=== PATIENT | female | born 1960 | race Caucasian/White ===

== ENCOUNTER 2017-09-10 14:45 | Emergency (ER) | payer MEDICAID, SELFPAY ==
[2017-09-10 14:47] VITALS: BP 139/67; PULSE 77; RESP 20; TEMP 36.5; O2SAT 97; BMI 47.7
--- NOTE | 2017-09-10 15:13 | EKG12_ITS ---
Test Reason : CHEST PAIN Blood Pressure : / mmHG Vent. Rate : 076 BPM Atrial Rate : 076 BPM P-R Int : 200 ms QRS Dur : 080 ms QT Int : 412 ms P-R-T Axes : 055 -72 036 degrees QTc Int : 463 ms Normal sinus rhythm Left axis deviation Low voltage QRS Abnormal ECG Confirmed by CONCEPCIÓN ODELL, FAYE ([id number]), assistant editor PEGGY CARABALLO ([id number]) on 09/15/2017 2:10:56 PM Referred By: Confirmed By:FAYE BEEBE MD
--- NOTE | 2017-09-10 15:13 | RAD_ITS ---
STUDY: X-RAY CHEST REASON FOR EXAM: Female, 56 years old. Chest pain. TECHNIQUE: Single AP portable view of the chest. COMPARISON: Comparison is made with prior study dated February 26, 2017. FINDINGS: EKG electrodes are seen. There is evidence of vascular congestion and mild degree of CHF. Blunting of the right costophrenic angle. There is moderate cardiac enlargement. Normal mediastinum and kimberley. Normal visualized pulmonary arteries. There is atherosclerotic calcification of the aortic arch with tortuosity. There are diffuse degenerative changes of the visualized thoracic spine. Normal visualized ribs, clavicles, and shoulders. There is no demonstrated abnormality of the visualized soft tissue structures of the upper abdomen. RAD/Chest 1 View (Portable) IMPRESSION: Cardiomegaly. Mild degree of CHF. Electronically Signed: Sergo Mata MD at 15:39 EST Tel [phone], Service support ,
[2017-09-10 15:26] LABS: Absolute Lymphocyte Count 2.22 X10^3/ul (0.83-4.51); Absolute Neutrophil Count 6.9 X10^3/uL (2.0-7.7); Basophil# 0.04 X10^3/uL; Basophil% 0.4 % (0-1); Eosinophil# 0.31 X10^3/uL; Eosinophils% 3.1 % (0-5); Hematocrit 42.6 % (37-47); Hemoglobin 13.8 g/dl (12.0-15.0); Lymphocyte # 2.22 X10^3/ul (4.0); Lymphocyte % 21.9 % (19-41); Mean Corp Hgb Conc 32.4 g/gl (32-36); Mean Corpuscular Hgb 28.4 pg (27.0-32.0); Mean Corpuscular Volume 87.7 fL (81-99); Mean Platelet Vol. 9.4 fl (6.2-12.0); Monocyte# 0.59 X10^3/uL; Monocyte% 5.8 % (0-10); Neutrophil # 6.93 X10^3/uL (2.7-7.7); Neutrophil % 68.5 % (47-70); Platelet Count 365 K/mm3 (150-450); RBC Distribution Width CV 14.7 % (11.6-14.6); RBC Distribution Width SD 47.2 fl (35.1-43.9); Red Blood Count 4.86 M/mm3 (4.2-5.4); White Blood Count 10.1 K/mm3 (4.4-11.0)
[2017-09-10] MEDS: Aspirin 81 MG TAB.CHEW 324 MG PO (15:30)
[2017-09-10 15:34] LABS: Anion Gap 3 (5-15); BUN 13 mg/dL (7-18); BUN/Creat Ratio 13.6 RATIO (10-20); Calcium,Total 8.5 mg/dL (8.5-10.1); Chloride 102 mmol/L (98-107); Creatinine, Serum 0.96 mg/dL (0.55-1.02); EST Glomerular Filtration Rate 64 mL/min (>60); Est Glom Filt Rate - Afr Amer 77 mL/min (>60); Estimated Creatinine Clearance 45.88 ml/min; Glucose 90 mg/dL (74-106); Potassium 3.6 mmol/L (3.5-5.1); Sodium Level 138 mmol/L (136-145)
[2017-09-10 15:36] LABS: POSITIVE COUNT NO; POSITIVE DIFFERENTIAL NO; POSITIVE MORPHOLOGY NO
[2017-09-10 15:56] VITALS: BP 153/57; PULSE 74; RESP 20; O2SAT 98
[2017-09-10 15:57] LABS: BNP,B-Type NATRIURETIC PEPTIDE 46.8 pg/mL (0-100)
[2017-09-10 16:44] VITALS: BP 148/81; PULSE 75; RESP 16; O2SAT 97
[2017-09-10] MEDS: Furosemide 40 MG/4 ML Vial IV (16:49)
--- NOTE | 2017-09-10 17:06 | ED.DCSUM_ITS ---
- ER Visit Summary Date of Service: 09/10/17 Chief Complaint: Chest pain and swelling History of Present Illness: The patient is a 56 F with a history of CHF, COPD, diabetes, hypertension, and depression. She is on home oxygen. She reports a 4 day history of left-sided chest pain. It is constant and unchanged with exertion. She denies significant shortness of breath. She is also complaining of increased swelling over the past 2 weeks. She was seen by her PCP last week and her Bumex was increased for 3 days. She reports no significant improvement in her swelling. Physical Examination: Vital signs are unremarkable. She is on 4 L nasal cannula at baseline. Head neck examination is unremarkable. Heart is regular rate and rhythm. No lung sounds with mild end expiratory wheezes. I do not appreciate any crackles. Abdomen is soft nontender. Lower external examination reveals 3-4+ edema, left leg slightly worse than right. She states this is a chronic condition with one leg being worse than the other. Patient has chronic skin changes of the shins with no sign of acute cellulitis. Test Results: Chest x-ray shows cardiomegaly and mild CHF. EKG is sinus at 76 with no sign of acute ischemia. CBC and chemistry studies are significant only for bicarb of 33. Troponin is less than 0.02. BNP is 46. Emergency Department Course and Treatment: On review of records patient had a nuclear stress test in May 2016 that was normal. At this time she is given 40 mg of IV Lasix. I spoke with the patient's primary care physician, Dr. Burnett. Her Bumex will be increased to 2 tabs twice daily and she is to call Friday with an update. Treatment Plan: [] Disposition: Discharge Impression: CHF with peripheral edema This note was generated with [employer] dictation software. It may contain incorrect words, spelling, and punctuation that were not noted in review of the chart prior to signing ED Disposition - Plan for ED Patient: Disposition: Home or Assisted Living Chief Complaint: Chest Pain Instructions: ED CHF General Referrals: John Burnett DO [Primary Care Provider] - 2 Days Additional Instructions: Per Dr Burnett, increase your Bumex to 2 tabs twice a day. Call him on Friday with an update.
[2017-09-10 17:21] VITALS: BP 120/85; PULSE 74; RESP 13; O2SAT 98
--- NOTE | 2017-09-10 17:22 | ED.RN ---
REVIEWED D/C INSTRUCTIONS, FOLLOW UP CARE, AND S/S THAT WOULD WARRANT A RETURN TO THE ED WITH PT. PT VERBALIZED AN UNDERSTANDING AND DENIES FURTHER QUESTIONS FOR THIS RN. PT SKIN P/W/D, RESP EVEN AND UNLABORED, PT A&O X 3, NO DISTRESS NOTED. PT ASSISTED OUT OF ED IN WHEELCHAIR.
== END 2017-09-10 17:24 | disposition home or self-care (01) ==
PROVIDERS: Emergency Provider Emergency Medicine; Family Provider Family Medicine; PCP Family Medicine
DX: I11.0 Hypertensive heart disease with heart failure (principal); I50.9 Heart failure, unspecified; R60.0 Localized edema; J44.9 Chronic obstructive pulmonary disease, unspecified; E11.9 Type 2 diabetes mellitus without complications; Z79.4 Long term (current) use of insulin; F32.9 Major depressive disorder, single episode, unspecified; Z99.81 Dependence on supplemental oxygen; E66.9 Obesity, unspecified; Z72.0 Tobacco use; Z79.82 Long term (current) use of aspirin; Z79.899 Other long term (current) drug therapy
CPT/HCPCS: 36415; 71045; 80048; 83880; 84484; 85025; 93005; 96374; 99285; A4216; J1940

== ENCOUNTER → 2017-10-02 16:02 | Outpatient (CLI) | payer MEDICAID, SELFPAY ==
--- NOTE | 2017-10-02 15:00 | LES_PTH ---
PATIENT: NASRIN ENGLAND LOC: [facility] U#:[id number] AGE/SX: 64/F ROOM: RE10/02/[address]: Dr. Julieth Brown DO : 1960 BED: DIS: SPEC #: [id number] RECD: 10/02/17 17:28 STATUS: ALAN ALEXANDRO #: [id number] JASPAL: 10/02/17 15:[address]: Julieth Brown DEPT: SURGICAL PATHOLOGY RECD BY: Adis Rubio ENTERED: 10/03/17 08:56 SP TYPE: Lesion OTHR DR: Dr. John Burnett DO Tissues: Skin of breast, NOS Procedures: Special Stain Group I Surgery Specimen Level IV AFB Stain (control) GMS Stain (control) HEADER OPERATION: Punch biopsy, left medial breast PRE-OP DIAGNOSIS: Nonhealing wound, rule out malignancy TISSUE SUBMITTED: Left medial breast FIXATION TIME: 100 hours MICROSCOPIC DIAGNOSIS Left medial breast skin, shave biopsy: Focal ulceration and acute and chronic inflammation. Negative for malignancy. Special stains for acid fast bacilli and fungi are negative for organisms; matched controls are appropriate. JACKIE:vianey 10/06/17 MICROSCOPIC DESCRIPTION Slides are reviewed. GROSS DESCRIPTION Received in fixative is one container labeled with the patient's name and designated left medial breast. The specimen consists of a piece of goodwin-white skin measuring 1 x 0.4 x 0.1 cm. The specimen is inked and submitted entirely in one cassette. It will be serially sectioned at the time of embedding. / JACKIE:vianey 10/03/17 TC:2 CPT: 92711, 66434 x2
== END ==
PROVIDERS: Family Provider Family Medicine; PCP Family Medicine; Visit Provider Family Medicine
DX: S21.002A Unspecified open wound of left breast, initial encounter (principal); X58.XXXA Exposure to other specified factors, initial encounter
CPT/HCPCS: 87070; 87075; 87077; 87205; 88305; 88312

== ENCOUNTER 2017-11-03 12:59 | Inpatient (IN) | payer MEDICAID, SELFPAY ==
[2017-11-03] VITALS (21 sets, daily range): BP systolic 121–143; BP diastolic 59–101; PULSE 65–95; RESP 10–20; TEMP 36.5–36.9; O2SAT 88–94; BMI 45.3; BMI 44.5; BMI 44.6
--- NOTE | 2017-11-03 13:23 | EKG12_ITS ---
Test Reason : SOB Blood Pressure : / mmHG Vent. Rate : 091 BPM Atrial Rate : 091 BPM P-R Int : 202 ms QRS Dur : 082 ms QT Int : 404 ms P-R-T Axes : 049 233 050 degrees QTc Int : 496 ms Normal sinus rhythm Low voltage QRS Borderline ECG Confirmed by CONCEPCIÓN ODELL, FAYE ([id number]), magazine editor PEGGY CARABALLO ([id number]) on 11/07/2017 3:00:37 PM Referred By: DIEGO/DARYN Confirmed By:FAYE BEEBE MD
--- NOTE | 2017-11-03 13:30 | RAD_ITS ---
STUDY: X-RAY CHEST REASON FOR EXAM: Female, 57 years old. Shortness of breath and cough TECHNIQUE: Single AP portable view of the chest. COMPARISON: 09/10/2017 FINDINGS: EKG leads overlie the chest Lungs are expanded, there is chronic interstitial changes with increased opacification in the right costophrenic angle suggesting atelectasis or infiltrate. Follow-up recommended to assure resolution. Stable nonspecific pleural thickening. Stable cardiomegaly. Normal mediastinum and kimberley. Normal visualized pulmonary arteries. Normal visualized aortic arch and descending thoracic aorta. There are diffuse degenerative changes of the visualized thoracic spine. Normal visualized ribs, clavicles, and shoulders. There is no demonstrated abnormality of the visualized soft tissue structures of the upper abdomen. RAD/Chest 1 View (Portable) IMPRESSION: Chronic interstitial changes with superimposed opacification in the right costophrenic angle suggesting infiltrate or atelectasis. Follow-up recommended to assure resolution Electronically Signed: Alphonso Farooq MD at 13:50 EDT , Service support ,
[2017-11-03] MEDS: 0.9% Normal Saline 1,000 ML 150 ML IV (13:44)
[2017-11-03] MEDS: Ipratropium/Albuterol Sulfate 3 ML AMPUL.NEB INHALATION ×3 (13:45→23:38)
[2017-11-03 13:47] LABS: Absolute Lymphocyte Count 1.02 X10^3/ul (0.83-4.51); Absolute Neutrophil Count 15.7 X10^3/uL (2.0-7.7); Basophil# 0.04 X10^3/uL; Basophil% 0.2 % (0-1); Eosinophil# 0.07 X10^3/uL; Eosinophils% 0.4 % (0-5); Hematocrit 48.3 % (37-47); Hemoglobin 15.9 g/dl (12.0-15.0); Lymphocyte # 1.02 X10^3/ul (4.0); Lymphocyte % 5.9 % (19-41); Mean Corp Hgb Conc 32.9 g/gl (32-36); Mean Corpuscular Hgb 27.6 pg (27.0-32.0); Mean Corpuscular Volume 83.7 fL (81-99); Mean Platelet Vol. 9.8 fl (6.2-12.0); Monocyte# 0.41 X10^3/uL; Monocyte% 2.4 % (0-10); Neutrophil # 15.73 X10^3/uL (2.7-7.7); Neutrophil % 90.9 % (47-70); Platelet Count 315 K/mm3 (150-450); RBC Distribution Width CV 13.5 % (11.6-14.6); RBC Distribution Width SD 41.1 fl (35.1-43.9); Red Blood Count 5.77 M/mm3 (4.2-5.4); White Blood Count 17.3 K/mm3 (4.4-11.0)
[2017-11-03 13:57] LABS: POSITIVE COUNT NO; POSITIVE DIFFERENTIAL NO; POSITIVE MORPHOLOGY NO
[2017-11-03 14:05] LABS: Anion Gap 7 (5-15); BUN 55 mg/dL (7-18); Calcium,Total 9.3 mg/dL (8.5-10.1); Chloride 75 mmol/L (98-107); Creatinine, Serum 1.72 mg/dL (0.55-1.02); EST Glomerular Filtration Rate 32 mL/min (>60); Est Glom Filt Rate - Afr Amer 39 mL/min (>60); Glucose 370 mg/dL (74-106); Potassium 3.3 mmol/L (3.5-5.1); Sodium Level 123 mmol/L (136-145)
[2017-11-03 14:15] LABS: Allen Test POS; Base Excess 20 mmol/L (-2 to +2); Bicarbonate 43.7 mmol/L (22-26); Blood Gas Specimen Type ART; EPAP 6; FI02 45; IPAP 14; PO2 55 mmHG (75-100); RR 12; SITE R Radial; SO2 88 % (95-99); Time Given 1403; Total Carbon Dioxide 45 mmol/L; pCO2 60.8 mmHg (35-45); pH 7.46 (7.35-7.45)
[2017-11-03] MEDS: Ceftriaxone 1 GM/50 ML BAG IV (14:21)
[2017-11-03 14:22] LABS: BNP,B-Type NATRIURETIC PEPTIDE 40.6 pg/mL (0-100)
--- NOTE | 2017-11-03 14:26 | ED.VISSUMM ---
- ER Visit Summary Date of Service: 11/03/17 Chief Complaint: [Shortness of breath] History of Present Illness: The patient is a 57 F [presents to the emergency department via EMS from home with 3 day history of increasing shortness of breath. Patient has had thick green phlegm production and cough. Patient denies any fever. She denies any chest pain. She describes diffuse fatigue. Patient normally on 4 L of home O2. On EMS arrival patient's O2 sat was in the 70s. Patient received Solu-Medrol and DuoNeb aerosol per EMS.] Physical Examination: [HEENT-PERRLA, EOMI. Cranial nerves II through XII grossly intact. TMs clear. Mucous membranes moist. No adenopathy. Cardiovascular-regular rate and rhythm without murmur or ectopy Lungs-decreased breath sounds bilaterally with rhonchi and expiratory wheezes throughout. Patient is tachypneic. No accessory muscle use or retractions. Abdomen-normoactive bowel sounds, soft, nontender, no rebound or rigidity, no peritoneal signs. Extremities-intact ?4, normal range of motion, normal pulses, atraumatic] Test Results: [EKG obtained on arrival shows sinus rhythm with a ventricular rate of 91 bpm with low voltage QRSs. CBC with differential obtained showed a white count of 17.3, hemoglobin 15.9, hematocrit 48, platelets 315. Chemistry showed a sodium 123 potassium 3.3, chloride 75, CO2 41, BUN 55, creatinine 1.72, glucose 370. Troponin was less than 0.02. Chest x-ray obtained showed chronic changes and a questionable right lower lobe infiltrate. Blood gas showed a pH of 7.46 CO2 of 60 PaO2 of 55 bicarb 43.7 O2 sat 88% on an FiO2 of 45%.] Emergency Department Course and Treatment: [Patient was started on BiPAP and given a DuoNeb aerosol. Patient was started on Rocephin and Zithromax. Blood cultures were ordered.] Treatment Plan: [Admit for antibiotics and further treatment of hypoxemia Disposition: [Admit] Impression: [Pneumonia Hypoxemia Hyponatremia COPD exacerbation] This note was generated with [employer] software. It may contain incorrect words, spelling, and punctuation that were not noted in review of the chart prior to signing ED Disposition - Plan for ED Patient: Chief Complaint: Shortness of Breath Referrals: John Burnett DO [Primary Care Provider] -
--- NOTE | 2017-11-03 14:29 | ED.DCSUM_ITS ---
- ER Visit Summary Date of Service: 11/03/17 Chief Complaint: [Shortness of breath] History of Present Illness: The patient is a 57 F [presents to the emergency department via EMS from home with 3 day history of increasing shortness of breath. Patient has had thick green phlegm production and cough. Patient denies any fever. She denies any chest pain. She describes diffuse fatigue. Patient normally on 4 L of home O2. On EMS arrival patient's O2 sat was in the 70s. Patient received Solu-Medrol and DuoNeb aerosol per EMS.] Physical Examination: [HEENT-PERRLA, EOMI. Cranial nerves II through XII grossly intact. TMs clear. Mucous membranes moist. No adenopathy. Cardiovascular-regular rate and rhythm without murmur or ectopy Lungs-decreased breath sounds bilaterally with rhonchi and expiratory wheezes throughout. Patient is tachypneic. No accessory muscle use or retractions. Abdomen-normoactive bowel sounds, soft, nontender, no rebound or rigidity, no peritoneal signs. Extremities-intact ?4, normal range of motion, normal pulses, atraumatic] Test Results: [EKG obtained on arrival shows sinus rhythm with a ventricular rate of 91 bpm with low voltage QRSs. CBC with differential obtained showed a white count of 17.3, hemoglobin 15.9, hematocrit 48, platelets 315. Chemistry showed a sodium 123 potassium 3.3, chloride 75, CO2 41, BUN 55, creatinine 1.72 , glucose 370. Troponin was less than 0.02. Chest x-ray obtained showed chronic changes and a questionable right lower lobe infiltrate. Blood gas showed a pH of 7.46 CO2 of 60 PaO2 of 55 bicarb 43.7 O2 sat 88% on an FiO2 of 45 %.] Emergency Department Course and Treatment: [Patient was started on BiPAP and given a DuoNeb aerosol. Patient was started on Rocephin and Zithromax. Blood cultures were ordered.] Treatment Plan: [Admit for antibiotics and further treatment of hypoxemia Disposition: [Admit] Impression: [Pneumonia Hypoxemia Hyponatremia COPD exacerbation] This note was generated with [employer]ation software. It may contain incorrect words, spelling, and punctuation that were not noted in review of the chart prior to signing ED Disposition - Plan for ED Patient: Chief Complaint: Shortness of Breath Referrals: John Burnett DO [Primary Care Provider] -
--- NOTE | 2017-11-03 15:10 | CASEMGMT ---
Addendum entered by Pati Blair 11/03/17 15:22: Social Work Note Call from Umm Art confirming pt was being admitted. States that pt has independent aide services and her [id number] provides some of her care. Ezwydeqf-zg-siq is Maricruz Rodriguez and phone number is [phone]. Umm requests to be notified of discharge plan and date once known. AKOSUA Prieto, SENIOR COMMERCIAL LOAN OFFICER Original Note: Social Work Note In to complete initial assessment. Introduced self and role at [facility]. Pt reports to live alone in a one level trailer with 4 steps for entry. Pt denies use of DME. Pt reports to be independent with ADLs, but does not drive. Confirms that her PCP is Dr. Burnett, and her preferred pharmacy is [facility] in [place]. Pt denies having advanced directives. Offer to assist the pt with completion and she requests that this be done tomorrow. Pt claims she has a case finisher through [facility] and her name is Umm Art. Placed call to [facility] and notified that pt was being admitted. According to the pt she has aide services 53 hrs/week and they come out daily. Does not anticipate additional needs at discharge, but is aware that SW on assigned unit will follow if d/c needs arise. AKOSUA Prieto, SENIOR COMMERCIAL LOAN OFFICER
--- NOTE | 2017-11-03 15:13 | PCM.HP.STD ---
Problem List (1) Essential (primary) hypertension Status: Chronic (2) DM2 (diabetes mellitus, type 2) Status: Chronic (3) Morbid obesity Status: Chronic (4) Heart failure with preserved ejection fraction Status: Chronic (5) Depression Status: Chronic (6) Severe chronic obstructive pulmonary disease Status: Chronic History of Present Illness Date of Admission: 11/03/17 Chief Complaint: Shortness of breath, lethargy. The patient is a 57 year old F with past medical history as mentioned above presented to the emergency room because of worsening shortness of breath. Her illness started around 3 days ago with increasing shortness of breath, at rest, aggravated by minimal activity and she could not even walk for a few steps, not relieved by rest, associated with productive cough with green sputum as well as wheezing. She has been using oxygen chronically at 4 L but without improvement. She denies fever or chills. No chest pain, palpitation, dizziness or lightheadedness. 4 days ago, she went to see her PCP who prescribed prednisone for COPD exacerbation. She mentioned that her breathing is not getting any better and just getting worse. Upon arrival of the squad to arouse, patient pulse ox was in the 70s on 4 L of oxygen. In the emergency room, she was afebrile, blood pressure and heart rate were stable and her pulse oximeter was 88% on 4 L. Her routine blood work was remarkable for leukocytosis, sodium of 123, potassium of 3.3 and creatinine of 1.72. Her blood glucose was 370. Troponin was negative. BNP was 40. Chest x-ray showed blunting of both costophrenic angles, questionable infiltrate versus atelectasis on the right base, no significant difference from the previous chest x-ray but underlying infiltrate cannot be ruled out. EKG revealed normal sinus rhythm with prolonged QTC, no acute ischemic changes. Her ABG revealed pH of 7.46, PCO2 of 60 and PO2 of 55. She is being admitted for acute COPD exacerbation, acute on chronic hypoxic and hypercapnic respiratory failure, hyponatremia, hypokalemia, acute kidney injury and probable healthcare associated pneumonia. Past Medical History Past Medical History (Chronic Problems): Chronic Problems (Last Updated 11/03/17 @ 14:57 by Cherelle Mercedes MD) Essential (primary) hypertension (Chronic) DM2 (diabetes mellitus, type 2) (Chronic) Morbid obesity (Chronic) Heart failure with preserved ejection fraction (Chronic) Uncontrolled type II diabetes mellitus (Chronic) Nicotine addiction (Chronic) Depression (Chronic) Severe chronic obstructive pulmonary disease (Chronic) Allergies amitriptyline Allergy (Verified 06/07/17 17:49) Unknown lisinopril Allergy (Verified 02/26/17 11:15) Angioedema duloxetine [From Cymbalta] Adverse Reaction (Verified 06/07/17 17:49) Upset Stomach pregabalin [From Lyrica] Adverse Reaction (Verified 06/07/17 17:49) bad dreams varenicline [From Chantix] Adverse Reaction (Verified 02/26/17 11:15) Unknown ZYBETA Allergy (Uncoded 02/26/17 11:15) Other Home Medications: Ambulatory Orders Medication Instructions Recorded Topiramate [Topamax] 200 mg PO BID #60 04/12/16 Fenofibrate [Tricor] 145 mg PO DAILY 05/20/16 Senna [Senokot] 2 tablet PO DAILY 05/20/16 Tiotropium [place] [Spiriva 2 puff IH DAILY 05/20/16 Respimat] Albuterol Aerosols [Ventolin 2.5 mg INHALATION Q6H PRN PRN 02/26/17 Aerosols] Albuterol Inhaler [Ventolin Hfa] 1 - 2 puff INHALATION Q6H PRN PRN 02/26/17 Betamethasone Valerate [Valisone 1 applic TOPICAL BID 02/26/17 0.1% Cream] Bumetanide [Bumex] 2 mg PO BID 02/26/17 Fluticasone/Vilanterol [Breo 1 puff INHALATION DAILY 02/26/17 Ellipta 200-25 Mcg INH] Loratadine [Claritin] 10 mg PO DAILY 02/26/17 Lorazepam [Ativan] 0.5 - 1 mg PO TID PRN 02/26/17 Omeprazole [Prilosec] 40 mg PO DAILY 02/26/17 Oxygen, Home [Home Oxygen] 4 lpm NASAL DAILY 02/26/17 Simvastatin [Zocor] 40 mg PO QHS 02/26/17 Vit C/E/Zn/Coppr/Lutein/Zeaxan 1 each PO BID 02/26/17 [Preservision Areds 2 Softgel] Aspirin [Aspir-Low] 81 mg PO BID 09/10/17 Cyclobenzaprine [Flexeril] 10 mg PO TID PRN PRN 09/10/17 Escitalopram Oxalate [Lexapro] 10 mg PO DAILY 09/10/17 Gabapentin [Neurontin] 400 mg PO TID 09/10/17 Insulin Human 70/30 [Novolog Mix 60 units SC BID 09/10/17 70-30 Flexpen Syrn] Chlorthalidone 50 mg PO DAILY 11/03/17 Dexamethasone [Decadron] 1 mg PO DAILY 11/03/17 Oxycodone [Oxyir] 10 mg PO Q6H PRN PRN 11/03/17 Prednisone 20 mg PO DAILY 11/03/17 Surgical History: hysterectomy, tonsillectomy, of section, of tubal ligation Psychiatric History: No pertinent psych hx [employer] SERV[employer]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 Denies: Anorexia, Chills, Fever Eyes: Denies: Blurred vision, Double vision, Drainage, Redness HEENT: Denies: Difficulty Hearing, Ear Pain, Eye Pain, Nasal Congestion, Sore Throat Cardiovascular: Denies: Chest Pain, Claudication, Chest Pressure, Edema, Heaviness, Palpitations, Paroxysmal Noc. Dyspnea, Syncope Respiratory: Reports: Cough, Shortness of Breath, Shortness of breath at rest, Shortness of breath upon exertion, Sputum production, Wheezing. Denies: Hemoptysis, Pleuritic Pain Gastrointestinal: Denies: Abdominal Pain, Constipation, Diarrhea, Nausea, Vomiting Genitourinary: Denies: Dysuria, Frequency, Hematuria Musculoskeletal: Denies: Arm Pain, Back Pain, Foot Pain Skin: Denies: Dryness, Rash Neurological: Denies: Balance problems, Double vision, Change in Speech, Slurred speech, Confusion, Focal weakness, Headaches, Incoordination, Numbness Psychiatric: Denies: Anxiety, Depression Endocrine: Denies: Change in Body Habitus, Polydipsia VTE Information - Inpt Only VTE Present on Admission: No VTE Mechan Device Prophylaxis: None VTE Pharm Prophylaxis ordered?: Yes - Physical Exam General: Alert, Oriented x3, Cooperative, - - Moderately short of breath, on BiPAP. HEENT: Atraumatic, PERRLA, EOMI Oral: Moist Mucosa, No Gingival or Mucosal Lesions/ Ulcerations Neck: Supple, No JVD, Trachea Midline, Thyroid Normal Size and Texture Lungs: No rales, Diminished, Rhonchi, Short of Breath, Tachypneic, Wheezes, - - Decreased breath sounds bilateral, bilateral expiratory wheezes, rhonchi. Cardiovascular: Regular rate, Regular Rhythm, Normal S1, Normal S2, PMI Normal Abdomen: Bowel Sounds Present, Soft, Non Tender, Non-Distended, No Hepato-splenomegaly, Obese Extremities: No clubbing, No cyanosis, Edema - Trace edema. Skin: No rashes, No breakdown Lymphatic: No Cervical, Supraclavicular, or Inguinal Adenopathy Neurological: Cranial nerves II-XII grossly intact, Motor Exam 5/5 strength throughout Psych/Mental Status: Normal Affect, Appropriate, Alert and oriented to time, place, person, mood and affect Vital Signs Temp Pulse Resp BP Pulse Ox 98.4 F 93 14 143/70 H 93 11/03/17 13:19 11/03/17 15:09 11/03/17 15:09 11/03/17 15:09 11/03/17 15:09 Oxygen Flow Rate (L/min) 15 Oxygen Delivery Method Bi-pap Weight: 231 lb 14.821 oz Body Mass Index (BMI) 45.3 Finger Stick Blood Glucose 107 Laboratory Tests Past 24 Hrs 11/03/17 11/03/17 11/03/17 13:30 13:30 13:30 WBC 17.3 H RBC 5.77 H Hgb 15.9 H Hct 48.3 H MCV 83.7 MCH 27.6 MCHC 32.9 RDW 13.5 RDW Differential 41.1 Plt Count 315 MPV 9.8 Immature Gran % (Auto) 0.200 Neut % (Auto) 90.9 H Lymph % (Auto) 5.9 L [place] % (Auto) 2.4 Eos % (Auto) 0.4 Baso % (Auto) 0.2 Absolute Neuts (auto) 15.7 H Absolute Lymphs (auto) 1.02 Total Counted Not Reportable Specimen Type Sample Site pH Bicarbonate Actual POC Total CO2 Base Excess O2 Saturation O2 % ABG pCO2 ABG pO2 Bob Test Respiration Rate O2 Delivery Device EPAP IPAP Blood Gas Notified Whom Blood Gas Notified Time Sodium 123 L Potassium 3.3 L Chloride 75 L Carbon Dioxide 41.0 H Anion Gap 7 BUN 55 H Creatinine 1.72 H Estim Creat Clear Calc 25.30 Est GFR (MDRD) Af Amer 39 L Est GFR (MDRD) Non-Af 32 L BUN/Creatinine Ratio 32.0 H Glucose 370 H Calcium 9.3 Troponin I < 0.02 B-Natriuretic Peptide 40.6 11/03/17 14:10 WBC RBC Hgb Hct MCV MCH MCHC RDW RDW Differential Plt Count MPV Immature Gran % (Auto) Neut % (Auto) Lymph % (Auto) [place] % (Auto) Eos % (Auto) Baso % (Auto) Absolute Neuts (auto) Absolute Lymphs (auto) Total Counted Specimen Type ART Sample Site R Radial pH 7.46 H Bicarbonate Actual 43.7 H POC Total CO2 45 Base Excess 20 H O2 Saturation 88 L O2 % 45 ABG pCO2 60.8 H ABG pO2 55 L Bob Test POS Respiration Rate 12 O2 Delivery Device Bi / C PAP EPAP 6 IPAP 14 Blood Gas Notified Whom ED Blood Gas Notified Time 1403 Sodium Potassium Chloride Carbon Dioxide Anion Gap BUN Creatinine Estim Creat Clear Calc Est GFR (MDRD) Af Amer Est GFR (MDRD) Non-Af BUN/Creatinine Ratio Glucose Calcium Troponin I B-Natriuretic Peptide Clinical Impression(s) from Imaging Studies Chest X-Ray 11/03/17 13:30 IMPRESSION: Chronic interstitial changes with superimposed opacification in the right costophrenic angle suggesting infiltrate or atelectasis. Follow-up recommended to assure resolution Electronically Signed: Alphonso Farooq MD at 13:50 EDT , Service support , Assessment/Plan This is a 57 years old female patient presented to the emergency room because of worsening shortness of breath, wheezing and productive cough and she was found to have acute COPD exacerbation complicated by acute on chronic hypoxic and hypercapnic respiratory failure, questionable pneumonia, electrolyte abnormalities and acute kidney injury. #1 acute COPD exacerbation: Chest x-ray reviewed, probable right lower lobe infiltrate although it looks chronic. Plan: Admit to PCU, cardiac monitoring, DuoNeb every 4 hours, albuterol as needed, IV Solu-Medrol, sputum culture, incentive spirometer, chest physical therapy, empiric IV antibiotics as below, continue BiPAP for now, oxygen by nasal cannula to keep O2 saturation more than 92%, PT OT evaluation and treatment. #2 acute on chronic hypoxic and hypercapnic respiratory failure: Patient is on home oxygen at 4 L. In the ER, her pulse ox was 88% on 4 L. This is secondary to above in addition to questionable pneumonia. Plan to treat underlying COPD exacerbation and questionable pneumonia as above and below. #3 questionable healthcare associated pneumonia: Chest x-ray reviewed. She does have a leukocytosis but she has been on prednisone for the last 4 days. She is afebrile. Plan: Blood culture, sputum culture, urinalysis, urine culture, start IV Zosyn and Levaquin for probable healthcare associated pneumonia because patient was admitted back in September. #4 acute kidney injury: Probably due to dehydration because patient has been on Bumex and chlorthalidone as well as poor oral intake. Her baseline kidney function has been normal. Admission creatinine is 1.72. Plan: Gentle IV fluids for hydration with potassium replacement, avoid volume overload, hold Bumex, continue chlorthalidone, repeat BMP tomorrow morning. #5 hyponatremia/hypokalemia: Again, this is likely due to Bumex and chlorthalidone. Her sodium is 123. Plan: Urine osmolality, plasma osmolality, urine sodium and chloride, hold Bumex, IV fluids with potassium replacement for gentle hydration, avoid volume overload, repeat BMP tomorrow morning, check serum magnesium. #6 COPD/chronic respiratory failure: Secondary to COPD and morbid obesity as well as history of diastolic CHF. At home, she has been on 4 L. Plan as above. #7 type 2 diabetes mellitus: ADA diet, Accu-Cheks, insulin sliding scale, continue home doses of insulin. #8 hypertension: Blood pressure stable, continue chlorthalidone. #9 chronic diastolic CHF: Clinically stable, BNP is normal. Plan to hold Bumex, continue chlorthalidone, gentle IV fluids for hydration, close monitoring of volume status to avoid volume overload. #10 DVT prophylaxis: Subcu heparin. This note was generated with [employer] dictation software. It may contain incorrect words, spelling, and punctuation that were not noted in checking the note before signing. Code Visit Inpatient E&M: 72897 Init Hosp L3
--- NOTE | 2017-11-03 15:20 | HP.PCM_ITS ---
Problem List (1) Essential (primary) hypertension Status: Chronic (2) DM2 (diabetes mellitus, type 2) Status: Chronic (3) Morbid obesity Status: Chronic (4) Heart failure with preserved ejection fraction Status: Chronic (5) Depression Status: Chronic (6) Severe chronic obstructive pulmonary disease Status: Chronic History of Present Illness Date of Admission: 11/03/17 Chief Complaint: Shortness of breath, lethargy. The patient is a 57 year old F with past medical history as mentioned above presented to the emergency room because of worsening shortness of breath. Her illness started around 3 days ago with increasing shortness of breath, at rest, aggravated by minimal activity and she could not even walk for a few steps, not relieved by rest, associated with productive cough with green sputum as well as wheezing. She has been using oxygen chronically at 4 L but without improvement. She denies fever or chills. No chest pain, palpitation, dizziness or lightheadedness. 4 days ago, she went to see her PCP who prescribed prednisone for COPD exacerbation. She mentioned that her breathing is not getting any better and just getting worse. Upon arrival of the squad to arouse, patient pulse ox was in the 70s on 4 L of oxygen. In the emergency room , she was afebrile, blood pressure and heart rate were stable and her pulse oximeter was 88% on 4 L. Her routine blood work was remarkable for leukocytosis , sodium of 123, potassium of 3.3 and creatinine of 1.72. Her blood glucose was 370. Troponin was negative. BNP was 40. Chest x-ray showed blunting of both costophrenic angles, questionable infiltrate versus atelectasis on the right base, no significant difference from the previous chest x-ray but underlying infiltrate cannot be ruled out. EKG revealed normal sinus rhythm with prolonged QTC, no acute ischemic changes. Her ABG revealed pH of 7.46, PCO2 of 60 and PO2 of 55. She is being admitted for acute COPD exacerbation, acute on chronic hypoxic and hypercapnic respiratory failure, hyponatremia, hypokalemia, acute kidney injury and probable healthcare associated pneumonia. Past Medical History Past Medical History (Chronic Problems): Chronic Problems (Last Updated 11/03/17 @ 14:57 by Cherelle Mercedes MD) Essential (primary) hypertension (Chronic) DM2 (diabetes mellitus, type 2) (Chronic) Morbid obesity (Chronic) Heart failure with preserved ejection fraction (Chronic) Uncontrolled type II diabetes mellitus (Chronic) Nicotine addiction (Chronic) Depression (Chronic) Severe chronic obstructive pulmonary disease (Chronic) Allergies amitriptyline Allergy (Verified 06/07/17 17:49) Unknown lisinopril Allergy (Verified 02/26/17 11:15) Angioedema duloxetine [From Cymbalta] Adverse Reaction (Verified 06/07/17 17:49) Upset Stomach pregabalin [From Lyrica] Adverse Reaction (Verified 06/07/17 17:49) bad dreams varenicline [From Chantix] Adverse Reaction (Verified 02/26/17 11:15) Unknown ZYBETA Allergy (Uncoded 02/26/17 11:15) Other Home Medications: Ambulatory Orders Medication Instructions Recorded Topiramate [Topamax] 200 mg PO BID #60 04/12/16 Fenofibrate [Tricor] 145 mg PO DAILY 05/20/16 Senna [Senokot] 2 tablet PO DAILY 05/20/16 Tiotropium [place] [Spiriva 2 puff IH DAILY 05/20/16 Respimat] Albuterol Aerosols [Ventolin 2.5 mg INHALATION Q6H PRN PRN 02/26/17 Aerosols] Albuterol Inhaler [Ventolin Hfa] 1 - 2 puff INHALATION Q6H PRN PRN 02/26/17 Betamethasone Valerate [Valisone 1 applic TOPICAL BID 02/26/17 0.1% Cream] Bumetanide [Bumex] 2 mg PO BID 02/26/17 Fluticasone/Vilanterol [Breo 1 puff INHALATION DAILY 02/26/17 Ellipta 200-25 Mcg INH] Loratadine [Claritin] 10 mg PO DAILY 02/26/17 Lorazepam [Ativan] 0.5 - 1 mg PO TID PRN 02/26/17 Omeprazole [Prilosec] 40 mg PO DAILY 02/26/17 Oxygen, Home [Home Oxygen] 4 lpm NASAL DAILY 02/26/17 Simvastatin [Zocor] 40 mg PO QHS 02/26/17 Vit C/E/Zn/Coppr/Lutein/Zeaxan 1 each PO BID 02/26/17 [Preservision Areds 2 Softgel] Aspirin [Aspir-Low] 81 mg PO BID 09/10/17 Cyclobenzaprine [Flexeril] 10 mg PO TID PRN PRN 09/10/17 Escitalopram Oxalate [Lexapro] 10 mg PO DAILY 09/10/17 Gabapentin [Neurontin] 400 mg PO TID 09/10/17 Insulin Human 70/30 [Novolog Mix 60 units SC BID 09/10/17 70-30 Flexpen Syrn] Chlorthalidone 50 mg PO DAILY 11/03/17 Dexamethasone [Decadron] 1 mg PO DAILY 11/03/17 Oxycodone [Oxyir] 10 mg PO Q6H PRN PRN 11/03/17 Prednisone 20 mg PO DAILY 11/03/17 Surgical History: hysterectomy, tonsillectomy, of section, of tubal ligation Psychiatric History: No pertinent psych hx 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 Denies: Anorexia, Chills, Fever Eyes: Denies: Blurred vision, Double vision, Drainage, Redness HEENT: Denies: Difficulty Hearing, Ear Pain, Eye Pain, Nasal Congestion, Sore Throat Cardiovascular: Denies: Chest Pain, Claudication, Chest Pressure, Edema, Heaviness, Palpitations, Paroxysmal Noc. Dyspnea, Syncope Respiratory: Reports: Cough, Shortness of Breath, Shortness of breath at rest, Shortness of breath upon exertion, Sputum production, Wheezing. Denies: Hemoptysis, Pleuritic Pain Gastrointestinal: Denies: Abdominal Pain, Constipation, Diarrhea, Nausea, Vomiting Genitourinary: Denies: Dysuria, Frequency, Hematuria Musculoskeletal: Denies: Arm Pain, Back Pain, Foot Pain Skin: Denies: Dryness, Rash Neurological: Denies: Balance problems, Double vision, Change in Speech, Slurred speech, Confusion, Focal weakness, Headaches, Incoordination, Numbness Psychiatric: Denies: Anxiety, Depression Endocrine: Denies: Change in Body Habitus, Polydipsia VTE Information - Inpt Only VTE Present on Admission: No VTE Mechan Device Prophylaxis: None VTE Pharm Prophylaxis ordered?: Yes - Physical Exam General: Alert, Oriented x3, Cooperative, - - Moderately short of breath, on BiPAP. HEENT: Atraumatic, PERRLA, EOMI Oral: Moist Mucosa, No Gingival or Mucosal Lesions/ Ulcerations Neck: Supple, No JVD, Trachea Midline, Thyroid Normal Size and Texture Lungs: No rales, Diminished, Rhonchi, Short of Breath, Tachypneic, Wheezes, - - Decreased breath sounds bilateral, bilateral expiratory wheezes, rhonchi. Cardiovascular: Regular rate, Regular Rhythm, Normal S1, Normal S2, PMI Normal Abdomen: Bowel Sounds Present, Soft, Non Tender, Non-Distended, No Hepato- splenomegaly, Obese Extremities: No clubbing, No cyanosis, Edema - Trace edema. Skin: No rashes, No breakdown Lymphatic: No Cervical, Supraclavicular, or Inguinal Adenopathy Neurological: Cranial nerves II-XII grossly intact, Motor Exam 5/5 strength throughout Psych/Mental Status: Normal Affect, Appropriate, Alert and oriented to time, place, person, mood and affect Vital Signs Temp Pulse Resp BP Pulse Ox 98.4 F 93 14 143/70 H 93 11/03/17 13:19 11/03/17 15:09 11/03/17 15:09 11/03/17 15:09 11/03/17 15:09 Oxygen Flow Rate (L/min) 15 Oxygen Delivery Method Bi-pap Weight: 231 lb 14.821 oz Body Mass Index (BMI) 45.3 Finger Stick Blood Glucose 107 Laboratory Tests Past 24 Hrs 11/03/17 11/03/17 11/03/17 13:30 13:30 13:30 WBC 17.3 H RBC 5.77 H Hgb 15.9 H Hct 48.3 H MCV 83.7 MCH 27.6 MCHC 32.9 RDW 13.5 RDW Differential 41.1 Plt Count 315 MPV 9.8 Immature Gran % (Auto) 0.200 Neut % (Auto) 90.9 H Lymph % (Auto) 5.9 L Barber % (Auto) 2.4 Eos % (Auto) 0.4 Baso % (Auto) 0.2 Absolute Neuts (auto) 15.7 H Absolute Lymphs (auto) 1.02 Total Counted Not Reportable Specimen Type Sample Site pH Bicarbonate Actual POC Total CO2 Base Excess O2 Saturation O2 % ABG pCO2 ABG pO2 Bob Test Respiration Rate O2 Delivery Device EPAP IPAP Blood Gas Notified Whom Blood Gas Notified Time Sodium 123 L Potassium 3.3 L Chloride 75 L Carbon Dioxide 41.0 H Anion Gap 7 BUN 55 H Creatinine 1.72 H Estim Creat Clear Calc 25.30 Est GFR (MDRD) Af Amer 39 L Est GFR (MDRD) Non-Af 32 L BUN/Creatinine Ratio 32.0 H Glucose 370 H Calcium 9.3 Troponin I < 0.02 B-Natriuretic Peptide 40.6 11/03/17 14:10 WBC RBC Hgb Hct MCV MCH MCHC RDW RDW Differential Plt Count MPV Immature Gran % (Auto) Neut % (Auto) Lymph % (Auto) Barber % (Auto) Eos % (Auto) Baso % (Auto) Absolute Neuts (auto) Absolute Lymphs (auto) Total Counted Specimen Type ART Sample Site R Radial pH 7.46 H Bicarbonate Actual 43.7 H POC Total CO2 45 Base Excess 20 H O2 Saturation 88 L O2 % 45 ABG pCO2 60.8 H ABG pO2 55 L Bob Test POS Respiration Rate 12 O2 Delivery Device Bi / C PAP EPAP 6 IPAP 14 Blood Gas Notified Whom ED Blood Gas Notified Time 1403 Sodium Potassium Chloride Carbon Dioxide Anion Gap BUN Creatinine Estim Creat Clear Calc Est GFR (MDRD) Af Amer Est GFR (MDRD) Non-Af BUN/Creatinine Ratio Glucose Calcium Troponin I B-Natriuretic Peptide Clinical Impression(s) from Imaging Studies Chest X-Ray 11/03/17 13:30 IMPRESSION: Chronic interstitial changes with superimposed opacification in the right costophrenic angle suggesting infiltrate or atelectasis. Follow-up recommended to assure resolution Electronically Signed: Alphonso Farooq MD at 13:50 EDT , Service support , Assessment/Plan This is a 57 years old female patient presented to the emergency room because of worsening shortness of breath, wheezing and productive cough and she was found to have acute COPD exacerbation complicated by acute on chronic hypoxic and hypercapnic respiratory failure, questionable pneumonia, electrolyte abnormalities and acute kidney injury. #1 acute COPD exacerbation: Chest x-ray reviewed, probable right lower lobe infiltrate although it looks chronic. Plan: Admit to PCU, cardiac monitoring, DuoNeb every 4 hours, albuterol as needed, IV Solu-Medrol, sputum culture, incentive spirometer, chest physical therapy, empiric IV antibiotics as below, continue BiPAP for now, oxygen by nasal cannula to keep O2 saturation more than 92%, PT OT evaluation and treatment. #2 acute on chronic hypoxic and hypercapnic respiratory failure: Patient is on home oxygen at 4 L. In the ER, her pulse ox was 88% on 4 L. This is secondary to above in addition to questionable pneumonia. Plan to treat underlying COPD exacerbation and questionable pneumonia as above and below. #3 questionable healthcare associated pneumonia: Chest x-ray reviewed. She does have a leukocytosis but she has been on prednisone for the last 4 days. She is afebrile. Plan: Blood culture, sputum culture, urinalysis, urine culture , start IV Zosyn and Levaquin for probable healthcare associated pneumonia because patient was admitted back in September. #4 acute kidney injury: Probably due to dehydration because patient has been on Bumex and chlorthalidone as well as poor oral intake. Her baseline kidney function has been normal. Admission creatinine is 1.72. Plan: Gentle IV fluids for hydration with potassium replacement, avoid volume overload, hold Bumex, continue chlorthalidone, repeat BMP tomorrow morning. #5 hyponatremia/hypokalemia: Again, this is likely due to Bumex and chlorthalidone. Her sodium is 123. Plan: Urine osmolality, plasma osmolality, urine sodium and chloride, hold Bumex, IV fluids with potassium replacement for gentle hydration, avoid volume overload, repeat BMP tomorrow morning, check serum magnesium. #6 COPD/chronic respiratory failure: Secondary to COPD and morbid obesity as well as history of diastolic CHF. At home, she has been on 4 L. Plan as above. #7 type 2 diabetes mellitus: ADA diet, Accu-Cheks, insulin sliding scale, continue home doses of insulin. #8 hypertension: Blood pressure stable, continue chlorthalidone. #9 chronic diastolic CHF: Clinically stable, BNP is normal. Plan to hold Bumex , continue chlorthalidone, gentle IV fluids for hydration, close monitoring of volume status to avoid volume overload. #10 DVT prophylaxis: Subcu heparin. This note was generated with [employer] dictation software. It may contain incorrect words, spelling, and punctuation that were not noted in checking the note before signing. Code Visit Inpatient E&M: 64097 Init Hosp L3
--- NOTE | 2017-11-03 15:40 | ED.RN ---
PCU will call when bed ready
--- NOTE | 2017-11-03 17:12 | NURSING ---
Home Med list obtained for [facility]. This list entered and confirmed. Unconfirmed meds and doses remain with ? until pt can confirm. Questionable comprehension at this time... pt is drowsy.
[2017-11-03] MEDS: Gabapentin 400 MG Capsule PO (17:53)
[2017-11-03 18:11] LABS: Bedside Glucose 417 mg/dL (70-110)
[2017-11-03] MEDS: levoFLOXacin IV 500 MG/100 ML BAG 100 MG IV (18:37)
[2017-11-03 19:30] LABS: Magnesium 2.6 mg/dL (1.6-2.6)
[2017-11-03] MEDS: Piperacil/Tazobactam 3.375 GM/50 ML ML IV (21:34)
[2017-11-03] MEDS: Atorvastatin Calcium 20 MG Tablet PO (21:34)
[2017-11-03] MEDS: Topiramate 200 MG Tablet PO (21:34)
[2017-11-03] MEDS: Aspirin E.C. 81 MG Tablet PO (21:34)
[2017-11-03] MEDS: Heparin Injection (Vial) 5,000 UNIT/ML VIAL 5000 UNIT SC (21:36)
[2017-11-03 22:11] LABS: Bedside Glucose 383 mg/dL (70-110)
[2017-11-03 22:17] LABS: Osmolality, Serum 304 mOsm/KG (275-295)
[2017-11-04] VITALS (20 sets, daily range): BP systolic 113–149; BP diastolic 59–64; PULSE 68–86; RESP 12–22; TEMP 36.4–36.7; O2SAT 90–99
[2017-11-04 00:01] LABS: Bedside Glucose 296 mg/dL (70-110)
[2017-11-04] MEDS: Ipratropium/Albuterol Sulfate 3 ML AMPUL.NEB INHALATION ×6 (03:52→23:20)
[2017-11-04] MEDS: Piperacil/Tazobactam 3.375 GM/50 ML ML IV ×3 (05:57→21:18)
[2017-11-04] MEDS: Heparin Injection (Vial) 5,000 UNIT/ML VIAL 5000 UNIT SC ×3 (05:57→21:18)
[2017-11-04 06:27] LABS: Absolute Lymphocyte Count 0.65 X10^3/ul (0.83-4.51); Absolute Neutrophil Count 14.4 X10^3/uL (2.0-7.7); Basophil# 0.02 X10^3/uL; Basophil% 0.1 % (0-1); Eosinophil# 0.02 X10^3/uL; Eosinophils% 0.1 % (0-5); Hematocrit 43.6 % (37-47); Hemoglobin 14.2 g/dl (12.0-15.0); Lymphocyte # 0.65 X10^3/ul (4.0); Lymphocyte % 4.2 % (19-41); Mean Corp Hgb Conc 32.6 g/gl (32-36); Mean Corpuscular Hgb 26.9 pg (27.0-32.0); Mean Corpuscular Volume 82.7 fL (81-99); Mean Platelet Vol. 10.1 fl (6.2-12.0); Monocyte% 1.9 % (0-10); Neutrophil # 14.39 X10^3/uL (2.7-7.7); Neutrophil % 93.5 % (47-70); Platelet Count 318 K/mm3 (150-450); RBC Distribution Width CV 13.6 % (11.6-14.6); Red Blood Count 5.27 M/mm3 (4.2-5.4); White Blood Count 15.4 K/mm3 (4.4-11.0)
[2017-11-04 06:28] LABS: POSITIVE COUNT NO; POSITIVE DIFFERENTIAL NO; POSITIVE MORPHOLOGY NO
[2017-11-04 06:45] LABS: Bedside Glucose 187 mg/dL (70-110)
[2017-11-04 06:58] LABS: Anion Gap 8 (5-15); BUN 59 mg/dL (7-18); BUN/Creat Ratio 34.9 RATIO (10-20); Calcium,Total 8.7 mg/dL (8.5-10.1); Chloride 81 mmol/L (98-107); Creatinine, Serum 1.69 mg/dL (0.55-1.02); EST Glomerular Filtration Rate 33 mL/min (>60); Est Glom Filt Rate - Afr Amer 40 mL/min (>60); Estimated Creatinine Clearance 25.75 ml/min; Glucose 154 mg/dL (74-106); Potassium 3.2 mmol/L (3.5-5.1); Sodium Level 130 mmol/L (136-145)
[2017-11-04 07:55] LABS: Mucous, Urine 0 SEEN /hpf (<or=2+)
[2017-11-04 08:01] LABS: Color, Urine Yellow (Yellow); Glucose, Dipstick Normal (Normal); Ketone-Dipstick Negative (Negative); Leukocyte Esterase-Dipstick 100 /ul (Negative); Nitrite-Dipstick Negative (Negative); Occult Blood-Urine 250 /ul (Negative); Protein-Dipstick 100 mg/dl (Negative); Specific Gravity, Urine 1.015 (1.002-1.030); Urine Bilirubin Dipstick Negative (Negative); Urine Clarity Sl. Cloudy (Clear); Urine Urobilinogen Normal (Normal)
[2017-11-04] MEDS: oxyCODONE 5 MG Tablet 10 MG PO (08:02)
[2017-11-04] MEDS: Gabapentin 400 MG Capsule PO ×3 (08:02→16:03)
[2017-11-04] MEDS: LORazepam 1 MG Tablet PO (08:02)
[2017-11-04 08:08] LABS: Urine Chloride 10 mmol/L (Not Establ.)
[2017-11-04 08:10] LABS: Urine Sodium 16 mmol/L (Not Establ.)
[2017-11-04 08:13] LABS: Bacteria 1+ /hpf (None Seen); Red Blood Cells-Urine 25-50 SEEN /hpf (0-5); Squamous Epithelial Cells - UA 0-5 SEEN /hpf (5-10); White Blood Cells 10-25 SEEN /hpf (0-5)
[2017-11-04 08:25] LABS: Osmolality, Urine 402 mOsm/KG
[2017-11-04] MEDS: Senna Tablet 2 TABLET PO (09:22)
[2017-11-04] MEDS: Loratadine 10 MG Tablet PO (09:22)
[2017-11-04] MEDS: Escitalopram Oxalate 10 MG Tablet PO (09:22)
[2017-11-04] MEDS: Chlorthalidone 50 MG Tablet PO (09:22)
[2017-11-04] MEDS: Topiramate 200 MG Tablet PO ×2 (09:22→21:18)
[2017-11-04] MEDS: Fenofibrate 145 MG Tablet PO (09:22)
[2017-11-04] MEDS: Pantoprazole Sodium 40 MG Tablet PO (09:22)
[2017-11-04] MEDS: Aspirin E.C. 81 MG Tablet PO ×2 (09:22→21:18)
[2017-11-04] MEDS: levoFLOXacin IV 250 MG/50 ML BAG 50 MG IV (11:00)
[2017-11-04] MEDS: 0.9% Normal Saline 1,000 ML 125 ML IV ×2 (11:04→20:48)
[2017-11-04 11:21] LABS: Bedside Glucose 302 mg/dL (70-110)
--- NOTE | 2017-11-04 14:29 | PCM.CONS.GEN ---
Problem List (1) Essential (primary) hypertension Status: Chronic (2) DM2 (diabetes mellitus, type 2) Status: Chronic (3) Morbid obesity Status: Chronic (4) Heart failure with preserved ejection fraction Status: Chronic (5) Nicotine addiction Status: Chronic (6) Depression Status: Chronic (7) Severe chronic obstructive pulmonary disease Status: Chronic Reason for Consult Date of Consultation: 11/04/17 Reason for Consultation: resp failure, COPD History of Present Illness: The patient is a 57 year old F past medical history as below, presented to the ED on 11/03/17 with complaints of increased shortness of breath at rest and with exertion, productive cough of green sputum, and anxiety. Patient reports her breathing worsened 6 days ago, presented to her PCP office on Friday and was placed on prednisone taper and Levaquin no subjective improvement. Her breathing worsened, so she presented to the ED. Does have 4 L oxygen requirement at baseline. It is unclear if her PCP put her back on oxygen. The patient previously followed with Dr. Benitez was last seen in December 2016, but states she was unable to make it to any of her follow-up appointments secondary to the fact that she does not drive and her family is unreliable. The patient continues to smoke 2 packs a day and has done so for the past 47 years. She does admit to taking her oxygen off to smoke. Initial lab work showed leukocytosis 17,300, hemoglobin 15.9 hematocrit 48.3. Chemistry remarkable for sodium of 123, potassium 3.3, chloride at 75 and serum bicarb of 41. BUN was elevated at 55 and creatinine 1.72, which is higher than patient normal. Glucose was 370 and serum osmolality 304. Troponin is negative, as well as BNP. ABG was drawn on BiPAP, showed a pH of 7.46, PCO2 60.8, and PO2 of 55. Oxygen saturation was 88%. Blood and urine cultures were obtained and are pending. Plain film chest x-ray showing chronic interstitial changes, superimposed opacification in the right costophrenic angle suggesting infiltrate and/or atelectasis. Patient was given IV azithromycin and Levaquin in the ER, as well as oral potassium and IV fluids. Minute to the progressive care unit for further management. Pulmonary team is consulted for COPD and respiratory failure. Echocardiogram in January 2017 showed normal LV size, wall motion, and hyperdynamic systolic function with an estimated EF of 75%. There was a trivial pericardial effusion. Pulmonary function testing in November 2016 showed an irreversible severe large airway obstructive ventilatory defect with symmetric reduction in diffusing capacity resulting in air trapping, consistent with diagnosis of severe COPD. FEV1 50. Her last pulmonary exercise test was in July 2016 did not indicate a need for supplemental oxygen. She was only able to ambulate 348 feet over the course of 6 minutes which indicates exercise intolerance. Patient also had a polysomnogram in July 2016 which showed no evidence of significant sleep disordered breathing. Past Medical History Past Medical History (Chronic Problems): Chronic Problems (Last Updated 11/03/17 @ 14:57 by Cherelle Mercedes MD) Essential (primary) hypertension (Chronic) DM2 (diabetes mellitus, type 2) (Chronic) Morbid obesity (Chronic) Heart failure with preserved ejection fraction (Chronic) Uncontrolled type II diabetes mellitus (Chronic) Nicotine addiction (Chronic) Depression (Chronic) Severe chronic obstructive pulmonary disease (Chronic) Allergies amitriptyline Allergy (Verified 06/07/17 17:49) Unknown lisinopril Allergy (Verified 02/26/17 11:15) Angioedema duloxetine [From Cymbalta] Adverse Reaction (Verified 06/07/17 17:49) Upset Stomach pregabalin [From Lyrica] Adverse Reaction (Verified 06/07/17 17:49) bad dreams varenicline [From Chantix] Adverse Reaction (Verified 02/26/17 11:15) Unknown ZYBETA Allergy (Uncoded 02/26/17 11:15) Other Home Medications: Ambulatory Orders Medication Instructions Recorded Fenofibrate [Tricor] 145 mg PO DAILY 05/20/16 Senna [Senokot] 2 tablet PO DAILY 05/20/16 Tiotropium [place] [Spiriva 2 puff IH DAILY 05/20/16 Respimat] Albuterol Aerosols [Ventolin 2.5 mg INHALATION Q6H PRN PRN 02/26/17 Aerosols] Albuterol Inhaler [Ventolin Hfa] 1 - 2 puff INHALATION Q6H PRN PRN 02/26/17 Betamethasone Valerate [Valisone 1 applic TOPICAL BID PRN PRN 02/26/17 0.1% Cream] Bumetanide [Bumex] 2 mg PO BID 02/26/17 Fluticasone/Vilanterol [Breo 1 puff INHALATION DAILY 02/26/17 Ellipta 200-25 Mcg INH] Loratadine [Claritin] 10 mg PO DAILY 02/26/17 Lorazepam [Ativan] 1 mg PO TID PRN 02/26/17 Omeprazole [Prilosec] 40 mg PO DAILY 02/26/17 Simvastatin [Zocor] 40 mg PO QHS 02/26/17 Vit C/E/Zn/Coppr/Lutein/Zeaxan 1 each PO BID 02/26/17 [Preservision Areds 2 Softgel] Aspirin [Aspir-Low] 162 mg PO DAILY 09/10/17 Cyclobenzaprine [Flexeril] 10 mg PO TID PRN PRN 09/10/17 Escitalopram Oxalate [Lexapro] 10 mg PO DAILY 09/10/17 Gabapentin [Neurontin] 400 mg PO TID 09/10/17 Insulin Human 70/30 [Novolog Mix 60 units SC BID 09/10/17 70-30 Flexpen Syrn] Chlorthalidone 50 mg PO DAILY 11/03/17 Dexamethasone [Decadron] 1 mg PO DAILY 11/03/17 Fluticasone 110 Mcg [Flovent (SP)] 1 puff INHALATION BID 11/03/17 Oxycodone HCl/Acetaminophen 1 each PO Q4H PRN PRN 11/03/17 [Oxycodone-Acetaminophen 10-325] Prednisone See Taper PO DAILY 11/03/17 Topiramate [Topamax] 200 mg PO BID 11/03/17 Surgical History: hysterectomy, tonsillectomy, of section, of tubal ligation Psychiatric History: No pertinent psych hx [employer] History: No pertinent [employer] history Lives: Alone Smoking Status: Current every day smoker Tobacco Use: Cigarettes Alcohol: None Drugs: None - *Family History Maternal History Items: COPD, No pertinent history Sibling History Items: - - Psoriasis Review of Systems Constitutional: Reports: Fatigue. Denies: Anorexia, Chills, Fever, Night Sweats, Malaise Eyes: Denies: Vision Change HEENT: Denies: Difficulty Swallowing, Dysphasia, Nasal Congestion, Post Nasal Drip, Sinus Congestion, Sinus Drainage, Sore Throat Cardiovascular: Reports: Orthopnea. Denies: Chest Pain, Chest Pressure, Chest Tightness, Edema, Light Headedness, Palpitations, Paroxysmal Noc. Dyspnea, Syncope Respiratory: Reports: Cough, Shortness of breath at rest, Shortness of breath upon exertion, Sputum production, Wheezing. Denies: Hemoptysis Gastrointestinal: Denies: Abdominal Pain, Constipation, Diarrhea, Dyspepsia, Hematemesis, Hematochezia, Nausea, Melena, Vomiting Genitourinary: Reports: Nocturia. Denies: Dysuria, Frequency, Hematuria, Retention Gynecological: Reports: Breast symptoms - nonhealing wound, improved Musculoskeletal: Reports: Back Pain, Joint Pain - chronic, Leg Pain - chronic Skin: Reports: Wounds - h/o breast wound. Denies: Rash Neurological: Reports: Numbness - bilat LEs, neuropathy, Tingling. Denies: Balance problems, Change in Speech, Confusion, Difficulty swallowing, Focal weakness, Tremor, Seizures Psychiatric: Reports: Anxiety, Depression. Denies: Suicidal Ideations Endocrine: Denies: Change in Body Habitus, Polydipsia, Polyuria Hematologic/ Lymphatic: Reports: Easy Bruising, Easy Bleeding. Denies: Adenopathy, Anemia, Hx of blood clot Subjective: Patient was seen and examined. She is falling asleep throughout her entire interview but able to answer questions appropriately. She is oriented ?3. Denies any current shortness of breath, saturations are 93% on a 50% Venturi mask. No sputum production currently. Objective: Clinical Impression(s) from Imaging Studies Chest X-Ray 11/03/17 13:30 IMPRESSION: Chronic interstitial changes with superimposed opacification in the right costophrenic angle suggesting infiltrate or atelectasis. Follow-up recommended to assure resolution Electronically Signed: Alphonso Farooq MD at 13:50 EDT , Service support , - Physical Exam General: Oriented x3, Cooperative, No apparent distress, Lethargic HEENT: Atraumatic, Normocephalic Oral: Moist Mucosa, No Gingival or Mucosal Lesions/ Ulcerations Neck: Supple, No Nodes, Trachea Midline, - - Large neck circumference Lungs: No rhonchi, Diminished, Rales - Faint, right basilar, Wheezes Cardiovascular: Regular rate, Regular Rhythm, Normal S1, Normal S2, No murmurs, No rub noted, No Gallop Abdomen: Bowel Sounds Present, Soft, Non Tender, Obese Extremities: No clubbing, No cyanosis, Edema - Trace lower extremity Skin: - - Venous stasis changes to bilateral lower extremities Musculoskeletal: No Tenderness to Palpation of Joints or Extremities Lymphatic: - - No adenopathy Neurological: Cranial nerves II-XII grossly intact, Neuro grossly intact, Motor Exam 5/5 strength throughout, - - No speech abnormalities Psych/Mental Status: - - Oriented, however lethargic Vital Signs Temp Pulse Resp BP Pulse Ox 98.1 F 84 16 149/62 H 92 11/04/17 09:25 11/04/17 11:20 11/04/17 10:51 11/04/17 09:25 11/04/17 09:25 Oxygen Flow Rate (L/min) 4 Oxygen Delivery Method Non-Rebreather Weight: 228 lb 2.855 oz Body Mass Index (BMI) 44.5 Intake and Output for Last 24 Hours 11/02/17 11/03/17 11/04/17 23:59 23:59 23:59 Intake Total 1157.6 / 1157.6 1044 / 1044 Output Total 1100 / 1100 0 / 0 Balance 57.6 / 57.6 1044 / 1044 Laboratory Tests Past 24 Hrs 11/03/17 11/03/17 11/04/17 18:49 18:49 05:53 WBC 15.4 H RBC 5.27 Hgb 14.2 Hct 43.6 MCV 82.7 MCH 26.9 L MCHC 32.6 RDW 13.6 RDW Differential 41.0 Plt Count 318 MPV 10.1 Immature Gran % (Auto) 0.200 Neut % (Auto) 93.5 H Lymph % (Auto) 4.2 L [place] % (Auto) 1.9 Eos % (Auto) 0.1 Baso % (Auto) 0.1 Absolute Neuts (auto) 14.4 H Absolute Lymphs (auto) 0.65 L Total Counted Not Reportable Sodium Potassium Chloride Carbon Dioxide Anion Gap BUN Creatinine Estim Creat Clear Calc Est GFR (MDRD) Af Amer Est GFR (MDRD) Non-Af BUN/Creatinine Ratio Glucose Serum Osmolality 304 H Calcium Magnesium 2.6 Urine Color Urine Clarity Urine pH Ur Specific [place] Urine Protein Urine Glucose (UA) Urine Ketones Urine Occult Blood Urine Nitrite Urine Bilirubin Urine Urobilinogen Ur Leukocyte Esterase Urine RBC Urine WBC Ur Squamous Epith Cells Urine Bacteria Urine Mucus Urine Osmolality Ur Random Sodium Urine Chloride 11/04/17 11/04/17 11/04/17 05:53 07:13 07:13 WBC RBC Hgb Hct MCV MCH MCHC RDW RDW Differential Plt Count MPV Immature Gran % (Auto) Neut % (Auto) Lymph % (Auto) [place] % (Auto) Eos % (Auto) Baso % (Auto) Absolute Neuts (auto) Absolute Lymphs (auto) Total Counted Sodium 130 L Potassium 3.2 L Chloride 81 L Carbon Dioxide 41.0 H Anion Gap 8 BUN 59 H Creatinine 1.69 H Estim Creat Clear Calc 25.75 Est GFR (MDRD) Af Amer 40 L Est GFR (MDRD) Non-Af 33 L BUN/Creatinine Ratio 34.9 H Glucose 154 H Serum Osmolality Calcium 8.7 Magnesium Urine Color Yellow Urine Clarity Sl. Cloudy Urine pH 6.0 Ur Specific [place] 1.015 Urine Protein 100 H Urine Glucose (UA) Normal Urine Ketones Negative Urine Occult Blood 250 H Urine Nitrite Negative Urine Bilirubin Negative Urine Urobilinogen Normal Ur Leukocyte Esterase 100 H Urine RBC 25-50 SEEN Urine WBC 10-25 SEEN Ur Squamous Epith Cells 0-5 SEEN Urine Bacteria 1+ Urine Mucus 0 SEEN Urine Osmolality 402 Ur Random Sodium Urine Chloride 11/04/17 11/04/17 07:13 07:13 WBC RBC Hgb Hct MCV MCH MCHC RDW RDW Differential Plt Count MPV Immature Gran % (Auto) Neut % (Auto) Lymph % (Auto) [place] % (Auto) Eos % (Auto) Baso % (Auto) Absolute Neuts (auto) Absolute Lymphs (auto) Total Counted Sodium Potassium Chloride Carbon Dioxide Anion Gap BUN Creatinine Estim Creat Clear Calc Est GFR (MDRD) Af Amer Est GFR (MDRD) Non-Af BUN/Creatinine Ratio Glucose Serum Osmolality Calcium Magnesium Urine Color Urine Clarity Urine pH Ur Specific [place] Urine Protein Urine Glucose (UA) Urine Ketones Urine Occult Blood Urine Nitrite Urine Bilirubin Urine Urobilinogen Ur Leukocyte Esterase Urine RBC Urine WBC Ur Squamous Epith Cells Urine Bacteria Urine Mucus Urine Osmolality Ur Random Sodium 16 Urine Chloride 10 POC Glucose 11/04/17 11/04/17 11/03/17 11:10 05:56 23:57 POC Glucose 302 H 187 H 296 H 11/03/17 11/03/17 21:33 17:57 POC Glucose 383 H 417 H Assessment/Plan RECOMMENDATIONS 1. Wean oxygen supplementation to keep saturations 88-92% to prevent paradoxical CO2 retention 2. Encourage incentive spirometer 3. Increase activity as tolerated, PT/OT consult 4. Continue bronchodilators, IV steroids 5. Continue antibiotics pending infectious workup 6. Obtain sputum culture 7. Continue IV fluid resuscitation 8. Utilize BiPAP with all sleep and periodically throughout the day 9. Ambulatory pulse ox prior to discharge 10. Follow-up in pulmonary clinic 2 weeks after discharge with [employer], at which time low-dose CT can be arranged IMPRESSIONS 1. Acute on chronic hypoxic and hypercarbic respiratory failure Chest x-ray with possible right lower lobe infiltrate versus atelectasis. BNP normal. Patient presents with no fever or chills, leukocytosis of 17,300. However, patient has been on prednisone taper since Friday so unclear if elevated white count is secondary to steroid use. Patient is a CO2 retainer as evidenced on her blood gas. Patient is somewhat lethargic but answering questions appropriately when awakened. She is on multiple sedating medications. Utilize BiPAP for now, breaks as tolerated. Wean oxygen as tolerated to keep saturations 88-92%, to prevent paradoxical CO2 retention. Encourage incentive spirometer and Acapella. Mobilize patient as tolerated. Maintain on IV steroids and bronchodilators. Continue antibiotics pending infectious workup. 2. Electrolyte imbalances Significant hyponatremia, sodium is 123. Potassium low at 3.3. Patient is receiving IV fluid resuscitation of normal saline at 1 25 mL/h. Continue. Recheck labs in a.m. 3. Severe COPD, ongoing tobacco abuse Patient has been lost to follow-up in pulmonary clinic. Her last pulmonary function tests were in November 2016 that showed severe COPD with evidence of air trapping. He continues to smoke at least 2 packs a day, despite utilizing 4 L of oxygen continuously. She does take the oxygen off to smoke. She cites family stresses as a cause of her ongoing smoking. She was encouraged to quit smoking, nicotine patch offered. Given her significant smoking history, patient would be candidate for low-dose CT. This can be completed as an outpatient. She can follow-up in the pulmonary clinic in 2 weeks with [employer], at which time this can be arranged. 4. Hypertension/type 2 diabetes/morbid obesity/congestive heart failure/treated depression & anxiety Complicates care, management, recovery, and prognosis. Just insulin as indicated. Would check a hemoglobin A1c. Patient has been referred to behavioral health in the past, however was unable to make her appointment secondary to no transportation. She reports she checked her hospital van service and they do not transport patients from [place]. Would recommend close follow-up. Thank you for the opportunity to participate in this patient's care, please do not hesitate contact us with any further questions or concerns. This note was generated with [employer] dictation software. It may contain incorrect words, spelling, and punctuation that were not noted in checking the note before signing.
[2017-11-04 16:11] LABS: Bedside Glucose 374 mg/dL (70-110)
--- NOTE | 2017-11-04 16:41 | PCM.PN.HOSP ---
Subjective: CC: Shortness of breath or cough. Objective: This is a 57-year-old female who presented with progressive shortness of breath and cough she is found to have pneumonia and COPD exacerbation her respiratory status is worsening. Vitals/I&O's: Vital Signs Temp Pulse Resp BP Pulse Ox 97.7 F L 80 18 127/64 H 92 11/04/17 15:25 11/04/17 15:25 11/04/17 15:25 11/04/17 15:25 11/04/17 15:25 Oxygen Flow Rate (L/min) 4 Oxygen Delivery Method Non-Rebreather Weight: 103.5 kg Body Mass Index (BMI) 44.5 Intake and Output for Last 24 Hours 11/02/17 11/03/17 11/04/17 23:59 23:59 23:59 Intake Total 1157.6 / 1157.6 1044 / 1044 Output Total 1100 / 1100 0 / 0 Balance 57.6 / 57.6 1044 / 1044 Laboratory Results 11/03/17 17:57: POC Glucose 417 H 11/03/17 18:49: Magnesium 2.6 11/03/17 18:49: Serum Osmolality 304 H 11/03/17 21:33: POC Glucose 383 H 11/03/17 23:57: POC Glucose 296 H 11/04/17 05:53: WBC 15.4 H, RBC 5.27, Hgb 14.2, Hct 43.6, MCV 82.7, MCH 26.9 L, MCHC 32.6, RDW 13.6, RDW Differential 41.0, Plt Count 318, MPV 10.1, Immature Gran % (Auto) 0.200, Neut % (Auto) 93.5 H, Lymph % (Auto) 4.2 L, Bartholomew % (Auto) 1.9, Eos % (Auto) 0.1, Baso % (Auto) 0.1, Absolute Neuts (auto) 14.4 H, Absolute Lymphs (auto) 0.65 L, Total Counted Not Reportable 11/04/17 05:53: Sodium 130 L, Potassium 3.2 L, Chloride 81 L, Carbon Dioxide 41.0 H, Anion Gap 8, BUN 59 H, Creatinine 1.69 H, Estim Creat Clear Calc 25.75, Est GFR (MDRD) Af Amer 40 L, Est GFR (MDRD) Non-Af 33 L, BUN/Creatinine Ratio 34.9 H, Glucose 154 H, Calcium 8.7 11/04/17 05:56: POC Glucose 187 H 11/04/17 07:13: Urine Color Yellow, Urine Clarity Sl. Cloudy, Urine pH 6.0, Ur Specific [place] 1.015, Urine Protein 100 H, Urine Glucose (UA) Normal, Urine Ketones Negative, Urine Occult Blood 250 H, Urine Nitrite Negative, Urine Bilirubin Negative, Urine Urobilinogen Normal, Ur Leukocyte Esterase 100 H, Urine RBC 25-50 SEEN, Urine WBC 10-25 SEEN, Ur Squamous Epith Cells 0-5 SEEN, Urine Bacteria 1+, Urine Mucus 0 SEEN 11/04/17 07:13: Urine Osmolality 402 11/04/17 07:13: Urine Chloride 10 11/04/17 07:13: Ur Random Sodium 16 11/04/17 11:10: POC Glucose 302 H 11/04/17 16:02: POC Glucose 374 H Current Medications Acetaminophen (Tylenol) 650 mg PO Q6H PRN PRN PRN Reason: Mild Pain (scale 0-3)/T>100.7 Albuterol Sulfate (Ventolin Aerosols) 2.5 mg INHALATION Q2H PRN PRN PRN Reason: SHORTNESS OF BREATH Albuterol/Ipratropium (Duoneb) 3 ml INHALATION Q4H.RT [facility] Last Admin: 11/04/17 15:19 Dose: 3 ml Aspirin (Ecotrin) 81 mg PO BID [facility] Last Admin: 11/04/17 09:22 Dose: 81 mg Atorvastatin Calcium (Lipitor) 20 mg PO QHS [facility] Last Admin: 11/03/17 21:34 Dose: 20 mg Dextrose (D50w Syringe) 0 gm IV X1 PRN; Protocol PRN Reason: Hypoglycemia Escitalopram Oxalate (Lexapro) 10 mg PO DAILY [facility] Last Admin: 11/04/17 09:22 Dose: 10 mg Fenofibrate (Tricor) 145 mg PO DAILY [facility] Last Admin: 11/04/17 09:22 Dose: 145 mg Gabapentin (Neurontin) 400 mg PO TIDCM [facility] Last Admin: 11/04/17 16:03 Dose: 400 mg Glucagon () 1 mg IM .X1 PRN PRN Reason: Hypoglycemia Heparin Sodium (Porcine) (Heparin Na) 5,000 unit SC Q8 [facility] Last Admin: 11/04/17 13:30 Dose: 5,000 u Piperacillin Sod/Tazobactam Sod (Zosyn) 3.375 gm in 50 mls @ 12.5 mls/hr IV Q8 [facility] Last Admin: 11/04/17 13:30 Dose: 12.5 mls/hr Levofloxacin (Levaquin Iv) 250 mg in 50 mls @ 50 mls/hr IV Q24 [facility] Last Admin: 11/04/17 11:00 Dose: 50 mls/hr Sodium Chloride () 1,000 mls @ 125 mls/hr IV .Q8H [facility] Last Admin: 11/04/17 11:04 Dose: 125 mls/hr Insulin Aspart (Novolog Flexpen (Bkc)) 0 units SC 0800,1200,1700,2200 [facility] PRN Reason: Protocol Last Admin: 11/04/17 16:03 Dose: 6 u Insulin Aspart (Novolog Mix 70-30 Flexpen Syrn) 60 units SC BID [facility] Last Admin: 11/04/17 09:21 Dose: 60 u Loratadine (Claritin) 10 mg PO DAILY [facility] Last Admin: 11/04/17 09:22 Dose: 10 mg Lorazepam (Ativan) 1 mg PO TID PRN PRN Reason: ANXIETY Last Admin: 11/04/17 08:02 Dose: 1 mg Magnesium Hydroxide (Milk Of Magnesia) 30 ml PO DAILY PRN PRN Reason: Constipation Methylprednisolone (Solu-Medrol) 40 mg IV Q8 [facility] Last Admin: 11/04/17 13:30 Dose: 40 mg Ondansetron HCl (Zofran) 4 mg IV Q8H PRN PRN PRN Reason: Nausea Oxycodone HCl (Oxyir) 10 mg PO Q6H PRN PRN PRN Reason: PAIN Last Admin: 11/04/17 08:02 Dose: 10 mg Pantoprazole Sodium (Protonix) 40 mg PO DAILY [facility] Last Admin: 11/04/17 09:22 Dose: 40 mg Senna (Senokot) 2 tablet PO DAILY [facility] Last Admin: 11/04/17 09:22 Dose: 2 tablet Topiramate (Topamax) 200 mg PO BID [facility] Last Admin: 11/04/17 09:22 Dose: 200 mg Medical Necessity - Tobacco Use Smoking Status: Current every day smoker Tobacco Use: Cigarettes Assessment/Plan 1 acute on chronic hypoxic and hypercapnic respiratory failure from COPD and pneumonia; will continue supplemental oxygen ,will enlist pulmonary input. 2. Presumptive healthcare associated pneumonia; will continue on current antibiotics. 3. Acute exacerbation of COPD; continue on bronchodilators and IV steroids. 4 acute kidney injury, prerenal and will continue on IV hydration. Would avoid potential nephrotoxic agents and dose medications based on GFR.. 5. Hyponatremia; will discontinue thiazide diuretic and continuing IV fluids as above. 6. Hypokalemia this will be replaced with oral potassium chloride. 7. type 2 diabetes mellitus; will increase NovoLog 70-30 to70 units twice daily and continue on regular insulin sliding scale. 8 hypertension; in light of her hyponatremia chlorthalidone has been discontinued and Norvasc started. 9. DVT prophylaxis with subcutaneous heparin. Code Visit Inpatient E&M: [id number] [facility] L3
--- NOTE | 2017-11-04 16:44 | PN_ITS ---
Subjective: CC: Shortness of breath or cough. Objective: This is a 57-year-old female who presented with progressive shortness of breath and cough she is found to have pneumonia and COPD exacerbation her respiratory status is worsening. Vitals/I&O's: Vital Signs Temp Pulse Resp BP Pulse Ox 97.7 F L 80 18 127/64 H 92 11/04/17 15:25 11/04/17 15:25 11/04/17 15:25 11/04/17 15:25 11/04/17 15:25 Oxygen Flow Rate (L/min) 4 Oxygen Delivery Method Non-Rebreather Weight: 103.5 kg Body Mass Index (BMI) 44.5 Intake and Output for Last 24 Hours 11/02/17 11/03/17 11/04/17 23:59 23:59 23:59 Intake Total 1157.6 / 1157.6 1044 / 1044 Output Total 1100 / 1100 0 / 0 Balance 57.6 / 57.6 1044 / 1044 Laboratory Results 11/03/17 17:57: POC Glucose 417 H 11/03/17 18:49: Magnesium 2.6 11/03/17 18:49: Serum Osmolality 304 H 11/03/17 21:33: POC Glucose 383 H 11/03/17 23:57: POC Glucose 296 H 11/04/17 05:53: WBC 15.4 H, RBC 5.27, Hgb 14.2, Hct 43.6, MCV 82.7, MCH 26.9 L, MCHC 32.6, RDW 13.6, RDW Differential 41.0, Plt Count 318, MPV 10.1, Immature Gran % (Auto) 0.200, Neut % (Auto) 93.5 H, Lymph % (Auto) 4.2 L, [place] % (Auto) 1.9, Eos % (Auto) 0.1, Baso % (Auto) 0.1, Absolute Neuts (auto) 14.4 H, Absolute Lymphs (auto) 0.65 L, Total Counted Not Reportable 11/04/17 05:53: Sodium 130 L, Potassium 3.2 L, Chloride 81 L, Carbon Dioxide 41.0 H, Anion Gap 8, BUN 59 H, Creatinine 1.69 H, Estim Creat Clear Calc 25.75, Est GFR (MDRD) Af Amer 40 L, Est GFR (MDRD) Non-Af 33 L, BUN/Creatinine Ratio 34.9 H, Glucose 154 H, Calcium 8.7 11/04/17 05:56: POC Glucose 187 H 11/04/17 07:13: Urine Color Yellow, Urine Clarity Sl. Cloudy, Urine pH 6.0, Ur Specific Wilson 1.015, Urine Protein 100 H, Urine Glucose (UA) Normal, Urine Ketones Negative, Urine Occult Blood 250 H, Urine Nitrite Negative, Urine Bilirubin Negative, Urine Urobilinogen Normal, Ur Leukocyte Esterase 100 H, Urine RBC 25-50 SEEN, Urine WBC 10-25 SEEN, Ur Squamous Epith Cells 0-5 SEEN, Urine Bacteria 1+, Urine Mucus 0 SEEN 11/04/17 07:13: Urine Osmolality 402 11/04/17 07:13: Urine Chloride 10 11/04/17 07:13: Ur Random Sodium 16 11/04/17 11:10: POC Glucose 302 H 11/04/17 16:02: POC Glucose 374 H Current Medications Acetaminophen (Tylenol) 650 mg PO Q6H PRN PRN PRN Reason: Mild Pain (scale 0-3)/T>100.7 Albuterol Sulfate (Ventolin Aerosols) 2.5 mg INHALATION Q2H PRN PRN PRN Reason: SHORTNESS OF BREATH Albuterol/Ipratropium (Duoneb) 3 ml INHALATION Q4H.RT [facility] Last Admin: 11/04/17 15:19 Dose: 3 ml Aspirin (Ecotrin) 81 mg PO BID [facility] Last Admin: 11/04/17 09:22 Dose: 81 mg Atorvastatin Calcium (Lipitor) 20 mg PO QHS [facility] Last Admin: 11/03/17 21:34 Dose: 20 mg Dextrose (D50w Syringe) 0 gm IV X1 PRN; Protocol PRN Reason: Hypoglycemia Escitalopram Oxalate (Lexapro) 10 mg PO DAILY [facility] Last Admin: 11/04/17 09:22 Dose: 10 mg Fenofibrate (Tricor) 145 mg PO DAILY [facility] Last Admin: 11/04/17 09:22 Dose: 145 mg Gabapentin (Neurontin) 400 mg PO TIDCM [facility] Last Admin: 11/04/17 16:03 Dose: 400 mg Glucagon () 1 mg IM .X1 PRN PRN Reason: Hypoglycemia Heparin Sodium (Porcine) (Heparin Na) 5,000 unit SC Q8 [facility] Last Admin: 11/04/17 13:30 Dose: 5,000 u Piperacillin Sod/Tazobactam Sod (Zosyn) 3.375 gm in 50 mls @ 12.5 mls/hr IV Q8 [facility] Last Admin: 11/04/17 13:30 Dose: 12.5 mls/hr Levofloxacin (Levaquin Iv) 250 mg in 50 mls @ 50 mls/hr IV Q24 [facility] Last Admin: 11/04/17 11:00 Dose: 50 mls/hr Sodium Chloride () 1,000 mls @ 125 mls/hr IV .Q8H [facility] Last Admin: 11/04/17 11:04 Dose: 125 mls/hr Insulin Aspart (Novolog Flexpen (Bkc)) 0 units SC 0800,1200,1700,2200 [facility] PRN Reason: Protocol Last Admin: 11/04/17 16:03 Dose: 6 u Insulin Aspart (Novolog Mix 70-30 Flexpen Syrn) 60 units SC BID [facility] Last Admin: 11/04/17 09:21 Dose: 60 u Loratadine (Claritin) 10 mg PO DAILY [facility] Last Admin: 11/04/17 09:22 Dose: 10 mg Lorazepam (Ativan) 1 mg PO TID PRN PRN Reason: ANXIETY Last Admin: 11/04/17 08:02 Dose: 1 mg Magnesium Hydroxide (Milk Of Magnesia) 30 ml PO DAILY PRN PRN Reason: Constipation Methylprednisolone (Solu-Medrol) 40 mg IV Q8 [facility] Last Admin: 11/04/17 13:30 Dose: 40 mg Ondansetron HCl (Zofran) 4 mg IV Q8H PRN PRN PRN Reason: Nausea Oxycodone HCl (Oxyir) 10 mg PO Q6H PRN PRN PRN Reason: PAIN Last Admin: 11/04/17 08:02 Dose: 10 mg Pantoprazole Sodium (Protonix) 40 mg PO DAILY [facility] Last Admin: 11/04/17 09:22 Dose: 40 mg Senna (Senokot) 2 tablet PO DAILY [facility] Last Admin: 11/04/17 09:22 Dose: 2 tablet Topiramate (Topamax) 200 mg PO BID [facility] Last Admin: 11/04/17 09:22 Dose: 200 mg Medical Necessity - Tobacco Use Smoking Status: Current every day smoker Tobacco Use: Cigarettes Assessment/Plan 1 acute on chronic hypoxic and hypercapnic respiratory failure from COPD and pneumonia; will continue supplemental oxygen ,will enlist pulmonary input. 2. Presumptive healthcare associated pneumonia; will continue on current antibiotics. 3. Acute exacerbation of COPD; continue on bronchodilators and IV steroids. 4 acute kidney injury, prerenal and will continue on IV hydration. Would avoid potential nephrotoxic agents and dose medications based on GFR.. 5. Hyponatremia; will discontinue thiazide diuretic and continuing IV fluids as above. 6. Hypokalemia this will be replaced with oral potassium chloride. 7. type 2 diabetes mellitus; will increase NovoLog 70-30 to70 units twice daily and continue on regular insulin sliding scale. 8 hypertension; in light of her hyponatremia chlorthalidone has been discontinued and Norvasc started. 9. DVT prophylaxis with subcutaneous heparin. Code Visit Inpatient E&M: 81729 [facility] L3
[2017-11-04] MEDS: Atorvastatin Calcium 20 MG Tablet PO (21:18)
[2017-11-04 21:45] LABS: Bedside Glucose 342 mg/dL (70-110)
[2017-11-05] VITALS (18 sets, daily range): BP systolic 113–148; BP diastolic 51–70; PULSE 67–87; RESP 12–18; TEMP 36.4–36.7; O2SAT 93–98
[2017-11-05] MEDS: Ipratropium/Albuterol Sulfate 3 ML AMPUL.NEB INHALATION ×6 (02:50→22:47)
--- NOTE | 2017-11-05 03:59 | CPS ---
decreased FIO2 to 35%
[2017-11-05] MEDS: Heparin Injection (Vial) 5,000 UNIT/ML VIAL 5000 UNIT SC ×3 (05:15→22:04)
[2017-11-05] MEDS: 0.9% Normal Saline 1,000 ML 125 ML IV (05:17)
[2017-11-05] MEDS: Piperacil/Tazobactam 3.375 GM/50 ML ML IV (05:18)
[2017-11-05 07:05] LABS: Bedside Glucose 233 mg/dL (70-110)
[2017-11-05 07:24] LABS: Anion Gap 5 (5-15); BUN 47 mg/dL (7-18); BUN/Creat Ratio 33.3 RATIO (10-20); Calcium,Total 9.1 mg/dL (8.5-10.1); Chloride 92 mmol/L (98-107); Creatinine, Serum 1.41 mg/dL (0.55-1.02); EST Glomerular Filtration Rate 41 mL/min (>60); Est Glom Filt Rate - Afr Amer 49 mL/min (>60); Estimated Creatinine Clearance 30.86 ml/min; Glucose 213 mg/dL (74-106); Magnesium 2.8 mg/dL (1.6-2.6); Phosphorus 3.7 mg/dL (2.5-4.9); Potassium 3.8 mmol/L (3.5-5.1); Sodium Level 134 mmol/L (136-145)
[2017-11-05 07:43] LABS: Absolute Neutrophil Count 7.4 X10^3/uL (2.0-7.7); Basophil# 0.01 X10^3/uL; Basophil% 0.1 % (0-1); Eosinophil# 0.11 X10^3/uL; Eosinophils% 1.3 % (0-5); Hematocrit 43.7 % (37-47); Hemoglobin 13.7 g/dl (12.0-15.0); Mean Corp Hgb Conc 31.4 g/gl (32-36); Mean Corpuscular Hgb 26.7 pg (27.0-32.0); Mean Corpuscular Volume 85.2 fL (81-99); Mean Platelet Vol. 9.9 fl (6.2-12.0); Monocyte% 3.6 % (0-10); Neutrophil % 88.9 % (47-70); Platelet Count 221 K/mm3 (150-450); RBC Distribution Width CV 13.5 % (11.6-14.6); RBC Distribution Width SD 42.1 fl (35.1-43.9); Red Blood Count 5.13 M/mm3 (4.2-5.4); White Blood Count 8.3 K/mm3 (4.4-11.0)
[2017-11-05 07:47] LABS: Differential Indicated SCAN CRITERIA MET; POSITIVE COUNT NO; POSITIVE DIFFERENTIAL YES; POSITIVE MORPHOLOGY NO
--- NOTE | 2017-11-05 08:21 | PCM.PROGNOTE ---
Patient Problems: Active and Suspected Problems (Last Updated 11/03/17 @ 14:57 by Cherelle Mercedes MD) Acute on chronic respiratory failure with hypoxia and hypercapnia (Acute) COPD exacerbation (Acute) Subjective: Patient was seen and examined. She is sitting up at the bedside but is sitting with family. Asking if she can go home today. Patient states her breathing is almost back to baseline. She is maintaining appropriate saturations on her home requirement of 4 L. Patient more alert this morning, does complain of upper extremity jerks. Still seems somewhat sedated, however. She still has a cough, which is chronic. Sputum production has improved. Objective: Recent lab and culture data reviewed. Blood and urine cultures are pending. Sputum has not been obtained. Remains afebrile and hemodynamically stable. - Physical Exam General: Alert, Oriented x3, Cooperative, No apparent distress, - - no conversational dypsnea HEENT: Atraumatic, Normocephalic Oral: No Gingival or Mucosal Lesions/ Ulcerations, - - edentulous Neck: Supple, No Nodes, Trachea Midline Lungs: No rhonchi, No rales, Diminished, Wheezes - improved Cardiovascular: Regular rate, Regular Rhythm, Normal S1, Normal S2, No murmurs, No rub noted, No Gallop Abdomen: Bowel Sounds Present, Soft, Non Tender, Non-Distended, Obese Extremities: No cyanosis, No edema Skin: - - no changes Musculoskeletal: No Tenderness to Palpation of Joints or Extremities, No Muscle Wasting Lymphatic: - - no adenopathy Neurological: Neuro grossly intact Psych/Mental Status: Alert and oriented to time, place, person, mood and affect Vital Signs Temp Pulse Resp BP Pulse Ox 97.6 F L 75 18 148/70 H 95 11/05/17 03:15 11/05/17 07:40 11/05/17 07:40 11/05/17 03:15 11/05/17 07:40 Oxygen Flow Rate (L/min) 4 Oxygen Delivery Method Nasal Cannula Weight: 228 lb 2.855 oz Body Mass Index (BMI) 44.5 Intake and Output for Last 24 Hours 11/03/17 11/04/17 11/05/17 23:59 23:59 23:59 Intake Total 1157.6 / 1157.6 2126.9 / 2126.9 1729 / 1729 Output Total 1100 / 1100 0 / 0 Balance 57.6 / 57.6 2126.9 / 2126.9 1729 / 1729 Laboratory Tests Past 24 Hrs 11/04/17 11/05/17 11/05/17 07:13 06:55 06:55 WBC 8.3 RBC 5.13 Hgb 13.7 Hct 43.7 MCV 85.2 MCH 26.7 L MCHC 31.4 L RDW 13.5 RDW Differential 42.1 Plt Count 221 MPV 9.9 Immature Gran % (Auto) 0.100 Neut % (Auto) 88.9 H Lymph % (Auto) 6.0 L [place] % (Auto) 3.6 Eos % (Auto) 1.3 Baso % (Auto) 0.1 Absolute Neuts (auto) 7.4 Absolute Lymphs (auto) 0.50 L Total Counted Pending Sodium 134 L Potassium 3.8 Chloride 92 L Carbon Dioxide 37.0 H Anion Gap 5 BUN 47 H Creatinine 1.41 H Estim Creat Clear Calc 30.86 Est GFR (MDRD) Af Amer 49 L Est GFR (MDRD) Non-Af 41 L BUN/Creatinine Ratio 33.3 H Glucose 213 H Calcium 9.1 Phosphorus 3.7 Magnesium 2.8 H Urine Osmolality 402 POC Glucose 11/05/17 11/04/17 11/04/17 06:59 21:17 16:02 POC Glucose 233 H 342 H 374 H 11/04/17 11:10 POC Glucose 302 H Medical Necessity - Tobacco Use Smoking Status: Current every day smoker Tobacco Use: Cigarettes Assessment/Plan Active and Suspected Problems (Last Updated 11/03/17 @ 14:57 by Cherelle Mercedes MD) Acute on chronic respiratory failure with hypoxia and hypercapnia (Acute) COPD exacerbation (Acute) RECOMMENDATIONS 1. Wean oxygen supplementation to keep saturations 88-92% to prevent paradoxical CO2 retention 2. Encourage incentive spirometer and Acapella 3. Increase activity as tolerated, continue PT/OT 4. Continue bronchodilators, okay to transition to oral steroids today with 12 day taper at discharge 5. Continue antibiotics pending infectious workup, narrow accordingly 6. Obtain sputum culture 7. Utilize BiPAP with all sleep and periodically throughout the day PRN 9. Ambulatory pulse ox prior to discharge 10. Follow-up in pulmonary clinic 2 weeks after discharge with DIRECTOR OF PRIMARY CARE, at which time low-dose CT can be arranged IMPRESSIONS 1. Acute on chronic hypoxic and hypercarbic respiratory failure secondary to COPD exacerbation Chest x-ray with possible right lower lobe infiltrate versus atelectasis. BNP normal. Patient presents with no fever or chills, leukocytosis of 17,300. However, patient has been on prednisone taper since Friday so unclear if elevated white count is secondary to steroid use. Patient is a CO2 retainer as evidenced on her blood gas. Lethargy improved, but still falling asleep during conversation. She is on multiple sedating medications. 5/2 Improved. Leukocytosis resolved. No fevers. Wean oxygen as tolerated to keep saturations 88-92%. Encourage incentive spirometer and Acapella. Mobilize patient as tolerated, continue PT/OT. Continue bronchodilators. Continue antibiotics pending infectious workup. Likely okay to transition to oral steroids today. Obtain walking oximetry prior to discharge. Patient cites her ongoing smoking as reason she has not followed up with pulmonary. Patient was again counseled on importance of follow-up and on smoking cessation. Please schedule appt with DIRECTOR OF PRIMARY CARE in 2 weeks. 2. Electrolyte imbalances Hyponatremia significantly improved with IV fluid resuscitation. Potassium replaced and now normal. IVF discontinued. Continue to monitor. 3. Severe COPD, ongoing tobacco abuse Patient has been lost to follow-up in pulmonary clinic. Her last pulmonary function tests were in November 2016 that showed severe COPD with evidence of air trapping. He continues to smoke at least 2 PPD, despite utilizing 4 L of oxygen continuously. She does take the oxygen off to smoke. She cites family stresses as a cause of her ongoing smoking. She was encouraged to quit smoking, nicotine patch offered. Given her significant smoking history and age, patient would be candidate for low-dose CT. This can be completed as an outpatient. 4. Hypertension/type 2 diabetes/morbid obesity/congestive heart failure/treated depression & anxiety Complicates care, management, recovery, and prognosis. Adjust insulin as indicated. Would check a hemoglobin A1c. Patient has been referred to behavioral health in the past, however was unable to make her appointment secondary to no transportation. She reports she checked her hospital van service and they do not transport patients from [place]. Would recommend close follow-up. Thank you for the opportunity to participate in this patient's care, please do not hesitate contact us with any further questions or concerns. This note was generated with Dragon dictation software. It may contain incorrect words, spelling, and punctuation that were not noted in checking the note before signing.
--- NOTE | 2017-11-05 08:25 | PN_ITS ---
Patient Problems: Active and Suspected Problems (Last Updated 11/03/17 @ 14:57 by Cherelle Mercedes MD) Acute on chronic respiratory failure with hypoxia and hypercapnia (Acute) COPD exacerbation (Acute) Subjective: Patient was seen and examined. She is sitting up at the bedside but is sitting with family. Asking if she can go home today. Patient states her breathing is almost back to baseline. She is maintaining appropriate saturations on her home requirement of 4 L. Patient more alert this morning, does complain of upper extremity jerks. Still seems somewhat sedated, however. She still has a cough, which is chronic. Sputum production has improved. Objective: Recent lab and culture data reviewed. Blood and urine cultures are pending. Sputum has not been obtained. Remains afebrile and hemodynamically stable. - Physical Exam General: Alert, Oriented x3, Cooperative, No apparent distress, - - no conversational dypsnea HEENT: Atraumatic, Normocephalic Oral: No Gingival or Mucosal Lesions/ Ulcerations, - - edentulous Neck: Supple, No Nodes, Trachea Midline Lungs: No rhonchi, No rales, Diminished, Wheezes - improved Cardiovascular: Regular rate, Regular Rhythm, Normal S1, Normal S2, No murmurs, No rub noted, No Gallop Abdomen: Bowel Sounds Present, Soft, Non Tender, Non-Distended, Obese Extremities: No cyanosis, No edema Skin: - - no changes Musculoskeletal: No Tenderness to Palpation of Joints or Extremities, No Muscle Wasting Lymphatic: - - no adenopathy Neurological: Neuro grossly intact Psych/Mental Status: Alert and oriented to time, place, person, mood and affect Vital Signs Temp Pulse Resp BP Pulse Ox 97.6 F L 75 18 148/70 H 95 11/05/17 03:15 11/05/17 07:40 11/05/17 07:40 11/05/17 03:15 11/05/17 07:40 Oxygen Flow Rate (L/min) 4 Oxygen Delivery Method Nasal Cannula Weight: 228 lb 2.855 oz Body Mass Index (BMI) 44.5 Intake and Output for Last 24 Hours 11/03/17 11/04/17 11/05/17 23:59 23:59 23:59 Intake Total 1157.6 / 1157.6 2126.9 / 2126.9 1729 / 1729 Output Total 1100 / 1100 0 / 0 Balance 57.6 / 57.6 2126.9 / 2126.9 1729 / 1729 Laboratory Tests Past 24 Hrs 11/04/17 11/05/17 11/05/17 07:13 06:55 06:55 WBC 8.3 RBC 5.13 Hgb 13.7 Hct 43.7 MCV 85.2 MCH 26.7 L MCHC 31.4 L RDW 13.5 RDW Differential 42.1 Plt Count 221 MPV 9.9 Immature Gran % (Auto) 0.100 Neut % (Auto) 88.9 H Lymph % (Auto) 6.0 L [place] % (Auto) 3.6 Eos % (Auto) 1.3 Baso % (Auto) 0.1 Absolute Neuts (auto) 7.4 Absolute Lymphs (auto) 0.50 L Total Counted Pending Sodium 134 L Potassium 3.8 Chloride 92 L Carbon Dioxide 37.0 H Anion Gap 5 BUN 47 H Creatinine 1.41 H Estim Creat Clear Calc 30.86 Est GFR (MDRD) Af Amer 49 L Est GFR (MDRD) Non-Af 41 L BUN/Creatinine Ratio 33.3 H Glucose 213 H Calcium 9.1 Phosphorus 3.7 Magnesium 2.8 H Urine Osmolality 402 POC Glucose 11/05/17 11/04/17 11/04/17 06:59 21:17 16:02 POC Glucose 233 H 342 H 374 H 11/04/17 11:10 POC Glucose 302 H Medical Necessity - Tobacco Use Smoking Status: Current every day smoker Tobacco Use: Cigarettes Assessment/Plan Active and Suspected Problems (Last Updated 11/03/17 @ 14:57 by Cherelle Mercedes MD) Acute on chronic respiratory failure with hypoxia and hypercapnia (Acute) COPD exacerbation (Acute) RECOMMENDATIONS 1. Wean oxygen supplementation to keep saturations 88-92% to prevent paradoxical CO2 retention 2. Encourage incentive spirometer and Acapella 3. Increase activity as tolerated, continue PT/OT 4. Continue bronchodilators, okay to transition to oral steroids today with 12 day taper at discharge 5. Continue antibiotics pending infectious workup, narrow accordingly 6. Obtain sputum culture 7. Utilize BiPAP with all sleep and periodically throughout the day PRN 9. Ambulatory pulse ox prior to discharge 10. Follow-up in pulmonary clinic 2 weeks after discharge with STAPLING MACHINE OPERATOR, at which time low-dose CT can be arranged IMPRESSIONS 1. Acute on chronic hypoxic and hypercarbic respiratory failure secondary to COPD exacerbation Chest x-ray with possible right lower lobe infiltrate versus atelectasis. BNP normal. Patient presents with no fever or chills, leukocytosis of 17,300. However, patient has been on prednisone taper since Friday so unclear if elevated white count is secondary to steroid use. Patient is a CO2 retainer as evidenced on her blood gas. Lethargy improved, but still falling asleep during conversation. She is on multiple sedating medications. 5/2 Improved. Leukocytosis resolved. No fevers. Wean oxygen as tolerated to keep saturations 88-92%. Encourage incentive spirometer and Acapella. Mobilize patient as tolerated, continue PT/OT. Continue bronchodilators. Continue antibiotics pending infectious workup. Likely okay to transition to oral steroids today. Obtain walking oximetry prior to discharge. Patient cites her ongoing smoking as reason she has not followed up with pulmonary. Patient was again counseled on importance of follow-up and on smoking cessation. Please schedule appt with STAPLING MACHINE OPERATOR in 2 weeks. 2. Electrolyte imbalances Hyponatremia significantly improved with IV fluid resuscitation. Potassium replaced and now normal. IVF discontinued. Continue to monitor. 3. Severe COPD, ongoing tobacco abuse Patient has been lost to follow-up in pulmonary clinic. Her last pulmonary function tests were in November 2016 that showed severe COPD with evidence of air trapping. He continues to smoke at least 2 PPD, despite utilizing 4 L of oxygen continuously. She does take the oxygen off to smoke. She cites family stresses as a cause of her ongoing smoking. She was encouraged to quit smoking , nicotine patch offered. Given her significant smoking history and age, patient would be candidate for low-dose CT. This can be completed as an outpatient. 4. Hypertension/type 2 diabetes/morbid obesity/congestive heart failure/ treated depression & anxiety Complicates care, management, recovery, and prognosis. Adjust insulin as indicated. Would check a hemoglobin A1c. Patient has been referred to behavioral health in the past, however was unable to make her appointment secondary to no transportation. She reports she checked her hospital van service and they do not transport patients from [place]. Would recommend close follow-up. Thank you for the opportunity to participate in this patient's care, please do not hesitate contact us with any further questions or concerns. This note was generated with Dragon dictation software. It may contain incorrect words, spelling, and punctuation that were not noted in checking the note before signing.
--- NOTE | 2017-11-05 09:00 | CASEMGMT ---
SW spoke with patient, introduced self and role at [facility]. SW asked patient if she would be interested in having therapy come and see her at home. She said that would be fine. MATY told her SW will work on setting this up. Plan: Home with resumption of waiver aide services and additionally home PT/OT [facility]
[2017-11-05] MEDS: Aspirin E.C. 81 MG Tablet PO ×2 (09:22→22:02)
[2017-11-05] MEDS: Topiramate 200 MG Tablet PO ×2 (09:22→22:02)
[2017-11-05] MEDS: Senna Tablet 2 TABLET PO (09:22)
[2017-11-05] MEDS: Escitalopram Oxalate 10 MG Tablet PO (09:22)
[2017-11-05] MEDS: Gabapentin 400 MG Capsule PO ×3 (09:23→16:45)
[2017-11-05] MEDS: amLODIPine 5 MG Tablet PO (09:23)
[2017-11-05] MEDS: Fenofibrate 145 MG Tablet PO (09:23)
[2017-11-05] MEDS: Pantoprazole Sodium 40 MG Tablet PO (09:23)
[2017-11-05] MEDS: Loratadine 10 MG Tablet PO (09:24)
[2017-11-05] MEDS: levoFLOXacin IV 250 MG/50 ML BAG 50 MG IV (09:29)
--- NOTE | 2017-11-05 10:23 | CASEMGMT ---
Addendum entered by Rosalind Nam 11/06/17 13:44: MATY called [facility] to let the covering senior case manager Leyla know that pt is going home today, as pt's senior case manager, Umm Art is out until the end of next week. MARY Orta, SALVAGER Original Note: Addendum entered by Rosalind Nam 11/05/17 12:20: SW spoke w/Miriam from [facility], they can take pt, SW let her know pt will likely discharge tomorrow. SW faxed face to face. SW will follow up w/discharge instructions to [facility] tomorrow. MARY Orta, SALVAGER Original Note: MATY called [facility], they cannot take pt. SW called [facility], they will review referral and anticipate being able to take pt. SW faxed referral, will await call back. MARY Orta, SALVAGER
[2017-11-05] MEDS: Cefepime HCl 2 GM in 0.9% NS 100 ML Minibag Q12 IV ×2 (11:29→22:02)
[2017-11-05] MEDS: LORazepam 1 MG Tablet PO ×2 (11:43→22:04)
[2017-11-05] MEDS: oxyCODONE 5 MG Tablet 10 MG PO ×2 (11:43→22:04)
[2017-11-05 11:45] LABS: Bedside Glucose 317 mg/dL (70-110)
[2017-11-05] MEDS: 0.9% Normal Saline 1,000 ML 100 ML IV (14:46)
--- NOTE | 2017-11-05 15:51 | PCM.PN.HOSP ---
Patient Problems: Active and Suspected Problems (Last Updated 11/05/17 @ 10:03 by Sandra Alfaro, [employer] SALESPERSON-C) COPD exacerbation (Acute) Acute on chronic respiratory failure with hypoxia and hypercapnia (Acute) Subjective: CC: Shortness of breath and cough Objective: The patient is much improved. Denies any fever, chills , chest pain or hemoptysis she Now on 4 L of oxygen per nasal cannula. Vitals/I&O's: Vital Signs Temp Pulse Resp BP Pulse Ox 98.1 F 75 16 134/51 H 94 11/05/17 15:05 11/05/17 15:05 11/05/17 15:05 11/05/17 15:05 11/05/17 15:05 Oxygen Flow Rate (L/min) 4 Oxygen Delivery Method Nasal Cannula Weight: 103.5 kg Body Mass Index (BMI) 44.5 Intake and Output for Last 24 Hours 11/03/17 11/04/17 11/05/17 23:59 23:59 23:59 Intake Total 1157.6 / 1157.6 2126.9 / 2126.9 3084 / 3084 Output Total 1100 / 1100 0 / 0 300 / 300 Balance 57.6 / 57.6 2126.9 / 2126.9 2784 / 2784 General: Alert, Oriented x3 HEENT: Atraumatic Neck: Supple Lungs: Wheezes Cardiovascular: Regular rate, Normal S1, Normal S2 Abdomen: Bowel Sounds Present, Soft, Non Tender Extremities: No edema Neurological: Cranial nerves II-XII grossly intact, Motor Exam 5/5 strength throughout Microbiology Past 72 Hours 11/05/17 09:43 Sputum, Expectorated/Coughed Gram Stain - Final 11/04/17 07:13 Urine, Clean Catch Urine Culture - Preliminary Culture exhibits no growth. Laboratory Results 11/04/17 16:02: POC Glucose 374 H 11/04/17 21:17: POC Glucose 342 H 11/05/17 06:55: WBC 8.3, RBC 5.13, Hgb 13.7, Hct 43.7, MCV 85.2, MCH 26.7 L, MCHC 31.4 L, RDW 13.5, RDW Differential 42.1, Plt Count 221, MPV 9.9, Immature Gran % (Auto) 0.100, Neut % (Auto) 88.9 H, Lymph % (Auto) 6.0 L, [place] % (Auto) 3.6, Eos % (Auto) 1.3, Baso % (Auto) 0.1, Absolute Neuts (auto) 7.4, Absolute Lymphs (auto) 0.50 L, Total Counted Not Reportable, Differential Comment COMMENT 11/05/17 06:55: Sodium 134 L, Potassium 3.8, Chloride 92 L, Carbon Dioxide 37.0 H, Anion Gap 5, BUN 47 H, Creatinine 1.41 H, Estim Creat Clear Calc 30.86, Est GFR (MDRD) Af Amer 49 L, Est GFR (MDRD) Non-Af 41 L, BUN/Creatinine Ratio 33.3 H, Glucose 213 H, Calcium 9.1, Phosphorus 3.7, Magnesium 2.8 H 11/05/17 06:59: POC Glucose 233 H 11/05/17 11:37: POC Glucose 317 H Current Medications Acetaminophen (Tylenol) 650 mg PO Q6H PRN PRN PRN Reason: Mild Pain (scale 0-3)/T>100.7 Albuterol Sulfate (Ventolin Aerosols) 2.5 mg INHALATION Q2H PRN PRN PRN Reason: SHORTNESS OF BREATH Albuterol/Ipratropium (Duoneb) 3 ml INHALATION Q4H.RT [facility] Last Admin: 11/05/17 15:17 Dose: 3 ml Amlodipine Besylate (Norvasc) 5 mg PO DAILY [facility] Last Admin: 11/05/17 09:23 Dose: 5 mg Aspirin (Ecotrin) 81 mg PO BID [facility] Last Admin: 11/05/17 09:22 Dose: 81 mg Atorvastatin Calcium (Lipitor) 20 mg PO QHS [facility] Last Admin: 11/04/17 21:18 Dose: 20 mg Dextrose (D50w Syringe) 0 gm IV X1 PRN; Protocol PRN Reason: Hypoglycemia Escitalopram Oxalate (Lexapro) 10 mg PO DAILY [facility] Last Admin: 11/05/17 09:22 Dose: 10 mg Fenofibrate (Tricor) 145 mg PO DAILY [facility] Last Admin: 11/05/17 09:23 Dose: 145 mg Gabapentin (Neurontin) 400 mg PO TIDCM [facility] Last Admin: 11/05/17 11:33 Dose: 400 mg Glucagon () 1 mg IM .X1 PRN PRN Reason: Hypoglycemia Heparin Sodium (Porcine) (Heparin Na) 5,000 unit SC Q8 [facility] Last Admin: 11/05/17 14:47 Dose: 5,000 u Cefepime HCl 2 gm/ Sodium (Chloride) 100 mls @ 200 mls/hr IV Q12 [facility] Last Admin: 11/05/17 11:29 Dose: 200 mls/hr Sodium Chloride () 1,000 mls @ 100 mls/hr IV .Q10H [facility] Last Admin: 11/05/17 14:46 Dose: 100 mls/hr Insulin Aspart (Novolog Flexpen (Bkc)) 0 units SC 0800,1200,1700,2200 [facility] PRN Reason: Protocol Last Admin: 11/05/17 11:38 Dose: 5 u Insulin Aspart (Novolog Mix 70-30 Flexpen Syrn) 70 units SC BID [facility] Last Admin: 11/05/17 09:23 Dose: 70 u Loratadine (Claritin) 10 mg PO DAILY [facility] Last Admin: 11/05/17 09:24 Dose: 10 mg Lorazepam (Ativan) 1 mg PO TID PRN PRN Reason: ANXIETY Last Admin: 11/05/17 11:43 Dose: 1 mg Magnesium Hydroxide (Milk Of Magnesia) 30 ml PO DAILY PRN PRN Reason: Constipation Ondansetron HCl (Zofran) 4 mg IV Q8H PRN PRN PRN Reason: Nausea Oxycodone HCl (Oxyir) 10 mg PO Q6H PRN PRN PRN Reason: PAIN Last Admin: 11/05/17 11:43 Dose: 10 mg Pantoprazole Sodium (Protonix) 40 mg PO DAILY [facility] Last Admin: 11/05/17 09:23 Dose: 40 mg Prednisone () 40 mg PO DAILY@0800 [facility] Senna (Senokot) 2 tablet PO DAILY [facility] Last Admin: 11/05/17 09:22 Dose: 2 tablet Topiramate (Topamax) 200 mg PO BID [facility] Last Admin: 11/05/17 09:22 Dose: 200 mg Medical Necessity - Tobacco Use Smoking Status: Current every day smoker Tobacco Use: Cigarettes Assessment/Plan Active and Suspected Problems (Last Updated 11/05/17 @ 10:03 by Sandra Alfaro NP-C) COPD exacerbation (Acute) Acute on chronic respiratory failure with hypoxia and hypercapnia (Acute) 1 acute on chronic hypoxic and hypercapnic respiratory failure from COPD and pneumonia; will continue supplemental oxygen . 2. Presumptive healthcare associated pneumonia; antibiotics changed to cefepime, will follow on sputum cultures. 3. Acute exacerbation of COPD; continue on bronchodilators , will change to prednisone 4 acute kidney injury, prerenal , improved with decreased IV hydration. 5. Hyponatremia; improved, thiazide diuretic discontinued. 6. Hypokalemia this will be replaced with oral potassium chloride as needed 7. type 2 diabetes mellitus; will increase NovoLog 70-30 to70 units twice daily and continue on regular insulin sliding scale. 8 hypertension; we will continue on Norvasc 9. DVT prophylaxis with subcutaneous heparin. Code Visit Inpatient E&M: 42408 Subs Hosp L2
--- NOTE | 2017-11-05 15:58 | PN_ITS ---
Patient Problems: Active and Suspected Problems (Last Updated 11/05/17 @ 10:03 by Sandra Alfaro , BACK STAYER-C) COPD exacerbation (Acute) Acute on chronic respiratory failure with hypoxia and hypercapnia (Acute) Subjective: CC: Shortness of breath and cough Objective: The patient is much improved. Denies any fever, chills , chest pain or hemoptysis she Now on 4 L of oxygen per nasal cannula. Vitals/I&O's: Vital Signs Temp Pulse Resp BP Pulse Ox 98.1 F 75 16 134/51 H 94 11/05/17 15:05 11/05/17 15:05 11/05/17 15:05 11/05/17 15:05 11/05/17 15:05 Oxygen Flow Rate (L/min) 4 Oxygen Delivery Method Nasal Cannula Weight: 103.5 kg Body Mass Index (BMI) 44.5 Intake and Output for Last 24 Hours 11/03/17 11/04/17 11/05/17 23:59 23:59 23:59 Intake Total 1157.6 / 1157.6 2126.9 / 2126.9 3084 / 3084 Output Total 1100 / 1100 0 / 0 300 / 300 Balance 57.6 / 57.6 2126.9 / 2126.9 2784 / 2784 General: Alert, Oriented x3 HEENT: Atraumatic Neck: Supple Lungs: Wheezes Cardiovascular: Regular rate, Normal S1, Normal S2 Abdomen: Bowel Sounds Present, Soft, Non Tender Extremities: No edema Neurological: Cranial nerves II-XII grossly intact, Motor Exam 5/5 strength throughout Microbiology Past 72 Hours 11/05/17 09:43 Sputum, Expectorated/Coughed Gram Stain - Final 11/04/17 07:13 Urine, Clean Catch Urine Culture - Preliminary Culture exhibits no growth. Laboratory Results 11/04/17 16:02: POC Glucose 374 H 11/04/17 21:17: POC Glucose 342 H 11/05/17 06:55: WBC 8.3, RBC 5.13, Hgb 13.7, Hct 43.7, MCV 85.2, MCH 26.7 L, MCHC 31.4 L, RDW 13.5, RDW Differential 42.1, Plt Count 221, MPV 9.9, Immature Gran % (Auto) 0.100, Neut % (Auto) 88.9 H, Lymph % (Auto) 6.0 L, [place] % (Auto) 3.6, Eos % (Auto) 1.3, Baso % (Auto) 0.1, Absolute Neuts (auto) 7.4, Absolute Lymphs (auto) 0.50 L, Total Counted Not Reportable, Differential Comment COMMENT 11/05/17 06:55: Sodium 134 L, Potassium 3.8, Chloride 92 L, Carbon Dioxide 37.0 H, Anion Gap 5, BUN 47 H, Creatinine 1.41 H, Estim Creat Clear Calc 30.86, Est GFR (MDRD) Af Amer 49 L, Est GFR (MDRD) Non-Af 41 L, BUN/Creatinine Ratio 33.3 H , Glucose 213 H, Calcium 9.1, Phosphorus 3.7, Magnesium 2.8 H 11/05/17 06:59: POC Glucose 233 H 11/05/17 11:37: POC Glucose 317 H Current Medications Acetaminophen (Tylenol) 650 mg PO Q6H PRN PRN PRN Reason: Mild Pain (scale 0-3)/T>100.7 Albuterol Sulfate (Ventolin Aerosols) 2.5 mg INHALATION Q2H PRN PRN PRN Reason: SHORTNESS OF BREATH Albuterol/Ipratropium (Duoneb) 3 ml INHALATION Q4H.RT [facility] Last Admin: 11/05/17 15:17 Dose: 3 ml Amlodipine Besylate (Norvasc) 5 mg PO DAILY [facility] Last Admin: 11/05/17 09:23 Dose: 5 mg Aspirin (Ecotrin) 81 mg PO BID [facility] Last Admin: 11/05/17 09:22 Dose: 81 mg Atorvastatin Calcium (Lipitor) 20 mg PO QHS [facility] Last Admin: 11/04/17 21:18 Dose: 20 mg Dextrose (D50w Syringe) 0 gm IV X1 PRN; Protocol PRN Reason: Hypoglycemia Escitalopram Oxalate (Lexapro) 10 mg PO DAILY [facility] Last Admin: 11/05/17 09:22 Dose: 10 mg Fenofibrate (Tricor) 145 mg PO DAILY [facility] Last Admin: 11/05/17 09:23 Dose: 145 mg Gabapentin (Neurontin) 400 mg PO TIDCM [facility] Last Admin: 11/05/17 11:33 Dose: 400 mg Glucagon () 1 mg IM .X1 PRN PRN Reason: Hypoglycemia Heparin Sodium (Porcine) (Heparin Na) 5,000 unit SC Q8 [facility] Last Admin: 11/05/17 14:47 Dose: 5,000 u Cefepime HCl 2 gm/ Sodium (Chloride) 100 mls @ 200 mls/hr IV Q12 [facility] Last Admin: 11/05/17 11:29 Dose: 200 mls/hr Sodium Chloride () 1,000 mls @ 100 mls/hr IV .Q10H [facility] Last Admin: 11/05/17 14:46 Dose: 100 mls/hr Insulin Aspart (Novolog Flexpen (Bkc)) 0 units SC 0800,1200,1700,2200 [facility] PRN Reason: Protocol Last Admin: 11/05/17 11:38 Dose: 5 u Insulin Aspart (Novolog Mix 70-30 Flexpen Syrn) 70 units SC BID [facility] Last Admin: 11/05/17 09:23 Dose: 70 u Loratadine (Claritin) 10 mg PO DAILY [facility] Last Admin: 11/05/17 09:24 Dose: 10 mg Lorazepam (Ativan) 1 mg PO TID PRN PRN Reason: ANXIETY Last Admin: 11/05/17 11:43 Dose: 1 mg Magnesium Hydroxide (Milk Of Magnesia) 30 ml PO DAILY PRN PRN Reason: Constipation Ondansetron HCl (Zofran) 4 mg IV Q8H PRN PRN PRN Reason: Nausea Oxycodone HCl (Oxyir) 10 mg PO Q6H PRN PRN PRN Reason: PAIN Last Admin: 11/05/17 11:43 Dose: 10 mg Pantoprazole Sodium (Protonix) 40 mg PO DAILY [facility] Last Admin: 11/05/17 09:23 Dose: 40 mg Prednisone () 40 mg PO DAILY@0800 [facility] Senna (Senokot) 2 tablet PO DAILY [facility] Last Admin: 11/05/17 09:22 Dose: 2 tablet Topiramate (Topamax) 200 mg PO BID [facility] Last Admin: 11/05/17 09:22 Dose: 200 mg Medical Necessity - Tobacco Use Smoking Status: Current every day smoker Tobacco Use: Cigarettes Assessment/Plan Active and Suspected Problems (Last Updated 11/05/17 @ 10:03 by Sandra Alfaro NP-C) COPD exacerbation (Acute) Acute on chronic respiratory failure with hypoxia and hypercapnia (Acute) 1 acute on chronic hypoxic and hypercapnic respiratory failure from COPD and pneumonia; will continue supplemental oxygen . 2. Presumptive healthcare associated pneumonia; antibiotics changed to cefepime , will follow on sputum cultures. 3. Acute exacerbation of COPD; continue on bronchodilators , will change to prednisone 4 acute kidney injury, prerenal , improved with decreased IV hydration. 5. Hyponatremia; improved, thiazide diuretic discontinued. 6. Hypokalemia this will be replaced with oral potassium chloride as needed 7. type 2 diabetes mellitus; will increase NovoLog 70-30 to70 units twice daily and continue on regular insulin sliding scale. 8 hypertension; we will continue on Norvasc 9. DVT prophylaxis with subcutaneous heparin. Code Visit Inpatient E&M: 69675 Subs Hosp L2
[2017-11-05 16:51] LABS: Bedside Glucose 299 mg/dL (70-110)
[2017-11-05] MEDS: Atorvastatin Calcium 20 MG Tablet PO (22:02)
[2017-11-06] VITALS (9 sets, daily range): BP systolic 125–134; BP diastolic 70; PULSE 77–89; RESP 18–20; TEMP 36.6–36.7; O2SAT 89–97
[2017-11-06 00:15] LABS: Bedside Glucose 219 mg/dL (70-110)
[2017-11-06] MEDS: 0.9% Normal Saline 1,000 ML 100 ML IV ×2 (00:52→10:35)
[2017-11-06] MEDS: Ipratropium/Albuterol Sulfate 3 ML AMPUL.NEB INHALATION ×3 (03:16→11:04)
--- NOTE | 2017-11-06 04:53 | CPS ---
pt declined use of bipap tonight
[2017-11-06] MEDS: Heparin Injection (Vial) 5,000 UNIT/ML VIAL 5000 UNIT SC (05:56)
[2017-11-06] MEDS: Dextrose 50%-Water 25 GM/50 ML DISP.SYRIN IV (06:57)
[2017-11-06 07:05] LABS: Bedside Glucose 35 mg/dL (70-110)
[2017-11-06 07:16] LABS: Bedside Glucose 139 mg/dL (70-110)
[2017-11-06] MEDS: predniSONE 20 MG Tablet 40 MG PO (08:25)
[2017-11-06] MEDS: Gabapentin 400 MG Capsule PO ×2 (08:26→12:39)
[2017-11-06 09:29] LABS: Anion Gap 6 (5-15); BUN 31 mg/dL (7-18); BUN/Creat Ratio 30.7 RATIO (10-20); Calcium,Total 8.5 mg/dL (8.5-10.1); Chloride 97 mmol/L (98-107); Creatinine, Serum 1.01 mg/dL (0.55-1.02); EST Glomerular Filtration Rate 60 mL/min (>60); Est Glom Filt Rate - Afr Amer 72 mL/min (>60); Estimated Creatinine Clearance 43.08 ml/min; Glucose 89 mg/dL (74-106); Potassium 3.6 mmol/L (3.5-5.1); Sodium Level 137 mmol/L (136-145)
[2017-11-06] MEDS: Aspirin E.C. 81 MG Tablet PO (10:25)
[2017-11-06] MEDS: Pantoprazole Sodium 40 MG Tablet PO (10:25)
[2017-11-06] MEDS: Loratadine 10 MG Tablet PO (10:25)
[2017-11-06] MEDS: Topiramate 200 MG Tablet PO (10:25)
[2017-11-06] MEDS: amLODIPine 5 MG Tablet PO (10:25)
[2017-11-06] MEDS: Escitalopram Oxalate 10 MG Tablet PO (10:25)
[2017-11-06] MEDS: Senna Tablet 2 TABLET PO (10:26)
[2017-11-06] MEDS: Fenofibrate 145 MG Tablet PO (10:26)
[2017-11-06] MEDS: Cefepime HCl 2 GM in 0.9% NS 100 ML Minibag Q12 IV (10:35)
[2017-11-06 10:46] LABS: Bedside Glucose 99 mg/dL (70-110)
--- NOTE | 2017-11-06 11:37 | PCM.PROGNOTE ---
Patient Problems: Active and Suspected Problems (Last Updated 11/05/17 @ 10:03 by Sandra Alfaro, [employer]IST-C) COPD exacerbation (Acute) Acute on chronic respiratory failure with hypoxia and hypercapnia (Acute) Subjective: The patient was seen and examined. She is sitting up in the recliner eating breakfast. Reports overall subjective improvement in her breathing, feel she is at her baseline. Cough or sputum production improved. Has been weaned to 3 L of oxygen supplementation, which is less than her home requirement of 4 L. - Physical Exam General: Oriented x3, Cooperative, - - Alert and conversive, however still falling asleep periodically HEENT: Atraumatic, Normocephalic Oral: Moist Mucosa Neck: Supple, No Nodes, Trachea Midline Lungs: No rales, Diminished, Rhonchi - coarse, partially clears with cough, Wheezes Cardiovascular: Regular rate, Regular Rhythm, Normal S1, Normal S2 Abdomen: Bowel Sounds Present, Soft, Non Tender, Obese Extremities: No cyanosis, No edema Skin: - - no changes Musculoskeletal: No Tenderness to Palpation of Joints or Extremities Neurological: Neuro grossly intact Psych/Mental Status: Normal Affect, Appropriate Vital Signs Temp Pulse Resp BP Pulse Ox 97.8 F 86 18 134/70 H 95 11/06/17 10:16 11/06/17 11:04 11/06/17 11:04 11/06/17 10:16 11/06/17 11:20 Oxygen Flow Rate (L/min) 2 Oxygen Delivery Method Nasal Cannula Weight: 228 lb 2.855 oz Body Mass Index (BMI) 44.5 Intake and Output for Last 24 Hours 11/04/17 11/05/17 11/06/17 23:59 23:59 23:59 Intake Total 2126.9 / 2126.9 4317 / 4317 1765 / 1765 Output Total 0 / 0 300 / 300 Balance 2126.9 / 2126.9 4017 / 4017 1765 / 1765 Microbiology Past 72 Hours 11/05/17 09:43 Gram Stain - Final Sputum, Expectorated/Coughed Respiratory Culture - Preliminary Appears to be normal respiratory jose. Further studies to follow. 11/04/17 07:13 Urine Culture - Final Urine, Clean Catch Culture exhibits no growth. Laboratory Tests Past 24 Hrs 11/06/17 09:10 Sodium 137 Potassium 3.6 Chloride 97 L Carbon Dioxide 34.0 H Anion Gap 6 BUN 31 H Creatinine 1.01 Estim Creat Clear Calc 43.08 Est GFR (MDRD) Af Amer 72 Est GFR (MDRD) Non-Af 60 BUN/Creatinine Ratio 30.7 H Glucose 89 Calcium 8.5 POC Glucose 11/06/17 11/06/17 11/06/17 10:42 07:11 06:51 POC Glucose 99 139 H 35 L* 11/05/17 11/05/17 11/05/17 22:01 16:44 11:37 POC Glucose 219 H 299 H 317 H Medical Necessity - Tobacco Use Smoking Status: Current every day smoker Tobacco Use: Cigarettes Assessment/Plan Active and Suspected Problems (Last Updated 11/05/17 @ 10:03 by Sandra Alfaro, [employer]IST-C) COPD exacerbation (Acute) Acute on chronic respiratory failure with hypoxia and hypercapnia (Acute) RECOMMENDATIONS 1. Wean oxygen supplementation to keep saturations 88-92% to prevent paradoxical CO2 retention 2. Encourage incentive spirometer and Acapella 3. Increase activity as tolerated, continue PT/OT 4. Continue bronchodilators, oral steroids with 12 day taper at discharge 5. Continue antibiotics pending infectious workup, narrow accordingly 6. Utilize BiPAP with all sleep 7. Ambulatory pulse ox prior to discharge 8. Follow-up in pulmonary clinic 2 weeks after discharge with [employer], at which time low-dose CT can be arranged, as well as repeat PFTs, 6 minute walk, and possible PSG. 9. Okay to discharge today from pulmonary perspective IMPRESSIONS 1. Acute on chronic hypoxic and hypercarbic respiratory failure secondary to COPD exacerbation Chest x-ray with possible right lower lobe infiltrate versus atelectasis. BNP normal. Patient presents with no fever or chills, leukocytosis of 17,300. However, patient has been on prednisone taper since Friday so unclear if elevated white count is secondary to steroid use. Patient is a CO2 retainer as evidenced on her blood gas. Lethargy improved, but still falling asleep during conversation. She is on multiple sedating medications. 5/2 Improved. Leukocytosis resolved. No fevers. Wean oxygen as tolerated to keep saturations 88-92%. Encourage incentive spirometer and Acapella. Mobilize patient as tolerated, continue PT/OT. Continue bronchodilators. Continue antibiotics pending infectious workup. Patient cites her ongoing smoking as reason she has not followed up with pulmonary. Patient was again counseled on importance of follow-up and on smoking cessation. Please schedule appt with [employer]IST in 2 weeks. 5/3 Okay to discharge from pulmonary perspective, patient close to baseline. Stressed importance of followup. Obtain ambulatory pulse oximetry today. Steroid taper at discharge. 2. Electrolyte imbalances Hyponatremia significantly improved with IV fluid resuscitation. Potassium replaced and now normal. IVF discontinued. Continue to monitor. 3. Severe COPD, ongoing tobacco abuse Patient has been lost to follow-up in pulmonary clinic. Her last pulmonary function tests were in November 2016 that showed severe COPD with evidence of air trapping. He continues to smoke at least 2 PPD, despite utilizing 4 L of oxygen continuously. She does take the oxygen off to smoke. She cites family stresses as a cause of her ongoing smoking. She was encouraged to quit smoking, nicotine patch offered. Given her significant smoking history and age, patient would be candidate for low-dose CT. This can be completed as an outpatient. 4. Hypertension/type 2 diabetes/morbid obesity/congestive heart failure/treated depression & anxiety Complicates care, management, recovery, and prognosis. Adjust insulin as indicated. Patient has been referred to behavioral health in the past, however was unable to make her appointment secondary to no transportation. She reports she checked her hospital van service and they do not transport patients from [place]. Would recommend close follow-up. Thank you for the opportunity to participate in this patient's care, please do not hesitate contact us with any further questions or concerns. This note was generated with [employer] dictation software. It may contain incorrect words, spelling, and punctuation that were not noted in checking the note before signing.
--- NOTE | 2017-11-06 11:49 | PN_ITS ---
Patient Problems: Active and Suspected Problems (Last Updated 11/05/17 @ 10:03 by Sandra Alfaro , POLL[employer] SURVEYS INTERVIEWER-C) COPD exacerbation (Acute) Acute on chronic respiratory failure with hypoxia and hypercapnia (Acute) Subjective: The patient was seen and examined. She is sitting up in the recliner eating breakfast. Reports overall subjective improvement in her breathing, feel she is at her baseline. Cough or sputum production improved. Has been weaned to 3 L of oxygen supplementation, which is less than her home requirement of 4 L. - Physical Exam General: Oriented x3, Cooperative, - - Alert and conversive, however still falling asleep periodically HEENT: Atraumatic, Normocephalic Oral: Moist Mucosa Neck: Supple, No Nodes, Trachea Midline Lungs: No rales, Diminished, Rhonchi - coarse, partially clears with cough, Wheezes Cardiovascular: Regular rate, Regular Rhythm, Normal S1, Normal S2 Abdomen: Bowel Sounds Present, Soft, Non Tender, Obese Extremities: No cyanosis, No edema Skin: - - no changes Musculoskeletal: No Tenderness to Palpation of Joints or Extremities Neurological: Neuro grossly intact Psych/Mental Status: Normal Affect, Appropriate Vital Signs Temp Pulse Resp BP Pulse Ox 97.8 F 86 18 134/70 H 95 11/06/17 10:16 11/06/17 11:04 11/06/17 11:04 11/06/17 10:16 11/06/17 11:20 Oxygen Flow Rate (L/min) 2 Oxygen Delivery Method Nasal Cannula Weight: 228 lb 2.855 oz Body Mass Index (BMI) 44.5 Intake and Output for Last 24 Hours 11/04/17 11/05/17 11/06/17 23:59 23:59 23:59 Intake Total 2126.9 / 2126.9 4317 / 4317 1765 / 1765 Output Total 0 / 0 300 / 300 Balance 2126.9 / 2126.9 4017 / 4017 1765 / 1765 Microbiology Past 72 Hours 11/05/17 09:43 Gram Stain - Final Sputum, Expectorated/Coughed Respiratory Culture - Preliminary Appears to be normal respiratory jose. Further studies to follow. 11/04/17 07:13 Urine Culture - Final Urine, Clean Catch Culture exhibits no growth. Laboratory Tests Past 24 Hrs 11/06/17 09:10 Sodium 137 Potassium 3.6 Chloride 97 L Carbon Dioxide 34.0 H Anion Gap 6 BUN 31 H Creatinine 1.01 Estim Creat Clear Calc 43.08 Est GFR (MDRD) Af Amer 72 Est GFR (MDRD) Non-Af 60 BUN/Creatinine Ratio 30.7 H Glucose 89 Calcium 8.5 POC Glucose 11/06/17 11/06/17 11/06/17 10:42 07:11 06:51 POC Glucose 99 139 H 35 L* 11/05/17 11/05/17 11/05/17 22:01 16:44 11:37 POC Glucose 219 H 299 H 317 H Medical Necessity - Tobacco Use Smoking Status: Current every day smoker Tobacco Use: Cigarettes Assessment/Plan Active and Suspected Problems (Last Updated 11/05/17 @ 10:03 by Sandra Alfaro , POLLS [employer] SURVEYS INTERVIEWER-C) COPD exacerbation (Acute) Acute on chronic respiratory failure with hypoxia and hypercapnia (Acute) RECOMMENDATIONS 1. Wean oxygen supplementation to keep saturations 88-92% to prevent paradoxical CO2 retention 2. Encourage incentive spirometer and Acapella 3. Increase activity as tolerated, continue PT/OT 4. Continue bronchodilators, oral steroids with 12 day taper at discharge 5. Continue antibiotics pending infectious workup, narrow accordingly 6. Utilize BiPAP with all sleep 7. Ambulatory pulse ox prior to discharge 8. Follow-up in pulmonary clinic 2 weeks after discharge with POLLS [employer] SURVEYS INTERVIEWER, at which time low-dose CT can be arranged, as well as repeat PFTs, 6 minute walk, and possible PSG. 9. Okay to discharge today from pulmonary perspective IMPRESSIONS 1. Acute on chronic hypoxic and hypercarbic respiratory failure secondary to COPD exacerbation Chest x-ray with possible right lower lobe infiltrate versus atelectasis. BNP normal. Patient presents with no fever or chills, leukocytosis of 17,300. However, patient has been on prednisone taper since Friday so unclear if elevated white count is secondary to steroid use. Patient is a CO2 retainer as evidenced on her blood gas. Lethargy improved, but still falling asleep during conversation. She is on multiple sedating medications. 5/2 Improved. Leukocytosis resolved. No fevers. Wean oxygen as tolerated to keep saturations 88-92%. Encourage incentive spirometer and Acapella. Mobilize patient as tolerated, continue PT/OT. Continue bronchodilators. Continue antibiotics pending infectious workup. Patient cites her ongoing smoking as reason she has not followed up with pulmonary. Patient was again counseled on importance of follow-up and on smoking cessation. Please schedule appt with POLLS [employer] SURVEYS INTERVIEWER in 2 weeks. 5/3 Okay to discharge from pulmonary perspective, patient close to baseline. Stressed importance of followup. Obtain ambulatory pulse oximetry today. Steroid taper at discharge. 2. Electrolyte imbalances Hyponatremia significantly improved with IV fluid resuscitation. Potassium replaced and now normal. IVF discontinued. Continue to monitor. 3. Severe COPD, ongoing tobacco abuse Patient has been lost to follow-up in pulmonary clinic. Her last pulmonary function tests were in November 2016 that showed severe COPD with evidence of air trapping. He continues to smoke at least 2 PPD, despite utilizing 4 L of oxygen continuously. She does take the oxygen off to smoke. She cites family stresses as a cause of her ongoing smoking. She was encouraged to quit smoking , nicotine patch offered. Given her significant smoking history and age, patient would be candidate for low-dose CT. This can be completed as an outpatient. 4. Hypertension/type 2 diabetes/morbid obesity/congestive heart failure/ treated depression & anxiety Complicates care, management, recovery, and prognosis. Adjust insulin as indicated. Patient has been referred to behavioral health in the past, however was unable to make her appointment secondary to no transportation. She reports she checked her hospital van service and they do not transport patients from [place]. Would recommend close follow-up. Thank you for the opportunity to participate in this patient's care, please do not hesitate contact us with any further questions or concerns. This note was generated with iCreate dictation software. It may contain incorrect words, spelling, and punctuation that were not noted in checking the note before signing.
--- NOTE | 2017-11-06 12:19 | PCM.DC ---
- Discharge Diagnoses Current Active Problems: Current Active and Chronic Problems (Last Updated 11/05/17 @ 10:03 by LUCIANO LazoC) COPD exacerbation (Acute) Acute on chronic respiratory failure with hypoxia and hypercapnia (Acute) Essential (primary) hypertension (Chronic) DM2 (diabetes mellitus, type 2) (Chronic) Morbid obesity (Chronic) Heart failure with preserved ejection fraction (Chronic) Nicotine addiction (Chronic) Depression (Chronic) Severe chronic obstructive pulmonary disease (Chronic) You will use the following diet at home:: Regular Discharge Activity: Return to Normal Activity Allergies/Adverse Reactions: Allergies amitriptyline Allergy (Verified 06/07/17 17:49) Unknown lisinopril Allergy (Verified 02/26/17 11:15) Angioedema duloxetine [From Cymbalta] Adverse Reaction (Verified 06/07/17 17:49) Upset Stomach pregabalin [From Lyrica] Adverse Reaction (Verified 06/07/17 17:49) bad dreams varenicline [From Chantix] Adverse Reaction (Verified 02/26/17 11:15) Unknown ZYBETA Allergy (Uncoded 02/26/17 11:15) Other Medications to take at Discharge Fenofibrate [Tricor] 145 mg PO DAILY 05/20/16 Senna [Senokot] 2 tablet PO DAILY 05/20/16 Tiotropium [place] [Spiriva Respimat] 2 puff IH DAILY 05/20/16 Albuterol Aerosols [Ventolin Aerosols] 2.5 mg INHALATION Q6H PRN PRN 02/26/17 Albuterol Inhaler [Ventolin Hfa] 1 - 2 puff INHALATION Q6H PRN PRN 02/26/17 Betamethasone Valerate [Valisone 0.1% Cream] 1 applic TOPICAL BID PRN PRN 02/26/17 Bumetanide [Bumex] 2 mg PO BID 02/26/17 Fluticasone/Vilanterol [Breo Ellipta 200-25 Mcg INH] 1 puff INHALATION DAILY 02/26/17 Loratadine [Claritin] 10 mg PO DAILY 02/26/17 Lorazepam [Ativan] 1 mg PO TID PRN 02/26/17 Omeprazole [Prilosec] 40 mg PO DAILY 02/26/17 Simvastatin [Zocor] 40 mg PO QHS 02/26/17 Vit C/E/Zn/Coppr/Lutein/Zeaxan [Preservision Areds 2 Softgel] 1 each PO BID 02/26/17 Aspirin [Aspir-Low] 162 mg PO DAILY 09/10/17 Escitalopram Oxalate [Lexapro] 10 mg PO DAILY 09/10/17 Gabapentin [Neurontin] 400 mg PO TID 09/10/17 Insulin Human 70/30 [Novolog Mix 70-30 Flexpen Syrn] 60 units SC BID 09/10/17 Fluticasone 110 Mcg [Flovent 110 Mcg] 1 puff INHALATION BID 11/03/17 Oxycodone HCl/Acetaminophen [Oxycodone-Acetaminophen 10-325] 1 each PO Q4H PRN PRN 11/03/17 Topiramate [Topamax] 200 mg PO BID 11/03/17 Amlodipine [Norvasc] 5 mg PO DAILY 30 Days #30 tab 11/06/17 Cefdinir [Omnicef [equiv]] 300 mg PO Q12H #10 cap 11/06/17 Prednisone 10 mg PO UD #30 tablet 11/06/17 Topiramate [Topamax] 200 mg PO BID tablet 11/06/17 The following prescriptions were given: Amlodipine [Norvasc] 5 mg PO DAILY 30 Days #30 tab Cefdinir [Omnicef [equiv]] 300 mg PO Q12H #10 cap Prednisone 10 mg PO UD #30 tablet Primary Care Physician: John Burnett DO [Primary Care Provider] - In 1 Week Proposed Discharge Date: 11/06/17
--- NOTE | 2017-11-06 12:22 | PCM.DC.SUM ---
Discharge Date and Diagnosis Date of Admission: 11/03/17 - Primary Discharge Diagnosis Active and Suspected Problems (Last Updated 11/05/17 @ 10:03 by MITCHEL Lazo) COPD exacerbation (Acute) Acute on chronic respiratory failure with hypoxia and hypercapnia (Acute) - Secondary Discharge Diagnosis Chronic Problems (Last Updated 11/05/17 @ 10:03 by MITCHEL Lazo) Essential (primary) hypertension (Chronic) DM2 (diabetes mellitus, type 2) (Chronic) Morbid obesity (Chronic) Heart failure with preserved ejection fraction (Chronic) Uncontrolled type II diabetes mellitus (Chronic) Nicotine addiction (Chronic) Depression (Chronic) Severe chronic obstructive pulmonary disease (Chronic) Hospital Course and Treatment Operations: None Summary of Care Provided: This is a 57 F who presented to the emergency department via EMS from home with 3 day history of increasing shortness of breath. The patient has had thick green phlegm production and cough. She was diagnosed with acute respiratory failure from pneumonia and COPD exacerbation. She was placed on broad-spectrum antibiotics, IV steroids and bronchodilators and then admitted to PCU. She continued to improve ,pulmonary medicine saw her on consultation and made recommendations. She did improve and was discharged home on prednisone taper, oral antibiotics to complete 8 days of total antibiotic therapy as well as her bronchodilator therapy. 1 acute on chronic hypoxic and hypercapnic respiratory failure from COPD and pneumonia; he is not on supplemental oxygen at 4 L/min which is her home baseline. 2. Presumptive healthcare associated pneumonia; discharged on p.o. Omnicef to complete a days of total antibiotic therapy.. 3. Acute exacerbation of COPD; continue on bronchodilators and prednisone taper. 4 acute kidney injury, prerenal , improved with IV hydration. 5. Hyponatremia; improved, thiazide diuretic discontinued. 6. Hypokalemia this was replaced with oral potassium chloride . 7. type 2 diabetes mellitus; resumed on 70-30 to70 units twice daily. 8 hypertension; we will continue on Norvasc, chlorthalidone was discontinued due to hyponatremia. Physical exam; vital signs were stable. He was alert and oriented to time place and person. He did not appear to be any form of distress. S1 and S2 heard no murmur or gallop Lung exam was clear to auscultation with no adventitious sounds. Abdomen was soft nontender with normal bowel sounds. extremity exam did not reveal any edema, palpable pulses bilaterally. Neurologic exam was grossly intact. Discharge Diet: No Restrictions Discharge Activity: Return to Normal Activity Home Medications: Medications to take at Discharge Fenofibrate [Tricor] 145 mg PO DAILY 05/20/16 Senna [Senokot] 2 tablet PO DAILY 05/20/16 Tiotropium [place] [Spiriva Respimat] 2 puff IH DAILY 05/20/16 Albuterol Aerosols [Ventolin Aerosols] 2.5 mg INHALATION Q6H PRN PRN 02/26/17 Albuterol Inhaler [Ventolin Hfa] 1 - 2 puff INHALATION Q6H PRN PRN 02/26/17 Betamethasone Valerate [Valisone 0.1% Cream] 1 applic TOPICAL BID PRN PRN 02/26/17 Bumetanide [Bumex] 2 mg PO BID 02/26/17 Fluticasone/Vilanterol [Breo Ellipta 200-25 Mcg INH] 1 puff INHALATION DAILY 02/26/17 Loratadine [Claritin] 10 mg PO DAILY 02/26/17 Lorazepam [Ativan] 1 mg PO TID PRN 02/26/17 Omeprazole [Prilosec] 40 mg PO DAILY 02/26/17 Simvastatin [Zocor] 40 mg PO QHS 02/26/17 Vit C/E/Zn/Coppr/Lutein/Zeaxan [Preservision Areds 2 Softgel] 1 each PO BID 02/26/17 Aspirin [Aspir-Low] 162 mg PO DAILY 09/10/17 Escitalopram Oxalate [Lexapro] 10 mg PO DAILY 09/10/17 Gabapentin [Neurontin] 400 mg PO TID 09/10/17 Insulin Human 70/30 [Novolog Mix 70-30 Flexpen Syrn] 60 units SC BID 09/10/17 Fluticasone 110 Mcg [Flovent 110 Mcg] 1 puff INHALATION BID 11/03/17 Oxycodone HCl/Acetaminophen [Oxycodone-Acetaminophen 10-325] 1 each PO Q4H PRN PRN 11/03/17 Topiramate [Topamax] 200 mg PO BID 11/03/17 Amlodipine [Norvasc] 5 mg PO DAILY 30 Days #30 tab 11/06/17 Cefdinir [Omnicef [equiv]] 300 mg PO Q12H #10 cap 11/06/17 Prednisone 10 mg PO UD #30 tab 11/06/17 Topiramate [Topamax] 200 mg PO BID tablet 11/06/17 Following Prescrptions Were Given to Patient: Amlodipine [Norvasc] 5 mg PO DAILY 30 Days #30 tab Cefdinir [Omnicef [equiv]] 300 mg PO Q12H #10 cap Prednisone 10 mg PO UD #30 tab Primary Care Physician: John Burnett DO [Primary Care Provider] - In 1 Week Medical Necessity - Tobacco Use Smoking Status: Current every day smoker Tobacco Use: Cigarettes Meaningful Use Info Meaningful Use Diagnoses (Choose all that apply): None applicable Code Visit Inpatient E&M: 77664 Disch Hosp
[2017-11-06] MEDS: LORazepam 1 MG Tablet PO (12:46)
[2017-11-06] MEDS: oxyCODONE 5 MG Tablet 10 MG PO (12:46)
--- NOTE | 2017-11-07 16:01 | CASEMGMT ---
[facility] Discharge F/U Phone Call LACE: 12 STRATA: 4 CALL DATE: 11/07/17 DISCHARGE DATE: 11/06/17 CALL TIME: 1600 DURATION: NO ANSWER AND VM BOX IS FULL, UNABLE TO LEAVE A MESSAGE. ADM DX: COPD EXAC, ARNAUD, A ON C RESP FAILURE SSTATEN [facility]
== END 2017-11-06 14:17 | disposition home or self-care (01) | DRG 88 ==
LOC: ED 14:31 → PCU 15:25
PROVIDERS: Internal Medicine Critical Care Medicine; Admitting Provider Hospitalist; Emergency Provider Emergency Medicine; Family Provider Family Medicine; PCP Family Medicine; Visit Provider Internal Medicine
DX: J44.0 Chronic obstructive pulmonary disease with (acute) lower respiratory infection (principal); J96.22 Acute and chronic respiratory failure with hypercapnia; J18.9 Pneumonia, unspecified organism; N17.9 Acute kidney failure, unspecified; E87.1 Hypo-osmolality and hyponatremia; I50.32 Chronic diastolic (congestive) heart failure; E86.0 Dehydration; I11.0 Hypertensive heart disease with heart failure; E11.65 Type 2 diabetes mellitus with hyperglycemia; J96.21 Acute and chronic respiratory failure with hypoxia; J44.1 Chronic obstructive pulmonary disease with (acute) exacerbation; Y95 Nosocomial condition; E66.01 Morbid (severe) obesity due to excess calories; F17.210 Nicotine dependence, cigarettes, uncomplicated; F32.9 Major depressive disorder, single episode, unspecified; F41.9 Anxiety disorder, unspecified; E87.6 Hypokalemia; Z68.41 Body mass index [BMI] 40.0-44.9, adult; Z99.81 Dependence on supplemental oxygen; Z79.4 Long term (current) use of insulin; Z79.82 Long term (current) use of aspirin; Z79.899 Other long term (current) drug therapy
CPT/HCPCS: 36415; 36600; 71045; 80048; 81001; 82436; 82803; 82962; 83735; 83880; 83930; 83935; 84100; 84300; 84484; 85025; 87040; 87070; 87086; 87205; 93005; 94002; 94003; 94640; 94667; 94668; 97116; 97162; 97166; 97530; 97535; 97802; 99285; 99406; J7030; A4216

== ENCOUNTER 2017-11-30 08:34 | Inpatient (IN) | payer MEDICAID, SELFPAY ==
[2017-11-30] VITALS (43 sets, daily range): BP systolic 89–179; BP diastolic 40–120; PULSE 52–96; RESP 12–28; TEMP 37.1–38.8; O2SAT 30–98; BMI 43.9
--- NOTE | 2017-11-30 08:52 | EKG12_ITS ---
Test Reason : SOB Blood Pressure : / mmHG Vent. Rate : 075 BPM Atrial Rate : 075 BPM P-R Int : 206 ms QRS Dur : 084 ms QT Int : 396 ms P-R-T Axes : 048 231 051 degrees QTc Int : 442 ms Normal sinus rhythm Low voltage QRS Irineo Septal infarct , age undetermined Abnormal ECG Confirmed by JOSEF ODELL, LILIANA ([id number]), editorial clerk PEGGY CARABALLO ([id number]) on 12/03/2017 2:38:40 PM Referred By: GINA Confirmed By:LILIANA BAHENA MD
--- NOTE | 2017-11-30 08:52 | RAD_ITS ---
STUDY: X-RAY CHEST REASON FOR EXAM: Female, 57 years old. Shortness of breath, weakness. TECHNIQUE: Single AP portable view of the chest. COMPARISON: November 03, 2016 chest x-ray FINDINGS: There is elevation of the left hemidiaphragm allowing for overlying soft tissue. There is a hazy appearance of the lung bases. There is bibasilar interstitial and peribronchial thickening. There is no demonstrated pleural abnormality. There is mild cardiac enlargement. Normal mediastinum and kimberley. Normal visualized pulmonary arteries. Normal visualized aortic arch and descending thoracic aorta. There are diffuse degenerative changes of the visualized thoracic spine. Normal visualized ribs, clavicles, and shoulders. There is no demonstrated abnormality of the visualized soft tissue structures of the upper abdomen. RAD/Chest 1 View (Portable) IMPRESSION: Findings are suspicious for bronchiectasis and peribronchial inflammation possible pneumonia. Bilateral lower lobe atelectasis. Electronically Signed: Cecily Johnson MD at 9:26 EDT Tel , Service support ,
--- NOTE | 2017-11-30 08:53 | CT_ITS ---
STUDY: CT BRAIN WITHOUT CONTRAST REASON FOR EXAM: Female, 57 years old. Altered level of consciousness weakness lethargy, 02 RADIATION DOSAGE (If Supplied By Facility): CTDIvol = ( 44.99 ) mGy, DLP = ( 745.49 ) mGycm TECHNIQUE: Transaxial CT imaging of the brain was performed without administration of intravenous contrast material. Individualized dose optimization techniques were used for this CT. COMPARISON: February 24, 2017 MRI brain FINDINGS: Normal soft tissue structures. Normal calvarium. There is mild cerebral atrophy with widening of the extra-axial spaces and ventricular dilatation. Normal white matter tracts of the cerebral hemispheres. Normal basal ganglia and thalami. Normal brainstem. There is mild cerebellar atrophy. There is no intracranial hemorrhage. There are no findings of an acute ischemic infarction. Normal visualized paranasal sinuses. CT/Brain/Head without Contrast IMPRESSION: Mild atrophy. No evidence of acute hemorrhage infarct or edema. Electronically Signed: Cecily Johnson MD at 10:43 EDT Tel , Service support ,
[2017-11-30] MEDS: Ipratropium/Albuterol Sulfate 3 ML AMPUL.NEB INHALATION ×4 (08:57→22:06)
--- NOTE | 2017-11-30 09:02 | ED.DCSUM_ITS ---
History of Present Illness Chief Complaint: Weakness Informant: Patient, Family Limited: Stupor Onset: Month(s) - 1 Context: Gradual Onset Timing: Continuous Quality: lethargic/sleepy Location: generalized Current Severity: Severe Maximum Severity: Severe Narrative: History very limited from the patient because of significant lethargy. See review of systems for symptoms that she admits to. Family states this is been going on for about a month just progressively worsening, most severe today. Difficult to keep awake. Lethargic to the point of falling a couple of times, yesterday she fell and hit her head. Son lives with her. He notes that her legs have been red, swollen, sore for more than a month, worse recently according to the patient. No known fevers. No other injuries that are known. Has a history of COPD and congestive heart failure. Was hospitalized about 3 or 4 weeks ago, details are unknown according to family. They think they switch some medications around. - Past Medical History (1) Acute on chronic respiratory failure with hypoxia and hypercapnia Status: Chronic (2) DM2 (diabetes mellitus, type 2) Status: Chronic (3) Depression Status: Chronic (4) Essential (primary) hypertension Status: Chronic (5) Heart failure with preserved ejection fraction Status: Chronic (6) Morbid obesity Status: Chronic (7) Nicotine addiction Status: Chronic (8) Severe chronic obstructive pulmonary disease Status: Chronic Past Medical History - Allergies and Home Meds Allergies/Adverse Reactions: Allergies amitriptyline Allergy (Verified 06/07/17 17:49) Unknown lisinopril Allergy (Verified 02/26/17 11:15) Angioedema duloxetine [From Cymbalta] Adverse Reaction (Verified 06/07/17 17:49) Upset Stomach pregabalin [From Lyrica] Adverse Reaction (Verified 06/07/17 17:49) bad dreams varenicline [From Chantix] Adverse Reaction (Verified 02/26/17 11:15) Unknown ZYBETA Allergy (Uncoded 02/26/17 11:15) Other Home Medications: Home Medications Medication Instructions Recorded RX: Fenofibrate [Tricor] 145 mg PO DAILY 05/20/16 RX: Senna [Senokot] 2 tablet PO DAILY 05/20/16 RX: Tiotropium [place] [Spiriva 2 puff IH DAILY 05/20/16 Respimat] RX: Albuterol Aerosols [Ventolin 2.5 mg INHALATION Q6H PRN PRN 02/26/17 Aerosols] RX: Albuterol Inhaler [Ventolin 1 - 2 puff INHALATION Q6H PRN PRN 02/26/17 Hfa] RX: Betamethasone Valerate 1 applic TOPICAL BID PRN PRN 02/26/17 [Valisone 0.1% Cream] RX: Bumetanide [Bumex] 2 mg PO BID 02/26/17 RX: Fluticasone/Vilanterol [Breo 1 puff INHALATION DAILY 02/26/17 Ellipta 200-25 Mcg INH] RX: Loratadine [Claritin] 10 mg PO DAILY 02/26/17 RX: Lorazepam [Ativan] 1 mg PO TID PRN 02/26/17 RX: Omeprazole [Prilosec] 40 mg PO DAILY 02/26/17 RX: Simvastatin [Zocor] 40 mg PO QHS 02/26/17 RX: Vit C/E/Zn/Coppr/Lutein/Zeaxan 1 each PO BID 02/26/17 [Preservision Areds 2 Softgel] RX: Aspirin [Aspir-Low] 162 mg PO DAILY 09/10/17 RX: Escitalopram Oxalate [Lexapro] 10 mg PO DAILY 09/10/17 RX: Gabapentin [Neurontin] 400 mg PO TID 09/10/17 RX: Insulin Human 70/30 [Novolog 60 units SC BID 09/10/17 Mix 70-30 Flexpen Syrn] RX: Fluticasone 110 Mcg [Flovent 1 puff INHALATION BID 11/03/17 110 Mcg] RX: Oxycodone HCl/Acetaminophen 1 each PO Q4H PRN PRN 11/03/17 [Oxycodone-Acetaminophen 10-325] RX: Amlodipine [Norvasc] 5 mg PO DAILY 30 Days #30 tab 11/06/17 RX: Prednisone 10 mg PO UD #30 tab 11/06/17 RX: Topiramate [Topamax] 200 mg PO BID tablet 11/06/17 Cyclobenzaprine [Flexeril] 10 mg PO TID PRN PRN 11/30/17 Primary Care Physician: John Burnett DO [Primary Care Provider] - Prior records reviewed: Yes Surgical History: hysterectomy, tonsillectomy, of section, of tubal ligation Lives: With Family Smoking Status: Former smoker Drugs: None - Family History Maternal Family History: Family History (Last Updated 06/07/17 @ 17:45 by Darya Weaver) Father CAD (coronary artery disease) Hypertension Sudden cardiac Mother CAD (coronary artery disease) Hypertension Diabetes Family History: Reports: COPD, No pertinent history Sibling Family History: Family History (Last Updated 06/07/17 @ 17:45 by Darya Weaver) Father CAD (coronary artery disease) Hypertension Sudden cardiac Mother CAD (coronary artery disease) Hypertension Diabetes Family History: Reports: - - Psoriasis Review of Systems ROS: Unable to Obtain - completely General: Reports: Malaise Cardiovascular: Reports: Chest pain - a little bit Respiratory: Reports: Dyspnea, Cough Gastrointestinal: Reports: Abdominal pain. Denies: Vomiting Musculoskeletal: Reports: Swelling, Extremity Pain - BLE Skin: Reports: Rash - BLE Neurological: Reports: - - confused per family Physical Exam Vital Signs/Narrative: Vital Signs Temp Pulse Resp BP Pulse Ox 11/30/17 08:49 82 28 H 114/90 H 86 11/30/17 08:35 98.7 F General: Well nourished, Well developed, Obese, - - stuporous. alerts to voice for only short time to answer questions. Head: Normocephalic, Atraumatic Eyes: Perrl ENT: Moist mucous membranes, No rhinorrhea, TM's clear - no HT, - - no evidence facial trauma Neck: Supple, Nontender, No JVD - limited exam due to obesity Cardiovascular: Regular rate, Regular rhythm. Negative for: Tachycardia Respiratory: Rales - expiratory bilat. coarse. rales vs. transmitted upper airway sounds. Equal bilaterally., - - tachypneic, no resp distress. Negative for: Chest tenderness Abdomen: Soft, Nontender, Nondistended, Normal bowel sounds Skin: Rash - Hot, tender erythema circumfirentially BLE from mid-wu to ankle. Symmetric. No obvious wound or abscess. Neurological: Cranial nerves II-XII grossly intact, Lethargic, - - moving all 4 ext's Diagnostic/Tx/Re-eval Impressions Brain CT 11/30/17 08:53 IMPRESSION: Mild atrophy. No evidence of acute hemorrhage infarct or edema. Electronically Signed: Cecily Johnson MD at 10:43 EDT Tel , Service support , 11/30/17 08:52 Chest 1 View (Portable) [RAD] Stat 11/30/17 08:53 CT Brain [Brain/Head without Contrast] [CT] Stat 11/30/17 10:38 CXR for Line Placement [RAD] Stat Laboratory Results 11/30/17 11/30/17 11/30/17 Range/Units 09:10 09:20 10:56 WBC 8.8 (4.4-11.0) K/mm3 RBC 4.74 (4.2-5.4) M/mm3 Hgb 12.6 (12.0-15.0) g/dl Hct 40.1 (37-47) % MCV 84.6 (81-99) fL MCH 26.6 L (27.0-32.0) pg MCHC 31.4 L (32-36) g/gl RDW 14.0 (11.6-14.6) % RDW Differential 43.5 (35.1-43.9) fl Plt Count 240 (150-450) K/mm3 MPV 9.3 (6.2-12.0) fl Immature Gran % (Auto) 0.200 (0.0-0.9) % Neut % (Auto) 81.0 H (47-70) % Lymph % (Auto) 11.8 L (19-41) % [place] % (Auto) 3.1 (0-10) % Eos % (Auto) 3.7 (0-5) % Baso % (Auto) 0.2 (0-1) % Absolute Neuts (auto) 7.2 (2.0-7.7) X10^3/uL Absolute Lymphs (auto) 1.04 (0.83-4.51) X10^3/ul Total Counted Not Reportable PT (11.7-14.9) SECONDS INR APTT (24.1-36.2) Seconds Specimen Type ART Sample Site R Radial pH 7.38 (7.35-7.45) Bicarbonate Actual 37.3 H (22-26) mmol/L POC Total CO2 39 mmol/L Base Excess 12 H (-2 to +2) mmol/L O2 Saturation 89 L (95-99) % O2 % 40 ABG pCO2 62.8 H (35-45) mmHg ABG pO2 60 L (75-100) mmHG Bob Test POS Respiration Rate 12 O2 Delivery Device Bi / C PAP EPAP 6 IPAP 12 Blood Gas Notified Whom ED Blood Gas Notified Time 918 Sodium (136-145) mmol/L Potassium (3.5-5.1) mmol/L Chloride (98-107) mmol/L Carbon Dioxide (21.0-32.0) mmol/L Anion Gap (5-15) BUN (7-18) mg/dL Creatinine (0.55-1.02) mg/dL Estim Creat Clear Calc ml/min Est GFR (MDRD) Af Amer (>60) mL/min Est GFR (MDRD) Non-Af (>60) mL/min BUN/Creatinine Ratio (10-20) RATIO Glucose (74-106) mg/dL Lactic Acid (0.4-2.0) mmol/L Calcium (8.5-10.1) mg/dL Total Bilirubin (0.20-1.00) mg/dL AST (15-37) U/L ALT (13-56) U/L Alkaline Phosphatase (45-117) U/L Troponin I (<0.045) ng/mL B-Natriuretic Peptide (0-100) pg/mL Total Protein (6.4-8.2) g/dL Albumin (3.2-5.0) g/dL Globulin (2.2-4.2) g/dL Albumin/Globulin Ratio (0.9-2.4) RATIO Urine Color Yellow (Yellow) Urine Clarity Sl. Cloudy (Clear) Urine pH 6.0 (5.0 - 8.0) Ur Specific [place] 1.010 (1.002-1.030) Urine Protein Negative (Negative) mg/dl Urine Glucose (UA) Normal (Normal) mg/dl Urine Ketones Negative (Negative) mg/dl Urine Occult Blood 150 H (Negative) /ul Urine Nitrite Negative (Negative) Urine Bilirubin Negative (Negative) mg/dL Urine Urobilinogen Normal (Normal) mg/dl Ur Leukocyte Esterase Negative (Negative) /ul Urine RBC 0-5 SEEN (0-5) /hpf Urine WBC 0 SEEN (0-5) /hpf Ur Squamous Epith Cells 0-5 SEEN (5-10) /hpf Urine Bacteria RARE (None Seen) /hpf Urine Mucus 0 SEEN (<or=2+) /hpf 11/30/17 11/30/17 11/30/17 Range/Units 10:56 10:56 10:56 WBC (4.4-11.0) K/mm3 RBC (4.2-5.4) M/mm3 Hgb (12.0-15.0) g/dl Hct (37-47) % MCV (81-99) fL MCH (27.0-32.0) pg MCHC (32-36) g/gl RDW (11.6-14.6) % RDW Differential (35.1-43.9) fl Plt Count (150-450) K/mm3 MPV (6.2-12.0) fl Immature Gran % (Auto) (0.0-0.9) % Neut % (Auto) (47-70) % Lymph % (Auto) (19-41) % [place] % (Auto) (0-10) % Eos % (Auto) (0-5) % Baso % (Auto) (0-1) % Absolute Neuts (auto) (2.0-7.7) X10^3/uL Absolute Lymphs (auto) (0.83-4.51) X10^3/ul Total Counted PT 13.4 (11.7-14.9) SECONDS INR 1.0 APTT 29.0 (24.1-36.2) Seconds Specimen Type Sample Site pH (7.35-7.45) Bicarbonate Actual (22-26) mmol/L POC Total CO2 mmol/L Base Excess (-2 to +2) mmol/L O2 Saturation (95-99) % O2 % ABG pCO2 (35-45) mmHg ABG pO2 (75-100) mmHG Bob Test Respiration Rate O2 Delivery Device EPAP IPAP Blood Gas Notified Whom Blood Gas Notified Time Sodium 135 L (136-145) mmol/L Potassium 3.2 L (3.5-5.1) mmol/L Chloride 92 L (98-107) mmol/L Carbon Dioxide 37.0 H (21.0-32.0) mmol/L Anion Gap 6 (5-15) BUN 26 H (7-18) mg/dL Creatinine 1.41 H (0.55-1.02) mg/dL Estim Creat Clear Calc 79.35 ml/min Est GFR (MDRD) Af Amer 49 L (>60) mL/min Est GFR (MDRD) Non-Af 41 L (>60) mL/min BUN/Creatinine Ratio 18.4 (10-20) RATIO Glucose 154 H (74-106) mg/dL Lactic Acid 0.6 (0.4-2.0) mmol/L Calcium 8.6 (8.5-10.1) mg/dL Total Bilirubin 0.40 (0.20-1.00) mg/dL AST 10 L (15-37) U/L ALT 13 (13-56) U/L Alkaline Phosphatase 97 (45-117) U/L Troponin I < 0.015 (<0.045) ng/mL B-Natriuretic Peptide (0-100) pg/mL Total Protein 6.7 (6.4-8.2) g/dL Albumin 2.6 L (3.2-5.0) g/dL Globulin 4.1 (2.2-4.2) g/dL Albumin/Globulin Ratio 0.6 L (0.9-2.4) RATIO Urine Color (Yellow) Urine Clarity (Clear) Urine pH (5.0 - 8.0) Ur Specific [place] (1.002-1.030) Urine Protein (Negative) mg/dl Urine Glucose (UA) (Normal) mg/dl Urine Ketones (Negative) mg/dl Urine Occult Blood (Negative) /ul Urine Nitrite (Negative) Urine Bilirubin (Negative) mg/dL Urine Urobilinogen (Normal) mg/dl Ur Leukocyte Esterase (Negative) /ul Urine RBC (0-5) /hpf Urine WBC (0-5) /hpf Ur Squamous Epith Cells (5-10) /hpf Urine Bacteria (None Seen) /hpf Urine Mucus (<or=2+) /hpf 11/30/17 Range/Units 10:56 WBC (4.4-11.0) K/mm3 RBC (4.2-5.4) M/mm3 Hgb (12.0-15.0) g/dl Hct (37-47) % MCV (81-99) fL MCH (27.0-32.0) pg MCHC (32-36) g/gl RDW (11.6-14.6) % RDW Differential (35.1-43.9) fl Plt Count (150-450) K/mm3 MPV (6.2-12.0) fl Immature Gran % (Auto) (0.0-0.9) % Neut % (Auto) (47-70) % Lymph % (Auto) (19-41) % [place] % (Auto) (0-10) % Eos % (Auto) (0-5) % Baso % (Auto) (0-1) % Absolute Neuts (auto) (2.0-7.7) X10^3/uL Absolute Lymphs (auto) (0.83-4.51) X10^3/ul Total Counted PT (11.7-14.9) SECONDS INR APTT (24.1-36.2) Seconds Specimen Type Sample Site pH (7.35-7.45) Bicarbonate Actual (22-26) mmol/L POC Total CO2 mmol/L Base Excess (-2 to +2) mmol/L O2 Saturation (95-99) % O2 % ABG pCO2 (35-45) mmHg ABG pO2 (75-100) mmHG Bob Test Respiration Rate O2 Delivery Device EPAP IPAP Blood Gas Notified Whom Blood Gas Notified Time Sodium (136-145) mmol/L Potassium (3.5-5.1) mmol/L Chloride (98-107) mmol/L Carbon Dioxide (21.0-32.0) mmol/L Anion Gap (5-15) BUN (7-18) mg/dL Creatinine (0.55-1.02) mg/dL Estim Creat Clear Calc ml/min Est GFR (MDRD) Af Amer (>60) mL/min Est GFR (MDRD) Non-Af (>60) mL/min BUN/Creatinine Ratio (10-20) RATIO Glucose (74-106) mg/dL Lactic Acid (0.4-2.0) mmol/L Calcium (8.5-10.1) mg/dL Total Bilirubin (0.20-1.00) mg/dL AST (15-37) U/L ALT (13-56) U/L Alkaline Phosphatase (45-117) U/L Troponin I (<0.045) ng/mL B-Natriuretic Peptide 164.4 H (0-100) pg/mL Total Protein (6.4-8.2) g/dL Albumin (3.2-5.0) g/dL Globulin (2.2-4.2) g/dL Albumin/Globulin Ratio (0.9-2.4) RATIO Urine Color (Yellow) Urine Clarity (Clear) Urine pH (5.0 - 8.0) Ur Specific [place] (1.002-1.030) Urine Protein (Negative) mg/dl Urine Glucose (UA) (Normal) mg/dl Urine Ketones (Negative) mg/dl Urine Occult Blood (Negative) /ul Urine Nitrite (Negative) Urine Bilirubin (Negative) mg/dL Urine Urobilinogen (Normal) mg/dl Ur Leukocyte Esterase (Negative) /ul Urine RBC (0-5) /hpf Urine WBC (0-5) /hpf Ur Squamous Epith Cells (5-10) /hpf Urine Bacteria (None Seen) /hpf Urine Mucus (<or=2+) /hpf - Rhythm Strip Rhythm Strip: Sinus Rhythm Rate: 75 Ectopy: None - EKG 1 Interpretation: Sinus Rhythm, No Acute Injury Pattern, - - RAD - Medical Decision Making Patient received Narcan prior to arrival which did not change her level of consciousness. Therefore I did not give her any more. Her condition/level of consciousness seems pronounced for what her ABG is showing, which is an almost normal pH and an elevated CO2 of 63, along with mild hypoxia. She is a little acidotic. On BiPAP she is doing well with stable vital signs, she was a very difficult blood draw, there were multiple people who attempted and were not able to get any blood off of her. Therefore when her x-ray showed pneumonia, I started her on antibiotics as soon as we were able, Rocephin and Zithromax, however then became known to me that she was recently admitted, making her diagnoses healthcare associated pneumonia. Therefore vancomycin was added. I had to put a central line in in order to get blood, so there was a significant delay in getting those results. However, the majority of them really appear pretty good with the exception of acute kidney injury and mild hypokalemia. Her lactate is within normal limits. She remains lethargic and doing well on BiPAP, will admit. I think she would be okay for PCU since her blood pressure has been stable, there was one reading in the 90s but for the past hour she has had multiple readings in the 120-130 range. Hospitalist to evaluate in ED. Procedures Procedure(s): Central line for venous access --sterile prep and drape with chlorhexidine, left subclavian site, finder needle found dark red nonpulsatile blood beneath the clavicle, via modified Seldinger technique 16 cm triple-lumen catheter was placed and sutured into place. All 3 ports michaela back dark red blood and flushed easily. Verified with chest x-ray. No pneumothorax. ED Disposition - Plan for ED Patient: Disposition: Acute Care Hospital [facility] Chief Complaint: Weakness Diagnosis: Acute on chronic respiratory failure with hypoxia and hypercapnia, HCAP ( healthcare-associated pneumonia), ARNAUD (acute kidney injury), Lethargy, Delirium
[2017-11-30 09:13] LABS: Mucous, Urine 0 SEEN /hpf (<or=2+); White Blood Cells 0 SEEN /hpf (0-5)
[2017-11-30 09:15] LABS: Color, Urine Yellow (Yellow); Glucose, Dipstick Normal (Normal); Ketone-Dipstick Negative (Negative); Leukocyte Esterase-Dipstick Negative /ul (Negative); Nitrite-Dipstick Negative (Negative); Occult Blood-Urine 150 /ul (Negative); Protein-Dipstick Negative (Negative); Urine Bilirubin Dipstick Negative (Negative); Urine Clarity Sl. Cloudy (Clear); Urine Urobilinogen Normal (Normal)
[2017-11-30 09:25] LABS: Bacteria RARE /hpf (None Seen); Red Blood Cells-Urine 0-5 SEEN /hpf (0-5); Squamous Epithelial Cells - UA 0-5 SEEN /hpf (5-10)
[2017-11-30 10:11] LABS: Allen Test POS; Base Excess 12 mmol/L (-2 to +2); Bicarbonate 37.3 mmol/L (22-26); Blood Gas Specimen Type ART; EPAP 6; FI02 40; IPAP 12; PO2 60 mmHG (75-100); RR 12; SITE R Radial; SO2 89 % (95-99); Time Given 918; Total Carbon Dioxide 39 mmol/L; pCO2 62.8 mmHg (35-45); pH 7.38 (7.35-7.45)
--- NOTE | 2017-11-30 10:38 | RAD_ITS ---
STUDY: X-RAY CHEST REASON FOR EXAM: Female, 57 years old. Central line placement TECHNIQUE: Single AP portable view of the chest. COMPARISON: November 30, 2017 9:03 AM FINDINGS: There is a left-sided subclavian line tip is in the superior vena cava. There are persistent bilateral lower lobe opacities. There is no demonstrated pleural abnormality. Normal size heart. Normal mediastinum and [place]. Normal visualized pulmonary arteries. Normal visualized aortic arch and descending thoracic aorta. Normal visualized thoracic spine. Normal visualized ribs, clavicles, and shoulders. There is no demonstrated abnormality of the visualized soft tissue structures of the upper abdomen. RAD/CXR for Line Placement IMPRESSION: There is a left-sided subclavian line and the tip is in the superior vena cava. There is no visualized pneumothorax. Bilateral lower lobe consider atelectasis and/or pneumonia. Electronically Signed: Cecily Johnson MD at 11:18 EDT Tel , Service support ,
[2017-11-30 11:09] LABS: Absolute Lymphocyte Count 1.04 X10^3/ul (0.83-4.51); Absolute Neutrophil Count 7.2 X10^3/uL (2.0-7.7); Basophil# 0.02 X10^3/uL; Basophil% 0.2 % (0-1); Eosinophil# 0.33 X10^3/uL; Eosinophils% 3.7 % (0-5); Hematocrit 40.1 % (37-47); Hemoglobin 12.6 g/dl (12.0-15.0); Lymphocyte # 1.04 X10^3/ul (4.0); Lymphocyte % 11.8 % (19-41); Mean Corp Hgb Conc 31.4 g/gl (32-36); Mean Corpuscular Hgb 26.6 pg (27.0-32.0); Mean Corpuscular Volume 84.6 fL (81-99); Mean Platelet Vol. 9.3 fl (6.2-12.0); Monocyte# 0.27 X10^3/uL; Monocyte% 3.1 % (0-10); Neutrophil # 7.16 X10^3/uL (2.7-7.7); POSITIVE COUNT NO; POSITIVE DIFFERENTIAL NO; POSITIVE MORPHOLOGY NO; Platelet Count 240 K/mm3 (150-450); RBC Distribution Width SD 43.5 fl (35.1-43.9); Red Blood Count 4.74 M/mm3 (4.2-5.4); White Blood Count 8.8 K/mm3 (4.4-11.0)
[2017-11-30 11:12] LABS: Prothrombin Time (Protime)PT. 13.4 SECONDS (11.7-14.9)
[2017-11-30] MEDS: Ceftriaxone 1 GM/50 ML BAG IV (11:13)
[2017-11-30 11:24] LABS: ALB/GLOB Ratio 0.6 RATIO (0.9-2.4); AST(SGOT) 10 U/L (15-37); Alanine Aminotransfer ALT/SGPT 13 U/L (13-56); Albumin, Serum 2.6 g/dL (3.2-5.0); Alkaline Phosphatase 97 U/L (45-117); Anion Gap 6 (5-15); BUN 26 mg/dL (7-18); BUN/Creat Ratio 18.4 RATIO (10-20); Calcium,Total 8.6 mg/dL (8.5-10.1); Chloride 92 mmol/L (98-107); Creatinine, Serum 1.41 mg/dL (0.55-1.02); EST Glomerular Filtration Rate 41 mL/min (>60); Est Glom Filt Rate - Afr Amer 49 mL/min (>60); Estimated Creatinine Clearance 79.35 ml/min; Globulin 4.1 g/dL (2.2-4.2); Glucose 154 mg/dL (74-106); Potassium 3.2 mmol/L (3.5-5.1); Protein, Total 6.7 g/dL (6.4-8.2); Sodium Level 135 mmol/L (136-145)
[2017-11-30 11:27] LABS: Lactic Acid 0.6 mmol/L (0.4-2.0)
[2017-11-30 11:38] LABS: BNP,B-Type NATRIURETIC PEPTIDE 164.4 pg/mL (0-100)
--- NOTE | 2017-11-30 12:49 | HP.PCM_ITS ---
Problem List (1) Acute on chronic respiratory failure with hypoxia and hypercapnia Status: Acute (2) Essential (primary) hypertension Status: Chronic (3) Morbid obesity Status: Chronic (4) Heart failure with preserved ejection fraction Status: Chronic (5) Uncontrolled type II diabetes mellitus Status: Chronic Qualifiers: Diabetes mellitus complication status: with unspecified complications (6) Nicotine addiction Status: Chronic (7) Depression Status: Chronic (8) Severe chronic obstructive pulmonary disease Status: Chronic (9) ARNAUD (acute kidney injury) Status: Acute (10) HCAP (healthcare-associated pneumonia) Status: Acute (11) Lethargy Status: Acute History of Present Illness Date of Admission: 11/30/17 Chief Complaint: Lethary, confusion. The patient is a 57 year old F who presents to the emergency room due to lethargy and altered mental status. Patient is lethargic on assessment and unable to stay awake to participate in conversation. Her [id number] is at bedside. Emmgkalp-yb-hof states she went to patient's home to check on her this morning and patient was in bed. She was difficult to arouse and on arousal she was noted to be confused and did not know who the daughter in law was. [id number] states she called the squad at that time. She also reports that patient fell last night and refused to go to the hospital. Patient 's son helped her to bed at that time and spent the night to keep an eye on her. Stgccjjz-[id number] reports patient has been drowsy intermittently and nods off which has been ongoing for a few months. Patient has a past medical history of chronic respiratory failure with hypoxia and hypercapnia, COPD, hypertension, type 2 diabetes mellitus, morbid obesity, depression, tobacco dependence, chronic diastolic CHF. Past Medical History Past Medical History (Chronic Problems): Chronic Problems (Last Updated 11/05/17 @ 10:03 by Sandra Alfaro, ORALIA-C) Essential (primary) hypertension (Chronic) Morbid obesity (Chronic) Heart failure with preserved ejection fraction (Chronic) Uncontrolled type II diabetes mellitus (Chronic) Nicotine addiction (Chronic) Depression (Chronic) Severe chronic obstructive pulmonary disease (Chronic) Allergies amitriptyline Allergy (Verified 06/07/17 17:49) Unknown lisinopril Allergy (Verified 02/26/17 11:15) Angioedema duloxetine [From Cymbalta] Adverse Reaction (Verified 06/07/17 17:49) Upset Stomach pregabalin [From Lyrica] Adverse Reaction (Verified 06/07/17 17:49) bad dreams varenicline [From Chantix] Adverse Reaction (Verified 02/26/17 11:15) Unknown ZYBETA Allergy (Uncoded 02/26/17 11:15) Other Home Medications: Ambulatory Orders Medication Instructions Recorded Fenofibrate [Tricor] 145 mg PO DAILY 05/20/16 Senna [Senokot] 2 tablet PO DAILY 05/20/16 Tiotropium [place] [Spiriva 2 puff IH DAILY 05/20/16 Respimat] Albuterol Aerosols [Ventolin 2.5 mg INHALATION Q6H PRN PRN 02/26/17 Aerosols] Albuterol Inhaler [Ventolin Hfa] 1 - 2 puff INHALATION Q6H PRN PRN 02/26/17 Betamethasone Valerate [Valisone 1 applic TOPICAL BID PRN PRN 02/26/17 0.1% Cream] Bumetanide [Bumex] 2 mg PO BID 02/26/17 Fluticasone/Vilanterol [Breo 1 puff INHALATION DAILY 02/26/17 Ellipta 200-25 Mcg INH] Loratadine [Claritin] 10 mg PO DAILY 02/26/17 Lorazepam [Ativan] 1 mg PO TID PRN 02/26/17 Omeprazole [Prilosec] 40 mg PO DAILY 02/26/17 Simvastatin [Zocor] 40 mg PO QHS 02/26/17 Vit C/E/Zn/Coppr/Lutein/Zeaxan 1 each PO BID 02/26/17 [Preservision Areds 2 Softgel] Aspirin [Aspir-Low] 162 mg PO DAILY 09/10/17 Escitalopram Oxalate [Lexapro] 10 mg PO DAILY 09/10/17 Gabapentin [Neurontin] 400 mg PO TID 09/10/17 Insulin Human 70/30 [Novolog Mix 60 units SC BID 09/10/17 70-30 Flexpen Syrn] Fluticasone 110 Mcg [Flovent 110 1 puff INHALATION BID 11/03/17 Mcg] Oxycodone HCl/Acetaminophen 1 each PO Q4H PRN PRN 11/03/17 [Oxycodone-Acetaminophen 10-325] Amlodipine [Norvasc] 5 mg PO DAILY 30 Days #30 tab 11/06/17 Prednisone 10 mg PO UD #30 tab 11/06/17 Topiramate [Topamax] 200 mg PO BID tablet 11/06/17 Cyclobenzaprine [Flexeril] 10 mg PO TID PRN PRN 11/30/17 Surgical History: hysterectomy, tonsillectomy, of section, of tubal ligation Lives: With Family Smoking Status: Former smoker Drugs: None - *Family History Maternal History Items: COPD, No pertinent history Sibling History Items: - - Psoriasis Review of Systems Unable to obtain accurate/complete ROS d/t: patient lethargic. Unable to complete ROS. VTE Information - Inpt Only VTE Present on Admission: No VTE Mechan Device Prophylaxis: None VTE Pharm Prophylaxis ordered?: Yes Patient Problems: Active and Suspected Problems (Last Updated 11/05/17 @ 10:03 by Sandra Alfaro , JUNIOR SOFTWARE DEVELOPER-C) HCAP (healthcare-associated pneumonia) (Acute) ARNAUD (acute kidney injury) (Acute) Lethargy (Acute) Acute on chronic respiratory failure with hypoxia and hypercapnia (Acute) - Physical Exam General: Lethargic HEENT: Atraumatic, PERRLA, EOMI, Normocephalic Oral: Dry Mucosa Neck: Supple, No JVD, Negative Carotid Bruits Lungs: Clear to auscultation, Diminished Cardiovascular: Regular rate, Regular Rhythm, Normal S1, Normal S2, No murmurs Abdomen: Bowel Sounds Present, Soft, Non Tender, Non-Distended, Obese Extremities: No clubbing, No cyanosis, Capillary Refill Less than 3 Seconds, Edema - BLLE Skin: - - Bilateral lower extremity erythema, warmth, scattered scabs. Musculoskeletal: No Tenderness to Palpation of Joints or Extremities Neurological: Cranial nerves II-XII grossly intact Psych/Mental Status: - - Unable to assess due to lethary. Vital Signs Temp Pulse Resp BP Pulse Ox 99.7 F H 82 20 H 134/60 H 91 11/30/17 12:16 11/30/17 12:32 11/30/17 12:32 11/30/17 12:16 11/30/17 12:32 Oxygen Flow Rate (L/min) 4 Oxygen Delivery Method Bi-pap Weight: 117 kg Body Mass Index (BMI) 0.0 Finger Stick Blood Glucose 107 Intake and Output for Last 24 Hours 11/28/17 11/29/17 11/30/17 23:59 23:59 23:59 Output Total 2199 / 2199 Balance -2199 / -2199 Laboratory Tests Past 24 Hrs 11/30/17 11/30/17 11/30/17 09:10 09:20 10:56 WBC 8.8 RBC 4.74 Hgb 12.6 Hct 40.1 MCV 84.6 MCH 26.6 L MCHC 31.4 L RDW 14.0 RDW Differential 43.5 Plt Count 240 MPV 9.3 Immature Gran % (Auto) 0.200 Neut % (Auto) 81.0 H Lymph % (Auto) 11.8 L [place] % (Auto) 3.1 Eos % (Auto) 3.7 Baso % (Auto) 0.2 Absolute Neuts (auto) 7.2 Absolute Lymphs (auto) 1.04 Total Counted Not Reportable PT INR APTT Specimen Type ART Sample Site R Radial pH 7.38 Bicarbonate Actual 37.3 H POC Total CO2 39 Base Excess 12 H O2 Saturation 89 L O2 % 40 ABG pCO2 62.8 H ABG pO2 60 L Bob Test POS Respiration Rate 12 O2 Delivery Device Bi / C PAP EPAP 6 IPAP 12 Blood Gas Notified Whom ED Blood Gas Notified Time 918 Sodium Potassium Chloride Carbon Dioxide Anion Gap BUN Creatinine Estim Creat Clear Calc Est GFR (MDRD) Af Amer Est GFR (MDRD) Non-Af BUN/Creatinine Ratio Glucose Lactic Acid Calcium Total Bilirubin AST ALT Alkaline Phosphatase Troponin I B-Natriuretic Peptide Total Protein Albumin Globulin Albumin/Globulin Ratio Urine Color Yellow Urine Clarity Sl. Cloudy Urine pH 6.0 Ur Specific [place] 1.010 Urine Protein Negative Urine Glucose (UA) Normal Urine Ketones Negative Urine Occult Blood 150 H Urine Nitrite Negative Urine Bilirubin Negative Urine Urobilinogen Normal Ur Leukocyte Esterase Negative Urine RBC 0-5 SEEN Urine WBC 0 SEEN Ur Squamous Epith Cells 0-5 SEEN Urine Bacteria RARE Urine Mucus 0 SEEN 11/30/17 11/30/17 11/30/17 10:56 10:56 10:56 WBC RBC Hgb Hct MCV MCH MCHC RDW RDW Differential Plt Count MPV Immature Gran % (Auto) Neut % (Auto) Lymph % (Auto) [place] % (Auto) Eos % (Auto) Baso % (Auto) Absolute Neuts (auto) Absolute Lymphs (auto) Total Counted PT 13.4 INR 1.0 APTT 29.0 Specimen Type Sample Site pH Bicarbonate Actual POC Total CO2 Base Excess O2 Saturation O2 % ABG pCO2 ABG pO2 Bob Test Respiration Rate O2 Delivery Device EPAP IPAP Blood Gas Notified Whom Blood Gas Notified Time Sodium 135 L Potassium 3.2 L Chloride 92 L Carbon Dioxide 37.0 H Anion Gap 6 BUN 26 H Creatinine 1.41 H Estim Creat Clear Calc 79.35 Est GFR (MDRD) Af Amer 49 L Est GFR (MDRD) Non-Af 41 L BUN/Creatinine Ratio 18.4 Glucose 154 H Lactic Acid 0.6 Calcium 8.6 Total Bilirubin 0.40 AST 10 L ALT 13 Alkaline Phosphatase 97 Troponin I < 0.015 B-Natriuretic Peptide Total Protein 6.7 Albumin 2.6 L Globulin 4.1 Albumin/Globulin Ratio 0.6 L Urine Color Urine Clarity Urine pH Ur Specific [place] Urine Protein Urine Glucose (UA) Urine Ketones Urine Occult Blood Urine Nitrite Urine Bilirubin Urine Urobilinogen Ur Leukocyte Esterase Urine RBC Urine WBC Ur Squamous Epith Cells Urine Bacteria Urine Mucus 11/30/17 10:56 WBC RBC Hgb Hct MCV MCH MCHC RDW RDW Differential Plt Count MPV Immature Gran % (Auto) Neut % (Auto) Lymph % (Auto) [place] % (Auto) Eos % (Auto) Baso % (Auto) Absolute Neuts (auto) Absolute Lymphs (auto) Total Counted PT INR APTT Specimen Type Sample Site pH Bicarbonate Actual POC Total CO2 Base Excess O2 Saturation O2 % ABG pCO2 ABG pO2 Bob Test Respiration Rate O2 Delivery Device EPA IPAP Blood Gas Notified Whom Blood Gas Notified Time Sodium Potassium Chloride Carbon Dioxide Anion Gap BUN Creatinine Estim Creat Clear Calc Est GFR (MDRD) Af Amer Est GFR (MDRD) Non-Af BUN/Creatinine Ratio Glucose Lactic Acid Calcium Total Bilirubin AST ALT Alkaline Phosphatase Troponin I B-Natriuretic Peptide 164.4 H Total Protein Albumin Globulin Albumin/Globulin Ratio Urine Color Urine Clarity Urine pH Ur Specific [place] Urine Protein Urine Glucose (UA) Urine Ketones Urine Occult Blood Urine Nitrite Urine Bilirubin Urine Urobilinogen Ur Leukocyte Esterase Urine RBC Urine WBC Ur Squamous Epith Cells Urine Bacteria Urine Mucus Assessment/Plan Active and Suspected Problems (Last Updated 11/05/17 @ 10:03 by Sandra Alfaro NP-C) HCAP (healthcare-associated pneumonia) (Acute) ARNAUD (acute kidney injury) (Acute) Lethargy (Acute) Acute on chronic respiratory failure with hypoxia and hypercapnia (Acute) 1. Acute on chronic hypoxic and hypercapnic respiratory failure-on BiPAP therapy. Chronically wears 4 L nasal cannula at baseline. Follows with Dr. Benitez. 2. Healthcare associated pneumonia-recent admission 11/03/17-11/06/17 due to COPD exacerbation and pneumonia. Chest x-ray shows possible pneumonia, bilateral lower lobe atelectasis. Patient has had frequent admissions for pneumonia. Recommend obtaining CT of chest. Begin IV vancomycin and IV Zosyn. Check MRSA PCR. Albuterol DuoNeb aerosol. Mucinex twice daily. PEP/IS. Send sputum for sample if possible. Blood cultures drawn in ER, pending. Continue BiPAP, supplemental oxygen to maintain O2 at or above 90%. Consult pulmonary medicine. 3. Lethargy, AMS- Suspected secondary to #1. Check ammonia level. Tox screen. The patient reportedly took [place] and Ativan last evening. She received Narcan in the emergency room. Urinalysis unremarkable. N.p.o. until more alert and cleared by speech therapy. Brain CT showed no evidence of acute hemorrhage or infarct. 4. ARNAUD-suspect secondary to dehydration. IV fluids. Monitor BMP. 5. Severe COPD-no evidence of exacerbation. Continue albuterol and DuoNeb aerosols. 6. Type 2 diabetes [id number] before meals at bedtime with sliding scale insulin. 7. Possible bilateral cellulitis vs chronic venous stasis. Ricardo wraps bilateral lower extremities. Antibiotics as noted above for pneumonia. 8. Chronic diastolic CHF-no acute exacerbation. Echocardiogram January 2017 showed an EF of 75%. Patient follows with [facility]. 9. Hypertension-stable, continue home amlodipine regimen. 10. Depression-continue home Lexapro regimen. 11. Morbid obesity-encourage diet and lifestyle modifications. Nutrition consult. 12. History of tobacco dependence 13. Hyperlipidemia-continue statin. 14. GERD-continue PPI. DVT prophylaxis-heparin subcu. Code [id number]-af-[id number] reports patient is a DNR CCA. Will confirm with patient's son. This patient was seen by MITCHEL Ross under the supervision of Dr. Winston.
[2017-11-30] MEDS: MethylPREDNISolone 125 MG/2 ML Vial IV (12:52)
--- NOTE | 2017-11-30 13:40 | NURSING ---
In ICu3 per cart from ER, LOCATOR SPECIALIST in attendance
[2017-11-30 14:01] LABS: Bedside Glucose 163 mg/dL (70-110)
[2017-11-30] MEDS: 0.9% Normal Saline 1,000 ML 100 ML IV ×2 (14:23→22:21)
[2017-11-30 14:26] LABS: Amphetamine Urine VISTA NEGATIVE (<1000 ng/mL); Barbiturate Urine VISTA NEGATIVE (< 200 ng/mL); Benzodiazepine Urine VISTA NEGATIVE (< 200 ng/mL); Cocaine Urine VISTA NEGATIVE (< 300 ng/mL); Ecstacy Urine VISTA NEGATIVE (< 500 ng/mL); Methadone Urine VISTA NEGATIVE (< 300 ng/mL); PCP Urine VISTA NEGATIVE (< 25 ng/mL); THC Urine VISTA NEGATIVE (< 50 ng/mL); Vista UDS pH Range 7
--- NOTE | 2017-11-30 14:31 | VDLE_ITS ---
Reason For Study: swelling RIGHT LEFT GSV is normal. GSV is normal. CFV is compressible, spontaneous, phasic, CFV is compressible, spontaneous, phasic, competent and demonstrates normal competent, and demonstrates normal augmentation. augmentation. FV is compressible, spontaneous, phasic, FV is compressible, spontaneous, phasic, competent and demonstrates normal competent and demonstrates normal augmentation. augmentation. POP V is compressible, spontaneous, phasic, POP V is compressible, spontaneous, phasic, competent and demonstrates normal competent and demonstrates normal augmentation. augmentation. T/P Trunk is compressible. T/P Trunk is compressible. PTV is compressible. PTV is compressible. Unable to image Peroneal V. Unable to image Peroneal V. Procedure Exam performed portable in ICU/CCU. The exam was of fair technical quality due to pt body habitus. Limited views of veins due to pt body habitus. A preliminary report was called and/or faxed to the pt's RN. Interpretation Summary No evidence for acute deep venous thrombosis bilateral lower extremities with patent and compressible bilateral great saphenous veins. Bilateral peroneal veins could not be imaged. Fair exam quality secondary to body habitus Crdering Physician: Pati Burnett NP- Performed By: Servando Colon RVT
[2017-11-30 14:32] LABS: Magnesium 2.2 mg/dL (1.6-2.6)
[2017-11-30 14:36] LABS: Base Excess 11 mmol/L (-2 to +2); Bicarbonate 36.3 mmol/L (22-26); Blood Gas Specimen Type ART; EPAP 6; FI02 30; IPAP 12; PO2 46 mmHG (75-100); RR 12; SITE R Radial; SO2 80 % (95-99); Time Given 1430; Total Carbon Dioxide 38 mmol/L; pCO2 60.3 mmHg (35-45); pH 7.39 (7.35-7.45)
[2017-11-30] MEDS: Heparin Injection (Vial) 5,000 UNIT/ML VIAL 5000 UNIT SC ×2 (14:36→22:20)
[2017-11-30] MEDS: Insulin Lispro 100 UNIT/ML INSULN.PEN SC ×3 (14:39→23:06)
[2017-11-30 15:12] LABS: Free T3 2.1 pg/mL (2.18-3.98); T4 Free Direct 1.22 ng/dL (0.76-1.46); Thyroid Stim Hormone (TSH) 0.98 uIU/mL (0.358-3.74)
[2017-11-30] MEDS: 0.9% Normal Saline 1,000 ML 999 ML IV ×2 (15:30→19:10)
[2017-11-30] MEDS: Piperacil/Tazobactam 3.375 GM/50 ML ML IV ×2 (16:05→22:20)
--- NOTE | 2017-11-30 17:00 | NURSING ---
education re chronic illness deferred till acute illness resolving
--- NOTE | 2017-11-30 17:00 | NURSING ---
education re chronic illness deferred til acute illness resolving
[2017-11-30 17:31] LABS: Base Excess 11 mmol/L (-2 to +2); Bicarbonate 35.8 mmol/L (22-26); Blood Gas Specimen Type ART; EPAP 6; FI02 30; IPAP 12; PO2 60 mmHG (75-100); RR 14; SITE R Radial; SO2 89 % (95-99); Time Given 1724; Total Carbon Dioxide 38 mmol/L; pCO2 61.3 mmHg (35-45); pH 7.37 (7.35-7.45)
[2017-11-30 18:20] LABS: Bedside Glucose 202 mg/dL (70-110)
--- NOTE | 2017-11-30 19:09 | PCM.RX.CS ---
Consult Pharmacy has been consulted to manage selected antiobiotic: Vancomycin Type of Consult: New start Suspected Infection: Pneumonia Labs: Sodium 135 mmol/L (136-145) L 11/30/17 10:56 Potassium 3.2 mmol/L (3.5-5.1) L 11/30/17 10:56 Chloride 92 mmol/L (98-107) L 11/30/17 10:56 Carbon Dioxide 37.0 mmol/L (21.0-32.0) H 11/30/17 10:56 Anion Gap 6 (5-15) 11/30/17 10:56 BUN 26 mg/dL (7-18) H 11/30/17 10:56 Creatinine 1.41 mg/dL (0.55-1.02) H 11/30/17 10:56 Est GFR (MDRD) Af Amer 49 mL/min (>60) L 11/30/17 10:56 Est GFR (MDRD) Non-Af 41 mL/min (>60) L 11/30/17 10:56 BUN/Creatinine Ratio 18.4 RATIO (10-20) 11/30/17 10:56 Glucose 154 mg/dL (74-106) H 11/30/17 10:56 Microbiology: Microbiology 11/30/17 14:00 Urine Catheter - Andrade Streptococcus pneumoniae Antigen (M - Final 11/30/17 14:00 Urine Catheter - Andrade Legionella Antigen - Final Weight used for dosin.4 kg Estimated Creatinine Clearance: 36 ML/MIN Goal Trough: 15-20 mcg/mL Pharmacy Plan for Drug Dosing: Start at 1750mg IV q24h (CrCl of 36 ml/min was calculated using ideal body weight per Clinical Pharmacology vancomycin dosing program). Will obtain trough before the 3rd dose. Pharmacy Service will continue to monitor and adjust dosing as required. Follow-Up Labs: Trough Vancomycin Labs to be done on [date and time ordered]: 12/02/17 at 15:30
[2017-11-30] MEDS: Atorvastatin Calcium 20 MG Tablet PO (22:20)
[2017-11-30] MEDS: Topiramate 200 MG Tablet PO (22:20)
[2017-11-30] MEDS: guaiFENesin 1,200 MG Tablet 1200 MG PO (22:20)
[2017-11-30 23:16] LABS: Bedside Glucose 181 mg/dL (70-110)
[2017-12-01] VITALS (39 sets, daily range): BP systolic 104–156; BP diastolic 39–103; PULSE 63–81; RESP 10–23; TEMP 36.6–37.7; O2SAT 93–100
[2017-12-01 01:55] LABS: M R Staph aureus DNA By PCR Negative (Negative); Probe Check PASS; Specimen Processing Control PASS
[2017-12-01] MEDS: Ipratropium/Albuterol Sulfate 3 ML AMPUL.NEB INHALATION ×5 (02:52→22:48)
[2017-12-01 04:34] LABS: Hemoglobin 11.5 g/dl (12.0-15.0); Mean Corp Hgb Conc 31.1 g/gl (32-36); Mean Corpuscular Volume 86.9 fL (81-99); Mean Platelet Vol. 9.8 fl (6.2-12.0); Platelet Count 243 K/mm3 (150-450); RBC Distribution Width CV 14.1 % (11.6-14.6); Red Blood Count 4.26 M/mm3 (4.2-5.4); White Blood Count 9.5 K/mm3 (4.4-11.0)
[2017-12-01 04:36] LABS: Scan Indicated on CBC? Y/N NO
[2017-12-01 04:56] LABS: Anion Gap 9 (5-15); BUN 26 mg/dL (7-18); BUN/Creat Ratio 22.4 RATIO (10-20); Calcium,Total 8.1 mg/dL (8.5-10.1); Chloride 97 mmol/L (98-107); Creatinine, Serum 1.16 mg/dL (0.55-1.02); EST Glomerular Filtration Rate 51 mL/min (>60); Est Glom Filt Rate - Afr Amer 62 mL/min (>60); Glucose 211 mg/dL (74-106); Potassium 3.6 mmol/L (3.5-5.1); Sodium Level 138 mmol/L (136-145)
[2017-12-01] MEDS: Piperacil/Tazobactam 3.375 GM/50 ML ML IV ×3 (05:24→21:30)
[2017-12-01] MEDS: Insulin Lispro 100 UNIT/ML INSULN.PEN SC ×4 (05:24→21:35)
[2017-12-01] MEDS: Heparin Injection (Vial) 5,000 UNIT/ML VIAL 5000 UNIT SC ×3 (05:25→21:35)
[2017-12-01 05:26] LABS: Bedside Glucose 214 mg/dL (70-110)
--- NOTE | 2017-12-01 07:07 | PCM.PROGNOTE ---
Patient Problems: Active and Suspected Problems (Last Updated 11/05/17 @ 10:03 by Sandra Alfaro, ORALIA-C) HCAP (healthcare-associated pneumonia) (Acute) ARNAUD (acute kidney injury) (Acute) Lethargy (Acute) Delirium (Acute) Acute on chronic respiratory failure with hypoxia and hypercapnia (Acute) Subjective: The patient is a 57-year-old female with a past medical history of diastolic congestive heart failure, hypertension, hyperlipidemia, diabetes mellitus type 2, morbid obesity, anxiety/depression, chronic pain syndrome on chronic oral narcotics, GERD, COPD with chronic hypoxic respiratory failure on 3-4 L of nasal O2 at home and tobacco dependence who presented to the [facility] emergency department on 11/30/2017 complaining of worsening shortness of breath over the preceding month. Apparently she was more difficult to arouse per her family and EMS was contacted. She was diagnosed with HCAP, ARNAUD and acute on chronic hypoxic respiratory failure with acute exacerbation COPD. She was admitted to the intensive care unit and started on vancomycin and Zosyn. All events of the past 24 hours have been reviewed. Antibiotic Day #2 Zosyn -MRSA nasal screen is negative. TMAX: 101.9 Vital signs: Blood pressure is within normal limits and the heart rate is also within normal limits. Currently on BiPAP with a 30% FiO2 and an oxygen saturation of 94-95%. Fluid balance: +878 since admission Urine output: 2600 cc output on 11/30/2017 an additional 700 overnight. Weight: 251 pounds and 15.8 ounces today, up from 247 pounds and 12 ounces at admission. All radiologic testing was reviewed: Findings suspicious for bronchiectasis and possible pneumonia All labs were personally reviewed: White blood cell count was 8.8 at admission with 81% neutrophils. White blood cell count today is 9.5. Hemoglobin and platelets are unremarkable. Serum bicarb is 32, down from 37 at admission. Potassium is 3.6. BUN is 26 with a creatinine of 1.16 which is down from 1.41 at admission. Creatinine has ranged from 0.96-1.72 since July 2017. Drug screen was negative for opiates but the patient takes chronic narcotics? Microbiology: Streptococcal and Legionella antigens in the urine are negative. Sputum Gram stain and culture are pending. Telemetry: NSR with occasional ST ECHO: EF in 2016 was 60%. EKG: Subjective: In the past 18 months she has gained 35 pounds. she continues to smoke. Family states she has a very poor memory and they do not feel she is able to care for herself at home. She s very somnolent today and the only thing she said to me was I have to poop. Objective: General: Lethargic, not consistently following commands, oriented X 2, on BIPAP HEENT: PERRLA, EOMI, Atraumatic, normocephalic, MM dry, murguia s edema of the eyelids Lungs: CTA, diminished, symmetric chest expansion, no conversational dyspnea, no accessory muscle use, poor effort Heart: RRR, no MM, no gallop, no rub, normal S1, normal S2 Abdomen: Soft, nontender, nondistended, bowel sounds present, no guarding with palpation, no masses, no hepatosplenomegaly, obese Extremities: Edema, no clubbing, no cyanosis, peripheral pulses normal Neuro: Cranial nerves II through XII grossly intact, Neuro grossly intact, no focal neurologic deficits Skin: Warm and dry, no wounds, no rashes Psych: not responding appropriately to questions and commands, vey lethargic and unmotivated, affect is very flat - Physical Exam Vital Signs Temp Pulse Resp BP Pulse Ox 99.3 F H 73 16 125/45 H 95 12/01/17 06:00 12/01/17 06:45 12/01/17 06:45 12/01/17 06:00 12/01/17 06:44 Oxygen Flow Rate (L/min) 35 Oxygen Delivery Method Bi-pap Weight: 251 lb 15.814 oz Body Mass Index (BMI) 43.9 Intake and Output for Last 24 Hours 11/29/17 11/30/17 12/01/17 23:59 23:59 23:59 Intake Total 1890 / 1890 2288 / 2288 Output Total 400 / 2600 700 / 700 Balance 1490 / -710 1588 / 1588 Microbiology Past 72 Hours 11/30/17 14:00 Streptococcus pneumoniae Antigen (M - Final Urine Catheter - [facility]rade 11/30/17 14:00 Legionella Antigen - Final Urine Catheter - [facility] Laboratory Tests Past 24 Hrs 11/30/17 11/30/17 11/30/17 14:00 14:15 14:15 WBC RBC Hgb Hct MCV MCH MCHC RDW RDW Differential Plt Count MPV Specimen Type Sample Site pH Bicarbonate Actual POC Total CO2 Base Excess O2 Saturation O2 % ABG pCO2 ABG pO2 Bob Test Respiration Rate O2 Delivery Device EPAP IPAP Blood Gas Notified Whom Blood Gas Notified Time Sodium Potassium Chloride Carbon Dioxide Anion Gap BUN Creatinine Estim Creat Clear Calc Est GFR (MDRD) Af Amer Est GFR (MDRD) Non-Af BUN/Creatinine Ratio Glucose Calcium Magnesium 2.2 Ammonia 17.0 Troponin I TSH Free T4 Free T3 pg/dL Urine Opiates Screen NEGATIVE Urine Methadone Screen NEGATIVE Ur Barbiturates Screen NEGATIVE Ur Phencyclidine Scrn NEGATIVE Ur Amphetamines Screen NEGATIVE U Methamphetamin-MDMA NEGATIVE U Benzodiazepines Scrn NEGATIVE Urine Cocaine Screen NEGATIVE U Cannabinoids Screen NEGATIVE Ur Drug Screen Comment MRSA (PCR) 11/30/17 11/30/17 11/30/17 14:15 14:15 14:31 WBC RBC Hgb Hct MCV MCH MCHC RDW RDW Differential Plt Count MPV Specimen Type ART Sample Site R Radial pH 7.39 Bicarbonate Actual 36.3 H POC Total CO2 38 Base Excess 11 H O2 Saturation 80 L O2 % 30 ABG pCO2 60.3 H ABG pO2 46 L Bob Test NA Respiration Rate 12 O2 Delivery Device Bi / C PAP EPAP 6 IPAP 12 Blood Gas Notified Whom [facility] Blood Gas Notified Time 1430 Sodium Potassium Chloride Carbon Dioxide Anion Gap BUN Creatinine Estim Creat Clear Calc Est GFR (MDRD) Af Amer Est GFR (MDRD) Non-Af BUN/Creatinine Ratio Glucose Calcium Magnesium Ammonia Troponin I < 0.015 TSH 0.98 Free T4 1.22 Free T3 pg/dL 2.1 L Urine Opiates Screen Urine Methadone Screen Ur Barbiturates Screen Ur Phencyclidine Scrn Ur Amphetamines Screen U Methamphetamin-MDMA U Benzodiazepines Scrn Urine Cocaine Screen U Cannabinoids Screen Ur Drug Screen Comment MRSA (PCR) 11/30/17 11/30/17 11/30/17 17:25 18:00 22:50 WBC RBC Hgb Hct MCV MCH MCHC RDW RDW Differential Plt Count MPV Specimen Type ART Sample Site R Radial pH 7.37 Bicarbonate Actual 35.8 H POC Total CO2 38 Base Excess 11 H O2 Saturation 89 L O2 % 30 ABG pCO2 61.3 H ABG pO2 60 L Bob Test Respiration Rate 14 O2 Delivery Device Bi / C PAP EPAP 6 IPAP 12 Blood Gas Notified Whom [facility] Blood Gas Notified Time 1724 Sodium Potassium Chloride Carbon Dioxide Anion Gap BUN Creatinine Estim Creat Clear Calc Est GFR (MDRD) Af Amer Est GFR (MDRD) Non-Af BUN/Creatinine Ratio Glucose Calcium Magnesium Ammonia Troponin I < 0.015 TSH Free T4 Free T3 pg/dL Urine Opiates Screen Urine Methadone Screen Ur Barbiturates Screen Ur Phencyclidine Scrn Ur Amphetamines Screen U Methamphetamin-MDMA U Benzodiazepines Scrn Urine Cocaine Screen U Cannabinoids Screen Ur Drug Screen Comment MRSA (PCR) Negative 12/01/17 12/01/17 04:15 04:15 WBC 9.5 RBC 4.26 Hgb 11.5 L Hct 37.0 MCV 86.9 MCH 27.0 MCHC 31.1 L RDW 14.1 RDW Differential 44.0 H Plt Count 243 MPV 9.8 Specimen Type Sample Site pH Bicarbonate Actual POC Total CO2 Base Excess O2 Saturation O2 % ABG pCO2 ABG pO2 Bob Test Respiration Rate O2 Delivery Device EPAP IPAP Blood Gas Notified Whom Blood Gas Notified Time Sodium 138 Potassium 3.6 Chloride 97 L Carbon Dioxide 32.0 Anion Gap 9 BUN 26 H Creatinine 1.16 H Estim Creat Clear Calc 43.20 Est GFR (MDRD) Af Amer 62 Est GFR (MDRD) Non-Af 51 L BUN/Creatinine Ratio 22.4 H Glucose 211 H Calcium 8.1 L Magnesium Ammonia Troponin I TSH Free T4 Free T3 pg/dL Urine Opiates Screen Urine Methadone Screen Ur Barbiturates Screen Ur Phencyclidine Scrn Ur Amphetamines Screen U Methamphetamin-MDMA U Benzodiazepines Scrn Urine Cocaine Screen U Cannabinoids Screen Ur Drug Screen Comment MRSA (PCR) POC Glucose 12/01/17 11/30/17 11/30/17 05:20 23:05 18:05 POC Glucose 214 H 181 H 202 H 11/30/17 13:54 POC Glucose 163 H Medical Necessity - Tobacco Use Smoking Status: Current every day smoker Assessment/Plan Active and Suspected Problems (Last Updated 11/05/17 @ 10:03 by Sandra Alfaro [employer]-C) HCAP (healthcare-associated pneumonia) (Acute) ARNAUD (acute kidney injury) (Acute) Lethargy (Acute) Delirium (Acute) Acute on chronic respiratory failure with hypoxia and hypercapnia (Acute) Impressions 1. Acute on chronic combined respiratory failure with hypoxia and hypercarbia 2. Acute exacerbation of severe COPD 3. Severe sepsis- suspect secondary to PNA - possibly aspirating 4. Chronic diastolic congestive heart failure 5. Morbid obesity with a 35 pound weight gain in the past 18 months. 6. Suspected dementia - 7. Depression 8. Hypertension 9. Acute kidney injury - ruled out 10. Ongoing tobacco dependence 11. Chronic narcotic use but negative drug screen at admission 12. Hypokalemia-resolved with supplementation 13. Diabetes mellitus type 2 14. Anxiety/depression 15. GERD 16. Topamax - why? 17. Chronic renal failure stage III Maintain in the ICU Continue aerosolized bronchodilators, Mucinex and high-dose intravenous steroids, guaifenesin, incentive spirometry, Acapella Speech therapy evaluation today prior to starting a diet. Calorie controlled diet when she is able to have a diet Continue Protonix for GI prophylaxis Continue Zosyn for suspected aspiration Decrease IV fluid rate to 75 In my opinion this pt should not be living by herself at this point.......will need to discuss placement with the patient and her family Code Visit Inpatient E&M: [id number] [facility] Hosp L3
--- NOTE | 2017-12-01 07:07 | PCM.CON.CC ---
Problem List (1) ARNAUD (acute kidney injury) Status: Acute (2) Lethargy Status: Acute (3) Delirium Status: Acute (4) Acute on chronic respiratory failure with hypoxia and hypercapnia Status: Acute (5) Essential (primary) hypertension Status: Chronic (6) Morbid obesity Status: Chronic (7) Heart failure with preserved ejection fraction Status: Chronic (8) Uncontrolled type II diabetes mellitus Status: Chronic Qualifiers: Diabetes mellitus complication status: with unspecified complications (9) Depression Status: Chronic (10) Severe chronic obstructive pulmonary disease Status: Chronic Reason for Consult Date of Consultation: 12/01/17 Reason for Consultation: Acute respiratory failure History of Present Illness: The patient is a 57 year old F, with past medical history listed below, who presented to [facility] on 11/30/2017 after being found with significant lethargy. Patient reportedly does have confusion at baseline and had been falling recently. Patient currently lives with her son and he had reportedly stated that her lower extremities have become red, swollen and tender for more than a month. He was not known whether any fevers have been reported. Patient does have a history of COPD and congestive heart failure and was reportedly hospitalized 3-4 weeks prior to presentation, which the family believes led to some change in medications. In the emergency room, patient was given Narcan with no improvement. Patient was noted to have compensated respiratory acidosis, but was placed on BiPAP therapy. Given inability to get labs, a central line was placed. Patient was initiated on Rocephin, vancomycin and Zithromax. While in the ER, patient did have some hypotension. Patient was given 2 L fluid bolus with good response. Patient was then admitted to the intensive care unit. Overnight, in the intensive care unit, patient did spike a significant fever at 38 8. Patient's mental status did eventually improve during the day, but patient remains alert and oriented to self and place. Nursing is reporting that the family states this is her baseline. Reportedly, there is some concern that patient has given up. Patient does report some chest pain, but is unable to give character, intensity or radiation information. Patient is reporting emesis, but no history from staff or family members have reported this in the past. Patient is seen in our outpatient office by Dr. Benitez. Patient's last pulmonary function tests were in November 2016 showing an FEV1 of 50% and DLCO of 50%. Patient had a walking oximetry which showed significant desaturation, but no supplemental oxygen was indicated at that time. Past Medical History Past Medical History (Chronic Problems): Chronic Problems (Last Updated 11/05/17 @ 10:03 by MITCHEL Lazo) Essential (primary) hypertension (Chronic) Morbid obesity (Chronic) Heart failure with preserved ejection fraction (Chronic) Uncontrolled type II diabetes mellitus (Chronic) Nicotine addiction (Chronic) Depression (Chronic) Severe chronic obstructive pulmonary disease (Chronic) Allergies amitriptyline Allergy (Verified 06/07/17 17:49) Unknown lisinopril Allergy (Verified 02/26/17 11:15) Angioedema duloxetine [From Cymbalta] Adverse Reaction (Verified 06/07/17 17:49) Upset Stomach pregabalin [From Lyrica] Adverse Reaction (Verified 06/07/17 17:49) bad dreams varenicline [From Chantix] Adverse Reaction (Verified 02/26/17 11:15) Unknown ZYBETA Allergy (Uncoded 02/26/17 11:15) Other Home Medications: Ambulatory Orders Medication Instructions Recorded Fenofibrate [Tricor] 145 mg PO DAILY 05/20/16 Senna [Senokot] 2 tablet PO DAILY 05/20/16 Tiotropium [place] [Spiriva 2 puff IH DAILY 05/20/16 Respimat] Albuterol Aerosols [Ventolin 2.5 mg INHALATION Q6H PRN PRN 02/26/17 Aerosols] Albuterol Inhaler [Ventolin Hfa] 1 - 2 puff INHALATION Q6H PRN PRN 02/26/17 Betamethasone Valerate [Valisone 1 applic TOPICAL BID PRN PRN 02/26/17 0.1% Cream] Bumetanide [Bumex] 2 mg PO BID 02/26/17 Fluticasone/Vilanterol [Breo 1 puff INHALATION DAILY 02/26/17 Ellipta 200-25 Mcg INH] Loratadine [Claritin] 10 mg PO DAILY 02/26/17 Lorazepam [Ativan] 1 mg PO TID PRN 02/26/17 Omeprazole [Prilosec] 40 mg PO DAILY 02/26/17 Simvastatin [Zocor] 40 mg PO QHS 02/26/17 Vit C/E/Zn/Coppr/Lutein/Zeaxan 1 each PO BID 02/26/17 [Preservision Areds 2 Softgel] Aspirin [Aspir-Low] 162 mg PO DAILY 09/10/17 Escitalopram Oxalate [Lexapro] 10 mg PO DAILY 09/10/17 Gabapentin [Neurontin] 400 mg PO TID 09/10/17 Insulin Human 70/30 [Novolog Mix 60 units SC BID 09/10/17 70-30 Flexpen Syrn] Fluticasone 110 Mcg [Flovent 110 1 puff INHALATION BID 11/03/17 Mcg] Oxycodone HCl/Acetaminophen 1 each PO Q4H PRN PRN 11/03/17 [Oxycodone-Acetaminophen 10-325] Amlodipine [Norvasc] 5 mg PO DAILY 30 Days #30 tab 11/06/17 Prednisone 10 mg PO UD #30 tab 11/06/17 Topiramate [Topamax] 200 mg PO BID tablet 11/06/17 Cyclobenzaprine [Flexeril] 10 mg PO TID PRN PRN 11/30/17 Surgical History: hysterectomy, tonsillectomy, of section, of tubal ligation Lives: With Family Smoking Status: Current every day smoker Drugs: None - *Family History Maternal History Items: COPD, No pertinent history Sibling History Items: - - Psoriasis Review of Systems Unable to obtain accurate/complete ROS d/t: Patient mental status Patient Problems: Active and Suspected Problems (Last Updated 11/05/17 @ 10:03 by Sandra Alfaro [employer]-C) HCAP (healthcare-associated pneumonia) (Acute) ARNAUD (acute kidney injury) (Acute) Lethargy (Acute) Delirium (Acute) Acute on chronic respiratory failure with hypoxia and hypercapnia (Acute) Objective: Chest x-ray was personally reviewed and shows a left subclavian triple-lumen catheter in appropriate position and a right lower lobe infiltrate. - Physical Exam General: Alert, Cooperative, No apparent distress, - - Morbidly obese. Good BiPAP synchrony noted. HEENT: Atraumatic, PERRLA, EOMI, Normocephalic, - - No scleral icterus or injection noted. Oral: Moist Mucosa, No Gingival or Mucosal Lesions/ Ulcerations Neck: Supple, No JVD, No Nodes, Trachea Midline, - - Significant redundant tissue. JVD difficult to assess. Lungs: No rales, Diminished, Rhonchi - Right base, Wheezes, - - Symmetric expansion. No dullness to percussion anteriorly. Cardiovascular: Regular rate, Regular Rhythm, Normal S1, Normal S2, No murmurs, No rub noted, No Gallop, - - Distant heart sounds Abdomen: Bowel Sounds Present, Soft, Non Tender, Non-Distended, Obese Extremities: No cyanosis, Clubbing, Edema Skin: - - Venous stasis changes the lower extremities. Some progression of bilateral erythema per skin markings. Superficial healing ulcers noted on anterior shins. Musculoskeletal: No Tenderness to Palpation of Joints or Extremities Lymphatic: No Cervical, Supraclavicular, or Inguinal Adenopathy Neurological: Cranial nerves II-XII grossly intact, Neuro grossly intact Psych/Mental Status: Appropriate, Flat Affect Vital Signs Temp Pulse Resp BP Pulse Ox 37.4 C H 73 16 125/45 H 95 12/01/17 06:00 12/01/17 06:45 12/01/17 06:45 12/01/17 06:00 12/01/17 06:44 Oxygen Flow Rate (L/min) 35 Oxygen Delivery Method Bi-pap Weight: 114.3 kg Body Mass Index (BMI) 43.9 Intake and Output for Last 24 Hours 11/29/17 11/30/17 12/01/17 23:59 23:59 23:59 Intake Total 1890 / 1890 2288 / 2288 Output Total 400 / 2600 700 / 700 Balance 1490 / -710 1588 / 1588 Microbiology Past 72 Hours 11/30/17 14:00 Streptococcus pneumoniae Antigen (M - Final Urine Catheter - [facility] 11/30/17 14:00 Legionella Antigen - Final Urine Catheter - [facility] Laboratory Tests Past 24 Hrs 11/30/17 11/30/17 11/30/17 14:00 14:15 14:15 WBC RBC Hgb Hct MCV MCH MCHC RDW RDW Differential Plt Count MPV Specimen Type Sample Site pH Bicarbonate Actual POC Total CO2 Base Excess O2 Saturation O2 % ABG pCO2 ABG pO2 Bob Test Respiration Rate O2 Delivery Device EPAP IPAP Blood Gas Notified Whom Blood Gas Notified Time Sodium Potassium Chloride Carbon Dioxide Anion Gap BUN Creatinine Estim Creat Clear Calc Est GFR (MDRD) Af Amer Est GFR (MDRD) Non-Af BUN/Creatinine Ratio Glucose Calcium Magnesium 2.2 Ammonia 17.0 Troponin I TSH Free T4 Free T3 pg/dL Urine Opiates Screen NEGATIVE Urine Methadone Screen NEGATIVE Ur Barbiturates Screen NEGATIVE Ur Phencyclidine Scrn NEGATIVE Ur Amphetamines Screen NEGATIVE U Methamphetamin-MDMA NEGATIVE U Benzodiazepines Scrn NEGATIVE Urine Cocaine Screen NEGATIVE U Cannabinoids Screen NEGATIVE Ur Drug Screen Comment MRSA (PCR) 11/30/17 11/30/17 11/30/17 14:15 14:15 14:31 WBC RBC Hgb Hct MCV MCH MCHC RDW RDW Differential Plt Count MPV Specimen Type ART Sample Site R Radial pH 7.39 Bicarbonate Actual 36.3 H POC Total CO2 38 Base Excess 11 H O2 Saturation 80 L O2 % 30 ABG pCO2 60.3 H ABG pO2 46 L Bob Test NA Respiration Rate 12 O2 Delivery Device Bi / C PAP EPAP 6 IPAP 12 Blood Gas Notified Whom [facility] Blood Gas Notified Time 1430 Sodium Potassium Chloride Carbon Dioxide Anion Gap BUN Creatinine Estim Creat Clear Calc Est GFR (MDRD) Af Amer Est GFR (MDRD) Non-Af BUN/Creatinine Ratio Glucose Calcium Magnesium Ammonia Troponin I < 0.015 TSH 0.98 Free T4 1.22 Free T3 pg/dL 2.1 L Urine Opiates Screen Urine Methadone Screen Ur Barbiturates Screen Ur Phencyclidine Scrn Ur Amphetamines Screen U Methamphetamin-MDMA U Benzodiazepines Scrn Urine Cocaine Screen U Cannabinoids Screen Ur Drug Screen Comment MRSA (PCR) 11/30/17 11/30/17 11/30/17 17:25 18:00 22:50 WBC RBC Hgb Hct MCV MCH MCHC RDW RDW Differential Plt Count MPV Specimen Type ART Sample Site R Radial pH 7.37 Bicarbonate Actual 35.8 H POC Total CO2 38 Base Excess 11 H O2 Saturation 89 L O2 % 30 ABG pCO2 61.3 H ABG pO2 60 L Bob Test Respiration Rate 14 O2 Delivery Device Bi / C PAP EPAP 6 IPAP 12 Blood Gas Notified Whom [facility] Blood Gas Notified Time 1724 Sodium Potassium Chloride Carbon Dioxide Anion Gap BUN Creatinine Estim Creat Clear Calc Est GFR (MDRD) Af Amer Est GFR (MDRD) Non-Af BUN/Creatinine Ratio Glucose Calcium Magnesium Ammonia Troponin I < 0.015 TSH Free T4 Free T3 pg/dL Urine Opiates Screen Urine Methadone Screen Ur Barbiturates Screen Ur Phencyclidine Scrn Ur Amphetamines Screen U Methamphetamin-MDMA U Benzodiazepines Scrn Urine Cocaine Screen U Cannabinoids Screen Ur Drug Screen Comment MRSA (PCR) Negative 12/01/17 12/01/17 04:15 04:15 WBC 9.5 RBC 4.26 Hgb 11.5 L Hct 37.0 MCV 86.9 MCH 27.0 MCHC 31.1 L RDW 14.1 RDW Differential 44.0 H Plt Count 243 MPV 9.8 Specimen Type Sample Site pH Bicarbonate Actual POC Total CO2 Base Excess O2 Saturation O2 % ABG pCO2 ABG pO2 Bob Test Respiration Rate O2 Delivery Device EPAP IPAP Blood Gas Notified Whom Blood Gas Notified Time Sodium 138 Potassium 3.6 Chloride 97 L Carbon Dioxide 32.0 Anion Gap 9 BUN 26 H Creatinine 1.16 H Estim Creat Clear Calc 43.20 Est GFR (MDRD) Af Amer 62 Est GFR (MDRD) Non-Af 51 L BUN/Creatinine Ratio 22.4 H Glucose 211 H Calcium 8.1 L Magnesium Ammonia Troponin I TSH Free T4 Free T3 pg/dL Urine Opiates Screen Urine Methadone Screen Ur Barbiturates Screen Ur Phencyclidine Scrn Ur Amphetamines Screen U Methamphetamin-MDMA U Benzodiazepines Scrn Urine Cocaine Screen U Cannabinoids Screen Ur Drug Screen Comment MRSA (PCR) POC Glucose 12/01/17 11/30/17 11/30/17 05:20 23:05 18:05 POC Glucose 214 H 181 H 202 H 11/30/17 13:54 POC Glucose 163 H Clinical Impression(s) from Imaging Studies Chest X-Ray 11/30/17 08:52 IMPRESSION: Findings are suspicious for bronchiectasis and peribronchial inflammation possible pneumonia. Bilateral lower lobe atelectasis. Electronically Signed: Cecily Johnson MD at 9:26 EDT Tel , Service support , Brain CT 11/30/17 08:53 IMPRESSION: Mild atrophy. No evidence of acute hemorrhage infarct or edema. Electronically Signed: Cecily Johnson MD at 10:43 EDT Tel , Service support , Assessment/Plan Active and Suspected Problems (Last Updated 11/05/17 @ 10:03 by Sandra Alfaro, ORALIA-C) HCAP (healthcare-associated pneumonia) (Acute) ARNAUD (acute kidney injury) (Acute) Lethargy (Acute) Delirium (Acute) Acute on chronic respiratory failure with hypoxia and hypercapnia (Acute) RECOMMENDATIONS: 1. Likely okay to discontinue vancomycin 2. BiPAP overnight and as needed 3. Keep oxygen saturations 88-92% to avoid CO2 retention 4. Continue bronchodilators, mucolytic and IV steroids 5. Attempt to obtain more information from patient's family IMPRESSIONS: 1. Acute on chronic combined respiratory failure/severe COPD Patient on 4 L nasal cannula at baseline and follows with Dr. Benitez as an outpatient. Patient was recently admitted at the end of October secondary to a COPD exacerbation. Patient has received IV vancomycin and Zosyn. Likely okay to discontinue vancomycin given negative MRSA screen. Wean oxygen to keep saturations 88-92% to avoid paradoxical CO2 retention. Patient with moderately severe obstructive lung findings at baseline. Would continue with mucolytic, IV steroids and antibiotics for now. Chest x-ray does show a possible right lower lobe infiltrate that may be consistent with aspiration if history is consistent. 2. Severe sepsis secondary to bilateral lower extremity cellulitis versus venous stasis versus aspiration pneumonia Patient does have some regression in erythema with superficial ulcers noted on bilateral lower extremities after initiation of antibiotics. Unclear if this is secondary to elevation and support of lower extremity wound care. Patient is on appropriate antibiotics at this time. Does not appear to have an exudate. Cultures are pending. 3. Chronic diastolic congestive heart failure/hypertension/hyperlipidemia Patient does not appear to be in any acute exacerbation at this time. Patient does not have significant lower extremity swelling at this time. Last echocardiogram showed preserved ejection fraction of 75%. Patient does follow with [facility]. No indication for consultation at this time. 4. Morbid obesity/reported dementia/depression/hypertension/acute kidney injury Complicates care, management, recovery and prognosis. Patient is reportedly not alert and oriented ?3 at baseline. Will attempt to obtain further information from family during rounds this morning. Patient would benefit from therapy consultations. Okay to continue baseline depression medications. TIME: 38 minutes critical care time spent addressing patient's acute on chronic respiratory failure, severe sepsis, review of all data and collaboration with care team (5:30 AM to 7:30 AM) Code Visit [id number]: [id number] Critical care first hour
--- NOTE | 2017-12-01 07:20 | PN_ITS ---
Patient Problems: Active and Suspected Problems (Last Updated 11/05/17 @ 10:03 by Sandra Alfaro , ORALIA-C) HCAP (healthcare-associated pneumonia) (Acute) ARNAUD (acute kidney injury) (Acute) Lethargy (Acute) Delirium (Acute) Acute on chronic respiratory failure with hypoxia and hypercapnia (Acute) Subjective: The patient is a 57-year-old female with a past medical history of diastolic congestive heart failure, hypertension, hyperlipidemia, diabetes mellitus type 2 , morbid obesity, anxiety/depression, chronic pain syndrome on chronic oral narcotics, GERD, COPD with chronic hypoxic respiratory failure on 3-4 L of nasal O2 at home and tobacco dependence who presented to the [facility] emergency department on 11/30/2017 complaining of worsening shortness of breath over the preceding month. Apparently she was more difficult to arouse per her family and EMS was contacted. She was diagnosed with HCAP, ARNAUD and acute on chronic hypoxic respiratory failure with acute exacerbation COPD. She was admitted to the intensive care unit and started on vancomycin and Zosyn. All events of the past 24 hours have been reviewed. Antibiotic Day #2 Zosyn -MRSA nasal screen is negative. TMAX: 101.9 Vital signs: Blood pressure is within normal limits and the heart rate is also within normal limits. Currently on BiPAP with a 30% FiO2 and an oxygen saturation of 94-95%. Fluid balance: +878 since admission Urine output: 2600 cc output on 11/30/2017 an additional 700 overnight. Weight: 251 pounds and 15.8 ounces today, up from 247 pounds and 12 ounces at admission. All radiologic testing was reviewed: Findings suspicious for bronchiectasis and possible pneumonia All labs were personally reviewed: White blood cell count was 8.8 at admission with 81% neutrophils. White blood cell count today is 9.5. Hemoglobin and platelets are unremarkable. Serum bicarb is 32, down from 37 at admission. Potassium is 3.6. BUN is 26 with a creatinine of 1.16 which is down from 1.41 at admission. Creatinine has ranged from 0.96-1.72 since July 2017. Drug screen was negative for opiates but the patient takes chronic narcotics? Microbiology: Streptococcal and Legionella antigens in the urine are negative. Sputum Gram stain and culture are pending. Telemetry: NSR with occasional ST ECHO: EF in 2016 was 60%. EKG: Subjective: In the past 18 months she has gained 35 pounds. she continues to smoke. Family states she has a very poor memory and they do not feel she is able to care for herself at home. She s very somnolent today and the only thing she said to me was I have to poop. Objective: General: Lethargic, not consistently following commands, oriented X 2, on BIPAP HEENT: PERRLA, EOMI, Atraumatic, normocephalic, MM dry, murguia s edema of the eyelids Lungs: CTA, diminished, symmetric chest expansion, no conversational dyspnea, no accessory muscle use, poor effort Heart: RRR, no MM, no gallop, no rub, normal S1, normal S2 Abdomen: Soft, nontender, nondistended, bowel sounds present, no guarding with palpation, no masses, no hepatosplenomegaly, obese Extremities: Edema, no clubbing, no cyanosis, peripheral pulses normal Neuro: Cranial nerves II through XII grossly intact, Neuro grossly intact, no focal neurologic deficits Skin: Warm and dry, no wounds, no rashes Psych: not responding appropriately to questions and commands, vey lethargic and unmotivated, affect is very flat - Physical Exam Vital Signs Temp Pulse Resp BP Pulse Ox 99.3 F H 73 16 125/45 H 95 12/01/17 06:00 12/01/17 06:45 12/01/17 06:45 12/01/17 06:00 12/01/17 06:44 Oxygen Flow Rate (L/min) 35 Oxygen Delivery Method Bi-pap Weight: 251 lb 15.814 oz Body Mass Index (BMI) 43.9 Intake and Output for Last 24 Hours 11/29/17 11/30/17 12/01/17 23:59 23:59 23:59 Intake Total 1890 / 1890 2288 / 2288 Output Total 400 / 2600 700 / 700 Balance 1490 / -710 1588 / 1588 Microbiology Past 72 Hours 11/30/17 14:00 Streptococcus pneumoniae Antigen (M - Final Urine Catheter - Andrade 11/30/17 14:00 Legionella Antigen - Final Urine Catheter - [facility] Laboratory Tests Past 24 Hrs 11/30/17 11/30/17 11/30/17 14:00 14:15 14:15 WBC RBC Hgb Hct MCV MCH MCHC RDW RDW Differential Plt Count MPV Specimen Type Sample Site pH Bicarbonate Actual POC Total CO2 Base Excess O2 Saturation O2 % ABG pCO2 ABG pO2 Bob Test Respiration Rate O2 Delivery Device EPAP IPAP Blood Gas Notified Whom Blood Gas Notified Time Sodium Potassium Chloride Carbon Dioxide Anion Gap BUN Creatinine Estim Creat Clear Calc Est GFR (MDRD) Af Amer Est GFR (MDRD) Non-Af BUN/Creatinine Ratio Glucose Calcium Magnesium 2.2 Ammonia 17.0 Troponin I TSH Free T4 Free T3 pg/dL Urine Opiates Screen NEGATIVE Urine Methadone Screen NEGATIVE Ur Barbiturates Screen NEGATIVE Ur Phencyclidine Scrn NEGATIVE Ur Amphetamines Screen NEGATIVE U Methamphetamin-MDMA NEGATIVE U Benzodiazepines Scrn NEGATIVE Urine Cocaine Screen NEGATIVE U Cannabinoids Screen NEGATIVE Ur Drug Screen Comment MRSA (PCR) 11/30/17 11/30/17 11/30/17 14:15 14:15 14:31 WBC RBC Hgb Hct MCV MCH MCHC RDW RDW Differential Plt Count MPV Specimen Type ART Sample Site R Radial pH 7.39 Bicarbonate Actual 36.3 H POC Total CO2 38 Base Excess 11 H O2 Saturation 80 L O2 % 30 ABG pCO2 60.3 H ABG pO2 46 L Bob Test NA Respiration Rate 12 O2 Delivery Device Bi / C PAP EPAP 6 IPAP 12 Blood Gas Notified Whom [facility] Blood Gas Notified Time 1430 Sodium Potassium Chloride Carbon Dioxide Anion Gap BUN Creatinine Estim Creat Clear Calc Est GFR (MDRD) Af Amer Est GFR (MDRD) Non-Af BUN/Creatinine Ratio Glucose Calcium Magnesium Ammonia Troponin I < 0.015 TSH 0.98 Free T4 1.22 Free T3 pg/dL 2.1 L Urine Opiates Screen Urine Methadone Screen Ur Barbiturates Screen Ur Phencyclidine Scrn Ur Amphetamines Screen U Methamphetamin-MDMA U Benzodiazepines Scrn Urine Cocaine Screen U Cannabinoids Screen Ur Drug Screen Comment MRSA (PCR) 11/30/17 11/30/17 11/30/17 17:25 18:00 22:50 WBC RBC Hgb Hct MCV MCH MCHC RDW RDW Differential Plt Count MPV Specimen Type ART Sample Site R Radial pH 7.37 Bicarbonate Actual 35.8 H POC Total CO2 38 Base Excess 11 H O2 Saturation 89 L O2 % 30 ABG pCO2 61.3 H ABG pO2 60 L Bob Test Respiration Rate 14 O2 Delivery Device Bi / C PAP EPAP 6 IPAP 12 Blood Gas Notified Whom [facility] Blood Gas Notified Time 1724 Sodium Potassium Chloride Carbon Dioxide Anion Gap BUN Creatinine Estim Creat Clear Calc Est GFR (MDRD) Af Amer Est GFR (MDRD) Non-Af BUN/Creatinine Ratio Glucose Calcium Magnesium Ammonia Troponin I < 0.015 TSH Free T4 Free T3 pg/dL Urine Opiates Screen Urine Methadone Screen Ur Barbiturates Screen Ur Phencyclidine Scrn Ur Amphetamines Screen U Methamphetamin-MDMA U Benzodiazepines Scrn Urine Cocaine Screen U Cannabinoids Screen Ur Drug Screen Comment MRSA (PCR) Negative 12/01/17 12/01/17 04:15 04:15 WBC 9.5 RBC 4.26 Hgb 11.5 L Hct 37.0 MCV 86.9 MCH 27.0 MCHC 31.1 L RDW 14.1 RDW Differential 44.0 H Plt Count 243 MPV 9.8 Specimen Type Sample Site pH Bicarbonate Actual POC Total CO2 Base Excess O2 Saturation O2 % ABG pCO2 ABG pO2 Bob Test Respiration Rate O2 Delivery Device EPAP IPAP Blood Gas Notified Whom Blood Gas Notified Time Sodium 138 Potassium 3.6 Chloride 97 L Carbon Dioxide 32.0 Anion Gap 9 BUN 26 H Creatinine 1.16 H Estim Creat Clear Calc 43.20 Est GFR (MDRD) Af Amer 62 Est GFR (MDRD) Non-Af 51 L BUN/Creatinine Ratio 22.4 H Glucose 211 H Calcium 8.1 L Magnesium Ammonia Troponin I TSH Free T4 Free T3 pg/dL Urine Opiates Screen Urine Methadone Screen Ur Barbiturates Screen Ur Phencyclidine Scrn Ur Amphetamines Screen U Methamphetamin-MDMA U Benzodiazepines Scrn Urine Cocaine Screen U Cannabinoids Screen Ur Drug Screen Comment MRSA (PCR) POC Glucose 12/01/17 11/30/17 11/30/17 05:20 23:05 18:05 POC Glucose 214 H 181 H 202 H 11/30/17 13:54 POC Glucose 163 H Medical Necessity - Tobacco Use Smoking Status: Current every day smoker Assessment/Plan Active and Suspected Problems (Last Updated 11/05/17 @ 10:03 by Sandra Alfaro [employer]-C) HCAP (healthcare-associated pneumonia) (Acute) ARNAUD (acute kidney injury) (Acute) Lethargy (Acute) Delirium (Acute) Acute on chronic respiratory failure with hypoxia and hypercapnia (Acute) Impressions 1. Acute on chronic combined respiratory failure with hypoxia and hypercarbia 2. Acute exacerbation of severe COPD 3. Severe sepsis- suspect secondary to PNA - possibly aspirating 4. Chronic diastolic congestive heart failure 5. Morbid obesity with a 35 pound weight gain in the past 18 months. 6. Suspected dementia - 7. Depression 8. Hypertension 9. Acute kidney injury - ruled out 10. Ongoing tobacco dependence 11. Chronic narcotic use but negative drug screen at admission 12. Hypokalemia-resolved with supplementation 13. Diabetes mellitus type 2 14. Anxiety/depression 15. GERD 16. Topamax - why? 17. Chronic renal failure stage III Maintain in the ICU Continue aerosolized bronchodilators, Mucinex and high-dose intravenous steroids , guaifenesin, incentive spirometry, Acapella Speech therapy evaluation today prior to starting a diet. Calorie controlled diet when she is able to have a diet Continue Protonix for GI prophylaxis Continue Zosyn for suspected aspiration Decrease IV fluid rate to 75 In my opinion this pt should not be living by herself at this point.......will need to discuss placement with the patient and her family Code Visit Inpatient E&M: [id number] [facility] Hosp L3
[2017-12-01] MEDS: 0.9% Normal Saline 1,000 ML 75 ML IV ×2 (09:38→21:36)
[2017-12-01] MEDS: Escitalopram Oxalate 10 MG Tablet PO (09:39)
[2017-12-01] MEDS: Aspirin E.C. 81 MG Tablet 162 MG PO (09:39)
[2017-12-01] MEDS: Loratadine 10 MG Tablet PO (09:39)
[2017-12-01] MEDS: Pantoprazole Sodium 40 MG Tablet PO (09:40)
[2017-12-01] MEDS: guaiFENesin 1,200 MG Tablet 1200 MG PO ×2 (09:40→21:31)
[2017-12-01] MEDS: Senna Tablet 2 TABLET PO (09:40)
[2017-12-01] MEDS: Topiramate 200 MG Tablet PO ×2 (09:41→21:30)
[2017-12-01 10:49] LABS: Hemoglobin A1c 8.5 % (4.2-6.3)
[2017-12-01 11:16] LABS: Bedside Glucose 275 mg/dL (70-110)
[2017-12-01 16:56] LABS: Bedside Glucose 202 mg/dL (70-110)
[2017-12-01 20:46] LABS: Bedside Glucose 250 mg/dL (70-110)
[2017-12-01] MEDS: Atorvastatin Calcium 20 MG Tablet PO (21:30)
[2017-12-01] MEDS: Acetaminophen 325 MG Tablet 650 MG PO (23:07)
[2017-12-02] VITALS (25 sets, daily range): BP systolic 131–171; BP diastolic 42–95; PULSE 65–81; RESP 12–20; TEMP 36.7–37.1; O2SAT 96–99
--- NOTE | 2017-12-02 01:30 | NURSING ---
pt taken off bipap. pt not tolerating it. encouragement given but still did not want it on.
--- NOTE | 2017-12-02 02:39 | CPS ---
pt began having anxiety with Bipap and was unable to tolerate
[2017-12-02] MEDS: Acetaminophen 325 MG Tablet 650 MG PO ×3 (03:14→20:18)
[2017-12-02] MEDS: Ipratropium/Albuterol Sulfate 3 ML AMPUL.NEB INHALATION ×4 (03:20→18:56)
--- NOTE | 2017-12-02 03:47 | NURSING ---
pt could not tolerate the bipap. removed by resp
[2017-12-02] MEDS: Piperacil/Tazobactam 3.375 GM/50 ML ML IV (05:02)
[2017-12-02] MEDS: Heparin Injection (Vial) 5,000 UNIT/ML VIAL 5000 UNIT SC ×3 (05:03→22:38)
[2017-12-02 05:29] LABS: Anion Gap 9 (5-15); BUN 23 mg/dL (7-18); BUN/Creat Ratio 21.3 RATIO (10-20); Chloride 98 mmol/L (98-107); Creatinine, Serum 1.08 mg/dL (0.55-1.02); EST Glomerular Filtration Rate 55 mL/min (>60); Est Glom Filt Rate - Afr Amer 67 mL/min (>60); Glucose 222 mg/dL (74-106); Potassium 3.5 mmol/L (3.5-5.1); Sodium Level 138 mmol/L (136-145)
[2017-12-02 05:32] LABS: Hemoglobin 10.8 g/dl (12.0-15.0); Mean Corp Hgb Conc 31.8 g/gl (32-36); Mean Corpuscular Hgb 27.2 pg (27.0-32.0); Mean Corpuscular Volume 85.6 fL (81-99); Mean Platelet Vol. 9.3 fl (6.2-12.0); Platelet Count 240 K/mm3 (150-450); RBC Distribution Width CV 13.8 % (11.6-14.6); RBC Distribution Width SD 42.3 fl (35.1-43.9); Red Blood Count 3.97 M/mm3 (4.2-5.4); White Blood Count 6.2 K/mm3 (4.4-11.0)
[2017-12-02 06:12] LABS: POSITIVE COUNT NO; POSITIVE DIFFERENTIAL NO; POSITIVE MORPHOLOGY NO
--- NOTE | 2017-12-02 06:14 | PCM.PN.INT ---
Subjective: Patient did well overnight. No acute issues were reported. Patient did refuse BiPAP overnight, but has been weaned to baseline 2 L nasal cannula oxygen. No fevers have been noted overnight. Patient continues to report lower extremity neuropathy, but states this is unchanged from baseline. No aspiration events have been reported by nursing. Patient did pass swallow evaluation yesterday. General: Alert, Oriented x3, Cooperative, No apparent distress, - - Morbidly obese. Speaking in full sentences. HEENT: Atraumatic, PERRLA, EOMI, Normocephalic, - - No scleral icterus or injection noted. Oral: Moist Mucosa, No Gingival or Mucosal Lesions/ Ulcerations Neck: Supple, No JVD, No Nodes, Trachea Midline Lungs: No rhonchi, No wheeze, No rales, Diminished, - - Symmetric expansion. No dullness to percussion. Cardiovascular: Regular rate, Regular Rhythm, Normal S1, Normal S2, No murmurs, No rub noted, No Gallop Abdomen: Bowel Sounds Present, Soft, Non Tender, Non-Distended, Obese Extremities: No clubbing, No cyanosis, Edema - 1-2+ lower extremity Skin: - - Erythemic continues to improve bilateral lower extremities. Healing superficial ulcers unchanged. Right lower extremity slightly more warm than left lower extremity Musculoskeletal: No Tenderness to Palpation of Joints or Extremities, No Muscle Wasting Lymphatic: No Cervical, Supraclavicular, or Inguinal Adenopathy Neurological: Cranial nerves II-XII grossly intact, Neuro grossly intact, Motor Exam 5/5 strength throughout Psych/Mental Status: Normal Affect, Appropriate Vital Signs Temp Pulse Resp BP Pulse Ox 36.9 C 68 16 138/49 H 99 12/02/17 05:00 12/02/17 06:00 12/02/17 06:00 12/02/17 06:00 12/02/17 06:00 Oxygen Flow Rate (L/min) 2 Oxygen Delivery Method Nasal Cannula Weight: 115.1 kg Body Mass Index (BMI) 43.9 Intake and Output for Last 24 Hours 11/30/17 12/01/17 12/02/17 23:59 23:59 23:59 Intake Total 1890 / 1890 5155 / 5155 727 / 727 Output Total 400 / 2600 2700 / 2700 900 / 900 Balance 1490 / -710 2455 / 2455 -173 / -173 Labs (Last 48 Hours) 11/30/17 11/30/17 11/30/17 13:54 14:00 14:15 WBC RBC Hgb Hct MCV MCH MCHC RDW RDW Differential Plt Count MPV Neut % (Auto) Absolute Neuts (auto) Total Counted Specimen Type Sample Site pH Bicarbonate Actual POC Total CO2 Base Excess O2 Saturation O2 % ABG pCO2 ABG pO2 Bob Test Respiration Rate O2 Delivery Device EPAP IPAP Blood Gas Notified Whom Blood Gas Notified Time Sodium Potassium Chloride Carbon Dioxide Anion Gap BUN Creatinine Estim Creat Clear Calc Est GFR (MDRD) Af Amer Est GFR (MDRD) Non-Af BUN/Creatinine Ratio Glucose Hemoglobin A1c Calcium Magnesium Ammonia 17.0 Troponin I TSH Free T4 Free T3 pg/dL Urine Opiates Screen NEGATIVE Urine Methadone Screen NEGATIVE Ur Barbiturates Screen NEGATIVE Ur Phencyclidine Scrn NEGATIVE Ur Amphetamines Screen NEGATIVE U Methamphetamin-MDMA NEGATIVE U Benzodiazepines Scrn NEGATIVE Urine Cocaine Screen NEGATIVE U Cannabinoids Screen NEGATIVE Ur Drug Screen Comment MRSA (PCR) POC Glucose 163 H 11/30/17 11/30/17 11/30/17 14:15 14:15 14:15 WBC RBC Hgb Hct MCV MCH MCHC RDW RDW Differential Plt Count MPV Neut % (Auto) Absolute Neuts (auto) Total Counted Specimen Type Sample Site pH Bicarbonate Actual POC Total CO2 Base Excess O2 Saturation O2 % ABG pCO2 ABG pO2 Bob Test Respiration Rate O2 Delivery Device EPAP IPAP Blood Gas Notified Whom Blood Gas Notified Time Sodium Potassium Chloride Carbon Dioxide Anion Gap BUN Creatinine Estim Creat Clear Calc Est GFR (MDRD) Af Amer Est GFR (MDRD) Non-Af BUN/Creatinine Ratio Glucose Hemoglobin A1c Calcium Magnesium 2.2 Ammonia Troponin I < 0.015 TSH 0.98 Free T4 1.22 Free T3 pg/dL 2.1 L Urine Opiates Screen Urine Methadone Screen Ur Barbiturates Screen Ur Phencyclidine Scrn Ur Amphetamines Screen U Methamphetamin-MDMA U Benzodiazepines Scrn Urine Cocaine Screen U Cannabinoids Screen Ur Drug Screen Comment MRSA (PCR) POC Glucose 11/30/17 11/30/17 11/30/17 14:31 17:25 18:00 WBC RBC Hgb Hct MCV MCH MCHC RDW RDW Differential Plt Count MPV Neut % (Auto) Absolute Neuts (auto) Total Counted Specimen Type ART ART Sample Site R Radial R Radial pH 7.39 7.37 Bicarbonate Actual 36.3 H 35.8 H POC Total CO2 38 38 Base Excess 11 H 11 H O2 Saturation 80 L 89 L O2 % 30 30 ABG pCO2 60.3 H 61.3 H ABG pO2 46 L 60 L Bob Test NA Respiration Rate 12 14 O2 Delivery Device Bi / C PAP Bi / C PAP EPAP 6 6 IPAP 12 12 Blood Gas Notified Whom HOSP MD HOSP MD Blood Gas Notified Time 1430 1724 Sodium Potassium Chloride Carbon Dioxide Anion Gap BUN Creatinine Estim Creat Clear Calc Est GFR (MDRD) Af Amer Est GFR (MDRD) Non-Af BUN/Creatinine Ratio Glucose Hemoglobin A1c Calcium Magnesium Ammonia Troponin I < 0.015 TSH Free T4 Free T3 pg/dL Urine Opiates Screen Urine Methadone Screen Ur Barbiturates Screen Ur Phencyclidine Scrn Ur Amphetamines Screen U Methamphetamin-MDMA U Benzodiazepines Scrn Urine Cocaine Screen U Cannabinoids Screen Ur Drug Screen Comment MRSA (PCR) POC Glucose 11/30/17 11/30/17 11/30/17 18:05 22:50 23:05 WBC RBC Hgb Hct MCV MCH MCHC RDW RDW Differential Plt Count MPV Neut % (Auto) Absolute Neuts (auto) Total Counted Specimen Type Sample Site pH Bicarbonate Actual POC Total CO2 Base Excess O2 Saturation O2 % ABG pCO2 ABG pO2 Bob Test Respiration Rate O2 Delivery Device EPAP IPAP Blood Gas Notified Whom Blood Gas Notified Time Sodium Potassium Chloride Carbon Dioxide Anion Gap BUN Creatinine Estim Creat Clear Calc Est GFR (MDRD) Af Amer Est GFR (MDRD) Non-Af BUN/Creatinine Ratio Glucose Hemoglobin A1c Calcium Magnesium Ammonia Troponin I TSH Free T4 Free T3 pg/dL Urine Opiates Screen Urine Methadone Screen Ur Barbiturates Screen Ur Phencyclidine Scrn Ur Amphetamines Screen U Methamphetamin-MDMA U Benzodiazepines Scrn Urine Cocaine Screen U Cannabinoids Screen Ur Drug Screen Comment MRSA (PCR) Negative POC Glucose 202 H 181 H 12/01/17 12/01/17 12/01/17 04:15 04:15 04:15 WBC 9.5 RBC 4.26 Hgb 11.5 L Hct 37.0 MCV 86.9 MCH 27.0 MCHC 31.1 L RDW 14.1 RDW Differential 44.0 H Plt Count 243 MPV 9.8 Neut % (Auto) Absolute Neuts (auto) Total Counted Specimen Type Sample Site pH Bicarbonate Actual POC Total CO2 Base Excess O2 Saturation O2 % ABG pCO2 ABG pO2 Bob Test Respiration Rate O2 Delivery Device EPAP IPAP Blood Gas Notified Whom Blood Gas Notified Time Sodium 138 Potassium 3.6 Chloride 97 L Carbon Dioxide 32.0 Anion Gap 9 BUN 26 H Creatinine 1.16 H Estim Creat Clear Calc 43.20 Est GFR (MDRD) Af Amer 62 Est GFR (MDRD) Non-Af 51 L BUN/Creatinine Ratio 22.4 H Glucose 211 H Hemoglobin A1c 8.5 H Calcium 8.1 L Magnesium Ammonia Troponin I TSH Free T4 Free T3 pg/dL Urine Opiates Screen Urine Methadone Screen Ur Barbiturates Screen Ur Phencyclidine Scrn Ur Amphetamines Screen U Methamphetamin-MDMA U Benzodiazepines Scrn Urine Cocaine Screen U Cannabinoids Screen Ur Drug Screen Comment MRSA (PCR) POC Glucose 12/01/17 12/01/17 12/01/17 05:20 11:11 16:40 WBC RBC Hgb Hct MCV MCH MCHC RDW RDW Differential Plt Count MPV Neut % (Auto) Absolute Neuts (auto) Total Counted Specimen Type Sample Site pH Bicarbonate Actual POC Total CO2 Base Excess O2 Saturation O2 % ABG pCO2 ABG pO2 Bob Test Respiration Rate O2 Delivery Device EPAP IPAP Blood Gas Notified Whom Blood Gas Notified Time Sodium Potassium Chloride Carbon Dioxide Anion Gap BUN Creatinine Estim Creat Clear Calc Est GFR (MDRD) Af Amer Est GFR (MDRD) Non-Af BUN/Creatinine Ratio Glucose Hemoglobin A1c Calcium Magnesium Ammonia Troponin I TSH Free T4 Free T3 pg/dL Urine Opiates Screen Urine Methadone Screen Ur Barbiturates Screen Ur Phencyclidine Scrn Ur Amphetamines Screen U Methamphetamin-MDMA U Benzodiazepines Scrn Urine Cocaine Screen U Cannabinoids Screen Ur Drug Screen Comment MRSA (PCR) POC Glucose 214 H 275 H 202 H 12/01/17 12/02/17 12/02/17 20:43 05:00 05:00 WBC 6.2 RBC 3.97 L Hgb 10.8 L Hct 34.0 L MCV 85.6 MCH 27.2 MCHC 31.8 L RDW 13.8 RDW Differential 42.3 Plt Count 240 MPV 9.3 Neut % (Auto) Pending Absolute Neuts (auto) Pending Total Counted Not Reportable Specimen Type Sample Site pH Bicarbonate Actual POC Total CO2 Base Excess O2 Saturation O2 % ABG pCO2 ABG pO2 Bob Test Respiration Rate O2 Delivery Device EPAP IPAP Blood Gas Notified Whom Blood Gas Notified Time Sodium 138 Potassium 3.5 Chloride 98 Carbon Dioxide 31.0 Anion Gap 9 BUN 23 H Creatinine 1.08 H Estim Creat Clear Calc 46.40 Est GFR (MDRD) Af Amer 67 Est GFR (MDRD) Non-Af 55 L BUN/Creatinine Ratio 21.3 H Glucose 222 H Hemoglobin A1c Calcium 8.0 L Magnesium Ammonia Troponin I TSH Free T4 Free T3 pg/dL Urine Opiates Screen Urine Methadone Screen Ur Barbiturates Screen Ur Phencyclidine Scrn Ur Amphetamines Screen U Methamphetamin-MDMA U Benzodiazepines Scrn Urine Cocaine Screen U Cannabinoids Screen Ur Drug Screen Comment MRSA (PCR) POC Glucose 250 H Microbiology 11/30/17 22:50 Sputum, Expectorated/Coughed Gram Stain - Final 11/30/17 14:00 Urine Catheter - [facility]rade Streptococcus pneumoniae Antigen (M - Final 11/30/17 14:00 Urine Catheter - [facility] Legionella Antigen - Final Medical Necessity - Tobacco Use Smoking Status: Current every day smoker Assessment/Plan Active and Suspected Problems (Last Updated 11/05/17 @ 10:03 by Sandra Alfaro, ORALIA-C) HCAP (healthcare-associated pneumonia) (Acute) ARNAUD (acute kidney injury) (Acute) Lethargy (Acute) Delirium (Acute) Acute on chronic respiratory failure with hypoxia and hypercapnia (Acute) RECOMMENDATIONS: 1. Await culture data, likely narrow antibiotic spectrum if blood culture negative at 48 hours 2. Encourage BiPAP overnight 3. Keep oxygen saturations 88-92% to avoid CO2 retention 4. Continue bronchodilators and mucolytic, but transition to prednisone therapy 5. Okay to leave the intensive care unit from my perspective IMPRESSIONS: 1. Acute on chronic combined respiratory failure/severe COPD Patient doing well on 2 L nasal cannula oxygen at this time. Patient with recent COPD exacerbation, so is receiving healthcare associated antibiotics. Respiratory status appears to be improving compared to previous evaluation. Patient does have moderately severe obstructive lung disease on recent PFT. Will transition to prednisone therapy. Will continue with bronchodilators and mucolytic for now. Likely okay to leave the intensive care unit. 2. Severe sepsis secondary to bilateral lower extremity cellulitis versus venous stasis versus aspiration pneumonia Patient does have some regression in erythema with superficial ulcers noted on bilateral lower extremities after initiation of antibiotics. Unclear if this is secondary to elevation and support of lower extremity wound care. Patient is on appropriate antibiotics at this time. Does not appear to have an exudate. Cultures are pending. If culture negative at 48 hours, likely okay to wean antibiotic spectrum. Patient did pass swallow evaluation by speech therapy. 3. Chronic diastolic congestive heart failure/hypertension/hyperlipidemia Patient does not appear to be in any acute exacerbation at this time. Patient does not have significant lower extremity swelling at this time. Last echocardiogram showed preserved ejection fraction of 75%. Patient does follow with [facility]. No indication for consultation at this time. 4. Morbid obesity/reported dementia/depression/hypertension/acute kidney injury Complicates care, management, recovery and prognosis. Patient is reportedly not alert and oriented ?3 at baseline routinely. Patient would benefit from therapy consultations. Okay to continue baseline depression medications. Code Visit Inpatient E&M: [id number] [facility] L3
--- NOTE | 2017-12-02 06:29 | PN_ITS ---
Patient Problems: Active and Suspected Problems (Last Updated 11/05/17 @ 10:03 by Sandra Alfaro , ORALIA-C) HCAP (healthcare-associated pneumonia) (Acute) ARNAUD (acute kidney injury) (Acute) Lethargy (Acute) Delirium (Acute) Acute on chronic respiratory failure with hypoxia and hypercapnia (Acute) Subjective: All events of the past 24 hours have been reviewed. Antibiotic Day #3 Zosyn TMAX: Afebrile Vital signs: Current vital signs are pulse 68, blood pressure 138/49, respiratory rate 16 and she is 99% saturated on a 2 L nasal cannula. Fluid balance: Fluid balance since admission is +[id number] Urine output: 2700 on 12/01/2017 Weight: Today's weight is 253 pounds and 12 ounces, up from 247 and 12 ounces at admission All radiologic testing was reviewed: No chest x-ray today All labs were personally reviewed: White blood cell count is within normal limits at 6.2. Hemoglobin is 10.8, down from 12.6 at admission and this is likely dilutional secondary to positive fluid balance. Platelets are within normal limits. Electrolytes are within normal limits and the BUN is 23 with a creatinine of 1.08, down from 1.41 at admission. Hemoglobin A1c was 8.5. Blood sugars are not adequately controlled. Microbiology: Sputum Gram stain had 2+ white blood cells and culture is pending. Urine culture had no growth. Telemetry: Sinus rhythm with occasional ectopic beats ECHO: Ordered for today Subjective: Rare cough. Denies shortness of breath at present. Denies chest pain. No mouth soreness or painful swallowing. No vaginal discharge or itching. No diarrhea. He tells me that she has tried multiple agents to quit smoking and this would include nicotine patch, nicotine gum and Chantix and has been unable to quit. She admits to being chronically depressed with chronic fatigue, difficulty sleeping, irritability, trouble focusing and feeling sad all the time. She has not had any psychotherapy. She lives in [place] and she does not drive. She is currently on citalopram but does not believe it is helping. She is also on Ativan which will increase depression in addition to being highly addictive. This was discontinued at admission. Objective: General: Alert and appropriate, oriented X 3, sitting in a chair and looks good today HEENT: PERRLA, EOMI, Atraumatic, normocephalic, MM dry, facial edema is better today Lungs: CTA, diminished, symmetric chest expansion, no conversational dyspnea, no accessory muscle use, poor effort, rare expiratory wheeze posteriorly, better air exchange Heart: RRR, no MM, no gallop, no rub, normal S1, normal S2 Abdomen: Soft, nontender, nondistended, bowel sounds present, no guarding with palpation, no masses, no hepatosplenomegaly, obese Extremities: Edema, no clubbing, no cyanosis, peripheral pulses normal Neuro: Cranial nerves II through XII grossly intact, Neuro grossly intact, no focal neurologic deficits Skin: Warm and dry, no wounds, no rashes Psych: appropriate and pleasant. - Physical Exam Vital Signs Temp Pulse Resp BP Pulse Ox 98.4 F 68 16 138/49 H 99 12/02/17 05:00 12/02/17 06:00 12/02/17 06:00 12/02/17 06:00 12/02/17 06:00 Oxygen Flow Rate (L/min) 2 Oxygen Delivery Method Nasal Cannula Weight: 253 lb 12.033 oz Body Mass Index (BMI) 43.9 Intake and Output for Last 24 Hours 11/30/17 12/01/17 12/02/17 23:59 23:59 23:59 Intake Total 1890 / 1890 5155 / 5155 727 / 727 Output Total 400 / 2600 2700 / 2700 900 / 900 Balance 1490 / -710 2455 / 2455 -173 / -173 Microbiology Past 72 Hours 11/30/17 22:50 Gram Stain - Final Sputum, Expectorated/Coughed 11/30/17 14:00 Streptococcus pneumoniae Antigen (M - Final Urine Catheter - [facility]rade 11/30/17 14:00 Legionella Antigen - Final Urine Catheter - [facility]rade Laboratory Tests Past 24 Hrs 12/01/17 12/02/17 12/02/17 04:15 05:00 05:00 WBC 6.2 RBC 3.97 L Hgb 10.8 L Hct 34.0 L MCV 85.6 MCH 27.2 MCHC 31.8 L RDW 13.8 RDW Differential 42.3 Plt Count 240 MPV 9.3 Neut % (Auto) Pending Absolute Neuts (auto) Pending Total Counted Not Reportable Sodium 138 Potassium 3.5 Chloride 98 Carbon Dioxide 31.0 Anion Gap 9 BUN 23 H Creatinine 1.08 H Estim Creat Clear Calc 46.40 Est GFR (MDRD) Af Amer 67 Est GFR (MDRD) Non-Af 55 L BUN/Creatinine Ratio 21.3 H Glucose 222 H Hemoglobin A1c 8.5 H Calcium 8.0 L POC Glucose 12/01/17 12/01/17 12/01/17 20:43 16:40 11:11 POC Glucose 250 H 202 H 275 H Medical Necessity - Tobacco Use Smoking Status: Current every day smoker Assessment/Plan Active and Suspected Problems (Last Updated 11/05/17 @ 10:03 by Sandra Alfaro , FUR BLOWING MACHINE ATTENDANT-C) HCAP (healthcare-associated pneumonia) (Acute) ARNAUD (acute kidney injury) (Acute) Lethargy (Acute) Delirium (Acute) Acute on chronic respiratory failure with hypoxia and hypercapnia (Acute) Impressions 1. Acute on chronic combined respiratory failure with hypoxia and hypercarbia 2. Acute exacerbation of severe COPD 3. Severe sepsis- suspect secondary to PNA - possibly aspirating 4. Chronic diastolic congestive heart failure 5. Morbid obesity with a 35 pound weight gain in the past 18 months. 6. Suspected dementia - 7. Depression 8. Hypertension 9. Acute kidney injury - ruled out 10. Ongoing tobacco dependence 11. Chronic narcotic use but negative drug screen at admission 12. Hypokalemia-resolved with supplementation 13. Diabetes mellitus type 2 14. Anxiety/depression 15. GERD 16. Topamax - why? 17. Chronic renal failure stage III Transfer to [facility] today. Patient is agreeable to consultation with behavioral health and this will be arranged. She has been converted to prednisone. Continue PT/OT. Continue aerosolized bronchodilators, Mucinex, incentive spirometry and Acapella Will continue to talk about depressions and smoking cessation with her........may do better with Effexor since it promotes weight loss Will ask her why she is on Topamax.....if not for seizures then she may be able to take Wellbutrin which also promotes weight loss. Will suggest the [facility] at [place] to assist her in her efforts to lose weight. Code Visit Inpatient E&M: 71534 Subs Hosp L2
--- NOTE | 2017-12-02 06:29 | ECHOCS_ITS ---
Reason For Study: PHTN Procedure This was a 2D Doppler, Color Flow transthoracic echocardiogram. The study was technically difficult. Exam performed portable in patient room. Left Ventricle Mild concentric left ventricular hypertrophy. The estimated ejection fraction is 75 %. Normal diastology for age. No regional wall motion abnormalities noted. Right Ventricle Normal size and thickness. Normal systolic function. Mitral Valve The mitral valve is structurally normal. No prolapse or stenosis seen. Tricuspid Valve Normal tricuspid valve. Unable to estimate RV systolic pressure due to inadequate jet, pulmonary artery pressure probably normal. Aortic Valve Normal aortic valve. Trisinus/trileaflet aortic valve. Pulmonic Valve The pulmonic valve is not well visualized. Great Vessels Normal aortic root. Normal arch. Normal inferior vena cava. Inferior vena cava collapse with sniff. Pericardium/Pleural No pericardial effusion. Medication Diluted definity 5ml given slow IV push to enhance endocardial definition. MMode/2D Measurements & Calculations LVIDd: 4.9 cm IVSd: 1.2 cm Ao root diam: 3.0 cm LVIDs: 2.6 cm LVPWd: 1.3 cm LA dimension: 4.0 cm FS: 47.3 % LAV(MOD-sp2): 54.2 ml Time Measurements MV dec time: 0.17 sec Doppler Measurements & Calculations MV E max steve: 130.8 cm/sec Lat Peak E' Steve: 9.2 cm/sec Med Peak E' Steve: 11.8 cm/sec MV A max steve: 117.7 cm/sec E/E' lat: 14.2 E/E' med: 11.1 MV E/A: 1.1 MV V2 max: 183.9 cm/sec MV P1/2t max steve: 183.0 cm/sec Ao V2 max: 166.6 cm/sec MV max P.5 mmHg MV P1/2t: 76.3 msec Ao max P.1 mmHg MV V2 mean: 96.4 cm/sec MV dec slope: 702.6 cm/sec2 Ao V2 mean: 112.3 cm/sec MV mean P.5 mmHg MVA(P1/2t): 2.9 cm2 Ao mean P.7 mmHg MV V2 VTI: 49.2 cm Ao V2 VTI: 36.3 cm LV V1 max: 134.7 cm/sec PA V2 max: 98.2 cm/sec LV V1 max P.3 mmHg LV V1 mean P.4 mmHg LV V1 mean: 85.9 cm/sec LV V1 VTI: 32.5 cm Interpretation Summary Mild concentric left ventricular hypertrophy. The estimated ejection fraction is 75 %. Normal diastology for age. Unable to estimate RV systolic pressure due to inadequate jet, pulmonary artery pressure probably normal. Compared to echo report dated 01/28/2017, LV function has remained the same. Trivial pericardial effusion has resolved. The study was technically difficult. Contrast injection was performed. Ordering Physician: Dana Pozo Referring Physician: John Burnett Performed By: Ryley Aldrich RCS
[2017-12-02 06:51] LABS: Absolute Lymphocyte Count 0.97 X10^3/ul (0.83-4.51); Absolute Neutrophil Count 4.8 X10^3/uL (2.0-7.7); Basophil# 0.01 X10^3/uL; Basophil% 0.2 % (0-1); Eosinophil# 0.01 X10^3/uL; Eosinophils% 0.2 % (0-5); Lymphocyte # 0.97 X10^3/ul (4.0); Lymphocyte % 16.1 % (19-41); Monocyte# 0.25 X10^3/uL; Monocyte% 4.2 % (0-10); Neutrophil # 4.75 X10^3/uL (2.7-7.7); Neutrophil % 78.8 % (47-70)
[2017-12-02] MEDS: Insulin Lispro 100 UNIT/ML INSULN.PEN SC ×3 (07:37→18:07)
[2017-12-02] MEDS: predniSONE 20 MG Tablet 40 MG PO (07:39)
[2017-12-02] MEDS: Aspirin E.C. 81 MG Tablet 162 MG PO (07:39)
[2017-12-02 07:50] LABS: Bedside Glucose 204 mg/dL (70-110)
--- NOTE | 2017-12-02 09:41 | CASEMGMT ---
Addendum entered by Rosalind Nam 12/02/17 09:57: Seb from [facility] will be over to see pt today, likely by 12pm. SW let pt and pt's RN know. Pt is agreeable to speak w/Seb today. MARY Orta, MEETING SPECIALIST Original Note: Addendum entered by Rosalind Nam 12/02/17 09:50: SW received call from pt's protective services case worker Umm Art, confirmed pt has aide services at home, she would like to be called regarding discharge. Pt's number is [phone]. SW called [facility], spoke with Sharri, pt refused the services, so case was not opened. Pt cancelled the intake appt three times, they would likely take pt again if needed and pt is agreeable. MARY Orta, MEETING SPECIALIST Original Note: SW spoke w/Dr. Pozo, she states pt should be seen by Behavioral Health and pt is agreeable to this. SW called [facility], message left for Seb to see this pt. MARY Orta, MEETING SPECIALIST
[2017-12-02] MEDS: Pantoprazole Sodium 40 MG Tablet PO (09:42)
[2017-12-02] MEDS: Senna Tablet 2 TABLET PO (09:42)
[2017-12-02] MEDS: Loratadine 10 MG Tablet PO (09:42)
[2017-12-02] MEDS: Escitalopram Oxalate 10 MG Tablet PO (09:43)
[2017-12-02] MEDS: guaiFENesin 1,200 MG Tablet 1200 MG PO ×2 (09:43→22:40)
[2017-12-02] MEDS: Topiramate 200 MG Tablet PO ×2 (09:43→22:40)
[2017-12-02] MEDS: 0.9% Normal Saline 1,000 ML 75 ML IV ×2 (10:34→23:02)
--- NOTE | 2017-12-02 10:34 | CASEMGMT ---
See RN CM Assessment Link/SW note. DC Plan: dorys. Jose BARLOW RN ACM
[2017-12-02 11:36] LABS: Bedside Glucose 215 mg/dL (70-110)
[2017-12-02] MEDS: hydrALAZINE 20 MG/ML Vial 10 MG IV (12:11)
--- NOTE | 2017-12-02 12:11 | BH.NOTE ---
BH: Inpatient Note - Notes Behavioral Health Inpatient Note: 12/02/17 12:[address] [facility] by Dr. Pozo for depression. Met with pt and her family in her room. Pt agreeable with family being present for consultation. Pt reports chronic hx of anxiety and depression. Currently her PCP Dr. Burnett manages her medications for anxiety which includes Ativan. Pt reports that she takes Ativan as needed. Hx of counseling through [facility], however is not currently linked. Last appointment was 5 years ago. Pt was pleasant and cooperative during the interview and often smiled. Reports that her family is very supportive and her sister lives next door. Endorses panic attacks on average once a month. Describes her anxiety as a 3 on a scale of 1-10 with 10 being unbearable. Endorses depression on daily basis mainly related to loss of independence and medical issues. Denies any suicidal ideations, plan, or intent. Describes her depression as a 4 on a scale of 1-10 with 10 being unbearable. Family did not mention any concerns for MH symptoms, however did encourage her to follow up with counseling. We discussed outpatient options and pt was given referrals to MH providers in the area which included [facility]. Pt has aides that are at the house 7 days a week who can help with transportation.
[2017-12-02] MEDS: 0.9% NaCl Peripheral Flush Adult/Peds IV (12:12)
[2017-12-02] MEDS: Amox/Clavulanate 875 MG Tablet PO ×2 (13:21→22:38)
[2017-12-02 17:06] LABS: Bedside Glucose 200 mg/dL (70-110)
--- NOTE | 2017-12-02 22:33 | NURSING ---
OT is 60. 120 ml of pop given per protocol. Pt appears fine. Speech clear. Will check in 15 minutes.
[2017-12-02] MEDS: Atorvastatin Calcium 20 MG Tablet PO (22:40)
--- NOTE | 2017-12-02 22:55 | NURSING ---
OT is now 81. Pt eating alissa crackers. Pt states she drops pretty easily. Snack given and will continue to monitor.
[2017-12-02 23:01] LABS: Bedside Glucose 60 mg/dL (70-110)
[2017-12-02 23:01] LABS: Bedside Glucose 81 mg/dL (70-110)
--- NOTE | 2017-12-03 01:08 | NURSING ---
OT is 74. Pt was a little unsteady when she got up. Will supplement with a snack. States she is usually runs higher than the current readings.
[2017-12-03 01:23] VITALS: BP 126/52; PULSE 66; RESP 16; TEMP 36.6; O2SAT 99
[2017-12-03 01:35] LABS: Bedside Glucose 74 mg/dL (70-110)
[2017-12-03 03:22] VITALS: O2SAT 96
[2017-12-03] MEDS: Acetaminophen 325 MG Tablet 650 MG PO (03:38)
--- NOTE | 2017-12-03 04:40 | NURSING ---
OT is 45. Pt had c/o feeling hot. Fan on in room. She is talking and interacting appropriately. OJ given per policy.
--- NOTE | 2017-12-03 05:02 | NURSING ---
OT is now 94. Pt instructed to stay in bed d/t her blood sugar being low earlier.
[2017-12-03 05:11] LABS: Bedside Glucose 94 mg/dL (70-110)
[2017-12-03 05:11] LABS: Bedside Glucose 45 mg/dL (70-110)
[2017-12-03] MEDS: Heparin Injection (Vial) 5,000 UNIT/ML VIAL 5000 UNIT SC (06:31)
--- NOTE | 2017-12-03 07:20 | PCM.PN.INT ---
Subjective: Patient transferred out of the intensive care unit yesterday. No acute issues were reported overnight. Patient did report intermittent lower extremity pain and a cough productive of light yellow sputum. Patient overall feels subjectively improved compared to yesterday. No chest pain or shortness of breath is reported at rest. General: Alert, Oriented x3, Cooperative, No apparent distress, - - Morbidly obese. Speaking in full sentences. HEENT: Atraumatic, PERRLA, EOMI, Normocephalic, - - No scleral icterus or injection noted. Oral: Moist Mucosa, No Gingival or Mucosal Lesions/ Ulcerations Neck: Supple, No JVD, No Nodes, Trachea Midline Lungs: No rhonchi, No rales, Diminished, Wheezes, - - Symmetric expansion. No dullness to percussion. Cardiovascular: Regular rate, Regular Rhythm, Normal S1, Normal S2, No murmurs, No rub noted, No Gallop Abdomen: Bowel Sounds Present, Soft, Non Tender, Non-Distended, Obese Extremities: No clubbing, No cyanosis, Edema Skin: - - Venous stasis changes noted bilateral lower extremities. No erythema or warmth appreciated. Musculoskeletal: No Tenderness to Palpation of Joints or Extremities, No Muscle Wasting Lymphatic: No Cervical, Supraclavicular, or Inguinal Adenopathy Neurological: Cranial nerves II-XII grossly intact, Neuro grossly intact, Motor Exam 5/5 strength throughout Psych/Mental Status: Alert and oriented to time, place, person, mood and affect Vital Signs Temp Pulse Resp BP Pulse Ox 36.6 C 66 16 126/52 H 96 12/03/17 01:23 12/03/17 01:23 12/03/17 01:23 12/03/17 01:23 12/03/17 03:22 Oxygen Flow Rate (L/min) 2 Oxygen Delivery Method Nasal Cannula Weight: 116.2 kg Body Mass Index (BMI) 43.9 Intake and Output for Last 24 Hours 12/01/17 12/02/17 12/03/17 23:59 23:59 23:59 Intake Total 5155 / 5155 2981 / 2981 554 / 554 Output Total 2700 / 2700 2800 / 2800 900 / 900 Balance 2455 / 2455 181 / 181 -346 / -346 Labs (Last 48 Hours) 12/01/17 12/01/17 12/01/17 04:15 11:11 16:40 WBC RBC Hgb Hct MCV MCH MCHC RDW RDW Differential Plt Count MPV Immature Gran % (Auto) Neut % (Auto) Lymph % (Auto) [place] % (Auto) Eos % (Auto) Baso % (Auto) Absolute Neuts (auto) Absolute Lymphs (auto) Total Counted Sodium Potassium Chloride Carbon Dioxide Anion Gap BUN Creatinine Estim Creat Clear Calc Est GFR (MDRD) Af Amer Est GFR (MDRD) Non-Af BUN/Creatinine Ratio Glucose Hemoglobin A1c 8.5 H Calcium POC Glucose 275 H 202 H 12/01/17 12/02/17 12/02/17 20:43 05:00 05:00 WBC 6.2 RBC 3.97 L Hgb 10.8 L Hct 34.0 L MCV 85.6 MCH 27.2 MCHC 31.8 L RDW 13.8 RDW Differential 42.3 Plt Count 240 MPV 9.3 Immature Gran % (Auto) 0.500 Neut % (Auto) 78.8 H Lymph % (Auto) 16.1 L [place] % (Auto) 4.2 Eos % (Auto) 0.2 Baso % (Auto) 0.2 Absolute Neuts (auto) 4.8 Absolute Lymphs (auto) 0.97 Total Counted Not Reportable Sodium 138 Potassium 3.5 Chloride 98 Carbon Dioxide 31.0 Anion Gap 9 BUN 23 H Creatinine 1.08 H Estim Creat Clear Calc 46.40 Est GFR (MDRD) Af Amer 67 Est GFR (MDRD) Non-Af 55 L BUN/Creatinine Ratio 21.3 H Glucose 222 H Hemoglobin A1c Calcium 8.0 L POC Glucose 250 H 12/02/17 12/02/17 12/02/17 07:35 11:06 16:57 WBC RBC Hgb Hct MCV MCH MCHC RDW RDW Differential Plt Count MPV Immature Gran % (Auto) Neut % (Auto) Lymph % (Auto) [place] % (Auto) Eos % (Auto) Baso % (Auto) Absolute Neuts (auto) Absolute Lymphs (auto) Total Counted Sodium Potassium Chloride Carbon Dioxide Anion Gap BUN Creatinine Estim Creat Clear Calc Est GFR (MDRD) Af Amer Est GFR (MDRD) Non-Af BUN/Creatinine Ratio Glucose Hemoglobin A1c Calcium POC Glucose 204 H 215 H 200 H 12/02/17 12/02/17 12/03/17 22:30 22:55 01:05 WBC RBC Hgb Hct MCV MCH MCHC RDW RDW Differential Plt Count MPV Immature Gran % (Auto) Neut % (Auto) Lymph % (Auto) [place] % (Auto) Eos % (Auto) Baso % (Auto) Absolute Neuts (auto) Absolute Lymphs (auto) Total Counted Sodium Potassium Chloride Carbon Dioxide Anion Gap BUN Creatinine Estim Creat Clear Calc Est GFR (MDRD) Af Amer Est GFR (MDRD) Non-Af BUN/Creatinine Ratio Glucose Hemoglobin A1c Calcium POC Glucose 60 L 81 74 12/03/17 12/03/17 04:36 05:01 WBC RBC Hgb Hct MCV MCH MCHC RDW RDW Differential Plt Count MPV Immature Gran % (Auto) Neut % (Auto) Lymph % (Auto) [place] % (Auto) Eos % (Auto) Baso % (Auto) Absolute Neuts (auto) Absolute Lymphs (auto) Total Counted Sodium Potassium Chloride Carbon Dioxide Anion Gap BUN Creatinine Estim Creat Clear Calc Est GFR (MDRD) Af Amer Est GFR (MDRD) Non-Af BUN/Creatinine Ratio Glucose Hemoglobin A1c Calcium POC Glucose 45 L 94 Microbiology 11/30/17 22:50 Sputum, Expectorated/Coughed Gram Stain - Final 11/30/17 22:50 Sputum, Expectorated/Coughed Respiratory Culture - Preliminary Appears to be normal respiratory jose. Further studies to follow. Medical Necessity - Tobacco Use Smoking Status: Current every day smoker Assessment/Plan Active and Suspected Problems (Last Updated 11/05/17 @ 10:03 by Sandra Alfaro NP-C) HCAP (healthcare-associated pneumonia) (Acute) ARNAUD (acute kidney injury) (Acute) Lethargy (Acute) Delirium (Acute) Acute on chronic respiratory failure with hypoxia and hypercapnia (Acute) RECOMMENDATIONS: 1. Likely reasonable to complete a 7-10 day course of antibiotics 2. Encourage BiPAP overnight 3. Keep oxygen saturations 88-92% to avoid CO2 retention 4. Continue bronchodilators, mucolytic and complete a 5 day burst of prednisone 5. Okay to discharge from pulmonary perspective on supplemental oxygen 6. Patient should follow-up 2 weeks after discharge with nurse practitioner. Studies can be ordered at that time. IMPRESSIONS: 1. Acute on chronic combined respiratory failure/severe COPD Patient doing well on 2 L nasal cannula oxygen at this time. Patient was weaned to Augmentin therapy yesterday and appears to be tolerating this well. No fevers noted overnight. Patient continues to have a productive cough and lower extremities are improving. Likely treat with 7-10 days of antibiotics. Did stress the patient the importance of using BiPAP to avoid future complications, but patient has been refusing. Likely okay to complete a 5 day burst of prednisone therapy. Patient can follow-up with us in 2 weeks in our office with nurse practitioner to establish care and try to prevent further hospitalizations. 2. Severe sepsis secondary to bilateral lower extremity cellulitis versus venous stasis versus aspiration pneumonia Patient does have some regression in erythema with superficial ulcers noted on bilateral lower extremities after initiation of antibiotics. Unclear if this is secondary to elevation and support of lower extremity wound care. Pressures have been stable overnight. 3. Chronic diastolic congestive heart failure/hypertension/hyperlipidemia Patient does not appear to be in any acute exacerbation at this time. Patient does not have significant lower extremity swelling at this time. Last echocardiogram showed preserved ejection fraction of 75%. Patient does follow with [facility]. No indication for consultation at this time. 4. Morbid obesity/reported dementia/depression/hypertension/acute kidney injury Complicates care, management, recovery and prognosis. Patient would benefit from therapy consultations. Okay to continue baseline depression medications. Code Visit Inpatient E&M: 54033 Subs Hosp L2
[2017-12-03 07:28] VITALS: PULSE 76; RESP 18; O2SAT 98
[2017-12-03] MEDS: Ipratropium/Albuterol Sulfate 3 ML AMPUL.NEB INHALATION ×2 (07:28→13:43)
[2017-12-03 07:45] VITALS: BP 137/60; PULSE 70; RESP 20; TEMP 36.8; O2SAT 90; O2SAT 91; O2SAT 98
[2017-12-03] MEDS: Aspirin E.C. 81 MG Tablet 162 MG PO (08:28)
[2017-12-03] MEDS: predniSONE 20 MG Tablet 40 MG PO (08:28)
[2017-12-03 08:36] LABS: Bedside Glucose 90 mg/dL (70-110)
[2017-12-03] MEDS: Amox/Clavulanate 875 MG Tablet PO (09:27)
[2017-12-03] MEDS: Pantoprazole Sodium 40 MG Tablet PO (09:27)
[2017-12-03] MEDS: Loratadine 10 MG Tablet PO (09:27)
[2017-12-03] MEDS: Topiramate 200 MG Tablet PO (09:27)
[2017-12-03] MEDS: Escitalopram Oxalate 10 MG Tablet PO (09:27)
[2017-12-03] MEDS: guaiFENesin 1,200 MG Tablet 1200 MG PO (09:27)
[2017-12-03] MEDS: 0.9% NaCl Peripheral Flush Adult/Peds IV (09:33)
[2017-12-03 10:51] LABS: Bedside Glucose 138 mg/dL (70-110)
--- NOTE | 2017-12-03 13:34 | CASEMGMT ---
EJ ROSS Note. DC today per physician. EJ ROSS called to VANDANA Salomon @ [phone] to notify. Let her know that physician is recommending pt be involved in senior activities in her area if possible. Will fax DC Summary when available to [phone]. Discussed dc with pt. She states her son will pick her up and she does not have any other needs.
--- NOTE | 2017-12-03 13:36 | PCM.DC ---
- Discharge Diagnoses Current Active Problems: Current Active and Chronic Problems (Last Updated 11/05/17 @ 10:03 by MITCHEL Lazo) HCAP (healthcare-associated pneumonia) (Acute) ARNAUD (acute kidney injury) (Acute) Lethargy (Acute) Delirium (Acute) Acute on chronic respiratory failure with hypoxia and hypercapnia (Acute) You will use the following diet at home:: Calorie/Carbohydrate Controlled (specify 1200, 1400, etc) - 1800 kelly, Cardiac Your food should be the consistency of: Regular Your liquids should be the consistency of: Regular/Thin Discharge Activity: - - Avoid exposure to any strong smells such as bleach, cleaning products, strong colognes or perfumes, paint fumes and smoke of any kind. Avoid sudden exposure to cold air because this can cause bronchospasm. You may want to cover your mouth when you go outside in the winter. Avoid exposure to anyone who is sick with a cough or sore throat. Call your doctor if you observe: Fever of 101 or Higher, Inability to urinate, Shortness of breath, Dizziness, Fainting spells, Chest pain, - - Call your PCP if severe diarrhea, painful sores in the mouth, painful swallowing, rash or itching. Additional Instructions: 1. You are depressed and spend too much time by yourself. It is VERY HARD to quit ANY addiction when you are anxious and depressed. You spend way too much time by yourself. The public health social worker was going to talk to your medical case manager to see if there are any activities for seniors that are available in [place]. I think you would benefit GREATLY from counselling.......it gives you someplace to vent and they can help with your coping skills and the depression. 2. Percocet, Ativan and GAbapentin are all sedating and they can increase depression. I would minimize these medications as much as possible. There is an antidepressant called Elavil (you could also take Pamelor) that can help with diabetic neuropathy and it is an anti-depressant. You take it oply at bedtime because it makes you sleepy. Untreated sleep apnea ALSO makes you tired all the time and contributes to depression. GOOD LUCK and KEEP TRYING, Do NOT GIVE UP! Pending Tests on Discharge: none Allergies/Adverse Reactions: Allergies amitriptyline Allergy (Verified 06/07/17 17:49) Unknown lisinopril Allergy (Verified 02/26/17 11:15) Angioedema duloxetine [From Cymbalta] Adverse Reaction (Verified 06/07/17 17:49) Upset Stomach pregabalin [From Lyrica] Adverse Reaction (Verified 06/07/17 17:49) bad dreams varenicline [From Chantix] Adverse Reaction (Verified 02/26/17 11:15) Unknown ZYBETA Allergy (Uncoded 02/26/17 11:15) Other Medications to take at Discharge Fenofibrate [Tricor] 145 mg PO DAILY 05/20/16 Senna [Senokot] 2 tablet PO DAILY 05/20/16 Tiotropium [place] [Spiriva Respimat] 2 puff IH DAILY 05/20/16 Albuterol Aerosols [Ventolin Aerosols] 2.5 mg INHALATION Q6H PRN PRN 02/26/17 Albuterol Inhaler [Ventolin Hfa] 1 - 2 puff INHALATION Q6H PRN PRN 02/26/17 Betamethasone Valerate [Valisone 0.1% Cream] 1 applic TOPICAL BID PRN PRN 02/26/17 Fluticasone/Vilanterol [Breo Ellipta 200-25 Mcg INH] 1 puff INHALATION DAILY 02/26/17 Loratadine [Claritin] 10 mg PO DAILY 02/26/17 Lorazepam [Ativan] 1 mg PO TID PRN 02/26/17 Omeprazole [Prilosec] 40 mg PO DAILY 02/26/17 Simvastatin [Zocor] 40 mg PO QHS 02/26/17 Vit C/E/Zn/Coppr/Lutein/Zeaxan [Preservision Areds 2 Softgel] 1 each PO BID 02/26/17 Aspirin [Aspir-Low] 162 mg PO DAILY 09/10/17 Escitalopram Oxalate [Lexapro] 10 mg PO DAILY 09/10/17 Gabapentin [Neurontin] 400 mg PO TID 09/10/17 Insulin Human 70/30 [Novolog Mix 70-30 Flexpen Syrn] 60 units SC BID 09/10/17 Fluticasone 110 Mcg [Flovent 110 Mcg] 1 puff INHALATION BID 11/03/17 Oxycodone HCl/Acetaminophen [Oxycodone-Acetaminophen 10-325] 1 each PO Q4H PRN PRN 11/03/17 Amlodipine [Norvasc] 5 mg PO DAILY 30 Days #30 tab 11/06/17 Topiramate [Topamax] 200 mg PO BID tablet 11/06/17 Cyclobenzaprine [Flexeril] 10 mg PO TID PRN PRN 11/30/17 Amox/Clavulanate Tablet [Augmentin Tablet] 875 mg PO BID #7 tab 12/03/17 Bumetanide [Bumex] 2 mg PO DAILY #0 12/03/17 Guaifenesin [Mucinex] 1,200 mg PO BID #20 tab 12/03/17 Nicotine [Nicoderm Cq] 21 mg TRANSDERM. DAILY #28 patch 12/03/17 Prednisone 20 mg PO DAILY #7 tab 12/03/17 The following prescriptions were given: Nicotine [Nicoderm Cq] 21 mg TRANSDERM. DAILY #28 patch Prednisone 20 mg PO DAILY #7 tab Amox/Clavulanate Tablet [Augmentin Tablet] 875 mg PO BID #7 tab Guaifenesin [Mucinex] 1,200 mg PO BID #20 tab Primary Care Physician: John Burnett DO [Primary Care Provider] - Please follow up with your Primary Care Physician in: 1-2 weeks Please Follow Up With: Devin Lee MD When: 2 weeks Proposed Discharge Date: 12/03/17
[2017-12-03 13:44] VITALS: PULSE 72; RESP 16
--- NOTE | 2017-12-03 13:49 | DCINST_ITS ---
- Discharge Diagnoses Current Active Problems: Current Active and Chronic Problems (Last Updated 11/05/17 @ 10:03 by MITCHEL Lazo) HCAP (healthcare-associated pneumonia) (Acute) ARNAUD (acute kidney injury) (Acute) Lethargy (Acute) Delirium (Acute) Acute on chronic respiratory failure with hypoxia and hypercapnia (Acute) You will use the following diet at home:: Calorie/Carbohydrate Controlled ( specify 1200, 1400, etc) - 1800 kelly, Cardiac Your food should be the consistency of: Regular Your liquids should be the consistency of: Regular/Thin Discharge Activity: - - Avoid exposure to any strong smells such as bleach, cleaning products, strong colognes or perfumes, paint fumes and smoke of any kind. Avoid sudden exposure to cold air because this can cause bronchospasm. You may want to cover your mouth when you go outside in the winter. Avoid exposure to anyone who is sick with a cough or sore throat. Call your doctor if you observe: Fever of 101 or Higher, Inability to urinate, Shortness of breath, Dizziness, Fainting spells, Chest pain, - - Call your PCP if severe diarrhea, painful sores in the mouth, painful swallowing, rash or itching. Additional Instructions: 1. You are depressed and spend too much time by yourself. It is VERY HARD to quit ANY addiction when you are anxious and depressed. You spend way too much time by yourself. The elementary school social worker was going to talk to your rn field case manager to see if there are any activities for seniors that are available in [place]. I think you would benefit GREATLY from counselling.......it gives you someplace to vent and they can help with your coping skills and the depression. 2. Percocet, Ativan and GAbapentin are all sedating and they can increase depression. I would minimize these medications as much as possible. There is an antidepressant called Elavil (you could also take Pamelor) that can help with diabetic neuropathy and it is an anti- depressant. You take it oply at bedtime because it makes you sleepy. Untreated sleep apnea ALSO makes you tired all the time and contributes to depression. GOOD LUCK and KEEP TRYING, Do NOT GIVE UP! Pending Tests on Discharge: none Allergies/Adverse Reactions: Allergies amitriptyline Allergy (Verified 06/07/17 17:49) Unknown lisinopril Allergy (Verified 02/26/17 11:15) Angioedema duloxetine [From Cymbalta] Adverse Reaction (Verified 06/07/17 17:49) Upset Stomach pregabalin [From Lyrica] Adverse Reaction (Verified 06/07/17 17:49) bad dreams varenicline [From Chantix] Adverse Reaction (Verified 02/26/17 11:15) Unknown ZYBETA Allergy (Uncoded 02/26/17 11:15) Other Medications to take at Discharge Fenofibrate [Tricor] 145 mg PO DAILY 05/20/16 Senna [Senokot] 2 tablet PO DAILY 05/20/16 Tiotropium [place] [Spiriva Respimat] 2 puff IH DAILY 05/20/16 Albuterol Aerosols [Ventolin Aerosols] 2.5 mg INHALATION Q6H PRN PRN 02/26/17 Albuterol Inhaler [Ventolin Hfa] 1 - 2 puff INHALATION Q6H PRN PRN 02/26/17 Betamethasone Valerate [Valisone 0.1% Cream] 1 applic TOPICAL BID PRN PRN Fluticasone/Vilanterol [Breo Ellipta 200-25 Mcg INH] 1 puff INHALATION DAILY Loratadine [Claritin] 10 mg PO DAILY 02/26/17 Lorazepam [Ativan] 1 mg PO TID PRN 02/26/17 Omeprazole [Prilosec] 40 mg PO DAILY 02/26/17 Simvastatin [Zocor] 40 mg PO QHS 02/26/17 Vit C/E/Zn/Coppr/Lutein/Zeaxan [Preservision Areds 2 Softgel] 1 each PO BID Aspirin [Aspir-Low] 162 mg PO DAILY 09/10/17 Escitalopram Oxalate [Lexapro] 10 mg PO DAILY 09/10/17 Gabapentin [Neurontin] 400 mg PO TID 09/10/17 Insulin Human 70/30 [Novolog Mix 70-30 Flexpen Syrn] 60 units SC BID 09/10/17 Fluticasone 110 Mcg [Flovent 110 Mcg] 1 puff INHALATION BID 11/03/17 Oxycodone HCl/Acetaminophen [Oxycodone-Acetaminophen 10-325] 1 each PO Q4H PRN PRN 11/03/17 Amlodipine [Norvasc] 5 mg PO DAILY 30 Days #30 tab 11/06/17 Topiramate [Topamax] 200 mg PO BID tablet 11/06/17 Cyclobenzaprine [Flexeril] 10 mg PO TID PRN PRN 11/30/17 Amox/Clavulanate Tablet [Augmentin Tablet] 875 mg PO BID #7 tab 12/03/17 Bumetanide [Bumex] 2 mg PO DAILY #0 12/03/17 Guaifenesin [Mucinex] 1,200 mg PO BID #20 tab 12/03/17 Nicotine [Nicoderm Cq] 21 mg TRANSDERM. DAILY #28 patch 12/03/17 Prednisone 20 mg PO DAILY #7 tab 12/03/17 The following prescriptions were given: Nicotine [Nicoderm Cq] 21 mg TRANSDERM. DAILY #28 patch Prednisone 20 mg PO DAILY #7 tab Amox/Clavulanate Tablet [Augmentin Tablet] 875 mg PO BID #7 tab Guaifenesin [Mucinex] 1,200 mg PO BID #20 tab Primary Care Physician: John Burnett DO [Primary Care Provider] - Please follow up with your Primary Care Physician in: 1-2 weeks Please Follow Up With: Devin Lee MD When: 2 weeks Proposed Discharge Date: 12/03/17
--- NOTE | 2017-12-03 13:53 | PCM.DC.SUM ---
Discharge Date and Diagnosis Date of Admission: 11/30/17 Date of Discharge: 12/03/17 - Primary Discharge Diagnosis Active and Suspected Problems (Last Updated 11/05/17 @ 10:03 by Sandra Alfaro NP-C) Severe sepsis (Acute) secondary to HCAP-present at admission HCAP (healthcare-associated pneumonia) (Acute) ARNAUD (acute kidney injury) (Acute) Delirium (Acute) Acute on chronic respiratory failure with hypoxia and hypercapnia (Acute) Hypokalemia (Acute) - Secondary Discharge Diagnosis Chronic Problems (Last Updated 11/05/17 @ 10:03 by Sandra Alfaro NP-C) Diabetic neuropathy (Chronic) Chronic narcotic use (Chronic) Cephalgia (Chronic) Chronic renal failure, stage 3 (moderate) (Chronic) Diastolic congestive heart failure (Chronic) Essential (primary) hypertension (Chronic) Morbid obesity (Chronic) Uncontrolled type II diabetes mellitus (Chronic) Nicotine addiction (Chronic) Depression (Chronic) Severe chronic obstructive pulmonary disease (Chronic) Hospital Course and Treatment Imaging Results: Clinical Impression(s) from Imaging Studies Chest X-Ray 11/30/17 08:52 IMPRESSION: Findings are suspicious for bronchiectasis and peribronchial inflammation possible pneumonia. Bilateral lower lobe atelectasis. Electronically Signed: Cecily Johnson MD at 9:26 EDT Tel , Service support , Brain CT 11/30/17 08:53 IMPRESSION: Mild atrophy. No evidence of acute hemorrhage infarct or edema. Electronically Signed: Cecily Johnson MD at 10:43 EDT Tel , Service support , Chest X-Ray 11/30/17 10:38 IMPRESSION: There is a left-sided subclavian line and the tip is in the superior vena cava. There is no visualized pneumothorax. Bilateral lower lobe consider atelectasis and/or pneumonia. Electronically Signed: Cecily Johnson MD at 11:18 EDT Tel , Service support , Microbiology 11/30/17 10:56 Blood Culture (Wb) - Central Line Blood Culture - Final No growth in 5 days. 11/30/17 09:10 Blood Culture (Wb) - Left Hand Blood Culture - Final No growth in 5 days. 11/30/17 22:50 Sputum, Expectorated/Coughed Gram Stain - Final 11/30/17 22:50 Sputum, Expectorated/Coughed Respiratory Culture - Final Mixed normal respiratory jose. No Haemophilus, Streptococcus pneumoniae, beta-hemolytic Streptococcus or Staphylococcus aureus isolated. 11/30/17 09:10 Urine, Catheterized Urine Culture - Final Culture exhibits no growth. 11/30/17 14:00 Urine Catheter - [place] Streptococcus pneumoniae Antigen (M - Final 11/30/17 14:00 Urine Catheter - [place] Legionella Antigen - Final Dr. Devin Lee-pulmonary medicine [facility] Operations: None Procedures: 2-D Echocardiogram - Mild concentric left ventricular hypertrophy with EF of 75%., - - Venous ultrasound of bilateral lower extremities-negative for DVT Summary of Care Provided: The patient is a 57-year-old female with a past medical history of diastolic congestive heart failure, hypertension, hyperlipidemia, diabetes mellitus type 2, morbid obesity, anxiety/depression, chronic pain syndrome on chronic oral narcotics, GERD, COPD with chronic hypoxic respiratory failure on 3-4 L of nasal O2 at home and tobacco dependence who presented to the [facility] emergency department on 11/30/2017 complaining of worsening shortness of breath over the preceding month. Apparently she was more difficult to arouse per her family and EMS was contacted. White blood cell count was 8.8 with a left shift. ABG done on BiPAP with a 40% FiO2 showed pH of 7.38, PCO2 of 62.8 and a PO2 of 60. Potassium was low at 3.2 and the serum bicarb was elevated at 37. BUN was 26 and creatinine was 1.41. Chest x-ray showed findings suspicious for bronchiectasis and peribronchial inflammation/possible pneumonia. On physical examination both lower extremities were red, warm to touch and had open ulcerations. Auscultation the lungs revealed diminished breath sounds with rhonchi in the right base and wheezes. She was diagnosed with HCAP, ARNAUD and acute on chronic hypoxic respiratory failure with acute exacerbation COPD. She was admitted to the intensive care unit and started on vancomycin and Zosyn. She remained on BiPAP. Overnight she spiked a fever of 38.8 centigrade. After the infection improved she was better able to talk with me. she reported having tried nicotine patches and Chantix and had been unable to quit smoking. She reported feeling very depresses. Seb Peck from was consulted. The patient reported that she had been seen previously at the [facility] but was not currently linked. Her last appointment was 5 years prior to admission. She reported panic attacks on average of once a month. She reported depression on a daily basis mainly related to loss of independence and chronic medical issues. The patient was given referrals to mental health providers in the area which included [place] and the [facility]. She was transferred out of the intensive care unit on 12/02/2017 and was transitioned to prednisone. PT/OT continued. She was discharged home on 12/03/2017 with a prescription for Augmentin 875 mg, #7, 1 twice daily. She was also given prescriptions for prednisone, nicotine patch and Mucinex. She will follow-up with Dr. John Burnett in 1-[address] Devin Lee in 2 weeks. General: Alert and appropriate, oriented X 3, sitting in a chair and looks good today HEENT: PERRLA, EOMI, Atraumatic, normocephalic, MM dry, facial edema is better today Lungs: CTA, diminished, symmetric chest expansion, no conversational dyspnea, no accessory muscle use, poor effort, rare expiratory wheeze posteriorly, better air exchange Heart: RRR, no MM, no gallop, no rub, normal S1, normal S2 Abdomen: Soft, nontender, nondistended, bowel sounds present, no guarding with palpation, no masses, no hepatosplenomegaly, obese Extremities: Edema, no clubbing, no cyanosis, peripheral pulses normal Neuro: Cranial nerves II through XII grossly intact, Neuro grossly intact, no focal neurologic deficits Skin: Warm and dry, no wounds, no rashes Psych: appropriate and pleasant. Discharge Activity: - - Avoid exposure to any strong smells such as bleach, cleaning products, strong colognes or perfumes, paint fumes and smoke of any kind. Avoid sudden exposure to cold air because this can cause bronchospasm. You may want to cover your mouth when you go outside in the winter. Avoid exposure to anyone who is sick with a cough or sore throat. Call your doctor if you observe: Fever of 101 or Higher, Inability to urinate, Shortness of breath, Dizziness, Fainting spells, Chest pain, - - Call your PCP if severe diarrhea, painful sores in the mouth, painful swallowing, rash or itching. Home Medications: Medications to take at Discharge Fenofibrate [Tricor] 145 mg PO DAILY 05/20/16 Senna [Senokot] 2 tablet PO DAILY 05/20/16 Tiotropium [place] [Spiriva Respimat] 2 puff IH DAILY 05/20/16 Albuterol Aerosols [Ventolin Aerosols] 2.5 mg INHALATION Q6H PRN PRN 02/26/17 Albuterol Inhaler [Ventolin Hfa] 1 - 2 puff INHALATION Q6H PRN PRN 02/26/17 Betamethasone Valerate [Valisone 0.1% Cream] 1 applic TOPICAL BID PRN PRN 02/26/17 Fluticasone/Vilanterol [Breo Ellipta 200-25 Mcg INH] 1 puff INHALATION DAILY 02/26/17 Loratadine [Claritin] 10 mg PO DAILY 02/26/17 Lorazepam [Ativan] 1 mg PO TID PRN 02/26/17 Omeprazole [Prilosec] 40 mg PO DAILY 02/26/17 Simvastatin [Zocor] 40 mg PO QHS 02/26/17 Vit C/E/Zn/Coppr/Lutein/Zeaxan [Preservision Areds 2 Softgel] 1 each PO BID 02/26/17 Aspirin [Aspir-Low] 162 mg PO DAILY 09/10/17 Escitalopram Oxalate [Lexapro] 10 mg PO DAILY 09/10/17 Gabapentin [Neurontin] 400 mg PO TID 09/10/17 Insulin Human 70/30 [Novolog Mix 70-30 Flexpen Syrn] 60 units SC BID 09/10/17 Fluticasone 110 Mcg [Flovent 110 Mcg] 1 puff INHALATION BID 11/03/17 Oxycodone HCl/Acetaminophen [Oxycodone-Acetaminophen 10-325] 1 each PO Q4H PRN PRN 11/03/17 Amlodipine [Norvasc] 5 mg PO DAILY 30 Days #30 tab 11/06/17 Topiramate [Topamax] 200 mg PO BID tablet 11/06/17 Cyclobenzaprine [Flexeril] 10 mg PO TID PRN PRN 11/30/17 Amox/Clavulanate Tablet [Augmentin Tablet] 875 mg PO BID #7 tab 12/03/17 Bumetanide [Bumex] 2 mg PO DAILY #0 12/03/17 Guaifenesin [Mucinex] 1,200 mg PO BID #20 tab 12/03/17 Nicotine [Nicoderm Cq] 21 mg TRANSDERM. DAILY #28 patch 12/03/17 Prednisone 20 mg PO DAILY #7 tab 12/03/17 Following Prescrptions Were Given to Patient: Nicotine [Nicoderm Cq] 21 mg TRANSDERM. DAILY #28 patch Prednisone 20 mg PO DAILY #7 tab Amox/Clavulanate Tablet [Augmentin Tablet] 875 mg PO BID #7 tab Guaifenesin [Mucinex] 1,200 mg PO BID #20 tab Primary Care Physician: John Burnett DO [Primary Care Provider] - Please follow up with your Primary Care Physician in: 1-2 weeks Please Follow Up With: Devin Lee MD When: 2 weeks Disposition: Home Minutes spent on discharge:: 35 Patient Condition:: Stable Medical Necessity - Tobacco Use Smoking Status: Current every day smoker Meaningful Use Info Meaningful Use Diagnoses (Choose all that apply): None applicable Code Visit Inpatient E&M: 40517 Disch Hosp
--- NOTE | 2017-12-03 14:30 | CASEMGMT ---
EJ ROSS Note: Attempted to contact [facility] agencies. None are able to take pt at this time due to staffing or they do not accept Medicaid. Pt did not wish to have [facility] called. EJ ROSS notified Dr. Pozo of above. Jose NARANJON RN ACM
[2017-12-03 14:45] VITALS: BP 149/59; PULSE 77; RESP 18; TEMP 36.8; O2SAT 98
== END 2017-12-03 15:54 | disposition home or self-care (01) | DRG 416 ==
LOC: ED 12:31 → ICU 13:24 → MS2 12-02 14:41
PROVIDERS: Internal Medicine Critical Care Medicine; Nurse Practitioner Family; Admitting Provider Family Medicine; Emergency Provider Emergency Medicine; Family Provider Family Medicine; PCP Family Medicine; Visit Provider Internal Medicine
DX: A41.9 Sepsis, unspecified organism (principal); N17.9 Acute kidney failure, unspecified; I50.32 Chronic diastolic (congestive) heart failure; J44.0 Chronic obstructive pulmonary disease with (acute) lower respiratory infection; J18.9 Pneumonia, unspecified organism; I13.0 Hypertensive heart and chronic kidney disease with heart failure and stage 1 through stage 4 chronic kidney disease, or unspecified chronic kidney disease; N18.3 Chronic kidney disease, stage 3 (moderate); E11.40 Type 2 diabetes mellitus with diabetic neuropathy, unspecified; J96.21 Acute and chronic respiratory failure with hypoxia; J96.22 Acute and chronic respiratory failure with hypercapnia; E87.1 Hypo-osmolality and hyponatremia; R65.20 Severe sepsis without septic shock; E66.01 Morbid (severe) obesity due to excess calories; E78.5 Hyperlipidemia, unspecified; Y95 Nosocomial condition; E11.22 Type 2 diabetes mellitus with diabetic chronic kidney disease; Z68.41 Body mass index [BMI] 40.0-44.9, adult; F32.9 Major depressive disorder, single episode, unspecified; E11.65 Type 2 diabetes mellitus with hyperglycemia; Z79.899 Other long term (current) drug therapy; Z99.81 Dependence on supplemental oxygen; F17.200 Nicotine dependence, unspecified, uncomplicated; E87.6 Hypokalemia; Z79.4 Long term (current) use of insulin; G89.4 Chronic pain syndrome; K21.9 Gastro-esophageal reflux disease without esophagitis
CPT/HCPCS: 36556; 36600; 51702; 70450; 71045; 80048; 80053; 80307; 81001; 82140; 82803; 82962; 83036; 83605; 83735; 83880; 84439; 84443; 84481; 84484; 85025; 85027; 85610; 85730; 87040; 87070; 87086; 87205; 87449; 87641; 92526; 93005; 93306; 93970; 94002; 94003; 94640; 94667; 97110; 97161; 97166; 97530; 97802; 99251; 99285; 99406; J7030; J7040; Q9957; A4216; C8929; G0463; J2405

== ENCOUNTER → 2017-12-24 09:57 | Outpatient (CLI) | payer MEDICAID, SELFPAY ==
[2017-12-24 12:33] LABS: Anion Gap 6 (5-15); BUN 46 mg/dL (7-18); BUN/Creat Ratio 30.5 RATIO (10-20); Calcium,Total 8.6 mg/dL (8.5-10.1); Chloride 90 mmol/L (98-107); Creatinine, Serum 1.51 mg/dL (0.55-1.02); EST Glomerular Filtration Rate 38 mL/min (>60); Est Glom Filt Rate - Afr Amer 45 mL/min (>60); Glucose 250 mg/dL (74-106); Magnesium 2.4 mg/dL (1.6-2.6); Potassium 3.9 mmol/L (3.5-5.1); Sodium Level 132 mmol/L (136-145)
== END ==
PROVIDERS: Family Provider Family Medicine; PCP Family Medicine; Visit Provider Family Medicine
DX: J96.11 Chronic respiratory failure with hypoxia (principal); N18.3 Chronic kidney disease, stage 3 (moderate); D63.1 Anemia in chronic kidney disease; E87.6 Hypokalemia
CPT/HCPCS: 36415; 80048; 83735

== ENCOUNTER → 2017-12-24 21:29 | Outpatient (CLI) | payer MEDICAID, SELFPAY | PROVIDERS: Family Provider Family Medicine; PCP Family Medicine; Visit Provider Family Medicine | DX: G47.33 Obstructive sleep apnea (adult) (pediatric) (principal); J44.9 Chronic obstructive pulmonary disease, unspecified; J96.11 Chronic respiratory failure with hypoxia; N18.3 Chronic kidney disease, stage 3 (moderate); D63.1 Anemia in chronic kidney disease; E87.6 Hypokalemia | CPT/HCPCS: 36415; 80048; 83735; 95811 ==

== ENCOUNTER → 2018-03-23 11:15 | Outpatient (CLI) | payer MEDICAID, SELFPAY ==
[2018-03-23 15:36] LABS: Absolute Lymphocyte Count 1.82 X10^3/ul (0.83-4.51); Absolute Neutrophil Count 6.1 X10^3/uL (2.0-7.7); Basophil# 0.04 X10^3/uL; Basophil% 0.4 % (0-1); Eosinophil# 0.48 X10^3/uL; Eosinophils% 5.4 % (0-5); Hematocrit 40.3 % (37-47); Hemoglobin 12.6 g/dl (12.0-15.0); Lymphocyte # 1.82 X10^3/ul (4.0); Lymphocyte % 20.4 % (19-41); Mean Corp Hgb Conc 31.3 g/gl (32-36); Mean Corpuscular Hgb 28.2 pg (27.0-32.0); Mean Corpuscular Volume 90.2 fL (81-99); Mean Platelet Vol. 10.3 fl (6.2-12.0); Monocyte# 0.43 X10^3/uL; Monocyte% 4.8 % (0-10); Neutrophil # 6.14 X10^3/uL (2.7-7.7); Neutrophil % 68.8 % (47-70); POSITIVE COUNT NO; POSITIVE DIFFERENTIAL NO; POSITIVE MORPHOLOGY NO; Platelet Count 318 K/mm3 (150-450); RBC Distribution Width CV 13.4 % (11.6-14.6); RBC Distribution Width SD 43.8 fl (35.1-43.9); Red Blood Count 4.47 M/mm3 (4.2-5.4); White Blood Count 8.9 K/mm3 (4.4-11.0)
[2018-03-23 15:42] LABS: Anion Gap 8 (5-15); BUN 21 mg/dL (7-18); BUN/Creat Ratio 16.7 RATIO (10-20); Calcium,Total 8.5 mg/dL (8.5-10.1); Chloride 101 mmol/L (98-107); Creatinine, Serum 1.26 mg/dL (0.55-1.02); EST Glomerular Filtration Rate 46 mL/min (>60); Est Glom Filt Rate - Afr Amer 56 mL/min (>60); Glucose 118 mg/dL (74-106); Potassium 4.3 mmol/L (3.5-5.1); Sodium Level 137 mmol/L (136-145)
[2018-03-23 15:51] LABS: Hemoglobin A1c 6.8 % (4.2-6.3)
[2018-03-23 16:07] LABS: BNP,B-Type NATRIURETIC PEPTIDE 80.6 pg/mL (0-100)
== END ==
PROVIDERS: Family Provider Family Medicine; PCP Family Medicine; Visit Provider Family Medicine
DX: J96.10 Chronic respiratory failure, unspecified whether with hypoxia or hypercapnia (principal); E11.8 Type 2 diabetes mellitus with unspecified complications; I50.9 Heart failure, unspecified; J44.9 Chronic obstructive pulmonary disease, unspecified; I89.0 Lymphedema, not elsewhere classified; N18.3 Chronic kidney disease, stage 3 (moderate); I51.9 Heart disease, unspecified; F11.90 Opioid use, unspecified, uncomplicated
CPT/HCPCS: 36415; 80048; 83036; 83880; 85025

== ENCOUNTER 2018-12-13 15:43 | Observation (INO) | payer MEDICAID, SELFPAY ==
[2018-12-13] VITALS (10 sets, daily range): BP systolic 133–158; BP diastolic 48–74; PULSE 76–102; RESP 16–25; TEMP 36.7–37.1; O2SAT 93–100; BMI 40.1; BMI 44.2; BMI 44.3
--- NOTE | 2018-12-13 16:01 | EKG12_ITS ---
Test Reason : SOB Blood Pressure : / mmHG Vent. Rate : 076 BPM Atrial Rate : 076 BPM P-R Int : 212 ms QRS Dur : 082 ms QT Int : 388 ms P-R-T Axes : 043 201 054 degrees QTc Int : 436 ms Sinus rhythm with 1st degree A-V block Right superior axis deviation Low voltage QRS Cannot rule out Anteroseptal infarct (cited on or before 30-NOV-2017), age undetermined Abnormal ECG Confirmed by CONCEPCIÓN ODELL, FAYE ([id number]), film editor BENJAMIN BRANTLEY ([id number]) on 12/15/2018 8:06:59 AM Referred By: Levi Duenas Confirmed By:FAYE BEEBE MD
[2018-12-13] MEDS: Ipratropium/Albuterol Sulfate 3 ML AMPUL.NEB INHALATION ×2 (16:26→18:07)
[2018-12-13] MEDS: MethylPREDNISolone 125 MG/2 ML Vial IV (16:27)
--- NOTE | 2018-12-13 16:30 | RAD_ITS ---
STUDY: X-RAY CHEST REASON FOR EXAM: Female, 58 years old. Increasing shortness of breath. TECHNIQUE: Single frontal view of the chest. COMPARISON: November 30, 2017 FINDINGS: There are nonspecific bibasilar opacities. Normal size heart. Normal mediastinum and [place]. Normal visualized pulmonary arteries. Normal visualized aortic arch and descending thoracic aorta. Normal visualized thoracic spine. Normal visualized ribs, clavicles, and shoulders. There is no demonstrated abnormality of the visualized soft tissue structures of the upper abdomen. RAD/Chest 1 View (Portable) IMPRESSION: Nonspecific bibasilar opacities may reflect underlying atelectasis and/or pneumonia. Electronically Signed: Alyson Moody MD at 17:08 EDT Tel , Service support ,
[2018-12-13 16:42] LABS: Absolute Lymphocyte Count 1.54 X10^3/ul (0.83-4.51); Absolute Neutrophil Count 4.9 X10^3/uL (2.0-7.7); Basophil# 0.02 X10^3/uL; Basophil% 0.3 % (0-1); Eosinophil# 0.45 X10^3/uL; Hematocrit 35.6 % (37-47); Hemoglobin 11.6 g/dl (12.0-15.0); Lymphocyte # 1.54 X10^3/ul (4.0); Lymphocyte % 20.7 % (19-41); Mean Corp Hgb Conc 32.6 g/gl (32-36); Mean Corpuscular Hgb 27.6 pg (27.0-32.0); Mean Corpuscular Volume 84.6 fL (81-99); Mean Platelet Vol. 9.4 fl (6.2-12.0); Monocyte# 0.54 X10^3/uL; Monocyte% 7.3 % (0-10); Neutrophil # 4.88 X10^3/uL (2.7-7.7); Neutrophil % 65.6 % (47-70); POSITIVE COUNT NO; POSITIVE DIFFERENTIAL NO; POSITIVE MORPHOLOGY NO; Platelet Count 235 K/mm3 (150-450); RBC Distribution Width CV 13.8 % (11.6-14.6); RBC Distribution Width SD 42.6 fl (35.1-43.9); Red Blood Count 4.21 M/mm3 (4.2-5.4); White Blood Count 7.4 K/mm3 (4.4-11.0)
[2018-12-13 16:57] LABS: Anion Gap 4 (5-15); BUN 23 mg/dL (7-18); Calcium,Total 8.4 mg/dL (8.5-10.1); Chloride 97 mmol/L (98-107); Creatinine, Serum 1.35 mg/dL (0.55-1.02); EST Glomerular Filtration Rate 43 mL/min (>60); Est Glom Filt Rate - Afr Amer 51 mL/min (>60); Estimated Creatinine Clearance 31.83 ml/min; Glucose 302 mg/dL (74-106); Potassium 4.3 mmol/L (3.5-5.1); Sodium Level 133 mmol/L (136-145)
[2018-12-13 17:07] LABS: BNP,B-Type NATRIURETIC PEPTIDE 51.5 pg/mL (0-100)
--- NOTE | 2018-12-13 17:30 | PCM.HP.STD ---
<Pati Burnett - Last Filed: 12/13/18 17:56> Problem List (1) Diabetic neuropathy Status: Chronic (2) Chronic narcotic use Status: Chronic (3) Cephalgia Status: Chronic (4) Chronic renal failure, stage 3 (moderate) Status: Chronic (5) Diastolic congestive heart failure Status: Chronic (6) Acute on chronic respiratory failure with hypoxia and hypercapnia Status: Chronic (7) Essential (primary) hypertension Status: Chronic (8) Morbid obesity Status: Chronic (9) Uncontrolled type II diabetes mellitus Status: Chronic (10) Nicotine addiction Status: Chronic (11) Depression Status: Chronic (12) Severe chronic obstructive pulmonary disease Status: Chronic History of Present Illness Date of Admission: 12/13/18 Chief Complaint: Shortness of breath. The patient is a 58 year old F who presents to the Emergency Room with increased shortness of breath. She reports she has had increased shortness of breath over the past week. She chronically wears 4 L nasal cannula at baseline and has had to bump up her oxygen with ambulation over the past week. She reports increased lower extremity swelling however she reports this is been ongoing for the past several months. Reports cough with production of yellow sputum. Denies fever, chills. Denies exposure to sick contacts. Reports she has been wheezing and using her albuterol inhaler frequently. She has a past medical history of chronic severe COPD, chronic hypoxic and hypercapnic respiratory failure, type 2 diabetes mellitus, chronic venous stasis bilateral lower extremities, chronic diastolic CHF, hypertension, depression, morbid obesity, history of tobacco dependence, hyperlipidemia, GERD. Past Medical History Past Medical History (Chronic Problems): Chronic Problems (Last Reviewed 01/26/18 @ 09:12 by Genia Cedeño) Diabetic neuropathy (Chronic) Chronic narcotic use (Chronic) Cephalgia (Chronic) Chronic renal failure, stage 3 (moderate) (Chronic) Diastolic congestive heart failure (Chronic) Acute on chronic respiratory failure with hypoxia and hypercapnia (Chronic) Essential (primary) hypertension (Chronic) Morbid obesity (Chronic) Uncontrolled type II diabetes mellitus (Chronic) Nicotine addiction (Chronic) Depression (Chronic) Severe chronic obstructive pulmonary disease (Chronic) Medical History: Medical History (Last Reviewed 01/26/18 @ 09:12 by Genia Cedeño) Essential (primary) hypertension (Chronic) I10 Morbid obesity (Chronic) E66.01 Uncontrolled type II diabetes mellitus (Chronic) E11.65 Nicotine addiction (Chronic) F17.200 Depression (Chronic) F32.9 Severe chronic obstructive pulmonary disease (Chronic) J44.9 History of hysterectomy Z90.710 Allergies amitriptyline Allergy (Verified 06/07/17 17:49) Unknown lisinopril Allergy (Verified 02/26/17 11:15) Angioedema duloxetine [From Cymbalta] Adverse Reaction (Verified 06/07/17 17:49) Upset Stomach pregabalin [From Lyrica] Adverse Reaction (Verified 06/07/17 17:49) bad dreams varenicline [From Chantix] Adverse Reaction (Verified 02/26/17 11:15) Unknown ZYBETA Allergy (Uncoded 02/26/17 11:15) Other Home Medications: Ambulatory Orders Medication Instructions Recorded Fenofibrate [Tricor] 145 mg PO DAILY 05/20/16 Senna [Senokot] 2 tablet PO DAILY 05/20/16 Tiotropium [place] [Spiriva 2 puff IH DAILY 05/20/16 Respimat] Albuterol Aerosols [Ventolin 2.5 mg INHALATION Q6H PRN PRN 02/26/17 Aerosols] Albuterol Inhaler [Ventolin Hfa] 1 - 2 puff INHALATION Q6H PRN PRN 02/26/17 Betamethasone Valerate [Valisone 1 applic TOPICAL BID PRN PRN 02/26/17 0.1% Cream] Fluticasone/Vilanterol [Breo 1 puff INHALATION DAILY 02/26/17 Ellipta 200-25 Mcg INH] Loratadine [Claritin] 10 mg PO DAILY 02/26/17 Omeprazole [Prilosec] 40 mg PO DAILY 02/26/17 Simvastatin [Zocor] 40 mg PO QHS 02/26/17 Aspirin [Aspir-Low] 162 mg PO DAILY 09/10/17 Escitalopram Oxalate [Lexapro] 20 mg PO DAILY 09/10/17 Gabapentin [Neurontin] 800 mg PO Q8H PRN 09/10/17 Insulin Human 70/30 [Novolog Mix 60 units SC BID 09/10/17 70-30 Flexpen Syrn] Fluticasone 110 Mcg [Flovent 110 1 puff INHALATION BID 11/03/17 Mcg] Oxycodone HCl/Acetaminophen 1 each PO Q4H PRN PRN 11/03/17 [Oxycodone-Acetaminophen 10-325] Amlodipine [Norvasc] 5 mg PO DAILY 30 Days #30 tab 11/06/17 Topiramate [Topamax] 200 mg PO BID tablet 11/06/17 cycloBENZAPRine HCl [Flexeril] 10 mg PO TID PRN PRN 11/30/17 Bumetanide [Bumex] 2 mg PO DAILY #0 12/03/17 Prednisone 20 mg PO DAILY #7 tab 12/03/17 Furosemide [Lasix] 40 mg PO DAILY 12/13/18 Magnesium Oxide [Magnesium] 400 mg PO DAILY 12/13/18 Potassium Chloride 20 meq PO BID 12/13/18 Surgical History: Surgical History (Last Reviewed 01/26/18 @ 09:12 by Genia Cedeño) H/O colonoscopy Z98.890 History of lung biopsy Z98.890 Previous section Z98.891 Surgical History: hysterectomy, tonsillectomy, - - section, tubal ligation Psychiatric History: No pertinent psych hx 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 Lives: With Family Smoking Status: Current every day smoker Alcohol: None Drugs: None - *Family History Maternal Family History: Family History (Last Reviewed 12/13/18 @ 17:35 by MITCHEL Ross) Father CAD (coronary artery disease) Hypertension Sudden cardiac Mother CAD (coronary artery disease) Hypertension Diabetes History Items: COPD Sibling Family History: Family History (Last Reviewed 12/13/18 @ 17:35 by MITCHEL Ross) Father CAD (coronary artery disease) Hypertension Sudden cardiac Mother CAD (coronary artery disease) Hypertension Diabetes History Items: - - Psoriasis Review of Systems Constitutional: Denies: Chills, Fever, Weight Change HEENT: Denies: Head Aches, Sinus Congestion, Sinus Drainage Cardiovascular: Reports: Edema - BLLE. Denies: Chest Pain, Palpitations Respiratory: Reports: Cough, Shortness of Breath, Sputum production, Wheezing Gastrointestinal: Denies: Abdominal Pain, Nausea, Vomiting Genitourinary: Denies: Dysuria Musculoskeletal: Denies: Joint Pain, Joint Tenderness Skin: Reports: - - Chronic venous stasis skin changes bilateral lower extremities.. Denies: Rash, Wounds Neurological: Denies: Numbness, Tingling, Focal weakness Psychiatric: Denies: Anxiety, Depression, Homicidal Ideations, Suicidal Ideations Hematologic/ Lymphatic: Denies: Easy Bruising, Easy Bleeding VTE Information - Inpt Only VTE Present on Admission: No VTE Mechan Device Prophylaxis: None VTE Pharm Prophylaxis ordered?: Yes - Physical Exam General: Alert, Oriented x3, Cooperative HEENT: Atraumatic, PERRLA, EOMI, Normocephalic Neck: Supple, No JVD, Negative Carotid Bruits Lungs: Diminished, Wheezes Cardiovascular: Regular rate, Regular Rhythm, Normal S1, Normal S2, No murmurs Abdomen: Bowel Sounds Present, Soft, Non Tender, Non-Distended, Obese Extremities: No clubbing, No cyanosis, Capillary Refill Less than 3 Seconds, Edema - Bilateral lower extremities Skin: No rashes, No breakdown, - - Chronic venous stasis skin changes bilateral lower extremities Musculoskeletal: No Tenderness to Palpation of Joints or Extremities Neurological: Cranial nerves II-XII grossly intact, Neuro grossly intact Psych/Mental Status: Normal Affect, Appropriate Vital Signs Temp Pulse Resp BP Pulse Ox 98.2 F 87 25 H 133/50 H 99 12/13/18 17:00 12/13/18 17:00 12/13/18 17:00 12/13/18 17:00 12/13/18 17:00 Oxygen Flow Rate (L/min) 4 Oxygen Delivery Method Nasal Cannula Weight: 205 lb 11.06 oz Body Mass Index (BMI) 40.1 Finger Stick Blood Glucose 107 Laboratory Tests Past 24 Hrs 12/13/18 12/13/18 12/13/18 16:30 16:30 16:30 WBC 7.4 RBC 4.21 Hgb 11.6 L Hct 35.6 L MCV 84.6 MCH 27.6 MCHC 32.6 RDW 13.8 RDW Differential 42.6 Plt Count 235 MPV 9.4 Immature Gran % (Auto) 0.100 Neut % (Auto) 65.6 Lymph % (Auto) 20.7 Crowley % (Auto) 7.3 Eos % (Auto) 6.0 H Baso % (Auto) 0.3 Absolute Neuts (auto) 4.9 Absolute Lymphs (auto) 1.54 Total Counted Not Reportable Sodium 133 L Potassium 4.3 Chloride 97 L Carbon Dioxide 32.0 Anion Gap 4 L BUN 23 H Creatinine 1.35 H Estim Creat Clear Calc 31.83 Est GFR (MDRD) Af Amer 51 L Est GFR (MDRD) Non-Af 43 L BUN/Creatinine Ratio 17.0 Glucose 302 H Calcium 8.4 L Troponin I < 0.015 B-Natriuretic Peptide 51.5 Assessment/Plan 1. Acute COPD exacerbation on Chronic Severe COPD-chest x-ray admission with nonspecific bibasilar opacities. No leukocytosis, afebrile. Check respiratory panel. IV Solu-Medrol. Albuterol and DuoNeb aerosols. 2. Chronic hypoxic and hypercapnic respiratory failure-Chronically wears 4 L nasal cannula at baseline. Follows with Dr. Benitez. O2 stable in baseline home O2. Continue supplement oxygen to maintain O2 at or above 90%. 3. Constipation-reports she has not had a bowel movement in 1 week, reports hx SBO. Complains of abdominal tenderness. Obtain abdominal x-ray. Bowel regimen. 4. Lower extremity edema-suspect secondary to chronic diastolic CHF and chronic venous stasis bilateral lower extremities-IV Lasix 40 mg x 1. Ricardo wraps bilateral lower extremity's. No acute CHF. Echocardiogram November 2017 with EF 75%. 5. Type 2 diabetes [id number] before meals at bedtime with sliding scale insulin. 6. Hypertension-stable, continue home amlodipine regimen. 7. Depression-continue home Lexapro regimen. 8. Morbid obesity-encourage diet and lifestyle modifications. Nutrition consult. 9. History of tobacco dependence 10. Hyperlipidemia-continue statin. 11. GERD-continue PPI. DVT prophylaxis-heparin subcu. This patient was seen by MITCHEL Ross under the supervision of Dr. Duenas. <Levi Duenas F - Last Filed: 12/13/18 18:19> History of Present Illness The patient is a 58 year old F [] Past Medical History Medical History: Medical History (Last Reviewed 01/26/18 @ 09:12 by Genia Cedeño) Essential (primary) hypertension (Chronic) I10 Morbid obesity (Chronic) E66.01 Uncontrolled type II diabetes mellitus (Chronic) E11.65 Nicotine addiction (Chronic) F17.200 Depression (Chronic) F32.9 Severe chronic obstructive pulmonary disease (Chronic) J44.9 History of hysterectomy Z90.710 Allergies amitriptyline Allergy (Verified 06/07/17 17:49) Unknown lisinopril Allergy (Verified 02/26/17 11:15) Angioedema duloxetine [From Cymbalta] Adverse Reaction (Verified 06/07/17 17:49) Upset Stomach pregabalin [From Lyrica] Adverse Reaction (Verified 06/07/17 17:49) bad dreams varenicline [From Chantix] Adverse Reaction (Verified 02/26/17 11:15) Unknown ZYBETA Allergy (Uncoded 02/26/17 11:15) Other Surgical History: Surgical History (Last Reviewed 01/26/18 @ 09:12 by Genia Cedeño) H/O colonoscopy Z98.890 History of lung biopsy Z98.890 Previous section Z98.891 - *Family History Maternal Family History: Family History (Last Reviewed 12/13/18 @ 17:35 by MITCHEL Ross) Father CAD (coronary artery disease) Hypertension Sudden cardiac Mother CAD (coronary artery disease) Hypertension Diabetes Sibling Family History: Family History (Last Reviewed 12/13/18 @ 17:35 by MITCHEL Ross) Father CAD (coronary artery disease) Hypertension Sudden cardiac Mother CAD (coronary artery disease) Hypertension Diabetes - Physical Exam Vital Signs Temp Pulse Resp BP Pulse Ox 98.2 F 86 18 133/51 H 96 12/13/18 18:00 12/13/18 18:09 12/13/18 18:09 12/13/18 18:00 12/13/18 18:00 Oxygen Flow Rate (L/min) 4 Oxygen Delivery Method Nasal Cannula Weight: 205 lb 11.06 oz Body Mass Index (BMI) 40.1 Finger Stick Blood Glucose 107 Laboratory Tests Past 24 Hrs 12/13/18 12/13/18 12/13/18 16:30 16:30 16:30 WBC 7.4 RBC 4.21 Hgb 11.6 L Hct 35.6 L MCV 84.6 MCH 27.6 MCHC 32.6 RDW 13.8 RDW Differential 42.6 Plt Count 235 MPV 9.4 Immature Gran % (Auto) 0.100 Neut % (Auto) 65.6 Lymph % (Auto) 20.7 Crowley % (Auto) 7.3 Eos % (Auto) 6.0 H Baso % (Auto) 0.3 Absolute Neuts (auto) 4.9 Absolute Lymphs (auto) 1.54 Total Counted Not Reportable Sodium 133 L Potassium 4.3 Chloride 97 L Carbon Dioxide 32.0 Anion Gap 4 L BUN 23 H Creatinine 1.35 H Estim Creat Clear Calc 31.83 Est GFR (MDRD) Af Amer 51 L Est GFR (MDRD) Non-Af 43 L BUN/Creatinine Ratio 17.0 Glucose 302 H Calcium 8.4 L Troponin I < 0.015 B-Natriuretic Peptide 51.5 Code Visit Addendum: Dr. Duenas I personally examined the patient and reviewed the chart. I agree with the above. 58-year-old female with chronic hypoxic and hypercapnic respiratory failure on 4 L nasal cannula presents with dyspnea today. She has not necessitated increase in her nasal cannula however there was some concern that there could be pneumonia despite the lack of a leukocytosis or fever. Also she has had worsening bilateral lower extremity edema which is likely secondary to her CHF. She takes Lasix in the morning but does not take Bumex, she was recently taken off of Bumex. Therefore we will give her a one-time dose of 40 mg of IV Lasix now and put on a fluid restriction. Would recommend Ricardo wrapping her lower extremities. BNP is unremarkable and therefore probably not an acute CHF exacerbation. We will continue with aerosols as well as IV Solu-Medrol as she is having significant wheezing on exam. OBSV E&M: [id number] Initial observation care L3
--- NOTE | 2018-12-13 17:35 | ED.DCSUM_ITS ---
- ER Visit Summary Date of Service: 12/13/18 Chief Complaint: [Shortness of breath] History of Present Illness: The patient is a 58 F [presents the emergency department complaint of cough and shortness of breath. Patient states her symptoms are about a week ago. She describes exertional dyspnea. Patient denies any chest pain. Patient also has diffuse swelling in her legs. Patient does have a history of COPD and CHF. She has not been gaining weight. Patient does take Lasix twice a day 40 mg at a time. She denies recent travel or surgery.] Patient states that she is coughing up thick yellow sputum. Physical Examination: [HEENT-PERRLA, EOMI. Cranial nerves II through XII grossly intact. TMs clear. Mucous membranes moist. No adenopathy. Cardiovascular-regular rate and rhythm without murmur or ectopy Lungs-patient mildly tachypneic. Patient has diminished breath sounds bilaterally with expiratory wheezes noted and coarse rhonchi. No accessory muscle use or retractions. Abdomen-normoactive bowel sounds, soft, nontender, no rebound or rigidity, no peritoneal signs. Extremities-intact ?4, normal range of motion, normal pulses, atraumatic. patient has +3 edema both lower extremities that is symmetric.] Test Results: [EKG obtained on arrival showed a sinus rhythm with first-degree AV block with a ventricular rate of 76 bpm. CBC with additional white count 7.4, hemoglobin 11.6, hematocrit 36, platelets 235. Chemistries unremarkable. BUN was 25 and creatinine 1.35. Glucose was 302. Troponin was less than 0.15. BNP was 51. Chest x-ray showed by basilar opacities and cannot rule out pneumonia versus atelectasis.] Emergency Department Course and Treatment: [Patient was given a DuoNeb aerosol and was started on Solu-Medrol 25 mill grams IV. Blood cultures were ordered. Patient started on Levaquin 750 mill grams IV.] Treatment Plan: [Admit] Disposition: [Admit] Impression: [Dyspnea COPD exacerbation Pneumonia] This note was generated with [employer] dictation software. It may contain incorrect words, spelling, and punctuation that were not noted in review of the chart prior to signing ED Disposition - Plan for ED Patient: Referrals: John Burnett DO [Primary Care Provider] -
[2018-12-13] MEDS: levoFLOXacin IV 750 MG/150 ML BAG 100 MG IV (17:48)
--- NOTE | 2018-12-13 18:47 | NURSING ---
Patient informed to call a family member to bring a copy of home med list to hosp. to verify. Patient falling asleep while trying to complete verbally and does not know all of her medications.
--- NOTE | 2018-12-13 19:00 | RAD_ITS ---
STUDY: X-RAY - ABDOMEN/PELVIS REASON FOR EXAM: Female, 58 years old. Abdominal pain. TECHNIQUE: 3 AP images of the abdomen were obtained. COMPARISON: None. FINDINGS: Normal visualized lung bases. There is a moderate amount of stool throughout the colon and rectum. There is no demonstrated free abdominal air. Normal soft tissue structures. There are diffuse degenerative changes of the visualized lumbar spine. RAD/Abdomen Single View IMPRESSION: Moderate amount of stool throughout the colon and rectum. Electronically Signed: Alyson Moody MD at 20:14 EDT Tel , Service support ,
[2018-12-13] MEDS: Furosemide 40 MG/4 ML Vial IV (21:40)
[2018-12-13] MEDS: Polyethylene Glycol 3350 17 GM PACKET PO (21:40)
[2018-12-13] MEDS: Insulin Lispro 100 UNIT/ML INSULN.PEN SQ (21:41)
[2018-12-13] MEDS: oxyCODONE 5 MG Tablet PO (21:42)
[2018-12-13] MEDS: Gabapentin 800 MG Tablet PO (21:43)
[2018-12-13] MEDS: Acetaminophen 325 MG Tablet 650 MG PO (21:43)
[2018-12-13] MEDS: Topiramate 200 MG Tablet PO (22:01)
[2018-12-13] MEDS: Atorvastatin Calcium 20 MG Tablet PO (22:01)
[2018-12-13] MEDS: Senna/Docusate Sodium 1 Tablet 2 TABLET PO (22:01)
[2018-12-13 22:20] LABS: Bedside Glucose 390 mg/dL (70-110)
--- NOTE | 2018-12-13 23:45 | CPS ---
Pt home pap box sealing machine catcher with 4L bleed in. Pt requesting to not put it on at this time. 4L nasal cannula remains on and SpO2 93%.
[2018-12-14 03:30] VITALS: BP 155/70; PULSE 91; RESP 16; TEMP 36.8; O2SAT 95
[2018-12-14 06:12] LABS: Absolute Neutrophil Count 4.7 X10^3/uL (2.0-7.7); Basophil# 0.01 X10^3/uL; Basophil% 0.2 % (0-1); Eosinophil# 0.01 X10^3/uL; Eosinophils% 0.2 % (0-5); Hematocrit 35.1 % (37-47); Hemoglobin 11.3 g/dl (12.0-15.0); Lymphocyte % 9.3 % (19-41); Mean Corp Hgb Conc 32.2 g/gl (32-36); Mean Corpuscular Volume 83.8 fL (81-99); Mean Platelet Vol. 9.8 fl (6.2-12.0); Monocyte# 0.13 X10^3/uL; Monocyte% 2.4 % (0-10); Neutrophil # 4.69 X10^3/uL (2.7-7.7); Neutrophil % 87.7 % (47-70); Platelet Count 264 K/mm3 (150-450); RBC Distribution Width CV 13.5 % (11.6-14.6); RBC Distribution Width SD 40.3 fl (35.1-43.9); Red Blood Count 4.19 M/mm3 (4.2-5.4); White Blood Count 5.4 K/mm3 (4.4-11.0)
[2018-12-14 06:34] LABS: BUN 24 mg/dL (7-18); Creatinine, Serum 1.26 mg/dL (0.55-1.02); Glucose 345 mg/dL (74-106); POSITIVE COUNT NO; POSITIVE MORPHOLOGY NO
[2018-12-14 06:35] LABS: Anion Gap 8 (5-15); Calcium,Total 8.5 mg/dL (8.5-10.1); Chloride 97 mmol/L (98-107); EST Glomerular Filtration Rate 46 mL/min (>60); Est Glom Filt Rate - Afr Amer 56 mL/min (>60); Potassium 4.3 mmol/L (3.5-5.1); Sodium Level 136 mmol/L (136-145)
[2018-12-14 07:07] LABS: Differential Comment SCANNED; Differential Indicated SCAN CRITERIA MET; POSITIVE DIFFERENTIAL YES
[2018-12-14 07:17] VITALS: PULSE 86; RESP 20; O2SAT 92
[2018-12-14] MEDS: Ipratropium/Albuterol Sulfate 3 ML AMPUL.NEB INHALATION ×2 (07:17→11:25)
[2018-12-14 07:55] VITALS: BP 153/68; PULSE 88; RESP 20; TEMP 36.8; O2SAT 91
[2018-12-14 08:31] LABS: Bedside Glucose 300 mg/dL (70-110)
[2018-12-14] MEDS: Insulin Lispro 100 UNIT/ML INSULN.PEN SQ ×2 (08:56→12:21)
[2018-12-14] MEDS: Bumetanide 2 MG Tablet PO (08:57)
[2018-12-14] MEDS: Insulin Human 75/25 Kwickpen 60 UNIT SC (08:57)
[2018-12-14] MEDS: Polyethylene Glycol 3350 17 GM PACKET PO (08:58)
[2018-12-14] MEDS: Escitalopram Oxalate 20 MG Tablet PO (08:58)
[2018-12-14] MEDS: Pantoprazole Sodium 40 MG Tablet PO (08:58)
[2018-12-14] MEDS: Enoxaparin 40 MG/0.4 ML Syringe SC (08:58)
[2018-12-14] MEDS: Aspirin E.C. 81 MG Tablet 162 MG PO (08:58)
[2018-12-14] MEDS: Senna/Docusate Sodium 1 Tablet 2 TABLET PO (08:58)
[2018-12-14] MEDS: Loratadine 10 MG Tablet PO (08:58)
[2018-12-14] MEDS: Fenofibrate 145 MG Tablet PO (08:59)
[2018-12-14] MEDS: Topiramate 200 MG Tablet PO (08:59)
--- NOTE | 2018-12-14 10:59 | PCM.DC ---
You will use the following diet at home:: Calorie/Carbohydrate Controlled (specify 1200, 1400, etc), Cardiac Discharge Activity: Return to Normal Activity Call your doctor if you observe: Shortness of breath, Dizziness, Fainting spells, Chest pain Allergies/Adverse Reactions: Allergies amitriptyline Allergy (Verified 06/07/17 17:49) Unknown lisinopril Allergy (Verified 02/26/17 11:15) Angioedema duloxetine [From Cymbalta] Adverse Reaction (Verified 06/07/17 17:49) Upset Stomach pregabalin [From Lyrica] Adverse Reaction (Verified 06/07/17 17:49) bad dreams varenicline [From Chantix] Adverse Reaction (Verified 02/26/17 11:15) Unknown ZYBETA Allergy (Uncoded 02/26/17 11:15) Other Medications to take at Discharge Fenofibrate [Tricor] 145 mg PO DAILY 05/20/16 Senna [Senokot] 2 tablet PO DAILY 05/20/16 Tiotropium [employer] [Spiriva Respimat] 2 puff IH DAILY 05/20/16 Albuterol Aerosols [Ventolin Aerosols] 2.5 mg INHALATION Q6H PRN PRN 02/26/17 Albuterol Inhaler [Ventolin Hfa] 1 - 2 puff INHALATION Q6H PRN PRN 02/26/17 Betamethasone Valerate [Valisone 0.1% Cream] 1 applic TOPICAL BID PRN PRN 02/26/17 Fluticasone/Vilanterol [Breo Ellipta 200-25 Mcg INH] 1 puff INHALATION DAILY 02/26/17 Loratadine [Claritin] 10 mg PO DAILY 02/26/17 Omeprazole [Prilosec] 40 mg PO DAILY 02/26/17 Simvastatin [Zocor] 40 mg PO QHS 02/26/17 Aspirin [Aspir-Low] 81 mg PO BID 09/10/17 Escitalopram Oxalate [Lexapro] 20 mg PO DAILY 09/10/17 Gabapentin [Neurontin] 800 mg PO Q8H PRN 09/10/17 Insulin Human 70/30 [Novolog Mix 70-30 Flexpen Syrn] 60 units SC BID 09/10/17 Fluticasone 110 Mcg [Flovent 110 Mcg] 1 puff INHALATION BID 11/03/17 Oxycodone HCl/Acetaminophen [Oxycodone-Acetaminophen 10-325] 1 each PO Q4H PRN PRN 11/03/17 Amlodipine [Norvasc] 5 mg PO DAILY 30 Days #30 tab 11/06/17 Topiramate [Topamax] 200 mg PO BID tablet 11/06/17 cycloBENZAPRine HCl [Flexeril] 10 mg PO TID PRN PRN 11/30/17 Bumetanide [Bumex] 2 mg PO DAILY #0 12/03/17 Furosemide [Lasix] 40 mg PO DAILY 12/13/18 Magnesium Oxide [Magnesium] 400 mg PO DAILY 12/13/18 Potassium Chloride 20 meq PO BID 12/13/18 Polyethylene Glycol 3350 [Miralax] 17 gm PO DAILY #30 packet 12/14/18 Prednisone See Taper PO DAILY #30 tablet 12/14/18 Senna/Docusate Sodium [Senokot-S] 2 tablet PO BID #28 tablet 12/14/18 The following prescriptions were given: Polyethylene Glycol 3350 [Miralax] 17 gm PO DAILY #30 packet Prednisone See Taper PO DAILY #30 tablet Senna/Docusate Sodium [Senokot-S] 2 tablet PO BID #28 tablet Primary Care Physician: John Burnett DO [Primary Care Provider] - Please follow up with your Primary Care Physician in: 1 Week Test Results: Test results from this visit will be discussed in further detail at your follow-up appointment, if applicable. Please Follow Up With: Jessica Delgado NP-C When: 1-2 Weeks Proposed Discharge Date: 12/14/18
--- NOTE | 2018-12-14 11:13 | DS.PCM_ITS ---
<Pati Burnett - Last Filed: 12/14/18 11:14> Discharge Date and Diagnosis Date of Admission: 12/13/18 Date of Discharge: 12/14/18 - Primary Discharge Diagnosis 1. Acute COPD exacerbation on Chronic Severe COPD 2. Chronic hypoxic and hypercapnic respiratory failure 3. Constipation 4. Lower extremity edema secondary to chronic diastolic CHF and chronic venous stasis bilateral lower extremities 5. Type 2 diabetes mellitus 6. Hypertension 7. Depression 8. Morbid obesity 9. History of tobacco dependence 10. Hyperlipidemia 11. GERD - Secondary Discharge Diagnosis Chronic Problems (Last Reviewed 01/26/18 @ 09:12 by Genia Cedeño) Diabetic neuropathy (Chronic) Chronic narcotic use (Chronic) Cephalgia (Chronic) Chronic renal failure, stage 3 (moderate) (Chronic) Diastolic congestive heart failure (Chronic) Acute on chronic respiratory failure with hypoxia and hypercapnia (Chronic) Essential (primary) hypertension (Chronic) Morbid obesity (Chronic) Uncontrolled type II diabetes mellitus (Chronic) Nicotine addiction (Chronic) Depression (Chronic) Severe chronic obstructive pulmonary disease (Chronic) Hospital Course and Treatment Imaging Results: Diagnostic Data Chest X-Ray 12/13/18 16:30 IMPRESSION: Nonspecific bibasilar opacities may reflect underlying atelectasis and/or pneumonia. Electronically Signed: Alyson Moody MD at 17:08 EDT Tel , Service support , KUB X-Ray 12/13/18 19:00 IMPRESSION: Moderate amount of stool throughout the colon and rectum. Electronically Signed: Alyson Moody MD at 20:14 EDT Tel , Service support , Operations: None Procedures: None Summary of Care Provided: The patient is a 58 year old F admitted 12/13/2018 due to shortness of breath. 1. Acute COPD exacerbation on Chronic Severe COPD-chest x-ray admission with nonspecific bibasilar opacities. No leukocytosis, afebrile. Respiratory panel negative. IV Solu-Medrol during admission. Discharged on prednisone taper. Follow-up with primary care provider in 1 week. Follow-up with pulmonary medicine in 1 to 2 weeks. 2. Chronic hypoxic and hypercapnic respiratory failure-Chronically wears 4 L nasal cannula at baseline. Follows with Dr. Benitez. O2 stable on baseline home O2. Continue supplement oxygen to maintain O2 at or above 90%. 3. Constipation-reports she has not had a bowel movement in 1 week, reports hx SBO. Abdominal x-ray showed moderate amount of stool throughout the colon and rectum. Initiated on bowel regimen with MiraLAX daily and Senokot twice daily. When patient has normal bowel movements, can discontinue Senokot and continue MiraLAX only daily. 4. Lower extremity edema-secondary to chronic diastolic CHF and chronic venous stasis bilateral lower extremities-IV Lasix 40 mg x 1. Ricardo wraps bilateral lower extremity's. No acute CHF. Echocardiogram November 2017 with EF 75%. 5. Type 2 diabetes mellitus-continue home insulin regimen. 6. Hypertension-stable, continue home amlodipine regimen. 7. Depression-continue home Lexapro regimen. 8. Morbid obesity-encourage diet and lifestyle modifications. 9. History of tobacco dependence 10. Hyperlipidemia-continue statin. 11. GERD-continue PPI. General: Alert, Oriented x3, Cooperative HEENT: Atraumatic, PERRLA, EOMI, Normocephalic Neck: Supple, No JVD, Negative Carotid Bruits Lungs: Diminished, minimal expiratory wheezing Cardiovascular: Regular rate, Regular Rhythm, Normal S1, Normal S2, No murmurs Abdomen: Bowel Sounds Present, Soft, Non Tender, Non-Distended, Obese Extremities: No clubbing, No cyanosis, Capillary Refill Less than 3 Seconds, Edema - Bilateral lower extremities Skin: No rashes, No breakdown, - - Chronic venous stasis skin changes bilateral lower extremities Musculoskeletal: No Tenderness to Palpation of Joints or Extremities Neurological: Cranial nerves II-XII grossly intact, Neuro grossly intact Psych/Mental Status: Normal Affect, Appropriate Patient seen and examined prior to discharge. Physical assessment as noted above. Patient is stable for discharge with follow up recommendations as noted above. This patient was seen by MITCHEL Ross under the supervision of Dr. Duenas. - Physical Exam Vital Signs Temp Pulse Resp BP Pulse Ox 98.2 F 88 20 H 153/68 H 91 12/14/18 07:55 12/14/18 07:55 12/14/18 07:55 12/14/18 07:55 12/14/18 07:55 Oxygen Flow Rate (L/min) 4 Oxygen Delivery Method Nasal Cannula Weight: 224 lb 13.944 oz Body Mass Index (BMI) 44.2 Finger Stick Blood Glucose 107 Intake and Output for Last 24 Hours 12/12/18 12/13/18 12/14/18 23:59 23:59 23:59 Intake Total 1712 / 1712 Output Total 2200 / 2200 Balance -488 / -488 Microbiology Past 72 Hours 12/13/18 18:11 Respiratory Panel (PCR) - Final Mucosa - Nasopharyngeal Laboratory Tests Past 24 Hrs 12/13/18 12/13/18 12/13/18 16:30 16:30 16:30 WBC 7.4 RBC 4.21 Hgb 11.6 L Hct 35.6 L MCV 84.6 MCH 27.6 MCHC 32.6 RDW 13.8 RDW Differential 42.6 Plt Count 235 MPV 9.4 Immature Gran % (Auto) 0.100 Neut % (Auto) 65.6 Lymph % (Auto) 20.7 [place] % (Auto) 7.3 Eos % (Auto) 6.0 H Baso % (Auto) 0.3 Absolute Neuts (auto) 4.9 Absolute Lymphs (auto) 1.54 Total Counted Not Reportable Differential Comment Sodium 133 L Potassium 4.3 Chloride 97 L Carbon Dioxide 32.0 Anion Gap 4 L BUN 23 H Creatinine 1.35 H Estim Creat Clear Calc 31.83 Est GFR (MDRD) Af Amer 51 L Est GFR (MDRD) Non-Af 43 L BUN/Creatinine Ratio 17.0 Glucose 302 H Calcium 8.4 L Troponin I < 0.015 B-Natriuretic Peptide 51.5 12/14/18 12/14/18 05:35 05:35 WBC 5.4 RBC 4.19 L Hgb 11.3 L Hct 35.1 L MCV 83.8 MCH 27.0 MCHC 32.2 RDW 13.5 RDW Differential 40.3 Plt Count 264 MPV 9.8 Immature Gran % (Auto) 0.200 Neut % (Auto) 87.7 H Lymph % (Auto) 9.3 L [place] % (Auto) 2.4 Eos % (Auto) 0.2 Baso % (Auto) 0.2 Absolute Neuts (auto) 4.7 Absolute Lymphs (auto) 0.50 L Total Counted Not Reportable Differential Comment SCANNED Sodium 136 Potassium 4.3 Chloride 97 L Carbon Dioxide 31.0 Anion Gap 8 BUN 24 H Creatinine 1.26 H Estim Creat Clear Calc 34.10 Est GFR (MDRD) Af Amer 56 L Est GFR (MDRD) Non-Af 46 L BUN/Creatinine Ratio 19.0 Glucose 345 H Calcium 8.5 Troponin I B-Natriuretic Peptide POC Glucose 12/14/18 12/13/18 07:48 21:35 POC Glucose 300 H 390 H Discharge Diet: Low fat/ Low Cholesterol, Carb Control Diet Discharge Activity: Return to Normal Activity Call your doctor if you observe: Shortness of breath, Dizziness, Fainting spells, Chest pain Home Medications: Medications to take at Discharge Fenofibrate [Tricor] 145 mg PO DAILY 05/20/16 Senna [Senokot] 2 tablet PO DAILY 05/20/16 Tiotropium [place] [Spiriva Respimat] 2 puff IH DAILY 05/20/16 Albuterol Aerosols [Ventolin Aerosols] 2.5 mg INHALATION Q6H PRN PRN 02/26/17 Albuterol Inhaler [Ventolin Hfa] 1 - 2 puff INHALATION Q6H PRN PRN 02/26/17 Betamethasone Valerate [Valisone 0.1% Cream] 1 applic TOPICAL BID PRN PRN 02/26/17 Fluticasone/Vilanterol [Breo Ellipta 200-25 Mcg INH] 1 puff INHALATION DAILY 02/26/17 Loratadine [Claritin] 10 mg PO DAILY 02/26/17 Omeprazole [Prilosec] 40 mg PO DAILY 02/26/17 Simvastatin [Zocor] 40 mg PO QHS 02/26/17 Aspirin [Aspir-Low] 81 mg PO BID 09/10/17 Escitalopram Oxalate [Lexapro] 20 mg PO DAILY 09/10/17 Gabapentin [Neurontin] 800 mg PO Q8H PRN 09/10/17 Insulin Human 70/30 [Novolog Mix 70-30 Flexpen Syrn] 60 units SC BID 09/10/17 Fluticasone 110 Mcg [Flovent 110 Mcg] 1 puff INHALATION BID 11/03/17 Oxycodone HCl/Acetaminophen [Oxycodone-Acetaminophen 10-325] 1 each PO Q4H PRN PRN 11/03/17 Amlodipine [Norvasc] 5 mg PO DAILY 30 Days #30 tab 11/06/17 Topiramate [Topamax] 200 mg PO BID tablet 11/06/17 cycloBENZAPRine HCl [Flexeril] 10 mg PO TID PRN PRN 11/30/17 Bumetanide [Bumex] 2 mg PO DAILY #0 12/03/17 Furosemide [Lasix] 40 mg PO DAILY 12/13/18 Magnesium Oxide [Magnesium] 400 mg PO DAILY 12/13/18 Potassium Chloride 20 meq PO BID 12/13/18 Polyethylene Glycol 3350 [Miralax] 17 gm PO DAILY #30 packet 12/14/18 Prednisone See Taper PO DAILY #30 tablet 12/14/18 Senna/Docusate Sodium [Senokot-S] 2 tablet PO BID #28 tablet 12/14/18 Following Prescrptions Were Given to Patient: Polyethylene Glycol 3350 [Miralax] 17 gm PO DAILY #30 packet Prednisone See Taper PO DAILY #30 tablet Senna/Docusate Sodium [Senokot-S] 2 tablet PO BID #28 tablet Primary Care Physician: John Burnett DO [Primary Care Provider] - Please follow up with your Primary Care Physician in: 1 Week Please Follow Up With: Jessica Delgado NP-C When: 1-2 Weeks Disposition: Home Minutes spent on discharge:: 35 Patient Condition:: Stable Medical Necessity - Tobacco Use Smoking Status: Current every day smoker Meaningful Use Info Meaningful Use Diagnoses (Choose all that apply): None applicable <Levi Duenas - Last Filed: 12/14/18 13:49> Discharge Date and Diagnosis - Secondary Discharge Diagnosis Chronic Problems (Last Reviewed 01/26/18 @ 09:12 by Genia Cedeño) Diabetic neuropathy (Chronic) Chronic narcotic use (Chronic) Cephalgia (Chronic) Chronic renal failure, stage 3 (moderate) (Chronic) Diastolic congestive heart failure (Chronic) Acute on chronic respiratory failure with hypoxia and hypercapnia (Chronic) Essential (primary) hypertension (Chronic) Morbid obesity (Chronic) Uncontrolled type II diabetes mellitus (Chronic) Nicotine addiction (Chronic) Depression (Chronic) Severe chronic obstructive pulmonary disease (Chronic) Hospital Course and Treatment Summary of Care Provided: The patient is a 58 year old F [] - Physical Exam Vital Signs Temp Pulse Resp BP Pulse Ox 97.9 F 86 18 155/68 H 94 12/14/18 13:24 12/14/18 13:24 12/14/18 13:24 12/14/18 13:24 12/14/18 13:24 Oxygen Flow Rate (L/min) 4 Oxygen Delivery Method Nasal Cannula Weight: 224 lb 13.944 oz Body Mass Index (BMI) 44.2 Finger Stick Blood Glucose 107 Intake and Output for Last 24 Hours 12/12/18 12/13/18 12/14/18 23:59 23:59 23:59 Intake Total 2312 / 2312 Output Total 2900 / 2900 Balance -588 / -588 Microbiology Past 72 Hours 12/13/18 18:11 Respiratory Panel (PCR) - Final Mucosa - Nasopharyngeal Laboratory Tests Past 24 Hrs 12/13/18 12/13/18 12/13/18 16:30 16:30 16:30 WBC 7.4 RBC 4.21 Hgb 11.6 L Hct 35.6 L MCV 84.6 MCH 27.6 MCHC 32.6 RDW 13.8 RDW Differential 42.6 Plt Count 235 MPV 9.4 Immature Gran % (Auto) 0.100 Neut % (Auto) 65.6 Lymph % (Auto) 20.7 [place] % (Auto) 7.3 Eos % (Auto) 6.0 H Baso % (Auto) 0.3 Absolute Neuts (auto) 4.9 Absolute Lymphs (auto) 1.54 Total Counted Not Reportable Differential Comment Sodium 133 L Potassium 4.3 Chloride 97 L Carbon Dioxide 32.0 Anion Gap 4 L BUN 23 H Creatinine 1.35 H Estim Creat Clear Calc 31.83 Est GFR (MDRD) Af Amer 51 L Est GFR (MDRD) Non-Af 43 L BUN/Creatinine Ratio 17.0 Glucose 302 H Calcium 8.4 L Troponin I < 0.015 B-Natriuretic Peptide 51.5 12/14/18 12/14/18 05:35 05:35 WBC 5.4 RBC 4.19 L Hgb 11.3 L Hct 35.1 L MCV 83.8 MCH 27.0 MCHC 32.2 RDW 13.5 RDW Differential 40.3 Plt Count 264 MPV 9.8 Immature Gran % (Auto) 0.200 Neut % (Auto) 87.7 H Lymph % (Auto) 9.3 L [place] % (Auto) 2.4 Eos % (Auto) 0.2 Baso % (Auto) 0.2 Absolute Neuts (auto) 4.7 Absolute Lymphs (auto) 0.50 L Total Counted Not Reportable Differential Comment SCANNED Sodium 136 Potassium 4.3 Chloride 97 L Carbon Dioxide 31.0 Anion Gap 8 BUN 24 H Creatinine 1.26 H Estim Creat Clear Calc 34.10 Est GFR (MDRD) Af Amer 56 L Est GFR (MDRD) Non-Af 46 L BUN/Creatinine Ratio 19.0 Glucose 345 H Calcium 8.5 Troponin I B-Natriuretic Peptide POC Glucose 12/14/18 12/14/18 12/13/18 12:07 07:48 21:35 POC Glucose 332 H 300 H 390 H Code Visit Addendum: Dr. Duenas I personally examined the patient and reviewed the chart. I agree with the above. 4-year-old female with chronic hypoxic and hypercapnic respiratory failure who presented to the ER on her baseline 4 L nasal cannula with dyspnea. There is also concern that she could have pneumonia without a white count or fever and was given a dose of Levaquin in the ER. Her BMP on admission was normal she was given an extra dose of Lasix last evening and today she says that her swelling is improved and she is breathing a lot easier and would like to go home. She will be discharged on prednisone taper with a follow-up to her PCP. She will also need to follow-up with her sr. social media & mobile manager as well, she will continue her home oxygen use at its current rate and resume her oral diuretics.
[2018-12-14 11:25] VITALS: RESP 20
[2018-12-14 12:10] LABS: Bedside Glucose 332 mg/dL (70-110)
[2018-12-14] MEDS: Furosemide 40 MG/4 ML Vial IV (12:21)
[2018-12-14] MEDS: 0.9% NaCl Peripheral Flush Adult/Peds IV (12:21)
[2018-12-14 12:27] VITALS: BP 155/68; PULSE 86; RESP 18; TEMP 36.6; O2SAT 94
[2018-12-14 13:24] VITALS: BP 155/68; PULSE 86; RESP 18; TEMP 36.6; O2SAT 94
== END 2018-12-14 13:20 | disposition home or self-care (01) ==
LOC: ED 16:23 → MS3 18:01
PROVIDERS: Admitting Provider Family Medicine; Emergency Provider Emergency Medicine; Family Provider Family Medicine; PCP Family Medicine; Referring Provider Family Medicine; Visit Provider Family Medicine
DX: J44.0 Chronic obstructive pulmonary disease with (acute) lower respiratory infection (principal); J44.1 Chronic obstructive pulmonary disease with (acute) exacerbation; E66.01 Morbid (severe) obesity due to excess calories; E78.5 Hyperlipidemia, unspecified; K21.9 Gastro-esophageal reflux disease without esophagitis; F32.9 Major depressive disorder, single episode, unspecified; I50.32 Chronic diastolic (congestive) heart failure; K59.00 Constipation, unspecified; E11.40 Type 2 diabetes mellitus with diabetic neuropathy, unspecified; E11.22 Type 2 diabetes mellitus with diabetic chronic kidney disease; I44.0 Atrioventricular block, first degree; J96.22 Acute and chronic respiratory failure with hypercapnia; J96.21 Acute and chronic respiratory failure with hypoxia; I13.0 Hypertensive heart and chronic kidney disease with heart failure and stage 1 through stage 4 chronic kidney disease, or unspecified chronic kidney disease; E11.65 Type 2 diabetes mellitus with hyperglycemia; N18.3 Chronic kidney disease, stage 3 (moderate); Z68.41 Body mass index [BMI] 40.0-44.9, adult; Z71.3 Dietary counseling and surveillance; Z79.899 Other long term (current) drug therapy; Z79.82 Long term (current) use of aspirin; Z79.4 Long term (current) use of insulin; Z87.891 Personal history of nicotine dependence; I87.8 Other specified disorders of veins
CPT/HCPCS: 36415; 71045; 74018; 80048; 82962; 83880; 84484; 85025; 87040; 87633; 93005; 94640; 96365; 96372; 96375; 96376; 97802; 99218; 99285; 99406; J7040; A4216; G0378; J1940

== ENCOUNTER 2019-10-12 18:53 | Inpatient (IN) | payer MEDICAID, SELFPAY ==
[2018-12-13 18:32] VITALS: BMI 44.2
[2019-10-12] VITALS (7 sets, daily range): BP systolic 112–155; BP diastolic 56–66; PULSE 79–87; RESP 13–20; TEMP 36.6–37.1; O2SAT 92–99; BMI 44.7
--- NOTE | 2019-10-12 19:09 | EKG12_ITS ---
Test Reason : SOB Blood Pressure : / mmHG Vent. Rate : 077 BPM Atrial Rate : 077 BPM P-R Int : 202 ms QRS Dur : 080 ms QT Int : 386 ms P-R-T Axes : 022 077 051 degrees QTc Int : 436 ms Sinus rhythm with Premature atrial complexes Low voltage QRS Septal infarct , age undetermined Abnormal ECG Confirmed by CONCEPCIÓN ODELL, FAYE ([id number]), design editor PEGGY CARABALLO ([id number]) on 10/14/2019 9:44:06 AM Referred By: DIEGO Confirmed By:FAYE BEEBE MD
--- NOTE | 2019-10-12 19:11 | ED.VIS.GEN ---
History of Present Illness Chief Complaint: Shortness of Breath Narrative: Patient is a 59-year-old female who presents with 2 complaints. She has been being treated for cellulitis of her bilateral lower extremities. She is currently on Keflex. Yesterday she fell down onto both knees. She required assistance getting up by her son. Since that time she has had pain in her left posterior thigh. She contacted her primary care physician who raised concern for possible DVT and she was advised to be evaluated. Per EMS she also complained of increased shortness of breath today. She does have a history of COPD and is on 4 to 5 L oxygen by nasal cannula at baseline. She also uses BiPAP at night. She has had increased cough and sputum today. No fevers. No congestion rhinorrhea sore throat vomiting or diarrhea. She is eating and drinking well. Past Medical History - Allergies and Home Meds Allergies/Adverse Reactions: Allergies amitriptyline Allergy (Verified 10/12/19 19:02) Unknown lisinopril Allergy (Verified 10/12/19 19:02) Angioedema duloxetine [From Cymbalta] Adverse Reaction (Verified 10/12/19 19:02) Upset Stomach pregabalin [From Lyrica] Adverse Reaction (Verified 10/12/19 19:02) bad dreams varenicline [From Chantix] Adverse Reaction (Verified 10/12/19 19:02) Unknown ZYBETA Allergy (Uncoded 10/12/19 19:02) Other Primary Care Physician: John Burnett DO [Primary Care Provider] - Past Medical History: - - COPD, diabetes, hypertension, hyperlipidemia, CHF Surgical History: hysterectomy, tonsillectomy, - - section, tubal ligation Smoking Status: Current every day smoker - Family History Maternal Family History: Family History (Last Reviewed 12/13/18 @ 17:35 by MITCHEL Ross) Father CAD (coronary artery disease) Hypertension Sudden cardiac Mother CAD (coronary artery disease) Hypertension Diabetes Family History: Reports: COPD Sibling Family History: Family History (Last Reviewed 12/13/18 @ 17:35 by MITCHEL Ross) Father CAD (coronary artery disease) Hypertension Sudden cardiac Mother CAD (coronary artery disease) Hypertension Diabetes Family History: Reports: - - Psoriasis Review of Systems All systems negative except as indicated General: Denies: Fever Eyes: Denies: Visual changes - bilaterally ENT: Denies: Bilateral ear pain Cardiovascular: Denies: Chest pain Respiratory: Reports: Dyspnea, Cough, Sputum Gastrointestinal: Denies: Abdominal pain, Nausea, Vomiting, Diarrhea Musculoskeletal: Reports: Extremity Pain Skin: Denies: Rash Neurological: Denies: Headache Physical Exam Vital Signs/Narrative: Vital Signs Temp Pulse Resp BP Pulse Ox 10/12/19 19:00 98.7 F 81 19 H 151/61 H 97 10/12/19 18:54 98.7 F 84 15 151/61 H 99 Inital Vital Signs reviewed: Yes General: Well nourished, Obese Head: Normocephalic Eyes: EOMI ENT: Moist mucous membranes Neck: Supple Cardiovascular: Regular rate, Regular rhythm Respiratory: - - Scattered inspiratory and expiratory wheezing but in no distress able to speak in full sentences no retractions Abdomen: Soft, Nontender Extremities: - - Patient has bilateral lower extremity chronic venous stasis changes however she also has bright red erythema and warmth to the touch consistent with bilateral lower extremity cellulitis she has bilateral symmetric edema Skin: Normal color Neurological: Alert Psychological: Normal affect Diagnostic/Tx/Re-eval Impressions Venous Duplex 10/12/19 19:14 IMPRESSION: Normal venous Doppler ultrasound of the left lower extremity. Subcutaneous edema. Electronically Signed: Chandler Puri, at 20:39 EDT Tel , Service support , Chest X-Ray 10/12/19 20:35 IMPRESSION: Patchy opacity in the right lung base which is likely infectious in etiology. Electronically Signed: Chandler Puri, at 20:51 EDT Tel , Service support , 10/12/19 20:35 Chest 1 View (Portable) [RAD] Stat 10/12/19 19:15 Mucosa - Nasopharyngeal Rapid RSV (DFA) - Final 10/12/19 19:15 Mucosa - Nasopharyngeal Influenza Types A,B Direct FA (COREEN) - Final Laboratory Results 10/12/19 10/12/19 10/12/19 19:10 19:10 19:20 WBC 9.4 RBC 4.43 Hgb 12.3 Hct 38.8 MCV 87.6 MCH 27.8 MCHC 31.7 L RDW Std Deviation 44.1 H RDW Coeff of [place] 13.6 Plt Count 289 MPV 9.3 Immature Gran % (Auto) 0.300 Neut % (Auto) 75.1 H Lymph % (Auto) 15.1 L [place] % (Auto) 5.2 Eos % (Auto) 3.8 Baso % (Auto) 0.5 Absolute Neuts (auto) 7.1 Absolute Lymphs (auto) 1.42 Nucleated RBC % 0 Sodium 132 L Potassium 4.3 Chloride 96 L Carbon Dioxide 32.0 Anion Gap 4 L BUN 24 H Creatinine 1.63 H Estim Creat Clear Calc 26.03 Est GFR (MDRD) Af Amer 41 L Est GFR (MDRD) Non-Af 34 L BUN/Creatinine Ratio 14.7 Glucose 357 H Lactic Acid 1.7 Calcium 8.6 - Medical Decision Making Laboratory studies as above notable for mild elevation of creatinine from baseline as well as a right-sided infiltrate. Although the patient's vitals are stable I am concerned regarding the pneumonia because patient has been on multiple recent antibiotics. Therefore after discussion with the hospitalist we did decide to treat with broad-spectrum antibiotics. Patient was given IV Zosyn and vancomycin. She was also given a small IV fluid bolus. We will proceed with gentle hydration given her history of CHF. Patient will be admitted for further management. ED Disposition - Plan for ED Patient: Disposition: Acute Care Hospital [facility] Diagnosis: Pneumonia, Cellulitis Referrals: John Burnett DO [Primary Care Provider] -
--- NOTE | 2019-10-12 19:14 | US_ITS ---
STUDY: VENOUS DOPPLER ULTRASOUND - LEFT LOWER EXTREMITY REASON FOR EXAM: Female, 59 years old. LT LEG PAIN TECHNIQUE: Ultrasound evaluation of the deep vein system to include garay-scale imaging and compression was performed. Garay-scale imaging and Doppler sonographic evaluation, including duplex spectral analysis and qualitative color flow sonography, was performed. COMPARISON: None. FINDINGS: Common Femoral Vein: Normal compression, spontaneity and augmentation. Normal color Doppler. Common Femoral Vein/Greater Saphenous Junction: Normal compression, spontaneity and augmentation. Normal color Doppler. Femoral Proximal: Normal compression, spontaneity and augmentation. Normal color Doppler. Femoral Middle: Normal compression, spontaneity and augmentation. Normal color Doppler. Femoral Distal: Normal compression, spontaneity and augmentation. Normal color Doppler. Popliteal Vein: Normal compression, spontaneity and augmentation. Normal color Doppler. Posterior Tibial Vein: Normal compression, spontaneity and augmentation. Normal color Doppler. Peroneal Vein: Normal compression, spontaneity and augmentation. Normal color Doppler. There is subcutaneous edema noted. US/Venous Duplex Imag/Limited/Uni IMPRESSION: Normal venous Doppler ultrasound of the left lower extremity. Subcutaneous edema. Electronically Signed: Chandler Puri, at 20:39 EDT Tel , Service support ,
[2019-10-12 19:17] LABS: Absolute Lymphocyte Count 1.42 X10^3/uL (0.83-4.51); Absolute Neutrophil Count 7.1 X10^3/uL (2.0-7.7); Basophil# 0.05 X10^3/uL; Basophil% 0.5 % (0-1); Eosinophil# 0.36 X10^3/uL; Eosinophils% 3.8 % (0-5); Hematocrit 38.8 % (37-47); Hemoglobin 12.3 g/dL (12.0-15.0); Lymphocyte # 1.42 X10^3/ul (4.0); Lymphocyte % 15.1 % (19-41); Mean Corp Hgb Conc 31.7 g/dL (32-36); Mean Corpuscular Hgb 27.8 pg (27.0-32.0); Mean Corpuscular Volume 87.6 fL (81-99); Mean Platelet Vol. 9.3 fl (6.2-12.0); Monocyte# 0.49 X10^3/uL; Monocyte% 5.2 % (0-10); NRBC Flagged by Analyzer 0 % (0-5); Neutrophil # 7.05 X10^3/uL (2.7-7.7); Neutrophil % 75.1 % (47-70); Platelet Count 289 K/mm3 (150-450); RBC Distribution Width CV 13.6 % (11.6-14.6); RBC Distribution Width SD 44.1 fl (35.1-43.9); Red Blood Count 4.43 M/mm3 (4.2-5.4); White Blood Count 9.4 K/mm3 (4.4-11.0)
[2019-10-12 19:45] LABS: Anion Gap 4 (5-15); BUN 24 mg/dL (7-18); BUN/Creat Ratio 14.7 RATIO (10-20); Calcium,Total 8.6 mg/dL (8.5-10.1); Chloride 96 mmol/L (98-107); Creatinine, Serum 1.63 mg/dL (0.55-1.02); EST Glomerular Filtration Rate 34 mL/min (>60); Est Glom Filt Rate - Afr Amer 41 mL/min (>60); Estimated Creatinine Clearance 26.03 ml/min; Glucose 357 mg/dL (74-106); Potassium 4.3 mmol/L (3.5-5.1); Sodium Level 132 mmol/L (136-145)
[2019-10-12 19:56] LABS: Lactic Acid 1.7 mmol/L (0.4-1.9)
--- NOTE | 2019-10-12 20:35 | RAD_ITS ---
STUDY: X-RAY CHEST REASON FOR EXAM: Female, 59 years old. Cough. Shortness of breath. TECHNIQUE: Frontal view of the chest COMPARISON: 12/13/2018 FINDINGS: There is patchy opacity in the right lung base. The lungs are otherwise clear. There are no pleural effusions. There is no pneumothorax. The heart is stable in size. The visualized osseous structures are within normal limits. RAD/Chest 1 View (Portable) IMPRESSION: Patchy opacity in the right lung base which is likely infectious in etiology. Electronically Signed: Chandler Puri, at 20:51 EDT Tel , Service support ,
--- NOTE | 2019-10-12 21:04 | HP.PCM_ITS ---
Problem List (1) Diabetic neuropathy Status: Chronic Qualifiers: Diabetes mellitus type: type 2 Diabetes mellitus complication detail: with other neurological complication Qualified Code(s): E11.49 - Type 2 diabetes mellitus with other diabetic neurological complication (2) Chronic narcotic use Status: Chronic (3) Chronic renal failure, stage 3 (moderate) Status: Chronic (4) Diastolic congestive heart failure Status: Chronic Qualifiers: Heart failure chronicity: chronic Qualified Code(s): I50.32 - Chronic diastolic (congestive) heart failure (5) Essential (primary) hypertension Status: Chronic (6) Morbid obesity Status: Chronic (7) Uncontrolled type II diabetes mellitus Status: Chronic Qualifiers: Glycemic state: with hyperglycemia Qualified Code(s): E11.65 - Type 2 diabetes mellitus with hyperglycemia (8) Severe chronic obstructive pulmonary disease Status: Chronic (9) COPD exacerbation Status: Acute (10) Pneumonia Status: Acute Qualifiers: Pneumonia type: due to unspecified organism Laterality: right Lung location: lower lobe of lung Qualified Code(s): J18.9 - Pneumonia, unspecified organism (11) ARNAUD (acute kidney injury) Status: Acute (12) Chronic respiratory failure with hypoxia Status: Chronic (13) ENRIQUE (obstructive sleep apnea) Status: Chronic (14) Anxiety and depression Status: Chronic (15) Venous stasis dermatitis of both lower extremities Status: Chronic History of Present Illness Date of Admission: 10/12/19 Chief Complaint: Dyspnea, cough The patient is a 59 y/o F w/ PMHx: Morbid Obesity, Diastolic CHF, HTN, HLD, Diabetes mellitus type II, Anxiety and Depression, Chronic Pain Syndrome on Chronic Oral Narcotics, GERD, Chronic COPD w/ Chronic Hypoxic Respiratory Failure (4-5L NC), Tobacco who presents to the [facility] ED on 10/12/19 with history of increased cough, dyspnea, worse with exertion and ongoing wheezing despite, recently treated outpatient within the last 4 weeks with > 1 abx therapy including levaquin and other antibiotic therapies for both COPD exacerbation and concern for BL LE cellulitis. She denies any recent fevers, headaches, abdominal pain, diarrhea or alteration to smell. She has recently been on antibiotic therapies for suspected BL LE cellulitis. Work-up in the ED included T 98.7, heart rate 84, BP 151/61, respiratory rate 15, 99% on room air, CBC with WBC 9.4, hemoglobin 12.3, platelet 289 without market shift although absolute lymphocyte count appropriate, BMP with sodium 132, chloride 96, BUN/creatinine 24/1.63, glucose 357, lactic acid 1.7, 2 pending per ED, negative rapid RSV and influenza panels, left lower extremity duplex ultrasound unremarkable, chest x- ray with a patchy opacity in the right lung base. ED patient ministered normal saline, Solu-Medrol, albuterol as well as Vanc and Zosyn therapy. Past Medical History Past Medical History (Chronic Problems): Chronic Problems (Last Reviewed 01/26/18 @ 09:12 by Genia Cedeño) Chronic respiratory failure with hypoxia (Chronic) ENRIQUE (obstructive sleep apnea) (Chronic) Anxiety and depression (Chronic) Venous stasis dermatitis of both lower extremities (Chronic) Diabetic neuropathy (Chronic) Chronic narcotic use (Chronic) Cephalgia (Chronic) Chronic renal failure, stage 3 (moderate) (Chronic) Diastolic congestive heart failure (Chronic) Acute on chronic respiratory failure with hypoxia and hypercapnia (Chronic) Essential (primary) hypertension (Chronic) Morbid obesity (Chronic) Uncontrolled type II diabetes mellitus (Chronic) Nicotine addiction (Chronic) Depression (Chronic) Severe chronic obstructive pulmonary disease (Chronic) Medical History: Medical History (Last Reviewed 01/26/18 @ 09:12 by Geina Cedeño) Essential (primary) hypertension (Chronic) I10 Morbid obesity (Chronic) E66.01 Uncontrolled type II diabetes mellitus (Chronic) E11.65 Nicotine addiction (Chronic) F17.200 Depression (Chronic) F32.9 Severe chronic obstructive pulmonary disease (Chronic) J44.9 Allergies amitriptyline Allergy (Verified 10/12/19 19:02) Unknown lisinopril Allergy (Verified 10/12/19 19:02) Angioedema duloxetine [From Cymbalta] Adverse Reaction (Verified 10/12/19 19:02) Upset Stomach pregabalin [From Lyrica] Adverse Reaction (Verified 10/12/19 19:02) bad dreams varenicline [From Chantix] Adverse Reaction (Verified 10/12/19 19:02) Unknown ZYBETA Allergy (Uncoded 10/12/19 19:02) Other Home Medications: Ambulatory Orders Medication Instructions Recorded Fenofibrate [Tricor] 145 mg PO DAILY 05/20/16 Tiotropium [place] [Spiriva 2 puff IH DAILY 05/20/16 Respimat] Albuterol Aerosols [Ventolin 2.5 mg INHALATION Q6H PRN PRN 02/26/17 Aerosols] Albuterol Inhaler [Ventolin Hfa] 1 - 2 puff INHALATION Q6H PRN PRN 02/26/17 Betamethasone Valerate [Valisone 1 applic TOPICAL BID PRN PRN 02/26/17 0.1% Cream (BKC)] Fluticasone/Vilanterol [Breo 1 puff INHALATION DAILY 02/26/17 Ellipta 200-25 Mcg INH] Loratadine [Claritin] 10 mg PO DAILY 02/26/17 Omeprazole [Prilosec] 40 mg PO DAILY 02/26/17 Simvastatin [Zocor] 40 mg PO QHS 02/26/17 Aspirin [Aspir-Low] 162 mg PO DAILY 09/10/17 Escitalopram Oxalate [Lexapro] 20 mg PO DAILY 09/10/17 Gabapentin [Neurontin] 800 mg PO Q8H PRN 09/10/17 Insulin Human 70/30 [Novolog Mix 60 units SC BID 09/10/17 70-30 Flexpen Syrn] Fluticasone 110 Mcg [Flovent 110 1 puff INHALATION BID 11/03/17 Mcg] Oxycodone HCl/Acetaminophen 1 each PO Q4H PRN PRN 11/03/17 [Oxycodone-Acetaminophen 10-325] Amlodipine [Norvasc] 5 mg PO DAILY 30 Days #30 tab 11/06/17 Topiramate [Topamax] 200 mg PO BID tablet 11/06/17 cycloBENZAPRine HCl [Flexeril] 10 mg PO TID PRN PRN 11/30/17 Bumetanide [Bumex] 2 mg PO DAILY #0 12/03/17 Furosemide [Lasix] 40 mg PO DAILY 12/13/18 Magnesium Oxide [Magnesium] 400 mg PO DAILY 12/13/18 Potassium Chloride 20 meq PO BID 12/13/18 Sennosides/Docusate Sodium [Colace 1 ea PO BID 10/12/19 2-in-1 Tablet] Surgical History: Surgical History (Last Reviewed 01/26/18 @ 09:12 by Genia Cedeño) H/O colonoscopy Z98.890 History of hysterectomy Z90.710 History of lung biopsy Z98.890 Previous section Z98.891 Surgical History: hysterectomy, tonsillectomy, - - section, tubal ligation Psychiatric History: No pertinent psych hx NURSE GENERAL DUTY History: No pertinent NURSE GENERAL DUTY history Lives: With Family Smoking Status: Former smoker Tobacco Use: Non-smoker Alcohol: None Drugs: None - *Family History Maternal Family History: Family History (Last Reviewed 12/13/18 @ 17:35 by MITCHEL Ross) Father CAD (coronary artery disease) Hypertension Sudden cardiac Mother CAD (coronary artery disease) Hypertension Diabetes History Items: COPD Sibling Family History: Family History (Last Reviewed 12/13/18 @ 17:35 by MITCHEL Ross) Father CAD (coronary artery disease) Hypertension Sudden cardiac Mother CAD (coronary artery disease) Hypertension Diabetes History Items: - - Psoriasis Review of Systems Constitutional: Reports: Malaise, Weakness, Fatigue. Denies: Anorexia, Chills, Fever, Weight Change HEENT: Denies: Head Aches, Sinus Congestion, Sinus Drainage Cardiovascular: Denies: Chest Pain, Palpitations Respiratory: Reports: Cough, Shortness of Breath, Shortness of breath at rest, Shortness of breath upon exertion, Sputum production, Wheezing Gastrointestinal: Denies: Abdominal Pain, Nausea, Vomiting Genitourinary: Denies: Dysuria Musculoskeletal: Reports: Back Pain, Joint Pain. Denies: Joint Tenderness Skin: Denies: Rash, Wounds Neurological: Denies: Numbness, Tingling, Focal weakness Psychiatric: Reports: Anxiety, Depression. Denies: Homicidal Ideations, Suicidal Ideations Hematologic/ Lymphatic: Denies: Easy Bruising, Easy Bleeding VTE Information - Inpt Only VTE Present on Admission: No VTE Mechan Device Prophylaxis: SCD's VTE Pharm Prophylaxis ordered?: Yes Patient Problems: Active and Suspected Problems (Last Reviewed 01/26/18 @ 09:12 by Genia Cedeño) COPD exacerbation (Acute) Pneumonia (Acute) ARNAUD (acute kidney injury) (Acute) - Physical Exam Vitals/I&O's: Vital Signs Temp Pulse Resp BP Pulse Ox 98.7 F 81 19 H 151/61 H 97 10/12/19 19:00 10/12/19 19:00 10/12/19 19:00 10/12/19 19:00 10/12/19 19:00 Oxygen Delivery Method Room Air Weight: 229 lb 4.492 oz Body Mass Index (BMI) 44.7 Finger Stick Blood Glucose 107 Microbiology Past 72 Hours 10/12/19 19:15 Mucosa - Nasopharyngeal Rapid RSV (DFA) - Final 10/12/19 19:15 Mucosa - Nasopharyngeal Influenza Types A,B Direct FA (COREEN) - Final Laboratory Results 10/12/19 19:10: WBC 9.4, RBC 4.43, Hgb 12.3, Hct 38.8, MCV 87.6, MCH 27.8, MCHC 31.7 L, RDW Std Deviation 44.1 H, RDW Coeff of [place] 13.6, Plt Count 289, MPV 9.3, Immature Gran % (Auto) 0.300, Neut % (Auto) 75.1 H, Lymph % (Auto) 15.1 L, Stephenson % (Auto) 5.2, Eos % (Auto) 3.8, Baso % (Auto) 0.5, Absolute Neuts (auto) 7.1, Absolute Lymphs (auto) 1.42, Nucleated RBC % 0 10/12/19 19:10: Sodium 132 L, Potassium 4.3, Chloride 96 L, Carbon Dioxide 32.0, Anion Gap 4 L, BUN 24 H, Creatinine 1.63 H, Estim Creat Clear Calc 26.03, Est GFR (MDRD) Af Amer 41 L, Est GFR (MDRD) Non-Af 34 L, BUN/Creatinine Ratio 14.7, Glucose 357 H, Calcium 8.6 10/12/19 19:20: Lactic Acid 1.7 Assessment/Plan All Active Problems (Last Reviewed 01/26/18 @ 09:12 by Genia Cedeño) COPD exacerbation (Acute) Pneumonia (Acute) ARNAUD (acute kidney injury) (Acute) The patient is a 59 y/o F w/ PMHx: Morbid Obesity, Diastolic CHF, HTN, HLD, Diabetes mellitus type II, Anxiety and Depression, Chronic Pain Syndrome on Chronic Oral Narcotics, GERD, Chronic COPD w/ Chronic Hypoxic Respiratory Failure (4-5L NC), Tobacco who presents to the [facility] ED on 10/12/19 with history of increased cough, dyspnea, worse with exertion and ongoing wheezing despite, recently treated outpatient within the last 4 weeks with > 1 abx therapy including levaquin and other antibiotic therapies for both COPD exacerbation and concern for BL LE cellulitis. 1. Acute on Chronic COPD Exacerbation with PNA, Possible GN/GP Organism with Chronic Hypoxic Respiratory Failure: Will admit to [facility], continue ATC duonebs, PRN albuterol, maintain on IV zosyn and vanc with pending MRSA screen with de- escalation if appropriate, HOB, IS parameters w/ pending sputum cultures and urine antigens as well as respiratory viral panel. Will obtain CRP, LDH, procalcitonin, ferritin, hepatic profile additionally. Bld cx x 2 obtained in the ED. 2. ? BL LE cellulitis versus Chronic BL LE Venous Stasis Diseae: Notes having taken at least initially levaquin, now on keflex outpatient per report for BL LE cellulitis per her report, but also had pulmonary evaluations thus likely for COPD exacerbation concurrently, suspect upon evaluation primarily BL LE venous stasis. Will place SNUG tanvir wraps, elevate, administer lasix x 1 given concurrent ARNAUD defer further. 3. Acute kidney injury on CKD stage III: Secondary to acute presentation as not ed #1, mild dehydration, admission BUN/Cr 4/1.63, prior baseline creatinine noted to be 1.1 to maximum 1.3. Will hydrate judiciously given underlying chronic diastolic CHF history and given severity of BL LE appearance will administer x 1 diuresis but hold further and additionally hold home nephrotoxic medications with repeat chemistry in AM. 4. Hyponatremia, mild, hypovolemic: Admission Na 132, mildly decreased, gently hydrate, repeat CMP in AM. 5. Diabetes mellitus type II: Hold oral home regimen, continue home insulin regimen, ADA diet, Accu-Cheks with insulin sliding scale every 6 hours. 6. Chronic diastolic CHF: Continue home aspirin, statin, norvasc, temporarily hold bumex given mild ARNAUD, resume once appropriate. 7. Hypertension: Continue home regimen including Norvasc, PRN hydralazine. 8. Hyperlipidemia: Continue home statin regimen. 9. Obesity: Weight loss and lifestyle changes encouraged. 10. Tobacco Abuse: Encouraged cessation, inpatient consultation per RT, NR if desired. 11. Anxiety and Depression: Continue home lexapro regimen. 12. ENRIQUE: Continue home BIPAP. 13. DVT prophylaxis: SCDs, heparin. 14. CODE status: Patient has healthcare power of assistant attorney general and living will set up. Discussed CODE status at length including difference between FULL code, DNR-CCA and DNR-CC status and patient requested FULL CODE status. Inpatient E&M: [id number] Init Hosp L3
--- NOTE | 2019-10-12 22:37 | ED.RN ---
Spoke with multiple family members about patients care and admission with patients consent. Daughter Karen states she will be the main contact for keeping family members notified.
--- NOTE | 2019-10-12 23:42 | PCM.RX.CS ---
Consult Pharmacy has been consulted to manage selected antiobiotic: Vancomycin Type of Consult: New start Suspected Infection: Pneumonia Prior Doses of Antibiotics Received/Current Regimen: Medications Vancomycin HCl (Vancomycin) 1,000 mg in 200 mls @ 200 mls/hr IV Q24H INDRA Discontinued Medications Vancomycin HCl 1,500 mg/ (Sodium Chloride) 530 mls @ 250 mls/hr IV X1 ONE Stop: 10/12/19 23:27 Last Admin: 10/12/19 21:45 Dose: 250 mls/hr Microbiology: Microbiology 10/12/19 19:15 Mucosa - Nasopharyngeal Rapid RSV (DFA) - Final 10/12/19 19:15 Mucosa - Nasopharyngeal Influenza Types A,B Direct FA (COREEN) - Final Weight used for dosin kg Estimated Creatinine Clearance: 26 Goal Trough: 15-20 mcg/mL Pharmacy Plan for Drug Dosing: Pharmacy Service will continue to monitor and adjust dosing as required. Follow-Up Labs: Trough Vancomycin Labs to be done on [date and time ordered]: 10/14/19 @2094
[2019-10-13] VITALS (8 sets, daily range): BP systolic 131–167; BP diastolic 43–75; PULSE 70–109; RESP 16–22; TEMP 36.4–36.9; O2SAT 93–98; BMI 43.8
--- NOTE | 2019-10-13 00:08 | CPS ---
Pt. brought her Trilogy in from home
[2019-10-13 00:11] LABS: Procalcitonin 0.22 ng/mL (0.00-0.09)
[2019-10-13 00:19] LABS: ALB/GLOB Ratio 0.7 RATIO (0.9-2.4); AST(SGOT) 11 U/L (15-37); Alanine Aminotransfer ALT/SGPT 19 U/L (13-56); Albumin, Serum 2.9 g/dL (3.2-5.0); Alkaline Phosphatase 104 U/L (45-117); Anion Gap 4 (5-15); BUN 24 mg/dL (7-18); BUN/Creat Ratio 17.4 RATIO (10-20); Calcium,Total 8.1 mg/dL (8.5-10.1); Chloride 100 mmol/L (98-107); Creatinine, Serum 1.38 mg/dL (0.55-1.02); EST Glomerular Filtration Rate 41 mL/min (>60); Est Glom Filt Rate - Afr Amer 50 mL/min (>60); Estimated Creatinine Clearance 30.75 ml/min; Ferritin 132 ng/mL (8-252); Globulin 4.1 g/dL (2.2-4.2); Glucose 336 mg/dL (74-106); LDH 162 U/L (84-246); Magnesium 2.2 mg/dL (1.6-2.6); Potassium 4.6 mmol/L (3.5-5.1); Sodium Level 133 mmol/L (136-145)
[2019-10-13 00:41] LABS: Bedside Glucose 320 mg/dL (70-110)
[2019-10-13] MEDS: Senna/Docusate Sodium 1 Tablet 2 TABLET PO ×3 (00:54→23:15)
[2019-10-13] MEDS: 0.9% Normal Saline 1,000 ML 75 ML IV ×2 (00:56→14:08)
[2019-10-13] MEDS: Aspirin E.C. 81 MG Tablet PO ×3 (00:56→17:02)
[2019-10-13] MEDS: Heparin Injection (Vial) 5,000 UNIT/ML VIAL 5000 UNIT SC ×3 (00:56→23:15)
[2019-10-13] MEDS: Atorvastatin Calcium 20 MG Tablet PO ×2 (00:57→23:15)
[2019-10-13] MEDS: Topiramate 200 MG Tablet PO ×3 (00:58→23:15)
[2019-10-13] MEDS: Insulin Human 75/25 Kwickpen 70 UNIT SC ×3 (00:59→23:15)
[2019-10-13] MEDS: Furosemide 40 MG/4 ML Vial IV (01:08)
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
[2019-10-13] MEDS: oxyCODONE 5 MG Tablet 10 MG PO ×5 (01:29→23:15)
[2019-10-13] MEDS: cycloBENZAPRine HCl 10 MG Tablet PO ×2 (01:29→19:13)
[2019-10-13] MEDS: guaiFENesin 10 ML UDC (200MG/10ML) 20 ML PO (01:30)
[2019-10-13] MEDS: Insulin Lispro 100 UNIT/ML INSULN.PEN SC ×4 (01:39→23:15)
[2019-10-13 03:11] LABS: M R Staph aureus DNA By PCR Negative (Negative); Probe Check PASS; Specimen Processing Control PASS
[2019-10-13] MEDS: 0.9% Saline Lock 10 ML Syringe IV ×3 (03:19→14:09)
--- NOTE | 2019-10-13 05:55 | RAD_ITS ---
STUDY: X-RAY CHEST REASON FOR EXAM: Female, 59 years old. Dyspnea, cough, copd TECHNIQUE: Single AP portable view of the chest. COMPARISON: Comparison is made with prior study dated October 12, 2019 at 8:27 PM. FINDINGS: Since prior study, there is progressive increased markings and infiltrates at the lung bases. Mild increased markings are also seen in the left mid lung as well as in the right infrahilar region. There is no demonstrated pleural abnormality. Normal size heart. Normal mediastinum and kimberley. Normal visualized pulmonary arteries. There is atherosclerotic calcification of the aortic arch with tortuosity. There are degenerative changes of the visualized thoracic spine. Normal visualized ribs, clavicles, and shoulders. There is no demonstrated abnormality of the visualized soft tissue structures of the upper abdomen. RAD/Chest 1 View (Portable) IMPRESSION: Progressive bibasilar infiltrates as well as right infrahilar infiltrate. Electronically Signed: Sergo Mata, at 8:11 EDT , Service support ,
[2019-10-13 06:55] LABS: Bedside Glucose 233 mg/dL (70-110)
[2019-10-13 07:11] LABS: Absolute Lymphocyte Count 0.59 X10^3/uL (0.83-4.51); Absolute Neutrophil Count 6.2 X10^3/uL (2.0-7.7); Basophil# 0.02 X10^3/uL; Basophil% 0.3 % (0-1); Eosinophil# 0.01 X10^3/uL; Eosinophils% 0.1 % (0-5); Hematocrit 33.4 % (37-47); Hemoglobin 10.7 g/dL (12.0-15.0); Lymphocyte # 0.59 X10^3/ul (4.0); Lymphocyte % 8.5 % (19-41); Mean Corpuscular Hgb 27.3 pg (27.0-32.0); Mean Corpuscular Volume 85.2 fL (81-99); Mean Platelet Vol. 9.3 fl (6.2-12.0); Monocyte# 0.12 X10^3/uL; Monocyte% 1.7 % (0-10); NRBC Flagged by Analyzer 0 % (0-5); Neutrophil # 6.17 X10^3/uL (2.7-7.7); Neutrophil % 89.1 % (47-70); POSITIVE DIFFERENTIAL YES; Platelet Count 265 K/mm3 (150-450); RBC Distribution Width CV 13.6 % (11.6-14.6); RBC Distribution Width SD 42.5 fl (35.1-43.9); Red Blood Count 3.92 M/mm3 (4.2-5.4); White Blood Count 6.9 K/mm3 (4.4-11.0)
[2019-10-13 07:22] LABS: Differential Indicated SCAN CRITERIA MET
[2019-10-13] MEDS: Ipratropium/Albuterol Sulfate 3 ML AMPUL.NEB INHALATION ×4 (07:30→19:30)
[2019-10-13 07:56] LABS: Differential Comment SCANNED
[2019-10-13] MEDS: amLODIPine 5 MG Tablet PO (10:15)
[2019-10-13] MEDS: Magnesium Oxide 400 MG Tablet PO (10:16)
[2019-10-13] MEDS: Loratadine 10 MG Tablet PO (10:16)
[2019-10-13] MEDS: Pantoprazole Sodium 40 MG Tablet PO (10:16)
[2019-10-13] MEDS: Escitalopram Oxalate 20 MG Tablet PO (10:18)
[2019-10-13] MEDS: Polyethylene Glycol 3350 17 GM PACKET PO (10:18)
[2019-10-13 12:36] LABS: Bedside Glucose 174 mg/dL (70-110)
[2019-10-13] MEDS: Fenofibrate 145 MG Tablet PO (12:52)
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
--- NOTE | 2019-10-13 15:28 | PCM.PN.HOSP ---
Patient Problems: Active and Suspected Problems (Last Reviewed 01/26/18 @ 09:12 by Genia Cedeño) COPD exacerbation (Acute) Pneumonia (Acute) ARNAUD (acute kidney injury) (Acute) Pneumonia (Acute) Cellulitis (Acute) Reason for Visit: COPD exacerbation with chronic hypoxic and hypercarbic respiratory failure Suspicion of possible cellulitis Objective: Fever or chills. DVT about the lower extremities are negative. At home, patient is on baseline 4 L of oxygen and on exertion sometimes he needs 6 L/min. At one time, she was following Dr. Benitez but currently she follows only PCP. On BiPAP at home. Vitals/I&O's: Vital Signs Temp Pulse Resp BP Pulse Ox 98.4 F 109 H 18 137/73 H 98 10/13/19 14:21 10/13/19 14:21 10/13/19 14:21 10/13/19 14:21 10/13/19 14:21 Oxygen Flow Rate (L/min) 4 Oxygen Delivery Method Nasal Cannula Weight: 214 lb 15.211 oz Body Mass Index (BMI) 43.8 Finger Stick Blood Glucose 107 Intake and Output for Last 24 Hours 10/11/19 10/12/19 10/13/19 23:59 23:59 23:59 Intake Total 600 / 600 2130.25 / 2130.25 Output Total 1350 / 1350 Balance 600 / 600 780.25 / 780.25 General: Alert, Oriented x3, Cooperative HEENT: Atraumatic, PERRLA, EOMI, Normocephalic Neck: Supple, No JVD, Negative Carotid Bruits Lungs: No rales, Diminished, Rhonchi - Air entry diminished diffuse in all lung rodriguez., Short of Breath Cardiovascular: Regular rate, Regular Rhythm, Normal S1, Normal S2, No murmurs Abdomen: Bowel Sounds Present, Soft, Non Tender Extremities: No edema, Capillary Refill Less than 3 Seconds Skin: No rashes, No breakdown Musculoskeletal: No Tenderness to Palpation of Joints or Extremities, Arthritic Changes Neurological: Cranial nerves II-XII grossly intact, Deep Tendon Reflexes 2+/4 and Symmetrical, Neuro grossly intact Psych/Mental Status: Normal Affect, Appropriate Microbiology Past 72 Hours 10/13/19 02:05 Sputum, Expectorated/Coughed Gram Stain - Final 10/12/19 23:50 Interface Orders Respiratory Panel (PCR) - Final 10/12/19 23:10 Interface Orders Legionella Antigen - Final 10/12/19 23:10 Interface Orders Streptococcus pneumoniae Antigen (M - Final 10/12/19 19:15 Mucosa - Nasopharyngeal Rapid RSV (DFA) - Final 10/12/19 19:15 Mucosa - Nasopharyngeal Influenza Types A,B Direct FA (COREEN) - Final Laboratory Results 10/12/19 19:10: WBC 9.4, RBC 4.43, Hgb 12.3, Hct 38.8, MCV 87.6, MCH 27.8, MCHC 31.7 L, RDW Std Deviation 44.1 H, RDW Coeff of [place] 13.6, Plt Count 289, MPV 9.3, Immature Gran % (Auto) 0.300, Neut % (Auto) 75.1 H, Lymph % (Auto) 15.1 L, [place] % (Auto) 5.2, Eos % (Auto) 3.8, Baso % (Auto) 0.5, Absolute Neuts (auto) 7.1, Absolute Lymphs (auto) 1.42, Nucleated RBC % 0 10/12/19 19:10: Sodium 132 L, Potassium 4.3, Chloride 96 L, Carbon Dioxide 32.0, Anion Gap 4 L, BUN 24 H, Creatinine 1.63 H, Estim Creat Clear Calc 26.03, Est GFR (MDRD) Af Amer 41 L, Est GFR (MDRD) Non-Af 34 L, BUN/Creatinine Ratio 14.7, Glucose 357 H, Calcium 8.6 10/12/19 19:20: Lactic Acid 1.7 10/12/19 23:15: Sodium 133 L, Potassium 4.6, Chloride 100, Carbon Dioxide 29.0, Anion Gap 4 L, BUN 24 H, Creatinine 1.38 H, Estim Creat Clear Calc 30.75, Est GFR (MDRD) Af Amer 50 L, Est GFR (MDRD) Non-Af 41 L, BUN/Creatinine Ratio 17.4, Glucose 336 H, Calcium 8.1 L, Magnesium 2.2, Ferritin 132, Total Bilirubin 0.60, AST 11 L, ALT 19, Alkaline Phosphatase 104, Lactate Dehydrogenase 162, C-React Prot Ext Range Not Reportable, Total Protein 7.0, Albumin 2.9 L, Globulin 4.1, Albumin/Globulin Ratio 0.7 L 10/12/19 23:15: Procalcitonin 0.22 H 10/13/19 00:31: POC Glucose 320 H 10/13/19 01:15: MRSA (PCR) Negative 10/13/19 06:45: POC Glucose 233 H 10/13/19 06:58: WBC 6.9, RBC 3.92 L, Hgb 10.7 L, Hct 33.4 L, MCV 85.2, MCH 27.3, MCHC 32.0, RDW Std Deviation 42.5, RDW Coeff of [place] 13.6, Plt Count 265, MPV 9.3, Immature Gran % (Auto) 0.300, Neut % (Auto) 89.1 H, Lymph % (Auto) 8.5 L, [place] % (Auto) 1.7, Eos % (Auto) 0.1, Baso % (Auto) 0.3, Absolute Neuts (auto) 6.2, Absolute Lymphs (auto) 0.59 L, Nucleated RBC % 0, Differential Comment SCANNED 10/13/19 12:23: POC Glucose 174 H Current Medications Acetaminophen (Tylenol) 650 mg PO Q6H PRN PRN PRN Reason: Pain Score 1-10/Temp > 100.7 F Al Hydroxide/Mg Hydroxide (Mylanta Ii) 30 ml PO Q6H PRN PRN PRN Reason: Gastric Burning Albuterol Sulfate (Ventolin Aerosols) 2.5 mg INHALATION Q2H PRN PRN PRN Reason: Dyspnea, wheezing Albuterol/Ipratropium (Duoneb) 3 ml INHALATION Q4HWA.RT [facility] Last Admin: 10/13/19 14:15 Dose: 3 ml Documented by: Amlodipine Besylate (Norvasc) 5 mg PO DAILY [facility] Last Admin: 10/13/19 10:15 Dose: 5 mg Documented by: Aspirin (Ecotrin) 81 mg PO BIDCM [facility] Last Admin: 10/13/19 10:16 Dose: 81 mg Documented by: Atorvastatin Calcium (Lipitor) 20 mg PO QHS [facility] Last Admin: 10/13/19 00:57 Dose: 20 mg Documented by: Betamethasone Valerate (Valisone 0.1% Cream (Bkc)) 1 applic TOPICAL BID PRN PRN; Protocol PRN Reason: SKIN CARE Cyclobenzaprine HCl (Flexeril) 10 mg PO TID PRN PRN PRN Reason: MUSCLE SPASMS Last Admin: 10/13/19 01:29 Dose: 10 mg Documented by: Dextrose (D50w Syringe) 0 gm IV X1 PRN; Protocol PRN Reason: Hypoglycemia Escitalopram Oxalate (Lexapro) 20 mg PO DAILY [facility] Last Admin: 10/13/19 10:18 Dose: 20 mg Documented by: Fenofibrate (Tricor) 145 mg PO DAILY [facility] Last Admin: 10/13/19 12:52 Dose: 145 mg Documented by: Gabapentin (Neurontin) 800 mg PO Q8H PRN PRN PRN Reason: Pain Score 1-10/10 Glucagon () 1 mg IM .X1 PRN PRN Reason: Hypoglycemia Guaifenesin (Robitussin) 20 ml PO Q4H PRN PRN PRN Reason: COUGH Last Admin: 10/13/19 01:30 Dose: 20 ml Documented by: Heparin Sodium (Porcine) (Heparin Na) 5,000 unit SC Q12 [facility] Last Admin: 10/13/19 10:17 Dose: 5,000 unit Documented by: Hydralazine HCl (Apresoline Iv) 10 mg IV Q4H PRN PRN PRN Reason: SBP > 160 Sodium Chloride () 1,000 mls @ 75 mls/hr IV .[id number] [facility] Last Admin: 10/13/19 14:08 Dose: 75 mls/hr Documented by: Vancomycin IV Pharmacy to Dose (1 ea/ Sodium Chloride) 500 mls @ 250 mls/hr IV PRN PRN; Protocol PRN Reason: Rx to Dose Piperacillin Sod/Tazobactam (Sod 3.375 gm/ Sodium Chloride) 50 mls @ 12.5 mls/hr IV Q8 [facility] Last Admin: 10/13/19 14:09 Dose: 12.5 mls/hr Documented by: Vancomycin HCl (Vancomycin) 1,000 mg in 200 mls @ 200 mls/hr IV Q24H [facility] Sodium Chloride () 250 mls @ 15 mls/hr IV .[id number] PRN PRN Reason: Saline Flush Last Infusion: 10/13/19 06:04 Dose: 0 mls/hr Documented by: Sodium Chloride () 250 mls @ 15 mls/hr IV .[id number] PRN PRN Reason: Additional IVPB Infusion Insulin Human Lispro (Humalog Kwikpen (Bk)) 0 unit SC ACHS [facility]; Protocol Last Admin: 10/13/19 12:25 Dose: 2 u Documented by: Insulin Lispro Protam/Lispro Human (Humalog Mix 75-25 Kwikpen (Bk)) 70 unit SC BID [facility] Last Admin: 10/13/19 12:25 Dose: 70 units Documented by: Loratadine (Claritin) 10 mg PO DAILY [facility] Last Admin: 10/13/19 10:16 Dose: 10 mg Documented by: Magnesium Oxide (Mag-Ox 400) 400 mg PO DAILY [facility] Last Admin: 10/13/19 10:16 Dose: 400 mg Documented by: Melatonin (Melatonin) 3 mg PO QHS PRN PRN PRN Reason: INSOMNIA Methylprednisolone (Solu-Medrol) 40 mg IV Q8 [facility] Last Admin: 10/13/19 14:09 Dose: 40 mg Documented by: Morphine Sulfate () 2 mg IV Q3H PRN PRN PRN Reason: Pain Score 6-10/10 Nicotine (Nicoderm Cq ([facility])) 21 mg TRANSDERM. DAILY [facility] Last Admin: 10/13/19 10:18 Dose: 21 mg Documented by: Ondansetron HCl (Zofran) 4 mg IV Q8H PRN PRN PRN Reason: NAUSEA/VOMITING Oxycodone HCl (Oxyir) 10 mg PO Q4H PRN PRN PRN Reason: Pain Score 1-10/10 Last Admin: 10/13/19 14:32 Dose: 10 mg Documented by: Pantoprazole Sodium (Protonix) 40 mg PO DAILY [facility] Last Admin: 10/13/19 10:16 Dose: 40 mg Documented by: Polyethylene Glycol (Miralax) 17 gm PO DAILY [facility] Last Admin: 10/13/19 10:18 Dose: 17 gm Documented by: [facility] Admin: 10/13/19 10:16 Dose: 20 meq Documented by: Prochlorperazine Edisylate (Compazine Iv) 5 mg IV Q4H PRN PRN PRN Reason: Breakthrough nausea/vomiting Senna/Docusate Sodium (Senokot-S, Hazel-Colace) 2 tablet PO BID [facility] Last Admin: 10/13/19 10:15 Dose: 2 tablet Documented by: Sodium Chloride () 10 - 40 ml IV UD PRN PRN Reason: SALINE FLUSH Last Admin: 10/13/19 14:09 Dose: 10 ml Documented by: Throat Lozenges (Cepacol Sore Throat Lozenge) 1 lozenge MUCOUS MEM Q2H PRN PRN PRN Reason: SORE THROAT Topiramate (Topamax) 200 mg PO BID [facility] Last Admin: 10/13/19 12:52 Dose: 200 mg Documented by: STROKE Vital Signs/Narrative: Vital Signs Temp Pulse Resp BP Pulse Ox 10/13/19 14:21 98.4 F 109 H 18 137/73 H 98 10/13/19 14:15 79 16 10/13/19 11:30 84 16 Medical Necessity - Tobacco Use Smoking Status: Current every day smoker Tobacco Use: Cigarettes Assessment/Plan All Active Problems (Last Reviewed 01/26/18 @ 09:12 by Genia Cedeño) COPD exacerbation (Acute) Pneumonia (Acute) ARNAUD (acute kidney injury) (Acute) Pneumonia (Acute) Cellulitis (Acute) The patient is a 59 y/o F with history of COPD on chronic hypoxic and hypercarbic respiratory failure, 4 to 6 L/min is being admitted for progressive worsening of cough, shortness of breath worsened to dyspnea at rest, wheezing and concern of bilateral lower extremity cellulitis 1. COPD exacerbation probably exacerbated by bilateral lower lobe pneumonia: Patient is being admitted in PCU. Started on IV Zosyn and vancomycin. Legionella antigen is negative. Rapid influenza and RSV negative. Respiratory panel negative. Preliminary Gram stain of the stool culture shows 2+ gram-positive cocci. MRSA nasal screen is negative. Discontinue vancomycin. Procalcitonin 0.22 less than 0.5/low risk for progressing to severe sepsis or septic shock. LDH 162. Ferritin normal. Transaminases normal. Albumin 2.9. 2. Chronic BL LE Venous Stasis Diseae: I do not think patient has bilateral lower extremity cellulitis as statistically is uncommon. Patient has chronic bilateral lower extremity venous edema and congestion therefore it is warm. Anemia patient is on antibiotic. Bilateral Ricardo wraps. 3. Acute kidney injury on CKD stage III: Admitting BUN/creatinine 24/1.63. Improved to 24/1.38. Had 1 dose of Lasix. Hold nephrotoxic medications. Monitor urine output, daily electrolytes and kidney function. 4. Hyponatremia, : Admission Na 132, to 133. Not much difference. Continue IV fluid. 5. Diabetes mellitus type II: continue home insulin regimen, ADA diet, Accu-Cheks with insulin sliding scale every 6 hours. Hold oral hypoglycemic agents. 6. Chronic diastolic CHF: Continue home aspirin, statin, norvasc. Bumex is on hold for ARNAUD. 7. Hypertension: Continue home regimen including Norvasc, PRN hydralazine. Pressure is controlled. 8. Hyperlipidemia: Continue home statin regimen. 9. Obesity: Weight loss and lifestyle changes encouraged. 10. Tobacco Abuse: Encouraged cessation, inpatient consultation per RT, NR if desired. 11. Anxiety and Depression: Continue home lexapro regimen. 12. ENRIQUE: Continue home BIPAP. 13. DVT prophylaxis: SCDs, heparin. 14. CODE status: Full code Inpatient E&M: 27453 Subs Hosp L2
[2019-10-13 16:56] LABS: Bedside Glucose 130 mg/dL (70-110)
[2019-10-13] MEDS: Gabapentin 800 MG Tablet PO (17:02)
[2019-10-13] MEDS: guaiFENesin 1,200 MG Tablet 1200 MG PO (23:15)
[2019-10-13 23:26] LABS: Bedside Glucose 170 mg/dL (70-110)
[2019-10-14] VITALS (9 sets, daily range): BP systolic 146–159; BP diastolic 65–91; PULSE 66–80; RESP 16–18; TEMP 36.3–37.2; O2SAT 95–99
--- NOTE | 2019-10-14 01:05 | NURSING ---
Home medication list updated and notified Dr. Winston.
[2019-10-14] MEDS: 0.9% Normal Saline 1,000 ML 75 ML IV (03:17)
[2019-10-14] MEDS: Insulin Lispro 100 UNIT/ML INSULN.PEN SC ×3 (07:11→22:01)
[2019-10-14 07:26] LABS: Bedside Glucose 163 mg/dL (70-110)
[2019-10-14 07:35] LABS: Absolute Neutrophil Count 6.3 X10^3/uL (2.0-7.7); Basophil# 0.04 X10^3/uL; Basophil% 0.5 % (0-1); Eosinophil# 0.04 X10^3/uL; Eosinophils% 0.5 % (0-5); Hematocrit 33.3 % (37-47); Hemoglobin 10.3 g/dL (12.0-15.0); Lymphocyte % 15.2 % (19-41); Mean Corp Hgb Conc 30.9 g/dL (32-36); Mean Corpuscular Hgb 27.2 pg (27.0-32.0); Mean Corpuscular Volume 87.9 fL (81-99); Mean Platelet Vol. 9.5 fl (6.2-12.0); Monocyte# 0.26 X10^3/uL; Monocyte% 3.3 % (0-10); NRBC Flagged by Analyzer 0 % (0-5); Neutrophil # 6.32 X10^3/uL (2.7-7.7); Neutrophil % 79.9 % (47-70); Platelet Count 230 K/mm3 (150-450); RBC Distribution Width CV 13.8 % (11.6-14.6); RBC Distribution Width SD 44.5 fl (35.1-43.9); Red Blood Count 3.79 M/mm3 (4.2-5.4); White Blood Count 7.9 K/mm3 (4.4-11.0)
[2019-10-14] MEDS: Ipratropium/Albuterol Sulfate 3 ML AMPUL.NEB INHALATION ×4 (07:38→19:15)
--- NOTE | 2019-10-14 08:02 | NURSING ---
Order for Bumex clarified with pharmacy. Pt. takes both Bumex and Lasix at home.
[2019-10-14 08:20] LABS: Anion Gap 5 (5-15); BUN 19 mg/dL (7-18); Chloride 98 mmol/L (98-107); Creatinine, Serum 1.12 mg/dL (0.55-1.02); EST Glomerular Filtration Rate 53 mL/min (>60); Est Glom Filt Rate - Afr Amer 64 mL/min (>60); Estimated Creatinine Clearance 37.89 ml/min; Glucose 157 mg/dL (74-106); Potassium 4.6 mmol/L (3.5-5.1); Sodium Level 132 mmol/L (136-145)
[2019-10-14] MEDS: Aspirin E.C. 81 MG Tablet PO ×2 (08:28→15:37)
[2019-10-14] MEDS: Heparin Injection (Vial) 5,000 UNIT/ML VIAL 5000 UNIT SC ×2 (08:29→21:38)
[2019-10-14] MEDS: Loratadine 10 MG Tablet PO (08:29)
[2019-10-14] MEDS: Gabapentin 800 MG Tablet PO ×3 (08:29→15:37)
[2019-10-14] MEDS: Escitalopram Oxalate 20 MG Tablet PO (08:30)
[2019-10-14] MEDS: Insulin Human 75/25 Kwickpen 70 UNIT SC ×2 (08:30→22:00)
[2019-10-14] MEDS: Magnesium Oxide 400 MG Tablet PO (08:31)
[2019-10-14] MEDS: guaiFENesin 1,200 MG Tablet 1200 MG PO ×2 (08:31→21:38)
[2019-10-14] MEDS: Pantoprazole Sodium 40 MG Tablet PO (08:32)
[2019-10-14] MEDS: Senna/Docusate Sodium 1 Tablet 2 TABLET PO ×2 (08:32→21:39)
[2019-10-14] MEDS: amLODIPine 5 MG Tablet PO (08:32)
[2019-10-14] MEDS: Topiramate 200 MG Tablet PO ×2 (08:33→21:40)
[2019-10-14] MEDS: Fenofibrate 145 MG Tablet PO (08:34)
[2019-10-14] MEDS: Furosemide 40 MG Tablet PO (08:51)
--- NOTE | 2019-10-14 09:33 | CASEMGMT ---
MATY received a message from Elsie Shannon. MATY called Elsie back and left her a voice mail. Casie ALFONSO MSW
[2019-10-14] MEDS: oxyCODONE 5 MG Tablet 10 MG PO ×2 (11:22→21:56)
--- NOTE | 2019-10-14 11:40 | PCM.PN.HOSP ---
Patient Problems: Active and Suspected Problems (Last Reviewed 01/26/18 @ 09:12 by Genia Cedeño) COPD exacerbation (Acute) Pneumonia (Acute) ARNAUD (acute kidney injury) (Acute) Pneumonia (Acute) Cellulitis (Acute) Reason for Visit: COPD exacerbation, bilateral lower leg edema and chronic hypoxic respiratory failure Subjective: No fever or chills. Hemodynamically stable. Respiratory panel negative. Patient has lower extremity edema. Vitals/I&O's: Vital Signs Temp Pulse Resp BP Pulse Ox 98.1 F 75 16 152/90 H 99 10/14/19 08:30 10/14/19 11:08 10/14/19 11:08 10/14/19 08:30 10/14/19 08:30 Oxygen Flow Rate (L/min) 4 Oxygen Delivery Method Nasal Cannula Weight: 214 lb 8.156 oz Body Mass Index (BMI) 43.8 Finger Stick Blood Glucose 107 Intake and Output for Last 24 Hours 10/12/19 10/13/19 10/14/19 23:59 23:59 23:59 Intake Total 600 / 600 2480.25 / 2780.25 2145.00 / 2145.00 Output Total 1350 / 1350 Balance 600 / 600 1130.25 / 1430.25 2145.00 / 2145.00 General: Alert, Oriented x3, Cooperative HEENT: Atraumatic, PERRLA, EOMI, Normocephalic Neck: Supple, No JVD, Negative Carotid Bruits Lungs: Diminished - Expiratory breath sound is prolonged. Bilateral expiratory wheezing. Shallow breath sounds., Rhonchi, Wheezes Cardiovascular: Regular rate, Regular Rhythm, Normal S1, Normal S2, No murmurs Abdomen: Bowel Sounds Present, Soft, Non Tender Extremities: Capillary Refill Less than 3 Seconds, Edema Skin: No rashes, No breakdown Musculoskeletal: No Tenderness to Palpation of Joints or Extremities, Arthritic Changes Neurological: Cranial nerves II-XII grossly intact, Deep Tendon Reflexes 2+/4 and Symmetrical, Neuro grossly intact Psych/Mental Status: Normal Affect, Appropriate Microbiology Past 72 Hours 10/13/19 02:05 Sputum, Expectorated/Coughed Gram Stain - Final 10/13/19 02:05 Sputum, Expectorated/Coughed Respiratory Culture - Preliminary Appears to be normal respiratory jose. Further studies to follow. 04/07/20 23:50 Interface Orders Respiratory Panel (PCR) - Final 10/12/19 23:10 Interface Orders Legionella Antigen - Final 10/12/19 23:10 Interface Orders Streptococcus pneumoniae Antigen (M - Final 10/12/19 19:15 Mucosa - Nasopharyngeal Rapid RSV (DFA) - Final 10/12/19 19:15 Mucosa - Nasopharyngeal Influenza Types A,B Direct FA (COREEN) - Final Laboratory Results 10/12/19 23:15: C-React Prot Ext Range 45.60 H 10/13/19 12:23: POC Glucose 174 H 10/13/19 16:49: POC Glucose 130 H 10/13/19 23:13: POC Glucose 170 H 10/14/19 06:45: WBC 7.9, RBC 3.79 L, Hgb 10.3 L, Hct 33.3 L, MCV 87.9, MCH 27.2, MCHC 30.9 L, RDW Std Deviation 44.5 H, RDW Coeff of [place] 13.8, Plt Count 230, MPV 9.5, Immature Gran % (Auto) 0.600, Neut % (Auto) 79.9 H, Lymph % (Auto) 15.2 L, Mcleod % (Auto) 3.3, Eos % (Auto) 0.5, Baso % (Auto) 0.5, Absolute Neuts (auto) 6.3, Absolute Lymphs (auto) 1.20, Nucleated RBC % 0 10/14/19 06:45: Sodium 132 L, Potassium 4.6, Chloride 98, Carbon Dioxide 29.0, Anion Gap 5, BUN 19 H, Creatinine 1.12 H, Estim Creat Clear Calc 37.89, Est GFR (MDRD) Af Amer 64, Est GFR (MDRD) Non-Af 53 L, BUN/Creatinine Ratio 17.0, Glucose 157 H, Calcium 8.0 L 10/14/19 07:04: POC Glucose 163 H 10/14/19 11:19: POC Glucose Pending Current Medications Acetaminophen (Tylenol) 650 mg PO Q6H PRN PRN PRN Reason: Pain Score 1-10/Temp > 100.7 F Al Hydroxide/Mg Hydroxide (Mylanta Ii) 30 ml PO Q6H PRN PRN PRN Reason: Gastric Burning Albuterol Sulfate (Ventolin Aerosols) 2.5 mg INHALATION Q2H PRN PRN PRN Reason: Dyspnea, wheezing Albuterol/Ipratropium (Duoneb) 3 ml INHALATION Q4HWA.RT [facility] Last Admin: 10/14/19 11:08 Dose: 3 ml Documented by: Amlodipine Besylate (Norvasc) 5 mg PO DAILY [facility] Last Admin: 10/14/19 08:32 Dose: 5 mg Documented by: Aspirin (Ecotrin) 81 mg PO BIDCM [facility] Last Admin: 10/14/19 08:28 Dose: 81 mg Documented by: Atorvastatin Calcium (Lipitor) 20 mg PO QHS [facility] Last Admin: 10/13/19 23:15 Dose: 20 mg Documented by: Betamethasone Valerate (Valisone 0.1% Cream (Bkc)) 1 applic TOPICAL BID PRN PRN; Protocol PRN Reason: SKIN CARE Cyclobenzaprine HCl (Flexeril) 10 mg PO TID PRN PRN PRN Reason: MUSCLE SPASMS Last Admin: 10/13/19 19:13 Dose: 10 mg Documented by: Dextrose (D50w Syringe) 0 gm IV X1 PRN; Protocol PRN Reason: Hypoglycemia Escitalopram Oxalate (Lexapro) 20 mg PO DAILY [facility] Last Admin: 10/14/19 08:30 Dose: 20 mg Documented by: Fenofibrate (Tricor) 145 mg PO DAILY [facility] Last Admin: 10/14/19 08:34 Dose: 145 mg Documented by: Furosemide (Lasix) 40 mg PO DAILY [facility] Gabapentin (Neurontin) 800 mg PO TIDCM [facility] Last Admin: 10/14/19 11:21 Dose: 800 mg Documented by: Glucagon () 1 mg IM .X1 PRN PRN Reason: Hypoglycemia Guaifenesin (Mucinex) 1,200 mg PO BID [facility] Last Admin: 10/14/19 08:31 Dose: 1,200 mg Documented by: Heparin Sodium (Porcine) (Heparin Na) 5,000 unit SC Q12 [facility] Last Admin: 10/14/19 08:29 Dose: 5,000 unit Documented by: Hydralazine HCl (Apresoline Iv) 10 mg IV Q4H PRN PRN PRN Reason: SBP > 160 Piperacillin Sod/Tazobactam (Sod 3.375 gm/ Sodium Chloride) 50 mls @ 12.5 mls/hr IV Q8 [facility] Last Infusion: 04/09/20 09:34 Dose: Infused Documented by: Sodium Chloride () 250 mls @ 15 mls/hr IV .[id number] PRN PRN Reason: Saline Flush Last Infusion: 10/13/19 06:04 Dose: 0 mls/hr Documented by: Sodium Chloride () 250 mls @ 15 mls/hr IV .[id number] PRN PRN Reason: Additional IVPB Infusion Insulin Human Lispro (Humalog Kwikpen (Bkc)) 0 unit SC ACHS [facility]; Protocol Last Admin: 10/14/19 11:20 Dose: 4 u Documented by: Insulin Lispro Protam/Lispro Human (Humalog Mix 75-25 Kwikpen (Bkc)) 70 unit SC BID [facility] Last Admin: 10/14/19 08:30 Dose: 70 units Documented by: Loratadine (Claritin) 10 mg PO DAILY [facility] Last Admin: 10/14/19 08:29 Dose: 10 mg Documented by: Magnesium Oxide (Mag-Ox 400) 400 mg PO DAILY [facility] Last Admin: 10/14/19 08:31 Dose: 400 mg Documented by: Melatonin (Melatonin) 3 mg PO QHS PRN PRN PRN Reason: INSOMNIA Methylprednisolone (Solu-Medrol) 40 mg IV Q8 [facility] Last Admin: 10/14/19 05:36 Dose: 40 mg Documented by: Morphine Sulfate () 2 mg IV Q3H PRN PRN PRN Reason: Pain Score 6-10/10 Nicotine (Nicoderm Cq (Pbkc)) 21 mg TRANSDERM. DAILY [facility] Last Admin: 10/14/19 08:32 Dose: 21 mg Documented by: Ondansetron HCl (Zofran) 4 mg IV Q8H PRN PRN PRN Reason: NAUSEA/VOMITING Oxycodone HCl (Oxyir) 10 mg PO Q4H PRN PRN PRN Reason: Pain Score 1-10/10 Last Admin: 10/14/19 11:22 Dose: 10 mg Documented by: Pantoprazole Sodium (Protonix) 40 mg PO DAILY [facility] Last Admin: 10/14/19 08:32 Dose: 40 mg Documented by: Polyethylene Glycol (Miralax) 17 gm PO DAILY [facility] Last Admin: 10/14/19 08:34 Dose: Not Given Documented by: [facility] Last Admin: 10/14/19 08:28 Dose: 20 meq Documented by: Prochlorperazine Edisylate (Compazine Iv) 5 mg IV Q4H PRN PRN PRN Reason: Breakthrough nausea/vomiting Senna/Docusate Sodium (Senokot-S, Hazel-Colace) 2 tablet PO BID [facility] Last Admin: 10/14/19 08:32 Dose: 2 tablet Documented by: Sodium Chloride () 10 - 40 ml IV UD PRN PRN Reason: SALINE FLUSH Last Admin: 10/13/19 14:09 Dose: 10 ml Documented by: Throat Lozenges (Cepacol Sore Throat Lozenge) 1 lozenge MUCOUS MEM Q2H PRN PRN PRN Reason: SORE THROAT Topiramate (Topamax) 200 mg PO BID [facility] Last Admin: 10/14/19 08:33 Dose: 200 mg Documented by: STROKE Vital Signs/Narrative: Vital Signs Temp Pulse Resp BP Pulse Ox 10/14/19 11:08 75 16 10/14/19 08:30 98.1 F 67 16 152/90 H 99 Medical Necessity - Tobacco Use Smoking Status: Current every day smoker Tobacco Use: Cigarettes Assessment/Plan All Active Problems (Last Reviewed 01/26/18 @ 09:12 by Genia Cedeño) COPD exacerbation (Acute) Pneumonia (Acute) ARNAUD (acute kidney injury) (Acute) Pneumonia (Acute) Cellulitis (Acute) The patient is a 59 y/o F with history of COPD on chronic hypoxic and hypercarbic respiratory failure, 4 to 6 L/min is being admitted for progressive worsening of cough, shortness of breath worsened to dyspnea at rest, wheezing and concern of bilateral lower extremity cellulitis 1. COPD exacerbation probably exacerbated by bilateral lower lobe pneumonia: Patient is being admitted in PCU. Started on IV Zosyn and vancomycin. Legionella antigen is negative. Rapid influenza and RSV negative. Respiratory panel negative. Preliminary Gram stain of the stool culture shows 2+ gram-positive cocci. MRSA nasal screen is negative. Discontinue vancomycin. Procalcitonin 0.22 less than 0.5/low risk for progressing to severe sepsis or septic shock. LDH 162. Ferritin normal. Transaminases normal. Albumin 2.9. 9: Sputum culture appears normal respiratory jose. Continue bronchodilator and antibiotics, incentive spirometry and pep. 2. Chronic BL LE Venous Stasis Diseae: I do not think patient has bilateral lower extremity cellulitis as statistically is uncommon. Patient has chronic bilateral lower extremity venous edema and congestion therefore it is warm. Anemia patient is on antibiotic. Bilateral Ricardo wraps. 10/13: Lasix resumed 40 mg twice daily. Discontinue IV fluids 3. Acute kidney injury on CKD stage III: Admitting BUN/creatinine 24/1.63. Improved to 24/1.38. Had 1 dose of Lasix. Hold nephrotoxic medications. Monitor urine output, daily electrolytes and kidney function. 10/13: ARNAUD resolved. Lasix resumed as patient is pending fluids. 4. Hyponatremia, : Admission Na 132, to 133. Not much difference. Continue IV fluid. 5. Diabetes mellitus type II: continue home insulin regimen, ADA diet, Accu-Cheks with insulin sliding scale every 6 hours. Hold oral hypoglycemic agents. 6. Chronic diastolic CHF: Continue home aspirin, statin, norvasc. On metoprolol. And is on Lasix not on Bumex at home. Confirmed with the nurse and the pharmacist. 7. Hypertension: Continue home regimen including Norvasc, PRN hydralazine. Pressure is controlled. 8. Hyperlipidemia: Continue home statin regimen. 9. Obesity: Weight loss and lifestyle changes encouraged. 10. Tobacco Abuse: Encouraged cessation, inpatient consultation per RT, NR if desired. 11. Anxiety and Depression: Continue home lexapro regimen. 12. ENRIQUE: Continue home BIPAP. 13. DVT prophylaxis: SCDs, heparin. 14. CODE status: Full code Microbiology Past 72 Hours 10/13/19 02:05 Sputum, Expectorated/Coughed Gram Stain - Final 10/13/19 02:05 Sputum, Expectorated/Coughed Respiratory Culture - Preliminary Appears to be normal respiratory jose. Further studies to follow. 10/12/19 23:50 Interface Orders Respiratory Panel (PCR) - Final 10/12/19 23:10 Interface Orders Legionella Antigen - Final 10/12/19 23:10 Interface Orders Streptococcus pneumoniae Antigen (M - Final 10/12/19 19:15 Mucosa - Nasopharyngeal Rapid RSV (DFA) - Final 10/12/19 19:15 Mucosa - Nasopharyngeal Influenza Types A,B Direct FA ([facility]) - Final Laboratory Results 10/12/19 23:15: C-React Prot Ext Range 45.60 H 10/13/19 12:23: POC Glucose 174 H 10/13/19 16:49: POC Glucose 130 H 10/13/19 23:13: POC Glucose 170 H 10/14/19 06:45: WBC 7.9, RBC 3.79 L, Hgb 10.3 L, Hct 33.3 L, MCV 87.9, MCH 27.2, MCHC 30.9 L, RDW Std Deviation 44.5 H, RDW Coeff of [place] 13.8, Plt Count 230, MPV 9.5, Immature Gran % (Auto) 0.600, Neut % (Auto) 79.9 H, Lymph % (Auto) 15.2 L, Mcleod % (Auto) 3.3, Eos % (Auto) 0.5, Baso % (Auto) 0.5, Absolute Neuts (auto) 6.3, Absolute Lymphs (auto) 1.20, Nucleated RBC % 0 10/14/19 06:45: Sodium 132 L, Potassium 4.6, Chloride 98, Carbon Dioxide 29.0, Anion Gap 5, BUN 19 H, Creatinine 1.12 H, Estim Creat Clear Calc 37.89, Est GFR (MDRD) Af Amer 64, Est GFR (MDRD) Non-Af 53 L, BUN/Creatinine Ratio 17.0, Glucose 157 H, Calcium 8.0 L 10/14/19 07:04: POC Glucose 163 H 10/14/19 11:19: POC Glucose 205 H Clinical Impression(s) from Imaging Studies Venous Duplex 10/12/19 19:14 IMPRESSION: Normal venous Doppler ultrasound of the left lower extremity. Subcutaneous edema. Chest X-Ray 10/12/19 20:35 IMPRESSION: Patchy opacity in the right lung base which is likely infectious in etiology. Chest X-Ray 10/13/19 05:55 IMPRESSION: Progressive bibasilar infiltrates as well as right infrahilar infiltrate. Inpatient E&M: 63713 Subs Hosp L2
[2019-10-14 11:41] LABS: Bedside Glucose 205 mg/dL (70-110)
[2019-10-14 15:45] LABS: Bedside Glucose 132 mg/dL (70-110)
[2019-10-14] MEDS: Furosemide 40 MG/4 ML Vial IV (17:33)
[2019-10-14] MEDS: 0.9% Saline Lock 10 ML Syringe IV (17:33)
[2019-10-14] MEDS: Atorvastatin Calcium 20 MG Tablet PO (21:38)
[2019-10-14 22:35] LABS: Bedside Glucose 302 mg/dL (70-110)
[2019-10-15 03:30] VITALS: BP 155/69; PULSE 74; RESP 18; TEMP 36.6; O2SAT 98
[2019-10-15] MEDS: oxyCODONE 5 MG Tablet 10 MG PO ×2 (06:01→11:21)
[2019-10-15 06:59] LABS: Absolute Lymphocyte Count 1.47 X10^3/uL (0.83-4.51); Absolute Neutrophil Count 5.2 X10^3/uL (2.0-7.7); Basophil# 0.04 X10^3/uL; Basophil% 0.6 % (0-1); Eosinophil# 0.04 X10^3/uL; Eosinophils% 0.6 % (0-5); Hematocrit 34.9 % (37-47); Hemoglobin 10.9 g/dL (12.0-15.0); Lymphocyte # 1.47 X10^3/ul (4.0); Lymphocyte % 20.6 % (19-41); Mean Corp Hgb Conc 31.2 g/dL (32-36); Mean Corpuscular Hgb 27.2 pg (27.0-32.0); Mean Platelet Vol. 9.1 fl (6.2-12.0); Monocyte# 0.36 X10^3/uL; Monocyte% 5.1 % (0-10); NRBC Flagged by Analyzer 0 % (0-5); Neutrophil # 5.17 X10^3/uL (2.7-7.7); Neutrophil % 72.5 % (47-70); Platelet Count 260 K/mm3 (150-450); RBC Distribution Width CV 13.8 % (11.6-14.6); RBC Distribution Width SD 44.3 fl (35.1-43.9); Red Blood Count 4.01 M/mm3 (4.2-5.4); White Blood Count 7.1 K/mm3 (4.4-11.0)
[2019-10-15 07:25] LABS: Anion Gap 4 (5-15); BUN 24 mg/dL (7-18); Calcium,Total 8.5 mg/dL (8.5-10.1); Chloride 98 mmol/L (98-107); Creatinine, Serum 1.26 mg/dL (0.55-1.02); EST Glomerular Filtration Rate 46 mL/min (>60); Est Glom Filt Rate - Afr Amer 56 mL/min (>60); Estimated Creatinine Clearance 33.68 ml/min; Glucose 68 mg/dL (74-106); Potassium 4.3 mmol/L (3.5-5.1); Sodium Level 134 mmol/L (136-145)
[2019-10-15 07:54] VITALS: BP 156/77; PULSE 72; RESP 18; TEMP 36.7; O2SAT 97
[2019-10-15 08:01] LABS: Bedside Glucose 61 mg/dL (70-110)
[2019-10-15 08:01] LABS: Bedside Glucose 138 mg/dL (70-110)
[2019-10-15] MEDS: Gabapentin 800 MG Tablet PO ×2 (08:06→11:13)
[2019-10-15] MEDS: Aspirin E.C. 81 MG Tablet PO (08:06)
[2019-10-15 08:08] VITALS: RESP 18
[2019-10-15] MEDS: Heparin Injection (Vial) 5,000 UNIT/ML VIAL 5000 UNIT SC (09:38)
[2019-10-15] MEDS: Furosemide 40 MG/4 ML Vial IV (09:38)
[2019-10-15] MEDS: Insulin Human 75/25 Kwickpen 70 UNIT SC (09:39)
[2019-10-15] MEDS: Senna/Docusate Sodium 1 Tablet 2 TABLET PO (09:40)
[2019-10-15] MEDS: Magnesium Oxide 400 MG Tablet PO (09:41)
[2019-10-15] MEDS: Pantoprazole Sodium 40 MG Tablet PO (09:41)
[2019-10-15] MEDS: Topiramate 200 MG Tablet PO (09:41)
[2019-10-15] MEDS: Escitalopram Oxalate 20 MG Tablet PO (09:41)
[2019-10-15] MEDS: amLODIPine 5 MG Tablet PO (09:41)
[2019-10-15] MEDS: Fenofibrate 145 MG Tablet PO (09:41)
[2019-10-15] MEDS: Loratadine 10 MG Tablet PO (09:41)
--- NOTE | 2019-10-15 10:31 | DCINST_ITS ---
- Discharge Diagnoses Current Active Problems: Current Active and Chronic Problems (Last Reviewed 01/26/18 @ 09:12 by Genia Cedeño) COPD exacerbation (Acute) Pneumonia (Acute) Chronic respiratory failure with hypoxia (Chronic) ENRIQUE (obstructive sleep apnea) (Chronic) Anxiety and depression (Chronic) ARNAUD (acute kidney injury) (Acute) Venous stasis dermatitis of both lower extremities (Chronic) Pneumonia (Acute) Cellulitis (Acute) You will use the following diet at home:: Calorie/Carbohydrate Controlled (specify 1200, 1400, etc), Cardiac Your food should be the consistency of: Regular Discharge Activity: May Not Drive Weight Bearing Status: Weight bearing as tolerated Call your doctor if you observe: Fever of 101 or Higher, Numbness or Tingling, Inability to urinate, Inability to have a bowel movement, Shortness of breath, Dizziness, Fainting spells, Swelling in the ankles, Chest pain, Prolonged hiccoughing, Increased palpitations (irregular heartbeat), Calf discomfort, Uncontrolled pain Allergies/Adverse Reactions: Allergies amitriptyline Allergy (Verified 10/12/19 19:02) Unknown lisinopril Allergy (Verified 10/12/19 19:02) Angioedema duloxetine [From Cymbalta] Adverse Reaction (Verified 10/12/19 19:02) Upset Stomach pregabalin [From Lyrica] Adverse Reaction (Verified 10/12/19 19:02) bad dreams varenicline [From Chantix] Adverse Reaction (Verified 10/12/19 19:02) Unknown [id number] Allergy (Uncoded 10/12/19 19:02) Other Medications to take at Discharge Fenofibrate [Tricor] 145 mg PO DAILY 05/20/16 Tiotropium Rapelje [Spiriva Respimat] 2 puff IH DAILY 05/20/16 Albuterol Aerosols [Ventolin Aerosols] 2.5 mg INHALATION Q6H PRN PRN 02/26/17 Albuterol Inhaler [Ventolin Hfa] 1 - 2 puff INHALATION Q6H PRN PRN 02/26/17 Betamethasone Valerate [Valisone 0.1% Cream (BKC)] 1 applic TOPICAL BID PRN PRN 02/26/17 Fluticasone/Vilanterol [Breo Ellipta 200-25 Mcg INH] 1 puff INHALATION DAILY 02/26/17 Loratadine [Claritin] 10 mg PO DAILY 02/26/17 Omeprazole [Prilosec] 40 mg PO DAILY 02/26/17 Simvastatin [Zocor] 40 mg PO QHS 02/26/17 Aspirin [Aspir-Low] 162 mg PO DAILY 09/10/17 Escitalopram Oxalate [Lexapro] 20 mg PO DAILY 09/10/17 Gabapentin [Neurontin] 800 mg PO Q6H 09/10/17 Insulin Human 70/30 [Novolog Mix 70-30 Flexpen Syrn] 60 units SC BREAKFAST 09/10/17 Fluticasone 110 Mcg [Flovent 110 Mcg] 1 puff INHALATION BID 11/03/17 Oxycodone HCl/Acetaminophen [Oxycodone-Acetaminophen 10-325] 1 each PO Q4H PRN PRN 11/03/17 Topiramate [Topamax] 200 mg PO BID tablet 11/06/17 cycloBENZAPRine HCl [Flexeril] 10 mg PO TID PRN PRN 11/30/17 Furosemide [Lasix] 40 mg PO BID 12/13/18 Magnesium Oxide [Magnesium] 400 mg PO DAILY 12/13/18 Potassium Chloride 20 meq PO BID 12/13/18 Insulin Human 70/30 [Novolog Mix 70-30 Flexpen Syrn] 40 units QHS 10/12/19 Sennosides/Docusate Sodium [Colace 2-in-1 Tablet] 1 ea PO BID 10/12/19 Amlodipine [Norvasc] 10 mg PO DAILY #30 tab 10/15/19 Ipratropium/Albuterol Sulfate [Duoneb] 3 ml INHALATION Q4H #30 ampul.neb 10/15/19 Levofloxacin [Levaquin] 750 mg PO Q48H #3 tab 10/15/19 Prednisone 10 mg PO DAILY #30 tab 10/15/19 The following prescriptions were given: Ipratropium/Albuterol Sulfate [Duoneb] 3 ml INHALATION Q4H #30 ampul.neb Transmission Status: Pending to [facility] Levofloxacin [Levaquin] 750 mg PO Q48H #3 tab Transmission Status: Pending to [facility] Amlodipine [Norvasc] 10 mg PO DAILY #30 tab Transmission Status: Pending to [facility] Prednisone 10 mg PO DAILY #30 tab Transmission Status: Pending to [facility] Primary Care Physician: John Burnett DO [Primary Care Provider] - Test Results: Test results from this visit will be discussed in further detail at your follow- up appointment, if applicable. Please Follow Up With: John Burnett DO When: in 2 weeks
[2019-10-15] MEDS: Ipratropium/Albuterol Sulfate 3 ML AMPUL.NEB INHALATION (10:32)
--- NOTE | 2019-10-15 10:32 | PCM.DC.SUM ---
Discharge Date and Diagnosis Date of Admission: 10/12/19 Date of Discharge: 10/15/19 - Primary Discharge Diagnosis Active and Suspected Problems (Last Reviewed 01/26/18 @ 09:12 by Genia Cedeño) COPD exacerbation (Acute) Pneumonia (Acute) ARNAUD (acute kidney injury) (Acute) Pneumonia (Acute) Cellulitis (Acute) - Secondary Discharge Diagnosis Chronic Problems (Last Reviewed 01/26/18 @ 09:12 by Genia Cedeño) Chronic respiratory failure with hypoxia (Chronic) ENRIQUE (obstructive sleep apnea) (Chronic) Anxiety and depression (Chronic) Venous stasis dermatitis of both lower extremities (Chronic) Diabetic neuropathy (Chronic) Chronic narcotic use (Chronic) Cephalgia (Chronic) Chronic renal failure, stage 3 (moderate) (Chronic) Diastolic congestive heart failure (Chronic) Acute on chronic respiratory failure with hypoxia and hypercapnia (Chronic) Essential (primary) hypertension (Chronic) Morbid obesity (Chronic) Uncontrolled type II diabetes mellitus (Chronic) Nicotine addiction (Chronic) Depression (Chronic) Severe chronic obstructive pulmonary disease (Chronic) Hospital Course and Treatment Operations: None Summary of Care Provided: [] The patient is a 59 y/o F with history of COPD on chronic hypoxic and hypercarbic respiratory failure, 4 to 6 L/min is being admitted for progressive worsening of cough, shortness of breath worsened to dyspnea at rest, wheezing and concern of bilateral lower extremity cellulitis 1. COPD exacerbation probably exacerbated by bilateral lower lobe pneumonia: Patient is being admitted in PCU. Started on IV Zosyn and vancomycin. Legionella antigen is negative. Rapid influenza and RSV negative. Respiratory panel negative. Preliminary Gram stain of the stool culture shows 2+ gram-positive cocci. MRSA nasal screen is negative. Discontinue vancomycin. Procalcitonin 0.22 less than 0.5/low risk for progressing to severe sepsis or septic shock. LDH 162. Ferritin normal. Transaminases normal. Albumin 2.9. /10: Sputum culture appears normal respiratory jose with presumptive [place] albicans. Continue bronchodilator and antibiotics, incentive spirometry and pep. patient was given a prescription for Levaquin 750 mg every 48 hour, total 3 tablets, DuoNeb, DuoNeb nebulization equipment and tapering dose of prednisone. 2. Chronic BL LE Venous Stasis Diseae: I do not think patient has bilateral lower extremity cellulitis as statistically is uncommon. Patient has chronic bilateral lower extremity venous edema and congestion therefore it is warm. Anemia patient is on antibiotic. Bilateral Ricardo wraps. 10/13: Lasix resumed 40 mg twice daily. Discontinue IV fluids Continue Lasix with supplemental potassium. 3. Acute kidney injury on CKD stage III: Admitting BUN/creatinine 24/1.63. Improved to 24/1.38. Had 1 dose of Lasix. Hold nephrotoxic medications. Monitor urine output, daily electrolytes and kidney function. 10/13: ARNAUD resolved. Lasix was resumed. 4. Hyponatremia, : Admission Na 132, to 133. Not much difference. IV fluid discontinued. Repeat sodium 134. 5. Diabetes mellitus type II: continue home insulin regimen, ADA diet, Accu-Cheks with insulin sliding scale every 6 hours. Hold oral hypoglycemic agents. 6. Chronic diastolic CHF: Continue home aspirin, statin, norvasc. On metoprolol. And is on Lasix not on Bumex at home. Confirmed with the nurse and the pharmacist. 7. Hypertension: Continue home regimen including Norvasc, PRN hydralazine. Pressure is controlled. 8. Hyperlipidemia: Continue home statin regimen. 9. Obesity: Weight loss and lifestyle changes encouraged. 10. Tobacco Abuse: Encouraged cessation, inpatient consultation per RT, NR if desired. 11. Anxiety and Depression: Continue home lexapro regimen. 12. ENRIQUE: Continue home BIPAP. 13. DVT prophylaxis: SCDs, heparin. 14. CODE status: Full code Discharge medication reconciliation done. Discharge follow-up instructions completed. Discharge process discussed with the patient and all questions were answered to patient's satisfaction. Prescription sent to the patient's pharmacy as mentioned above. Follow with PCP. Patient is on oxygen at home usually 4 L at home which increased to 6 L on exertion/ambulation. Total time spent, exact 35 minutes on discharge meds reconciliation, examination, coordination of care with nurses and ancillary staff, review of imaging and blood test and discussion with the patient on follow-up instructions Subjective: Seen and examined. Patient on baseline breathing status. Hemodynamically stable. No tachycardia or tachypnea. Pulse ox 93% on 3 L of oxygen. Objective: General: Alert, Oriented x3, Cooperative HEENT: Atraumatic, PERRLA, EOMI, Normocephalic Neck: Supple, No JVD, Negative Carotid Bruits Lungs: air entry is diminished in all lung rodriguez.- Expiratory breath sound is prolonged. Bilateral occasional expiratory rhonchi and wheezing. Cardiovascular: Regular rate, Regular Rhythm, Normal S1, Normal S2, No murmurs Abdomen: Bowel Sounds Present, Soft, Non Tender Extremities: Capillary Refill Less than 3 Seconds, Edema Skin: No rashes, No breakdown Musculoskeletal: No Tenderness to Palpation of Joints or Extremities, Arthritic Changes Neurological: Cranial nerves II-XII grossly intact, Deep Tendon Reflexes 2+/4 and Symmetrical, Neuro grossly intact Psych/Mental Status: Normal Affect, Appropriate - Physical Exam Vitals/I&O's: Vital Signs Temp Pulse Resp BP Pulse Ox 98.1 F 72 18 156/77 H 97 10/15/19 07:54 10/15/19 07:54 10/15/19 08:08 10/15/19 07:54 10/15/19 07:54 Oxygen Flow Rate (L/min) 3 Oxygen Delivery Method Nasal Cannula Weight: 215 lb 9.793 oz Body Mass Index (BMI) 43.8 Finger Stick Blood Glucose 107 Intake and Output for Last 24 Hours 10/13/19 10/14/19 10/15/19 23:59 23:59 23:59 Intake Total 2480.25 / 2780.25 3445.00 / 4045.00 750 / 750 Output Total 1350 / 1350 3700 / 4700 1000 / 1000 Balance 1130.25 / 1430.25 -255.00 / -655.00 -250 / -250 Microbiology Past 72 Hours 10/12/19 19:20 Blood Culture (Wb) - Right Hand Blood Culture - Preliminary No growth in 48 hours. 10/12/19 19:33 Blood Culture (Wb) - Left Wrist Blood Culture - Preliminary No growth in 48 hours. 10/13/19 02:05 Sputum, Expectorated/Coughed Gram Stain - Final 10/13/19 02:05 Sputum, Expectorated/Coughed Respiratory Culture - Final Presumptive C albicans 10/12/19 23:50 Interface Orders Respiratory Panel (PCR) - Final 10/12/19 23:10 Interface Orders Legionella Antigen - Final 10/12/19 23:10 Interface Orders Streptococcus pneumoniae Antigen (M - Final 10/12/19 19:15 Mucosa - Nasopharyngeal Rapid RSV (DFA) - Final 10/12/19 19:15 Mucosa - Nasopharyngeal Influenza Types A,B Direct FA (COREEN) - Final Laboratory Results 10/14/19 11:19: POC Glucose 205 H 10/14/19 15:36: POC Glucose 132 H 10/14/19 21:59: POC Glucose 302 H 10/15/19 06:43: WBC 7.1, RBC 4.01 L, Hgb 10.9 L, Hct 34.9 L, MCV 87.0, MCH 27.2, MCHC 31.2 L, RDW Std Deviation 44.3 H, RDW Coeff of [place] 13.8, Plt Count 260, MPV 9.1, Immature Gran % (Auto) 0.600, Neut % (Auto) 72.5 H, Lymph % (Auto) 20.6, [place] % (Auto) 5.1, Eos % (Auto) 0.6, Baso % (Auto) 0.6, Absolute Neuts (auto) 5.2, Absolute Lymphs (auto) 1.47, Nucleated RBC % 0 10/15/19 06:43: Sodium 134 L, Potassium 4.3, Chloride 98, Carbon Dioxide 32.0, Anion Gap 4 L, BUN 24 H, Creatinine 1.26 H, Estim Creat Clear Calc 33.68, Est GFR (MDRD) Af Amer 56 L, Est GFR (MDRD) Non-Af 46 L, BUN/Creatinine Ratio 19.0, Glucose 68 L, Calcium 8.5 10/15/19 07:08: POC Glucose 61 L 10/15/19 07:54: POC Glucose 138 H Current Medications Acetaminophen (Tylenol) 650 mg PO Q6H PRN PRN PRN Reason: Pain Score 1-10/Temp > 100.7 F Al Hydroxide/Mg Hydroxide (Mylanta Ii) 30 ml PO Q6H PRN PRN PRN Reason: Gastric Burning Albuterol Sulfate (Ventolin Aerosols) 2.5 mg INHALATION Q2H PRN PRN PRN Reason: Dyspnea, wheezing Albuterol/Ipratropium (Duoneb) 3 ml INHALATION Q4HWA.RT [facility] Last Admin: 10/15/19 07:16 Dose: Not Given Documented by: Amlodipine Besylate (Norvasc) 5 mg PO DAILY [facility] Last Admin: 10/15/19 09:41 Dose: 5 mg Documented by: Aspirin (Ecotrin) 81 mg PO BIDCM [facility] Last Admin: 10/15/19 08:06 Dose: 81 mg Documented by: Atorvastatin Calcium (Lipitor) 20 mg PO QHS [facility] Last Admin: 10/14/19 21:38 Dose: 20 mg Documented by: Betamethasone Valerate (Valisone 0.1% Cream (Bkc)) 1 applic TOPICAL BID PRN PRN; Protocol PRN Reason: SKIN CARE Cyclobenzaprine HCl (Flexeril) 10 mg PO TID PRN PRN PRN Reason: MUSCLE SPASMS Last Admin: 10/13/19 19:13 Dose: 10 mg Documented by: Dextrose (D50w Syringe) 0 gm IV X1 PRN; Protocol PRN Reason: Hypoglycemia Escitalopram Oxalate (Lexapro) 20 mg PO DAILY [facility] Last Admin: 10/15/19 09:41 Dose: 20 mg Documented by: Fenofibrate (Tricor) 145 mg PO DAILY [facility] Last Admin: 10/15/19 09:41 Dose: 145 mg Documented by: Furosemide (Lasix) 40 mg IV BID@1000,1800 [facility] Last Admin: 10/15/19 09:38 Dose: 40 mg Documented by: Gabapentin (Neurontin) 800 mg PO TIDCM [facility] Last Admin: 10/15/19 08:06 Dose: 800 mg Documented by: Glucagon () 1 mg IM .X1 PRN PRN Reason: Hypoglycemia Guaifenesin (Mucinex) 1,200 mg PO BID [facility] Last Admin: 10/14/19 21:38 Dose: 1,200 mg Documented by: Heparin Sodium (Porcine) (Heparin Na) 5,000 unit SC Q12 [facility] Last Admin: 10/15/19 09:38 Dose: 5,000 unit Documented by: Hydralazine HCl (Apresoline Iv) 10 mg IV Q4H PRN PRN PRN Reason: SBP > 160 Piperacillin Sod/Tazobactam (Sod 3.375 gm/ Sodium Chloride) 50 mls @ 12.5 mls/hr IV Q8 [facility] Last Admin: 10/15/19 05:56 Dose: 12.5 mls/hr Documented by: Sodium Chloride () 250 mls @ 15 mls/hr IV .[id number] PRN PRN Reason: Saline Flush Last Infusion: 10/13/19 06:04 Dose: 0 mls/hr Documented by: Sodium Chloride () 250 mls @ 15 mls/hr IV .[id number] PRN PRN Reason: Additional IVPB Infusion Insulin Human Lispro (Humalog Kwikpen (Bk)) 0 unit SC ACHS [facility]; Protocol Last Admin: 10/15/19 07:13 Dose: Not Given Documented by: Insulin Lispro Protam/Lispro Human (Humalog Mix 75-25 Kwikpen (Bk)) 70 unit SC BID [facility] Last Admin: 10/15/19 09:39 Dose: 70 units Documented by: Loratadine (Claritin) 10 mg PO DAILY [facility] Last Admin: 10/15/19 09:41 Dose: 10 mg Documented by: Magnesium Oxide (Mag-Ox 400) 400 mg PO DAILY [facility] Last Admin: 10/15/19 09:41 Dose: 400 mg Documented by: Melatonin (Melatonin) 3 mg PO QHS PRN PRN PRN Reason: INSOMNIA Methylprednisolone (Solu-Medrol) 40 mg IV Q8 [facility] Last Admin: 10/15/19 05:56 Dose: 40 mg Documented by: Morphine Sulfate () 2 mg IV Q3H PRN PRN PRN Reason: Pain Score 6-10/10 Nicotine (Nicoderm Cq ([facility])) 21 mg TRANSDERM. DAILY [facility] Last Admin: 10/15/19 08:06 Dose: 21 mg Documented by: Ondansetron HCl (Zofran) 4 mg IV Q8H PRN PRN PRN Reason: NAUSEA/VOMITING Oxycodone HCl (Oxyir) 10 mg PO Q4H PRN PRN PRN Reason: Pain Score 1-10/10 Last Admin: 10/15/19 06:01 Dose: 10 mg Documented by: Pantoprazole Sodium (Protonix) 40 mg PO DAILY [facility] Last Admin: 10/15/19 09:41 Dose: 40 mg Documented by: Polyethylene Glycol (Miralax) 17 gm PO DAILY [facility] Last Admin: 10/15/19 09:35 Dose: Not Given Documented by: [facility] Admin: 10/15/19 08:06 Dose: 20 meq Documented by: Prochlorperazine Edisylate (Compazine Iv) 5 mg IV Q4H PRN PRN PRN Reason: Breakthrough nausea/vomiting Senna/Docusate Sodium (Senokot-S, Hazel-Colace) 2 tablet PO BID [facility] Last Admin: 10/15/19 09:40 Dose: 2 tablet Documented by: Sodium Chloride () 10 - 40 ml IV UD PRN PRN Reason: SALINE FLUSH Last Admin: 10/14/19 17:33 Dose: 10 ml Documented by: Throat Lozenges (Cepacol Sore Throat Lozenge) 1 lozenge MUCOUS MEM Q2H PRN PRN PRN Reason: SORE THROAT Topiramate (Topamax) 200 mg PO BID [facility] Last Admin: 10/15/19 09:41 Dose: 200 mg Documented by: Discharge Activity: May Not Drive Weight Bearing Status: Weight bearing as tolerated Call your doctor if you observe: Fever of 101 or Higher, Numbness or Tingling, Inability to urinate, Inability to have a bowel movement, Shortness of breath, Dizziness, Fainting spells, Swelling in the ankles, Chest pain, Prolonged hiccoughing, Increased palpitations (irregular heartbeat), Calf discomfort, Uncontrolled pain Home Medications: Medications to take at Discharge Fenofibrate [Tricor] 145 mg PO DAILY 05/20/16 Tiotropium [place] [Spiriva Respimat] 2 puff IH DAILY 05/20/16 Albuterol Aerosols [Ventolin Aerosols] 2.5 mg INHALATION Q6H PRN PRN 02/26/17 Albuterol Inhaler [Ventolin Hfa] 1 - 2 puff INHALATION Q6H PRN PRN 02/26/17 Betamethasone Valerate [Valisone 0.1% Cream (BKC)] 1 applic TOPICAL BID PRN PRN 02/26/17 Fluticasone/Vilanterol [Breo Ellipta 200-25 Mcg INH] 1 puff INHALATION DAILY 02/26/17 Loratadine [Claritin] 10 mg PO DAILY 02/26/17 Omeprazole [Prilosec] 40 mg PO DAILY 02/26/17 Simvastatin [Zocor] 40 mg PO QHS 02/26/17 Aspirin [Aspir-Low] 162 mg PO DAILY 09/10/17 Escitalopram Oxalate [Lexapro] 20 mg PO DAILY 09/10/17 Gabapentin [Neurontin] 800 mg PO Q6H 09/10/17 Insulin Human 70/30 [Novolog Mix 70-30 Flexpen Syrn] 60 units SC BREAKFAST 09/10/17 Fluticasone 110 Mcg [Flovent 110 Mcg] 1 puff INHALATION BID 11/03/17 Oxycodone HCl/Acetaminophen [Oxycodone-Acetaminophen 10-325] 1 each PO Q4H PRN PRN 11/03/17 Topiramate [Topamax] 200 mg PO BID tablet 11/06/17 cycloBENZAPRine HCl [Flexeril] 10 mg PO TID PRN PRN 11/30/17 Furosemide [Lasix] 40 mg PO BID 12/13/18 Magnesium Oxide [Magnesium] 400 mg PO DAILY 12/13/18 Potassium Chloride 20 meq PO BID 12/13/18 Insulin Human 70/30 [Novolog Mix 70-30 Flexpen Syrn] 40 units QHS 10/12/19 Sennosides/Docusate Sodium [Colace 2-in-1 Tablet] 1 ea PO BID 10/12/19 Amlodipine [Norvasc] 10 mg PO DAILY #30 tab 10/15/19 Ipratropium/Albuterol Sulfate [Duoneb] 3 ml INHALATION Q4H #30 ampul.neb 10/15/19 Levofloxacin [Levaquin] 750 mg PO Q48H #3 tab 10/15/19 Prednisone 10 mg PO DAILY #30 tab 10/15/19 Following Prescrptions Were Given to Patient: Ipratropium/Albuterol Sulfate [Duoneb] 3 ml INHALATION Q4H #30 ampul.neb Transmission Status: Received by [facility] Levofloxacin [Levaquin] 750 mg PO Q48H #3 tab Transmission Status: Received by [facility] Amlodipine [Norvasc] 10 mg PO DAILY #30 tab Transmission Status: Received by [facility] Prednisone 10 mg PO DAILY #30 tab Transmission Status: Received by [facility] Primary Care Physician: John Burnett DO [Primary Care Provider] - Please Follow Up With: John Burnett DO When: in 2 weeks Medical Necessity - Tobacco Use Smoking Status: Current every day smoker Tobacco Use: Cigarettes Meaningful Use Info Meaningful Use Diagnoses (Choose all that apply): None applicable Inpatient E&M: [id number] [facility]
[2019-10-15 10:33] VITALS: PULSE 82; RESP 18
[2019-10-15 10:34] VITALS: O2SAT 94
--- NOTE | 2019-10-15 11:10 | CASEMGMT ---
Social Work Pt ready for discharge today. Phone call to Elsie Shannon CM at [facility] and spoke with Lori, coverage worker. Informed of discharge home today and requested services be restarted. Lori will notify Elsie and also will restart aid services. SW met with pt in room and informed of above. Pt appreciative and states she does have a ride coming to pick her up within the hour. MONET Infante
[2019-10-15] MEDS: Insulin Lispro 100 UNIT/ML INSULN.PEN SC (11:12)
[2019-10-15 11:20] VITALS: BP 138/60; PULSE 84; RESP 18; TEMP 37.2; O2SAT 93
[2019-10-15] MEDS: guaiFENesin 1,200 MG Tablet 1200 MG PO (11:30)
[2019-10-15 16:25] LABS: Bedside Glucose 275 mg/dL (70-110)
--- NOTE | 2019-10-18 14:36 | CASEMGMT ---
EJ ROSS Discharge Follow-up Phone Call: JOSLYN: Benny Strata: 3 Call Date: 10/18/19 Discharge Date: 10/15/19 Time of Call: 1430 Duration: 3 min Admitting Diagnosis: COPD exacerbation, pneumonia EJ ROSS completed follow-up phone call after recent hospitalization. Patient states she is doing much better. Patient had no questions regarding discharge instructions. Patient was able to fill prescriptions without issues. Patient is aware of telephone follow-up appt with PCP on 10/21/19. Patient had no further questions or concerns at this time.
== END 2019-10-15 12:23 | disposition home or self-care (01) | DRG 140 ==
LOC: ED 22:00 → PCU 22:08
PROVIDERS: Admitting Provider Family Medicine; Emergency Provider Emergency Medicine; PCP Family Medicine; Visit Provider Internal Medicine
DX: J44.0 Chronic obstructive pulmonary disease with (acute) lower respiratory infection (principal); J18.9 Pneumonia, unspecified organism; J44.1 Chronic obstructive pulmonary disease with (acute) exacerbation; N17.9 Acute kidney failure, unspecified; L03.116 Cellulitis of left lower limb; L03.115 Cellulitis of right lower limb; J96.21 Acute and chronic respiratory failure with hypoxia; J96.22 Acute and chronic respiratory failure with hypercapnia; E87.1 Hypo-osmolality and hyponatremia; E86.1 Hypovolemia; I13.0 Hypertensive heart and chronic kidney disease with heart failure and stage 1 through stage 4 chronic kidney disease, or unspecified chronic kidney disease; E11.22 Type 2 diabetes mellitus with diabetic chronic kidney disease; N18.3 Chronic kidney disease, stage 3 (moderate); I50.32 Chronic diastolic (congestive) heart failure; D63.1 Anemia in chronic kidney disease; I87.2 Venous insufficiency (chronic) (peripheral); E11.40 Type 2 diabetes mellitus with diabetic neuropathy, unspecified; E11.65 Type 2 diabetes mellitus with hyperglycemia; E78.5 Hyperlipidemia, unspecified; E66.01 Morbid (severe) obesity due to excess calories; Z68.41 Body mass index [BMI] 40.0-44.9, adult; G47.33 Obstructive sleep apnea (adult) (pediatric); G89.4 Chronic pain syndrome; F17.210 Nicotine dependence, cigarettes, uncomplicated; F32.9 Major depressive disorder, single episode, unspecified; F41.9 Anxiety disorder, unspecified; Z99.81 Dependence on supplemental oxygen; Z79.4 Long term (current) use of insulin; Z79.82 Long term (current) use of aspirin; Z79.51 Long term (current) use of inhaled steroids; Z79.899 Other long term (current) drug therapy; Z79.891 Long term (current) use of opiate analgesic
CPT/HCPCS: 36415; 71045; 80048; 80053; 82728; 82962; 83605; 83615; 83735; 84145; 85025; 86140; 87040; 87070; 87205; 87449; 87633; 87641; 87804; 87807; 93005; 93971; 94640; 94667; 94668; 99251; 99285; 99406; J7030; J7040; J7050; A4216; G0463; J1940

== ENCOUNTER 2019-10-28 21:59 | Inpatient (IN) | payer MEDICAID, SELFPAY ==
[2019-10-13] VITALS: BMI 43.8
[2019-10-28 22:01] VITALS: BP 92/45; PULSE 83; RESP 17; TEMP 36.5; O2SAT 96; BMI 40.5
--- NOTE | 2019-10-28 22:17 | EKG12_ITS ---
Test Reason : SOB Blood Pressure : / mmHG Vent. Rate : 079 BPM Atrial Rate : 079 BPM P-R Int : 226 ms QRS Dur : 088 ms QT Int : 408 ms P-R-T Axes : 047 164 043 degrees QTc Int : 467 ms Sinus rhythm with 1st degree A-V block Low voltage QRS Septal infarct , age undetermined Abnormal ECG Confirmed by JOSEF ODELL, LILIANA ([id number]), editor farm journal PEGGY CARABALLO ([id number]) on 11/01/2019 10:26:07 AM Referred By: MARIE Confirmed By:LILIANA BAHENA MD
--- NOTE | 2019-10-28 22:18 | ED.DCSUM_ITS ---
History of Present Illness Chief Complaint: General Illness Informant: Patient Narrative: Patient presents with being tired. She stated she was up all night last night with friends talking. She feels more tired this evening. Family called EMS. It is unsure why. She has chronic COPD. She was discharged from the hospital approximately 2 weeks ago for COPD exacerbation with lower lobe pneumonia. She just finished antibiotics. She denies any fevers or chills. She has chronic shortness of breath which she stated is at her baseline. She does not feel like it is different than normal. She has a chronic cough but does not feel like it is different than normal as well. Denies any headache nausea or vomiting or other symptoms. She does have chronic lower extremity lymphedema which has not changed from baseline per patient. Current severity is moderate. Denies any coronavirus or sick contact exposure. Denies any chest pain Past Medical History - Allergies and Home Meds Allergies/Adverse Reactions: Allergies amitriptyline Allergy (Verified 10/28/19 22:05) Unknown lisinopril Allergy (Verified 10/28/19 22:05) Angioedema duloxetine [From Cymbalta] Adverse Reaction (Verified 10/28/19 22:05) Upset Stomach pregabalin [From Lyrica] Adverse Reaction (Verified 10/28/19 22:05) bad dreams varenicline [From Chantix] Adverse Reaction (Verified 10/28/19 22:05) Unknown ZYBETA Allergy (Uncoded 10/28/19 22:05) Other Primary Care Physician: John Burnett DO [Primary Care Provider] - Prior records reviewed: Yes Past Medical History: - - See problem list Surgical History: hysterectomy, tonsillectomy, - - section, tubal ligation Lives: With Family Smoking Status: Current every day smoker Alcohol: None Drugs: None - Family History Maternal Family History: Family History (Last Reviewed 12/13/18 @ 17:35 by MITCHEL Ross) Father CAD (coronary artery disease) Hypertension Sudden cardiac Mother CAD (coronary artery disease) Hypertension Diabetes Family History: Reports: COPD Sibling Family History: Family History (Last Reviewed 12/13/18 @ 17:35 by MITCHEL Ross) Father CAD (coronary artery disease) Hypertension Sudden cardiac Mother CAD (coronary artery disease) Hypertension Diabetes Family History: Reports: - - Psoriasis Review of Systems General: Denies: Chills, Fever, Sweats Eyes: Denies: Visual changes - bilaterally, Diplopia ENT: Denies: Rhinorrhea, Sore throat Cardiovascular: Denies: Chest pain, Palpitations Respiratory: Reports: Dyspnea - Chronic shortness of breath secondary to COPD, Cough - Chronic cough. Denies: Dyspnea on exertion Gastrointestinal: Denies: Abdominal pain, Nausea, Vomiting, Diarrhea, Melena, Hematochezia Genitourinary: Denies: Dysuria, Hematuria, Frequency Musculoskeletal: Denies: Back pain, Extremity Pain Skin: Denies: Rash, Wounds Neurological: Reports: - - Stated she feels tired. Denies: Headache, Weakness, Numbness Physical Exam Vital Signs/Narrative: Vital Signs Temp Pulse Resp BP Pulse Ox 10/28/19 22:01 97.7 F L 83 17 92/45 L 96 General: Well nourished, Well developed, No Acute Distress Head: Normocephalic, Atraumatic Eyes: Perrl, EOMI ENT: Moist mucous membranes, No rhinorrhea Neck: Supple, Nontender Cardiovascular: Regular rate, Regular rhythm, No murmurs Respiratory: No distress, Chest nontender, Wheezing - Tory wheezes throughout all lung rodriguez at the end of her breath. Negative for: CTA bilaterally Abdomen: Soft, Nontender, Nondistended, Normal bowel sounds Back: Nontender, Normal Inspection Extremities: Nontender, No edema Skin: No rash, - - Chronic lower extremity lymphedema with mild chronic redness. I do not feel she has a cellulitis. Negative for: Normal color Neurological: Alert, Oriented x3, Cranial nerves II-XII grossly intact, Normal Strength, Normal Sensation Psychological: Normal affect, Normal Mood, - - Patient awakens and talks to me and answers all my questions. She does fall asleep easily Diagnostic/Tx/Re-eval - Medical Decision Making Lab work chest x-ray EKG obtained. Patient has normal sats on her normal 6 L nasal cannula oxygen that she wears at home. Chest x-ray shows mild interstitial pattern. EKG shows sinus rhythm at a rate of 79 with no acute ischemia or arrhythmia. First-degree heart block. Unchanged from previous EKG October 12, 2019. X-ray of her left foot negative. CT head negative. Lab work shows a very mild leukocytosis of 12,000. ABG obtained shows a pH of 7.35. PCO2 is 72. Sats are 98%. Patient's sodium is significantly low with elevated BUN and creatinine. I suspect that she has prerenal cause of this. Given judicious mild IV fluid therapy. Lab work also shows a negative troponin. Patient was placed on BiPAP initially but I do not feel this is a respiratory cause of her symptoms. She chronically has an elevated CO2 due to her COPD. She was also given a dose of Narcan to try to wake her up further. I talked to the patient's daughter. She stated the reason she called EMS tonight was because her mom was did not want a wake up. Mother stated that she was up all night till 4 AM with a friend and is just exhausted. I do not think the patient has a respiratory cause of her symptoms. She was given breathing treatments initially. On reevaluation she is resting and tired. She awakens to voice and soon falls asleep after. She is able to carry on a conversation. I do not feel she has CO2 narcosis. I did obtain a COVID test due to her chest x-ray pattern. However I feel this is not much different from her recent chest x-ray on the eighth of this month. Nonetheless we will do COVID precautions. Potassium is mildly low. I do not feel it needs to be replaced at this time. Chloride is was well and will be replaced with IV fluids. Blood culture was obtained initially. Discussed with the hospitalist. - Critical Care Time Critical care time (excluding procedures): 30-74 minutes ED Disposition - Plan for ED Patient: Disposition: Acute Care Hospital [facility] Diagnosis: Hypersomnia, Altered mental status, COPD (chronic obstructive pulmonary disease), Hyponatremia, Renal insufficiency Referrals: John Burnett DO [Primary Care Provider] -
--- NOTE | 2019-10-28 22:21 | CT_ITS ---
STUDY: CT BRAIN WITHOUT CONTRAST REASON FOR EXAM: Female, 59 years old. LETHARGIC,FLU LIKE SYMPTOMS,PT GIVEN NARCAN IN ER-HAS HX OF PAIN MED ABUSE -- HX:DIABETES,HTN,COPD,EMPHYSEMA RADIATION DOSAGE (If Supplied By Facility): CTDIvol = ( 44.99 ) mGy, DLP = ( 846.73 ) mGycm TECHNIQUE: Transaxial CT imaging of the brain was performed without administration of intravenous contrast material. Individualized dose optimization techniques were used for this CT. COMPARISON: Prior study of 11/30/2017 FINDINGS: Normal soft tissue structures. Normal calvarium. There is mild cerebral atrophy with widening of the extra-axial spaces and ventricular dilatation. Normal white matter tracts of the cerebral hemispheres. Normal basal ganglia and thalami. Normal brainstem. Normal cerebellum. There is no intracranial hemorrhage. There are no findings of an acute ischemic infarction. Normal visualized paranasal sinuses. CT/Brain/Head without Contrast IMPRESSION: Chronic involutional changes of the brain. Electronically Signed: David Mobley MD at 23:49 EDT , Service support ,
--- NOTE | 2019-10-28 22:22 | RAD_ITS ---
HISTORY: swelling and redness. fell out of chair ADDITIONAL HISTORY: None provided. TECHNIQUE: Left foot 3 views Number of images including paperwork: 3 COMPARISON: None FINDINGS: BONES: No acute fracture. The mineralization appears decreased. JOINTS: No subluxation. SOFT TISSUES: No distinct foreign body. RAD/Foot min 3 Views IMPRESSION: No acute osseous abnormality. at 0000 Reported and signed by: Vijaya Cruz MD Electronically Signed: Vijaya Cruz MD at 0:00 EDT Tel , Service support ,
[2019-10-28 22:36] LABS: Bedside Glucose 374 mg/dL (70-110)
[2019-10-28 22:40] LABS: Absolute Lymphocyte Count 1.93 X10^3/uL (0.83-4.51); Absolute Neutrophil Count 9.7 X10^3/uL (2.0-7.7); Basophil# 0.05 X10^3/uL; Basophil% 0.4 % (0-1); Eosinophil# 0.32 X10^3/uL; Eosinophils% 2.5 % (0-5); Hemoglobin 13.8 g/dL (12.0-15.0); Lymphocyte # 1.93 X10^3/ul (4.0); Lymphocyte % 15.2 % (19-41); Mean Corp Hgb Conc 32.9 g/dL (32-36); Mean Corpuscular Hgb 28.2 pg (27.0-32.0); Mean Corpuscular Volume 85.9 fL (81-99); Mean Platelet Vol. 9.6 fl (6.2-12.0); Monocyte# 0.71 X10^3/uL; Monocyte% 5.6 % (0-10); NRBC Flagged by Analyzer 0 % (0-5); Neutrophil # 9.67 X10^3/uL (2.7-7.7); Neutrophil % 75.9 % (47-70); Platelet Count 286 K/mm3 (150-450); RBC Distribution Width SD 43.6 fl (35.1-43.9); Red Blood Count 4.89 M/mm3 (4.2-5.4); White Blood Count 12.7 K/mm3 (4.4-11.0)
[2019-10-28] MEDS: Ipratropium/Albuterol Sulfate 3 ML AMPUL.NEB INHALATION (22:43)
[2019-10-28] MEDS: Albuterol 2.5 MG/3 ML VIAL.NEB. INHALATION ×3 (22:43)
[2019-10-28 22:44] VITALS: PULSE 76; RESP 14
--- NOTE | 2019-10-28 22:56 | ED.RN ---
GHADA TO CALL FOR INFORMATION [phone]
[2019-10-28 22:57] LABS: Anion Gap 7 (5-15); BUN 37 mg/dL (7-18); BUN/Creat Ratio 27.2 RATIO (10-20); Calcium,Total 8.9 mg/dL (8.5-10.1); Chloride 83 mmol/L (98-107); Creatinine, Serum 1.36 mg/dL (0.55-1.02); EST Glomerular Filtration Rate 42 mL/min (>60); Est Glom Filt Rate - Afr Amer 51 mL/min (>60); Estimated Creatinine Clearance 35.93 ml/min; Glucose 353 mg/dL (74-106); Potassium 3.3 mmol/L (3.5-5.1); Sodium Level 124 mmol/L (136-145)
[2019-10-28 23:01] LABS: BNP,B-Type NATRIURETIC PEPTIDE 55.7 pg/mL (0-100)
[2019-10-28 23:02] LABS: Blood Gas Specimen Type ART
[2019-10-28 23:03] LABS: Allen Test POS; O2 Delivery Device Nasal Can; SITE L RADIAL; Time Given 2246
[2019-10-28 23:04] VITALS: BP 120/85; PULSE 78; RESP 12; TEMP 36.6; O2SAT 97
[2019-10-28 23:04] LABS: Bicarbonate 40.1 mmol/L (22-26); PO2 116 mmHG (75-100); pH 7.35 (7.35-7.45)
[2019-10-28 23:05] LABS: SO2 98 % (95-99); Total Carbon Dioxide 42 mmol/L
[2019-10-28] MEDS: Naloxone 2 MG/2 ML Syringe IV (23:20)
[2019-10-28] MEDS: 0.9% Normal Saline 1,000 ML 150 ML IV (23:27)
--- NOTE | 2019-10-28 23:32 | ED.RN ---
DAUGHTER UPDATED ON PATIENT CONDITION AT THIS TIME
--- NOTE | 2019-10-28 23:35 | RAD_ITS ---
HISTORY: flu like symptoms ADDITIONAL HISTORY: None provided. TECHNIQUE: Frontal chest radiograph. Number of images including paperwork: 1 COMPARISON: 10/13/2019 FINDINGS: LUNGS AND PLEURA: No dense consolidation. Interstitial and ground glass opacities are noted bilaterally, slightly greater on the right than the left. CARDIAC SILHOUETTE: Stably enlarged. MEDIASTINUM AND OLE: Stable. UPPER ABDOMEN: Unremarkable. SKELETON AND SOFT TISSUES: No acute findings. Degenerative changes. OTHER DEVICES AND HARDWARE: None. RAD/Chest 1 View (Portable) IMPRESSION: Bilateral infiltrates, nonspecific but possibly asymmetric edema and/or infection. at 0006 Reported and signed by: Vijaya Cruz MD Electronically Signed: Vijaya Cruz MD at 0:06 EDT Tel , Service support ,
[2019-10-28 23:49] VITALS: PULSE 89; RESP 12; RESP 16; O2SAT 95
[2019-10-28 23:54] VITALS: BP 147/66; PULSE 90; RESP 29; O2SAT 97
[2019-10-29] VITALS (22 sets, daily range): BP systolic 98–148; BP diastolic 55–86; PULSE 70–96; RESP 12–20; TEMP 36.6–37.1; O2SAT 89–99; BMI 44.0
--- NOTE | 2019-10-29 00:52 | HP.PCM_ITS ---
Problem List (1) Acute encephalopathy Status: Acute (2) Chronic respiratory failure with hypoxia Status: Chronic (3) ENRIQUE (obstructive sleep apnea) Status: Chronic (4) Anxiety and depression Status: Chronic (5) Venous stasis dermatitis of both lower extremities Status: Chronic (6) Hypersomnia Status: Acute (7) Altered mental status Status: Acute (8) COPD (chronic obstructive pulmonary disease) Status: Chronic (9) Hyponatremia Status: Acute (10) Diabetic neuropathy Status: Chronic Qualifiers: Diabetes mellitus type: type 2 Diabetes mellitus complication detail: with other neurological complication Qualified Code(s): E11.49 - Type 2 diabetes mellitus with other diabetic neurological complication (11) Chronic narcotic use Status: Chronic (12) Cephalgia Status: Chronic (13) Chronic renal failure, stage 3 (moderate) Status: Chronic (14) Diastolic congestive heart failure Status: Chronic Qualifiers: Heart failure chronicity: chronic Qualified Code(s): I50.32 - Chronic diastolic (congestive) heart failure (15) Acute on chronic respiratory failure with hypoxia and hypercapnia Status: Chronic (16) Essential (primary) hypertension Status: Chronic (17) Morbid obesity Status: Chronic (18) Uncontrolled type II diabetes mellitus Status: Chronic Qualifiers: Glycemic state: with hyperglycemia Qualified Code(s): E11.65 - Type 2 diabetes mellitus with hyperglycemia (19) Nicotine addiction Status: Chronic (20) Depression Status: Chronic (21) Severe chronic obstructive pulmonary disease Status: Chronic (22) Renal insufficiency Status: Inactive History of Present Illness Date of Admission: 10/29/19 Chief Complaint: hypersomnolence The patient is a 59 year old F with a significant history of tobacco abuse; end- stage COPD on chronic 6 L nasal cannula and BiPAP at night who was recently admitted at our hospital (10/12/19 to 10/15/19) for COPD and pneumonia presenting with hypersomnolence. Per daughter after patient has stayed up all night because of a visit with family member patient could not be aroused the following day. History was taken from Emergency department doctor; and daughter over the phone because patient could not produce history. Reportedly on the day of presentation patient fell and developed pain at his left foot. Reportedly her legs gave up. Her daughter reports that although patient has a chronic cough her cough has been more purulent. Daughter denies any increase shortness of breath. Past Medical History Past Medical History (Chronic Problems): Chronic Problems (Last Reviewed 10/29/19 @ 03:[address] Cosmo Brumfield MD) Chronic respiratory failure with hypoxia (Chronic) ENRIQUE (obstructive sleep apnea) (Chronic) Anxiety and depression (Chronic) Venous stasis dermatitis of both lower extremities (Chronic) COPD (chronic obstructive pulmonary disease) (Chronic) Diabetic neuropathy (Chronic) Chronic narcotic use (Chronic) Cephalgia (Chronic) Chronic renal failure, stage 3 (moderate) (Chronic) Diastolic congestive heart failure (Chronic) Acute on chronic respiratory failure with hypoxia and hypercapnia (Chronic) Essential (primary) hypertension (Chronic) Morbid obesity (Chronic) Uncontrolled type II diabetes mellitus (Chronic) Nicotine addiction (Chronic) Depression (Chronic) Severe chronic obstructive pulmonary disease (Chronic) Medical History: Medical History (Last Reviewed 10/29/19 @ 03:[address] Cosmo Brumfeild MD) Essential (primary) hypertension (Chronic) I10 Morbid obesity (Chronic) E66.01 Uncontrolled type II diabetes mellitus (Chronic) E11.65 Nicotine addiction (Chronic) F17.200 Depression (Chronic) F32.9 Severe chronic obstructive pulmonary disease (Chronic) J44.9 Allergies amitriptyline Allergy (Verified 10/28/19 22:05) Unknown lisinopril Allergy (Verified 10/28/19 22:05) Angioedema duloxetine [From Cymbalta] Adverse Reaction (Verified 10/28/19 22:05) Upset Stomach pregabalin [From Lyrica] Adverse Reaction (Verified 10/28/19 22:05) bad dreams varenicline [From Chantix] Adverse Reaction (Verified 10/28/19 22:05) Unknown ZYBETA Allergy (Uncoded 10/28/19 22:05) Other Home Medications: Ambulatory Orders Medication Instructions Recorded Fenofibrate [Tricor] 145 mg PO DAILY 05/20/16 Tiotropium [place] [Spiriva 2 puff IH DAILY 05/20/16 Respimat] Albuterol Aerosols [Ventolin 2.5 mg INHALATION Q6H PRN PRN 02/26/17 Aerosols] Albuterol Inhaler [Ventolin Hfa] 1 - 2 puff INHALATION Q6H PRN PRN 02/26/17 Betamethasone Valerate [Valisone 1 applic TOPICAL BID PRN PRN 02/26/17 0.1% Cream ([facility])] Fluticasone/Vilanterol [Breo 1 puff INHALATION DAILY 02/26/17 Ellipta 200-25 Mcg INH] Loratadine [Claritin] 10 mg PO DAILY 02/26/17 Omeprazole [Prilosec] 40 mg PO DAILY 02/26/17 Simvastatin [Zocor] 40 mg PO QHS 02/26/17 Aspirin [Aspir-Low] 162 mg PO DAILY 09/10/17 Escitalopram Oxalate [Lexapro] 20 mg PO DAILY 09/10/17 Gabapentin [Neurontin] 800 mg PO Q6H 09/10/17 Insulin Human 70/30 [Novolog Mix 60 units SC BREAKFAST 09/10/17 70-30 Flexpen Syrn] Fluticasone 110 Mcg [Flovent 110 1 puff INHALATION BID 11/03/17 Mcg] Oxycodone HCl/Acetaminophen 1 each PO Q4H PRN PRN 11/03/17 [Oxycodone-Acetaminophen 10-325] Topiramate [Topamax] 200 mg PO BID tablet 11/06/17 cycloBENZAPRine HCl [Flexeril] 10 mg PO TID PRN PRN 11/30/17 Furosemide [Lasix] 40 mg PO BID 12/13/18 Magnesium Oxide [Magnesium] 400 mg PO DAILY 12/13/18 Potassium Chloride 20 meq PO BID 12/13/18 Insulin Human 70/30 [Novolog Mix 40 units QHS 10/12/19 70-30 Flexpen Syrn] Sennosides/Docusate Sodium [Colace 1 ea PO BID 10/12/19 2-in-1 Tablet] Amlodipine [Norvasc] 10 mg PO DAILY #30 tab 10/15/19 Ipratropium/Albuterol Sulfate 3 ml INHALATION Q4H #30 ampul.neb 10/15/19 [Duoneb] Levofloxacin [Levaquin] 750 mg PO Q48H #3 tab 10/15/19 Prednisone 10 mg PO DAILY #30 tab 10/15/19 Surgical History: Surgical History (Last Reviewed 10/29/19 @ 03:[address] 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 Cosmo Brumfield MD) Father CAD (coronary artery disease) Hypertension Sudden cardiac Mother CAD (coronary artery disease) Hypertension Diabetes History Items: COPD Sibling Family History: Family History (Last Reviewed 10/29/19 @ 03:[address] Cosmo Brumfield MD) Father CAD (coronary artery disease) Hypertension Sudden cardiac Mother CAD (coronary artery disease) Hypertension Diabetes History Items: - - Psoriasis Review of Systems Unable to obtain accurate/complete ROS d/t: obtunded. Primary source of info is from daughter. VTE Information - Inpt Only VTE Present on Admission: No VTE Mechan Device Prophylaxis: None VTE Pharm Prophylaxis ordered?: Yes Patient Problems: Active and Suspected Problems (Last Reviewed 10/29/19 @ 03:[address] Cosmo Brumfield MD) Hypersomnia (Acute) Altered mental status (Acute) Hyponatremia (Acute) Acute encephalopathy (Acute) - Physical Exam Vitals/I&O's: Vital Signs Temp Pulse Resp BP Pulse Ox 98 F 82 15 98/59 L 96 10/28/19 23:04 10/29/19 00:44 10/29/19 00:44 10/29/19 00:44 10/29/19 00:44 Oxygen Flow Rate (L/min) 2 Oxygen Delivery Method Nasal Cannula Weight: 103.7 kg Body Mass Index (BMI) 40.5 Finger Stick Blood Glucose 107 General: - - Obtunded HEENT: Atraumatic, PERRLA, Normocephalic Neck: Supple, Trachea Midline Lungs: Wheezes - mild Cardiovascular: Regular rate, Normal S1, Normal S2, No murmurs Abdomen: Bowel Sounds Present, Soft, Non Tender Extremities: Edema, Tenderness Skin: No rashes, No breakdown, - - erythema of bilateral legs Musculoskeletal: Tenderness - bilateral legs Neurological: Cranial nerves II-XII grossly intact Psych/Mental Status: - - Obtunded Microbiology Past 72 Hours 10/28/19 21:30 Mucosa - Nose Influenza Types A,B Direct FA (COREEN) - Final Laboratory Results 10/28/19 22:27: POC Glucose 374 H 10/28/19 22:30: WBC 12.7 H, RBC 4.89, Hgb 13.8, Hct 42.0, MCV 85.9, MCH 28.2, MCHC 32.9, RDW Std Deviation 43.6, RDW Coeff of [place] 14.0, Plt Count 286, MPV 9.6, Immature Gran % (Auto) 0.400, Neut % (Auto) 75.9 H, Lymph % (Auto) 15.2 L, [place] % (Auto) 5.6, Eos % (Auto) 2.5, Baso % (Auto) 0.4, Absolute Neuts (auto) 9.7 H, Absolute Lymphs (auto) 1.93, Nucleated RBC % 0 10/28/19 22:30: Sodium 124 L, Potassium 3.3 L, Chloride 83 L, Carbon Dioxide 34.0 H, Anion Gap 7, BUN 37 H, Creatinine 1.36 H, Estim Creat Clear Calc 35.93, Est GFR (MDRD) Af Amer 51 L, Est GFR (MDRD) Non-Af 42 L, BUN/Creatinine Ratio 27.2 H, Glucose 353 H, Calcium 8.9, Troponin I < 0.015 10/28/19 22:30: B-Natriuretic Peptide 55.7 10/28/19 22:37: COVID-19 (THAO) Pending 10/28/19 22:46: Specimen Type ART, Sample Site L RADIAL, pH 7.35, Bicarbonate Actual 40.1 H, POC Total CO2 42, Base Excess Pending, O2 Saturation 98, ABG pCO2 72.0 H*, ABG pO2 116 H, Bob Test POS, O2 Delivery Device Nasal Can, Liter Flow 4.0, Blood Gas Notified Whom ED , Blood Gas Notified Time 7354 Current Medications Sodium Chloride () 1,000 mls @ 150 mls/hr IV .Q6H40M INDRA Last Admin: 10/28/19 23:27 Dose: 150 mls/hr Documented by: Assessment/Plan All Active Problems (Last Reviewed 10/29/19 @ 03:[address] Cosmo Brumfield MD) Hypersomnia (Acute) Altered mental status (Acute) Hyponatremia (Acute) Acute encephalopathy (Acute) The patient is a 59 year old F with a significant history of tobacco abuse; end- stage COPD on chronic 6 L nasal cannula and BiPAP at night who was recently admitted at our hospital (10/12/19 to 10/15/19) for COPD and pneumonia presenting with hypersomnolence consistent with acute encephalopathy. Acute encephalopathy Etiology is unclear. Her PCO2 was elevated so cannot rule out CO2 narcosis. It could also be from effects of narcotics. But of note her pupils were not pinpoint. Resume home BiPAP continued for now. When patient is no longer encephalopathic recommend change BiPAP to qhs as at home.. Hold all medications including narcotics since patient is too lethargic to take any p.o. medication at this time. N.p.o. for now. Impression of chest x-ray: Bilateral infiltrates, nonspecific but a possible symmetrical edema and/or infection. Chest x-ray was independently reviewed. Her white count was minimally elevated at 12.7. Patient was recently at the hospital and receive antibiotics and prednisone. Less likely infection. Watch patient overnight. Covid test was obtained at the emergency department. Follow results. Repeat ABG in a.m. BNP was unremarkable. Fall X-ray of left foot was unremarkable. Consider PT and OT if conveyed rule out and if patient is no longer encephalopathic. Hyponatremia: Na level 124. Sodium level corrected for glucose (353) is 128. Get urine osmolality and serum osmolality. Get urine sodium. Was started on normal saline at the emergency department. Normal saline continued. Trend BMP. Get TSH and cortisol level. Hypokalemia Potassium was 3.3 on presentation. IV potassium ordered. Trend BMP. 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 Stable. Diabetes Mellitus On presentation patient was hyperglycemic. Accu-Chek with correction scale insulin. COPD Patient with mild expiratory wheezes. pH is appropriate. PCO2 is elevated appears above baseline.. His bicarbonate is around her baseline. Placed on scheduled DuoNeb and PRN albuterol. BiPAP continued for now. Change BiPAP to nightly when patient is no longer encephalopathic. Tobacco Abuse A R Specialist when appropriate Morbid Obesity: BMI of 40.5. Complicates care. A R Specialist when appropriate DVT prophylaxis Subcutaneous Lovenox. OBSV E&M: 01903 Initial observation care L3
[2019-10-29] MEDS: 0.9% Normal Saline 1,000 ML 75 ML IV (02:46)
[2019-10-29 02:48] LABS: Absolute Lymphocyte Count 1.19 X10^3/uL (0.83-4.51); Absolute Neutrophil Count 9.8 X10^3/uL (2.0-7.7); Basophil# 0.04 X10^3/uL; Basophil% 0.3 % (0-1); Eosinophil# 0.14 X10^3/uL; Eosinophils% 1.2 % (0-5); Hematocrit 34.8 % (37-47); Hemoglobin 11.6 g/dL (12.0-15.0); Lymphocyte # 1.19 X10^3/ul (4.0); Lymphocyte % 10.1 % (19-41); Mean Corp Hgb Conc 33.3 g/dL (32-36); Mean Corpuscular Hgb 28.2 pg (27.0-32.0); Mean Corpuscular Volume 84.7 fL (81-99); Monocyte# 0.66 X10^3/uL; Monocyte% 5.6 % (0-10); NRBC Flagged by Analyzer 0 % (0-5); Neutrophil # 9.76 X10^3/uL (2.7-7.7); Neutrophil % 82.4 % (47-70); Platelet Count 286 K/mm3 (150-450); RBC Distribution Width CV 13.8 % (11.6-14.6); Red Blood Count 4.11 M/mm3 (4.2-5.4); White Blood Count 11.8 K/mm3 (4.4-11.0)
[2019-10-29 02:56] LABS: Bedside Glucose 339 mg/dL (70-110)
[2019-10-29] MEDS: Insulin Lispro 100 UNIT/ML INSULN.PEN SC ×3 (03:01→16:56)
[2019-10-29 03:02] LABS: Urine Sodium 40 mmol/L (Not Establ.)
[2019-10-29 03:03] LABS: Anion Gap 6 (5-15); BUN 37 mg/dL (7-18); BUN/Creat Ratio 29.6 RATIO (10-20); Calcium,Total 8.2 mg/dL (8.5-10.1); Chloride 86 mmol/L (98-107); Creatinine, Serum 1.25 mg/dL (0.55-1.02); EST Glomerular Filtration Rate 46 mL/min (>60); Est Glom Filt Rate - Afr Amer 56 mL/min (>60); Estimated Creatinine Clearance 33.95 ml/min; Glucose 324 mg/dL (74-106); Sodium Level 128 mmol/L (136-145)
[2019-10-29 03:07] LABS: Vitamin B12 281 pg/mL (211-911)
[2019-10-29 03:08] LABS: Osmolality, Serum 289 mOsm/KG (280-301)
[2019-10-29 03:09] LABS: Osmolality, Urine 269 mOsm/KG
[2019-10-29 03:11] LABS: Thyroid Stim Hormone (TSH) 1.07 uIU/mL (0.358-3.74)
[2019-10-29 06:30] LABS: Base Excess 15 mmol/L (-2 to +2); Bicarbonate 39.7 mmol/L (22-26); PO2 70 mmHG (75-100); SO2 93 % (95-99); Total Carbon Dioxide 42 mmol/L; pCO2 61.9 mmHg (35-45); pH 7.42 (7.35-7.45)
[2019-10-29 06:38] LABS: Allen Test POS; Blood Gas Specimen Type ART; SITE R RADIAL
[2019-10-29 06:40] LABS: O2 Delivery Device Bi Pap; RR 12
[2019-10-29 06:41] LABS: EPAP 18; FI02 25; IPAP 24; Time Given 549
[2019-10-29] MEDS: Ipratropium/Albuterol Sulfate 3 ML AMPUL.NEB INHALATION ×3 (06:42→19:37)
[2019-10-29] MEDS: Albuterol 2.5 MG/3 ML VIAL.NEB. INHALATION (10:45)
--- NOTE | 2019-10-29 11:02 | CCHN_ITS ---
Hospitalist Note Subjective: Patient currently fatigued but awakens to stimuli and on BiPAP still. She notes she is tired and still feels short of breath. Patient had been attempted to transition to nasal cannula however she kept falling asleep therefore staff keep placing her back on BiPAP secondary to concerns of CO2 retention although last ABG with PCO2 similar to prior. She notes generalized discomfort especially in her back but denies any fevers, chills. She does note recent cough. She denies any nausea, emesis, abdominal pain or diarrhea. Rico springrichard denies fevers, chills, nausea, emesis, abdominal pain, chest pain. Objective: T 98.5, heart rate 80, BP 136/68, respiratory rate 16, 97% on BiPAP. The patient is a 59 y/o F w/ PMHx: CKD stage III, ENRIQUE (BIPAP q HS), Anxiety and Depression, Chronic COPD w/ Chronic Hypoxic Respiratory Failure (6L, BIPAP q HS), Diabetes mellitus type II with Neuropathy, Morbid obesity, PVD with chronic BL LE venous stasis dermatitis, Tobacco use who presents to the [facility] ED on 10/29/19 with history of recent admission on 10/15/2019 secondary to COPD exacerbation with pneumonia and hypersomnolence at that time who now represents with history of fall, debility, increased weakness with ongoing cough although possibly more purulent sputum production. 1. Acute Encephalopathy secondary to Acute on Chronic Hypoxic Respiratory Failure secondary to Suspected Acute on Chronic COPD Exacerbation and concurrent Bilateral Pneumonia possible GN/GP versus Acute Viral Syndrome, COVID-19: ED work-up included T 97.7, heart rate 83, BP initially 92/45, respiratory at 17, 96% on 4 L nasal cannula, CBC with WC 12.7, hemoglobin 13.8, platelet 286 with left shift and mild lymphopenia but absolute normal, ABG with pH 7.35, PCO2 72, PO2 116 on 4 L nasal cannula with repeat pH 7.42, PCO2 61.9, PO2 70 with baseline PCO2 levels normally 60-62, BMP with sodium 124, potassium 3.3, chloride 83, carbon dioxide 34, BUN/creatinine 37/1.36, glucose 353, troponin less than 0.015, BNP 55.7, COVID testing pending, rapid influenza negative, blood culture x2 pending per ED, CT brain with no acute intracranial findings, left foot with no acute osseous abnormalities, chest x-ray with bilateral infiltrates. Admitted initially as MedSurg but will transition to at least PCU status given significant hyponatremia and continuous BiPAP usage upon presentation, will wean to home oxygen supplementation as able, continued on ATC duoneb, PRN albuterol, will initiate on Zosyn and Vancomycin given chest x-ray with bilateral infiltrates w/ pending MRSA screen de-escalation as able, HOB, IS parameters w/ requested sputum cultures, urine antigens, respiratory viral panel, procalcitonin, CRP, CPK, Ferritin, LDH, continue supportive care including q 2 hour turning including prone given no prone bed availability and judicious hydration. Given ongoing encephalopathy and BiPAP continued usage since admission will request radial drill press operator/pulmonary consultation. Given pending COVID testing may need to consider intubation. Also given significant wheezing will add steroids for suspected concurrent COPD exacerbation. Discussed case with radial drill press operator/pulmonary physician and he will also evaluate patient. 2. Acute on Chronic Hyponatremia, unclear specific etiology: Admission sodium 124, repeat on 10/29/19 128, magnesium requested, TSH 1.07, cortisol 24.10 drawn at 240 in the morning, serum osmolality 289, Beth 40 random, however, will re- obtain as UFeNa as well as magnesium, trend CMP. 3. Hypokalemia: Admission K+ 3.3, supplementation given, repeat level 10/29/2019 3.0, will administer additional supplementation and request magnesium level, trend CMP. 4. Diabetes mellitus type II: Holding her home regimen, will transition to 30 units twice daily Lantus with first dose now, request hemoglobin A1c, n.p.o. status given encephalopathy, maintain on every 6 hour accu checks w/ ISS. 5. Chronic Kidney Disease Stage III: Admission BUN/Cr 37/1.36, baseline renal function 1.2-1.6, repeat BMP in AM. 6. Tobacco Abuse: Encouraged cessation once more alert. 7. Anxiety and depression: Not on regimen, defer to outpatient. 8. Morbid Obesity: Weight loss and lifestyle changes encouraged. 9. DVT prophylaxis: SCDs, lovenox. Prolonged care time: Patient prolonged care above initial evaluation of 70 minutes, noted to have been admitted after midnight, will required evaluation several times, discussions with ICU/Pulmonary care and RT, alteration and expansion of evaluation and treatments. Time Above initial 70 minutes: 63 minutes. Procedures: 39107 Prolonged InPt Service; first hour
[2019-10-29 11:06] LABS: Bedside Glucose 256 mg/dL (70-110)
[2019-10-29] MEDS: Enoxaparin 40 MG/0.4 ML Syringe SC (11:20)
--- NOTE | 2019-10-29 11:54 | RAD_ITS ---
STUDY: X-RAY CHEST REASON FOR EXAM: Female, 59 years old. DYSPNEA, WHEEZING TECHNIQUE: Single AP portable view of the chest. COMPARISON: Comparison is made with prior study dated October 28, 2019. FINDINGS: EKG electrodes are seen. The lungs are clear and expanded. There is no demonstrated pleural abnormality. Normal size heart. Normal mediastinum and [place]. There is prominence of the pulmonary hilar arteries without peripheral pulmonary vascular congestion, suggesting pulmonary hypertension. There is atherosclerotic calcification of the aortic arch with tortuosity. There are diffuse degenerative changes of the visualized thoracic spine. Normal visualized ribs, clavicles, and shoulders. There is no demonstrated abnormality of the visualized soft tissue structures of the upper abdomen. RAD/Chest 1 View (Portable) IMPRESSION: Prominence of the right infrahilar region suggestive of enlargement of the right pulmonary artery. Electronically Signed: Sergo Mata, at 12:15 EDT , Service support ,
--- NOTE | 2019-10-29 12:02 | PCM.CON.CC ---
Reason for Consult Date of Consultation: 10/29/19 Reason for Consultation: Acute respiratory failure History of Present Illness: The patient is a 59-year-old female, with a history as outlined below, who presented to the emergency department on October 27 with complaints of generalized malaise and fatigue. The patient was just discharged from the hospital approximately 2 weeks ago after having been admitted for a COPD exacerbation. The patient has baseline, known severe COPD based upon pulmonary function studies completed in November 2016. For a period of time, the patient was seen in the pulmonary medicine clinic. However, the patient has been lost to follow-up for several years. The patient does also have known moderate to severe obstructive sleep apnea, for which it was recommended that she be on nocturnal BiPAP with a pressure support of / with a 2 L/min supplemental oxygen bleed, based upon her split-night sleep study from December 2017. On presentation to the emergency department, the patient was noted to be afebrile and hemodynamically stable. Initial laboratory work-up revealed a elevated white blood cell count to 13,000. Arterial blood gas obtained on 4 L/min revealed a pH of 7.35 with a corresponding PCO2 of 72 and PO2 of 116. Chemistry profile was notable for a sodium of 124, chloride of 83, potassium of 3.3, bicarbonate of 34 and creatinine of 1.36. Troponin was negative. BNP was within normal limits. CT head revealed chronic involutional changes of the brain. Plain film chest x-ray revealed bilateral interstitial infiltrates, right greater than left. The patient was provided with supplemental IV fluids and placed on antimicrobials. She did require BiPAP therapy due to CO2 retention. The patient was then admitted to the medical intensive care unit for further management. COVID testing was sent in the emergency department. Past Medical History Past Medical History (Chronic Problems): Chronic Problems (Last Reviewed 10/29/19 @ 03:[address] Cosmo Brumfield MD) Chronic respiratory failure with hypoxia (Chronic) ENRIQUE (obstructive sleep apnea) (Chronic) Anxiety and depression (Chronic) Venous stasis dermatitis of both lower extremities (Chronic) COPD (chronic obstructive pulmonary disease) (Chronic) Diabetic neuropathy (Chronic) Chronic narcotic use (Chronic) Cephalgia (Chronic) Chronic renal failure, stage 3 (moderate) (Chronic) Diastolic congestive heart failure (Chronic) Acute on chronic respiratory failure with hypoxia and hypercapnia (Chronic) Essential (primary) hypertension (Chronic) Morbid obesity (Chronic) Uncontrolled type II diabetes mellitus (Chronic) Nicotine addiction (Chronic) Depression (Chronic) Severe chronic obstructive pulmonary disease (Chronic) Medical History: Medical History (Last Reviewed 10/29/19 @ 03:[address] Cosmo Brumfield MD) Essential (primary) hypertension (Chronic) I10 Morbid obesity (Chronic) E66.01 Uncontrolled type II diabetes mellitus (Chronic) E11.65 Nicotine addiction (Chronic) F17.200 Depression (Chronic) F32.9 Severe chronic obstructive pulmonary disease (Chronic) J44.9 Allergies amitriptyline Allergy (Verified 10/28/19 22:05) Unknown lisinopril Allergy (Verified 10/28/19 22:05) Angioedema duloxetine [From Cymbalta] Adverse Reaction (Verified 10/28/19 22:05) Upset Stomach pregabalin [From Lyrica] Adverse Reaction (Verified 10/28/19 22:05) bad dreams varenicline [From Chantix] Adverse Reaction (Verified 10/28/19 22:05) Unknown ZYBETA Allergy (Uncoded 10/28/19 22:05) Other Home Medications: Ambulatory Orders Medication Instructions Recorded Fenofibrate [Tricor] 145 mg PO DAILY 05/20/16 Tiotropium [place] [Spiriva 2 puff IH DAILY 05/20/16 Respimat] Albuterol Aerosols [Ventolin 2.5 mg INHALATION Q6H PRN PRN 02/26/17 Aerosols] Albuterol Inhaler [Ventolin Hfa] 1 - 2 puff INHALATION Q6H PRN PRN 02/26/17 Betamethasone Valerate [Valisone 1 applic TOPICAL BID PRN PRN 02/26/17 0.1% Cream (BKC)] Fluticasone/Vilanterol [Breo 1 puff INHALATION DAILY 02/26/17 Ellipta 200-25 Mcg INH] Loratadine [Claritin] 10 mg PO DAILY 02/26/17 Omeprazole [Prilosec] 40 mg PO DAILY 02/26/17 Simvastatin [Zocor] 40 mg PO QHS 02/26/17 Aspirin [Aspir-Low] 162 mg PO DAILY 09/10/17 Escitalopram Oxalate [Lexapro] 20 mg PO DAILY 09/10/17 Gabapentin [Neurontin] 800 mg PO Q6H 09/10/17 Insulin Human 70/30 [Novolog Mix 60 units SC BREAKFAST 09/10/17 70-30 Flexpen Syrn] Fluticasone 110 Mcg [Flovent 110 1 puff INHALATION BID 11/03/17 Mcg] Oxycodone HCl/Acetaminophen 1 each PO Q4H PRN PRN 11/03/17 [Oxycodone-Acetaminophen 10-325] Topiramate [Topamax] 200 mg PO BID tablet 11/06/17 cycloBENZAPRine HCl [Flexeril] 10 mg PO TID PRN PRN 11/30/17 Furosemide [Lasix] 40 mg PO BID 12/13/18 Magnesium Oxide [Magnesium] 400 mg PO DAILY 12/13/18 Potassium Chloride 20 meq PO BID 12/13/18 Insulin Human 70/30 [Novolog Mix 40 units QHS 10/12/19 70-30 Flexpen Syrn] Sennosides/Docusate Sodium [Colace 1 ea PO BID 10/12/19 2-in-1 Tablet] Amlodipine [Norvasc] 10 mg PO DAILY #30 tab 10/15/19 Ipratropium/Albuterol Sulfate 3 ml INHALATION Q4H #30 ampul.neb 10/15/19 [Duoneb] Levofloxacin [Levaquin] 750 mg PO Q48H #3 tab 10/15/19 Prednisone 10 mg PO DAILY #30 tab 10/15/19 Surgical History: Surgical History (Last Reviewed 10/29/19 @ 03:[address] Cosmo Brumfield MD) H/O colonoscopy Z98.890 History of hysterectomy Z90.710 History of lung biopsy Z98.890 Previous section Z98.891 Surgical History: hysterectomy, tonsillectomy, - - section, tubal ligation Psychiatric History: No pertinent psych hx FIELD SCOUT History: No pertinent FIELD SCOUT history Lives: With Family Smoking Status: Current every day smoker Alcohol: None Drugs: None - *Family History Maternal Family History: Family History (Last Reviewed 10/29/19 @ 03:[address] Cosmo Brumfield MD) Father CAD (coronary artery disease) Hypertension Sudden cardiac Mother CAD (coronary artery disease) Hypertension Diabetes History Items: COPD Sibling Family History: Family History (Last Reviewed 10/29/19 @ 03:[address] Cosmo Brumfield MD) Father CAD (coronary artery disease) Hypertension Sudden cardiac Mother CAD (coronary artery disease) Hypertension Diabetes History Items: - - Psoriasis Review of Systems Constitutional: Reports: Malaise, Fatigue. Denies: Chills, Fever Eyes: Denies: Blurred vision, Double vision HEENT: Denies: Head Aches, Sinus Congestion, Sinus Drainage Cardiovascular: Reports: Edema. Denies: Chest Pain, Palpitations Respiratory: Reports: Cough, Shortness of Breath, Wheezing Gastrointestinal: Denies: Abdominal Pain, Nausea, Vomiting Genitourinary: Denies: Dysuria Musculoskeletal: Denies: Joint Pain, Joint Tenderness Skin: Denies: Rash, Wounds Neurological: Denies: Numbness, Tingling, Focal weakness Psychiatric: Denies: Anxiety, Depression, Homicidal Ideations, Suicidal Ideations Hematologic/ Lymphatic: Reports: Anemia Patient Problems: Active and Suspected Problems (Last Reviewed 10/29/19 @ 03:[address] Cosmo Brumfield MD) Hypersomnia (Acute) Altered mental status (Acute) Hyponatremia (Acute) Acute encephalopathy (Acute) Objective: The patient's most recent lab work, culture data and imaging studies have all been personally reviewed. - Physical Exam Vitals/I&O's: Vital Signs Temp Pulse Resp BP Pulse Ox 98.5 F 80 16 136/68 H 94 10/29/19 07:30 10/29/19 07:30 10/29/19 07:30 10/29/19 07:30 10/29/19 10:46 Oxygen Flow Rate (L/min) 6 Oxygen Delivery Method Nasal Cannula Weight: 225 lb 8.526 oz Body Mass Index (BMI) 44.0 Finger Stick Blood Glucose 107 Intake and Output for Last 24 Hours 10/27/19 10/28/19 10/29/19 23:59 23:59 23:59 Intake Total 2631.25 / 2631.25 Balance 2631.25 / 2631.25 General: Alert, - - BiPAP mask remains in place. The patient is easily arousable to verbal stimulation. HEENT: Atraumatic, PERRLA, Normocephalic Oral: Dry Mucosa Neck: Supple, No Nodes, Trachea Midline Lungs: No rhonchi, No wheeze, No rales, Diminished Cardiovascular: Regular rate, Regular Rhythm, Normal S1, Normal S2 Abdomen: Bowel Sounds Present, Soft, Non Tender, Obese Extremities: No clubbing, No cyanosis, Edema Skin: - - Lower extremity venous stasis dermatitis Musculoskeletal: No Muscle Wasting Lymphatic: No Cervical, Supraclavicular, or Inguinal Adenopathy Neurological: Neuro grossly intact Psych/Mental Status: Normal Affect, Appropriate Labs (Last 48 Hours) 10/28/19 10/28/19 10/28/19 22:27 22:30 22:30 WBC 12.7 H RBC 4.89 Hgb 13.8 Hct 42.0 MCV 85.9 MCH 28.2 MCHC 32.9 RDW Std Deviation 43.6 RDW Coeff of [place] 14.0 Plt Count 286 MPV 9.6 Immature Gran % (Auto) 0.400 Neut % (Auto) 75.9 H Lymph % (Auto) 15.2 L [place] % (Auto) 5.6 Eos % (Auto) 2.5 Baso % (Auto) 0.4 Absolute Neuts (auto) 9.7 H Absolute Lymphs (auto) 1.93 Nucleated RBC % 0 Specimen Type Sample Site pH Bicarbonate Actual POC Total CO2 Base Excess O2 Saturation O2 % ABG pCO2 ABG pO2 Bob Test Respiration Rate O2 Delivery Device Liter Flow EPAP IPAP Blood Gas Notified Whom Blood Gas Notified Time Sodium 124 L Potassium 3.3 L Chloride 83 L Carbon Dioxide 34.0 H Anion Gap 7 BUN 37 H Creatinine 1.36 H Estim Creat Clear Calc 35.93 Est GFR (MDRD) Af Amer 51 L Est GFR (MDRD) Non-Af 42 L BUN/Creatinine Ratio 27.2 H Glucose 353 H Hemoglobin A1c Serum Osmolality Calcium 8.9 Magnesium Ferritin Lactate Dehydrogenase Troponin I < 0.015 C-React Prot Ext Range B-Natriuretic Peptide Vitamin B12 Procalcitonin TSH Cortisol Urine Osmolality Ur Random Sodium COVID-19 (THAO) POC Glucose 374 H 10/28/19 10/28/19 10/28/19 22:30 22:37 22:46 WBC RBC Hgb Hct MCV MCH MCHC RDW Std Deviation RDW Coeff of [place] Plt Count MPV Immature Gran % (Auto) Neut % (Auto) Lymph % (Auto) [place] % (Auto) Eos % (Auto) Baso % (Auto) Absolute Neuts (auto) Absolute Lymphs (auto) Nucleated RBC % Specimen Type ART Sample Site L RADIAL pH 7.35 Bicarbonate Actual 40.1 H POC Total CO2 42 Base Excess Pending O2 Saturation 98 O2 % ABG pCO2 72.0 H* ABG pO2 116 H Bob Test POS Respiration Rate O2 Delivery Device Nasal Can Liter Flow 4.0 EPAP IPAP Blood Gas Notified Whom ED MD Blood Gas Notified Time 2246 Sodium Potassium Chloride Carbon Dioxide Anion Gap BUN Creatinine Estim Creat Clear Calc Est GFR (MDRD) Af Amer Est GFR (MDRD) Non-Af BUN/Creatinine Ratio Glucose Hemoglobin A1c Serum Osmolality Calcium Magnesium Ferritin Lactate Dehydrogenase Troponin I C-React Prot Ext Range B-Natriuretic Peptide 55.7 Vitamin B12 Procalcitonin TSH Cortisol Urine Osmolality Ur Random Sodium COVID-19 (THAO) Pending POC Glucose 10/29/19 10/29/19 10/29/19 02:38 02:40 02:40 WBC RBC Hgb Hct MCV MCH MCHC RDW Std Deviation RDW Coeff of [place] Plt Count MPV Immature Gran % (Auto) Neut % (Auto) Lymph % (Auto) [place] % (Auto) Eos % (Auto) Baso % (Auto) Absolute Neuts (auto) Absolute Lymphs (auto) Nucleated RBC % Specimen Type Sample Site pH Bicarbonate Actual POC Total CO2 Base Excess O2 Saturation O2 % ABG pCO2 ABG pO2 Bob Test Respiration Rate O2 Delivery Device Liter Flow EPAP IPAP Blood Gas Notified Whom Blood Gas Notified Time Sodium Potassium Chloride Carbon Dioxide Anion Gap BUN Creatinine Estim Creat Clear Calc Est GFR (MDRD) Af Amer Est GFR (MDRD) Non-Af BUN/Creatinine Ratio Glucose Hemoglobin A1c Serum Osmolality 289 Calcium Magnesium Ferritin Lactate Dehydrogenase Troponin I C-React Prot Ext Range B-Natriuretic Peptide Vitamin B12 281 Procalcitonin TSH Cortisol 24.10 H Urine Osmolality Ur Random Sodium COVID-19 (THAO) POC Glucose 339 H 10/29/19 10/29/19 10/29/19 02:40 02:40 02:40 WBC 11.8 H RBC 4.11 L Hgb 11.6 L Hct 34.8 L MCV 84.7 MCH 28.2 MCHC 33.3 RDW Std Deviation 43.0 RDW Coeff of [place] 13.8 Plt Count 286 MPV 9.0 Immature Gran % (Auto) 0.400 Neut % (Auto) 82.4 H Lymph % (Auto) 10.1 L [place] % (Auto) 5.6 Eos % (Auto) 1.2 Baso % (Auto) 0.3 Absolute Neuts (auto) 9.8 H Absolute Lymphs (auto) 1.19 Nucleated RBC % 0 Specimen Type Sample Site pH Bicarbonate Actual POC Total CO2 Base Excess O2 Saturation O2 % ABG pCO2 ABG pO2 Bob Test Respiration Rate O2 Delivery Device Liter Flow EPAP IPAP Blood Gas Notified Whom Blood Gas Notified Time Sodium 128 L Potassium 3.0 L Chloride 86 L Carbon Dioxide 36.0 H Anion Gap 6 BUN 37 H Creatinine 1.25 H Estim Creat Clear Calc 33.95 Est GFR (MDRD) Af Amer 56 L Est GFR (MDRD) Non-Af 46 L BUN/Creatinine Ratio 29.6 H Glucose 324 H Hemoglobin A1c Serum Osmolality Calcium 8.2 L Magnesium Ferritin Lactate Dehydrogenase Troponin I C-React Prot Ext Range B-Natriuretic Peptide Vitamin B12 Procalcitonin TSH 1.07 Cortisol Urine Osmolality Ur Random Sodium COVID-19 (THAO) POC Glucose 10/29/19 10/29/19 10/29/19 02:40 02:40 02:50 WBC RBC Hgb Hct MCV MCH MCHC RDW Std Deviation RDW Coeff of [place] Plt Count MPV Immature Gran % (Auto) Neut % (Auto) Lymph % (Auto) [place] % (Auto) Eos % (Auto) Baso % (Auto) Absolute Neuts (auto) Absolute Lymphs (auto) Nucleated RBC % Specimen Type Sample Site pH Bicarbonate Actual POC Total CO2 Base Excess O2 Saturation O2 % ABG pCO2 ABG pO2 Bob Test Respiration Rate O2 Delivery Device Liter Flow EPAP IPAP Blood Gas Notified Whom Blood Gas Notified Time Sodium Potassium Chloride Carbon Dioxide Anion Gap BUN Creatinine Estim Creat Clear Calc Est GFR (MDRD) Af Amer Est GFR (MDRD) Non-Af BUN/Creatinine Ratio Glucose Hemoglobin A1c Pending Serum Osmolality Calcium Magnesium 2.5 Ferritin 139 Lactate Dehydrogenase 239 Troponin I C-React Prot Ext Range 57.70 H B-Natriuretic Peptide Vitamin B12 Procalcitonin TSH Cortisol Urine Osmolality 269 Ur Random Sodium COVID-19 (THAO) POC Glucose 10/29/19 10/29/19 10/29/19 02:50 05:28 05:49 WBC RBC Hgb Hct MCV MCH MCHC RDW Std Deviation RDW Coeff of [place] Plt Count MPV Immature Gran % (Auto) Neut % (Auto) Lymph % (Auto) [place] % (Auto) Eos % (Auto) Baso % (Auto) Absolute Neuts (auto) Absolute Lymphs (auto) Nucleated RBC % Specimen Type ART Sample Site R RADIAL pH 7.42 Bicarbonate Actual 39.7 H POC Total CO2 42 Base Excess 15 H O2 Saturation 93 L O2 % 25 ABG pCO2 61.9 H ABG pO2 70 L Bob Test POS Respiration Rate 12 O2 Delivery Device Bi Pap Liter Flow EPAP 18 IPAP 24 Blood Gas Notified Whom [facility] Blood Gas Notified Time 549 Sodium Potassium Chloride Carbon Dioxide Anion Gap BUN Creatinine Estim Creat Clear Calc Est GFR (MDRD) Af Amer Est GFR (MDRD) Non-Af BUN/Creatinine Ratio Glucose Hemoglobin A1c Serum Osmolality Calcium Magnesium Ferritin Lactate Dehydrogenase Troponin I C-React Prot Ext Range B-Natriuretic Peptide Vitamin B12 Procalcitonin TSH Cortisol Urine Osmolality Ur Random Sodium 40 COVID-19 (THAO) POC Glucose 256 H 10/29/19 11:50 WBC RBC Hgb Hct MCV MCH MCHC RDW Std Deviation RDW Coeff of [place] Plt Count MPV Immature Gran % (Auto) Neut % (Auto) Lymph % (Auto) [place] % (Auto) Eos % (Auto) Baso % (Auto) Absolute Neuts (auto) Absolute Lymphs (auto) Nucleated RBC % Specimen Type Sample Site pH Bicarbonate Actual POC Total CO2 Base Excess O2 Saturation O2 % ABG pCO2 ABG pO2 Bob Test Respiration Rate O2 Delivery Device Liter Flow EPAP IPAP Blood Gas Notified Whom Blood Gas Notified Time Sodium Potassium Chloride Carbon Dioxide Anion Gap BUN Creatinine Estim Creat Clear Calc Est GFR (MDRD) Af Amer Est GFR (MDRD) Non-Af BUN/Creatinine Ratio Glucose Hemoglobin A1c Serum Osmolality Calcium Magnesium Ferritin Lactate Dehydrogenase Troponin I C-React Prot Ext Range B-Natriuretic Peptide Vitamin B12 Procalcitonin Pending TSH Cortisol Urine Osmolality Ur Random Sodium COVID-19 (THAO) POC Glucose Microbiology 10/28/19 21:30 Mucosa - Nose Influenza Types A,B Direct FA (COREEN) - Final Clinical Impression(s) from Imaging Studies Brain CT 10/28/19 22:21 IMPRESSION: Chronic involutional changes of the brain. Electronically Signed: David Mobley MD at 23:49 EDT , Service support , Foot X-Ray 10/28/19 22:22 IMPRESSION: No acute osseous abnormality. at 0000 Reported and signed by: Vijaya Cruz MD Electronically Signed: Vijaya Cruz MD at 0:00 EDT Tel , Service support , Chest X-Ray 10/28/19 23:35 IMPRESSION: Bilateral infiltrates, nonspecific but possibly asymmetric edema and/or infection. at 0006 Reported and signed by: Vijaya Cruz MD Electronically Signed: Vijaya Cruz MD at 0:06 EDT Tel , Service support , Current Medications Acetaminophen (Tylenol) 650 mg RECTAL Q4H PRN PRN PRN Reason: fever, pain 1-10 Acetaminophen (Tylenol) 650 mg PO Q6H PRN PRN PRN Reason: Pain Score 1-10/Temp > 100.7 F Albuterol Sulfate (Ventolin Aerosols) 2.5 mg INHALATION Q2H PRN PRN PRN Reason: Shortness of Breath/Wheezing Last Admin: 10/29/19 10:45 Dose: 2.5 mg Documented by: Albuterol/Ipratropium (Duoneb) 3 ml INHALATION Q4HWA.RT [facility] Last Admin: 10/29/19 10:45 Dose: Not Given Documented by: Dextrose (D50w Syringe) 0 gm IV X1 PRN; Protocol PRN Reason: Hypoglycemia Enoxaparin Sodium (Lovenox) 40 mg SC DAILY [facility] Last Admin: 10/29/19 11:20 Dose: 40 mg Documented by: Glucagon () 1 mg IM .X1 PRN PRN Reason: Hypoglycemia Hydralazine HCl (Apresoline Iv) 10 mg IV Q4H PRN PRN PRN Reason: SBP > 160 Sodium Chloride () 1,000 mls @ 100 mls/hr IV .Q10H INDRA Piperacillin Sod/Tazobactam (Sod 3.375 gm/ Sodium Chloride) 50 mls @ 12.5 mls/hr IV Q8 INDRA Vancomycin IV Pharmacy to Dose (1 ea/ Sodium Chloride) 500 mls @ 250 mls/hr IV X1 PRN; Protocol PRN Reason: Rx to Dose Vancomycin HCl 2,000 mg/ (Sodium Chloride) 540 mls @ 250 mls/hr IV X1 ONE Stop: 10/29/19 14:09 Potassium Chloride () 10 meq in 100 mls @ 100 mls/hr IV BOLUS Q1H INDRA Stop: 10/29/19 15:29 Insulin Glargine (Lantus (Bkc)) 30 units SC BID INDRA Insulin Human Lispro (Humalog Kwikpen (Bkc)) 0 unit SC Q6 INDRA; Protocol Methylprednisolone (Solu-Medrol) 40 mg IV Q8 INDRA Ondansetron HCl (Zofran) 4 mg IV Q8H PRN PRN PRN Reason: NAUSEA/VOMITING Sodium Chloride () 10 - 40 ml IV UD PRN PRN Reason: SALINE FLUSH Assessment/Plan Active and Suspected Problems (Last Reviewed 10/29/19 @ 03:[address] Cosmo Brumfield MD) Hypersomnia (Acute) Altered mental status (Acute) Hyponatremia (Acute) Acute encephalopathy (Acute) RECOMMENDATIONS: 1. Continue BiPAP therapy and wean to maintain oxygen saturations between 88 and 92%. 2. Continue empiric antimicrobials, pending infectious work-up. 3. Continue scheduled bronchodilators and IV steroids. 4. Await COVID test results. 5. Continue appropriate ICU prophylaxis. IMPRESSIONS: 1. Acute on chronic combined respiratory failure Likely secondary to COPD with exacerbation due to underlying healthcare associated pneumonia versus potential viral etiology, including COVID-19. The patient has responded appropriately to BiPAP therapy. Plan to wean from noninvasive positive pressure ventilatory support. The patient does have baseline CO2 retention. Therefore, recommend weaning supplemental oxygen to maintain saturations between 88 and 92%. Continue empiric antimicrobials, pending infectious work-up. Continue scheduled bronchodilators and IV steroids. 2. Hypercarbic encephalopathy Continue current supportive measures with noninvasive positive pressure ventilatory support. The patient CO2 narcosis has responded appropriately to the aforementioned therapy. Recommend avoiding sedating medications. 3. Obstructive sleep apnea The patient has a baseline BiPAP requirement of 24/18 + 2L/min, based upon split-night sleep study last completed in December 2017. This note was generated with [employer]ave [employer] dictation software. It may contain incorrect words, spelling, and punctuation that were not noted in checking the note before signing. Inpatient E&M: 72332 Init Hosp L3
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
[2019-10-29 12:10] LABS: Ferritin 139 ng/mL (8-252); LDH 239 U/L (84-246); Magnesium 2.5 mg/dL (1.6-2.6)
[2019-10-29 12:35] LABS: Procalcitonin 0.38 ng/mL (0.00-0.09)
[2019-10-29 12:37] LABS: Hemoglobin A1c 9.6 % (4.2-6.3)
[2019-10-29] MEDS: 0.9% Normal Saline 1,000 ML 100 ML IV (13:20)
[2019-10-29] MEDS: MethylPREDNISolone 125 MG/2 ML Vial IV (13:20)
--- NOTE | 2019-10-29 15:42 | PCM.RX.CS ---
Consult Pharmacy has been consulted to manage selected antiobiotic: Vancomycin Type of Consult: New start Suspected Infection: Pneumonia Prior Doses of Antibiotics Received/Current Regimen: Received loading dose of 2gm iv x 1 10.29.19 @1420. Labs: Sodium 128 mmol/L (136-145) L 10/29/19 02:40 Potassium 3.0 mmol/L (3.5-5.1) L 10/29/19 02:40 Chloride 86 mmol/L (98-107) L 10/29/19 02:40 Carbon Dioxide 36.0 mmol/L (21.0-32.0) H 10/29/19 02:40 Anion Gap 6 (5-15) 10/29/19 02:40 BUN 37 mg/dL (7-18) H 10/29/19 02:40 Creatinine 1.25 mg/dL (0.55-1.02) H 10/29/19 02:40 Est GFR (MDRD) Af Amer 56 mL/min (>60) L 10/29/19 02:40 Est GFR (MDRD) Non-Af 46 mL/min (>60) L 10/29/19 02:40 BUN/Creatinine Ratio 29.6 RATIO (10-20) H 10/29/19 02:40 Glucose 324 mg/dL (74-106) H 10/29/19 02:40 Microbiology: Microbiology 10/28/19 21:30 Mucosa - Nose Influenza Types A,B Direct FA (COREEN) - Final Weight used for dosin kg Estimated Creatinine Clearance: ~51ml/min Goal Trough: 15-20 mcg/mL Pharmacy Plan for Drug Dosing: Renal function of Cr 1.25 with calculated CrCl of ~51ml/min for adjusted body weight. Will begin 1gm iv q12h starting 12hrs after loading dose. Trough level has been ordered for before 4th total dose with goal range of 15-20mcg/ml. Pharmacy Service will continue to monitor and adjust dosing as required. Follow-Up Labs: Trough Vancomycin - 10.30. @0130 before 0200 dose
[2019-10-29 16:02] LABS: Urine Sodium 32 mmol/L (Not Establ.)
[2019-10-29 17:10] LABS: Bedside Glucose 224 mg/dL (70-110)
[2019-10-29 18:21] LABS: M R Staph aureus DNA By PCR Negative (Negative); Probe Check PASS; Specimen Processing Control PASS
--- NOTE | 2019-10-29 19:29 | NURSING ---
Son and SVETLANA Rodriguez called in to check on pt. He is requesting we keep patient here as long as possible, to help her quit smoking. Notified son that pt must have a medical reason to be here and if not she will be discharged at that time. Notified that pt could go to ECF or rehab and son states that patient made him promise that he would not place pt in ECF OR any rehab. He states that he will not allow that to happen.
[2019-10-29 21:31] LABS: Bedside Glucose 137 mg/dL (70-110)
[2019-10-29 23:05] LABS: Bedside Glucose 238 mg/dL (70-110)
[2019-10-30] VITALS (16 sets, daily range): BP systolic 114–159; BP diastolic 46–67; PULSE 68–84; RESP 12–20; TEMP 36.7–37.1; O2SAT 92–99
[2019-10-30] MEDS: Vancomycin IV 1,000 MG/200 ML BAG 200 MG IV ×2 (01:33→13:02)
[2019-10-30 01:36] LABS: Bedside Glucose 255 mg/dL (70-110)
[2019-10-30] MEDS: Insulin Lispro 100 UNIT/ML INSULN.PEN SC ×5 (01:43→22:29)
[2019-10-30] MEDS: 0.9% Normal Saline 1,000 ML 100 ML IV ×3 (01:44→19:58)
--- NOTE | 2019-10-30 05:55 | RAD_ITS ---
HISTORY: DYSPNEA AND COUGH ADDITIONAL HISTORY: None provided. TECHNIQUE: Frontal chest radiograph. Number of images including paperwork: 1 COMPARISON: 10/29/2019 FINDINGS: LUNGS AND PLEURA: No consolidation, mass or pleural effusion. CARDIAC SILHOUETTE: Stable. MEDIASTINUM AND OLE: Unremarkable. UPPER ABDOMEN: Unremarkable. SKELETON AND SOFT TISSUES: No acute findings. Degenerative changes. OTHER DEVICES AND HARDWARE: None. RAD/Chest 1 View (Portable) IMPRESSION: No acute findings on this portable exam. Follow-up as clinically indicated. at 0614 Reported and signed by: Vijaya Cruz MD Electronically Signed: Vijaya Cruz MD at 6:14 EDT Tel , Service support ,
[2019-10-30] MEDS: 0.9% Saline Lock 10 ML Syringe IV (06:37)
[2019-10-30 06:56] LABS: Bedside Glucose 233 mg/dL (70-110)
[2019-10-30] MEDS: Ipratropium/Albuterol Sulfate 3 ML AMPUL.NEB INHALATION ×4 (06:57→19:50)
[2019-10-30 07:00] LABS: Absolute Lymphocyte Count 0.77 X10^3/uL (0.83-4.51); Basophil# 0.04 X10^3/uL; Basophil% 0.4 % (0-1); Eosinophil# 0.01 X10^3/uL; Eosinophils% 0.1 % (0-5); Hematocrit 34.3 % (37-47); Hemoglobin 11.2 g/dL (12.0-15.0); Lymphocyte # 0.77 X10^3/ul (4.0); Lymphocyte % 8.2 % (19-41); Mean Corp Hgb Conc 32.7 g/dL (32-36); Mean Corpuscular Hgb 28.5 pg (27.0-32.0); Mean Corpuscular Volume 87.3 fL (81-99); Mean Platelet Vol. 9.1 fl (6.2-12.0); Monocyte# 0.49 X10^3/uL; Monocyte% 5.2 % (0-10); NRBC Flagged by Analyzer 0 % (0-5); Neutrophil # 8.01 X10^3/uL (2.7-7.7); Neutrophil % 85.6 % (47-70); Platelet Count 263 K/mm3 (150-450); RBC Distribution Width CV 14.1 % (11.6-14.6); RBC Distribution Width SD 44.9 fl (35.1-43.9); Red Blood Count 3.93 M/mm3 (4.2-5.4); White Blood Count 9.4 K/mm3 (4.4-11.0)
[2019-10-30 07:33] LABS: ALB/GLOB Ratio 0.6 RATIO (0.9-2.4); AST(SGOT) 15 U/L (15-37); Alanine Aminotransfer ALT/SGPT 20 U/L (13-56); Albumin, Serum 2.4 g/dL (3.2-5.0); Alkaline Phosphatase 86 U/L (45-117); Anion Gap 6 (5-15); BUN 26 mg/dL (7-18); BUN/Creat Ratio 26.7 RATIO (10-20); Calcium,Total 8.6 mg/dL (8.5-10.1); Chloride 99 mmol/L (98-107); Creatinine, Serum 0.97 mg/dL (0.55-1.02); EST Glomerular Filtration Rate 62 mL/min (>60); Est Glom Filt Rate - Afr Amer 75 mL/min (>60); Estimated Creatinine Clearance 43.75 ml/min; Glucose 217 mg/dL (74-106); Potassium 3.1 mmol/L (3.5-5.1); Protein, Total 6.4 g/dL (6.4-8.2); Sodium Level 135 mmol/L (136-145)
--- NOTE | 2019-10-30 07:55 | PCM.PN.HOSP ---
Patient Problems: Active and Suspected Problems (Last Reviewed 10/29/19 @ 03:[address] Cosmo Brumfield MD) Hypersomnia (Acute) Altered mental status (Acute) Hyponatremia (Acute) Acute encephalopathy (Acute) Subjective: Patient overnight with no acute events per self and per nursing report however patient has continued to utilize the BiPAP but now attempting full transition to nasal cannula. Patient intermittently sluggish per staff report. Patient with odd affect which is chronic for patient. Patient did have several stools but these were formed per discussion with staff. Patient notes feeling less dyspnea, no market coughing, no fever, chills, nausea, emesis, abdominal pain, myalgias. Objective: Physical Examination: General: awake, alert, oriented to self, place and recent events, remains cooperative, seated upright in bed, no acute distress. Skin: normal color, turgor, no icterus, cyanosis. HEENT: AT/NC, EOMI, PERRLA, MMM. Lungs: Diminished breath sounds throughout, greater bases, moderate effort, transition currently to nasal cannula, no rales, ronchi or wheezing. Heart: Regular rate and rhythm; no gallop, rub audible. Abdomen: soft, morbidly obese, NTTP, ND, distant mildly hyperactive BS. Extremities: no cyanosis, clubbing, bilateral lower extremity not markedly pitting edema. Neurological: patient awake, alert, oriented as noted; cognitive function improving, nearing baseline intact; pupils equally reactive to light and accomodation; cranial nerves II-XII grossly normal, moving all 4 extremities, no focal deficits, strength moderately to severely global decreased. Psychiatric: affect appears flat, no acute evidence of depressive or anxiety feelings. Vitals/I&O's: Vital Signs Temp Pulse Resp BP Pulse Ox 98.4 F 72 15 156/55 H 94 10/30/19 06:28 10/30/19 07:41 10/30/19 06:58 10/30/19 06:28 10/30/19 06:58 Oxygen Flow Rate (L/min) 6 Oxygen Delivery Method Bi-pap Weight: 225 lb 8.526 oz Body Mass Index (BMI) 44.0 Finger Stick Blood Glucose 107 Intake and Output for Last 24 Hours 10/28/19 10/29/19 10/30/19 23:59 23:59 23:59 Intake Total 4037.08 / 4037.08 1570.84 / 1570.84 Output Total 900 / 900 Balance 3137.08 / 3137.08 1570.84 / 1570.84 Microbiology Past 72 Hours 10/29/19 14:30 Urine, Clean Catch Legionella Antigen - Final 10/29/19 14:30 Urine, Clean Catch Streptococcus pneumoniae Antigen (M - Final 10/29/19 13:37 Mucosa - Nose Respiratory Panel (PCR) - Final 10/28/19 21:30 Mucosa - Nose Influenza Types A,B Direct FA ([facility]) - Final Laboratory Results 10/29/19 02:40: Magnesium 2.5, Ferritin 139, Lactate Dehydrogenase 239, C-React Prot Ext Range 57.70 H 10/29/19 02:40: Hemoglobin A1c 9.6 H 10/29/19 05:28: POC Glucose 256 H 10/29/19 10:57: POC Glucose 137 H 10/29/19 11:50: Procalcitonin 0.38 H 10/29/19 14:20: MRSA (PCR) Negative 10/29/19 14:30: Ur Random Sodium 32 10/29/19 14:30: Urine Creatinine 31.90 10/29/19 16:55: POC Glucose 224 H 10/29/19 21:49: POC Glucose 238 H 10/30/19 01:28: POC Glucose 255 H 10/30/19 06:27: POC Glucose 233 H 10/30/19 06:36: WBC 9.4, RBC 3.93 L, Hgb 11.2 L, Hct 34.3 L, MCV 87.3, MCH 28.5, MCHC 32.7, RDW Std Deviation 44.9 H, RDW Coeff of [place] 14.1, Plt Count 263, MPV 9.1, Immature Gran % (Auto) 0.500, Neut % (Auto) 85.6 H, Lymph % (Auto) 8.2 L, [place] % (Auto) 5.2, Eos % (Auto) 0.1, Baso % (Auto) 0.4, Absolute Neuts (auto) 8.0 H, Absolute Lymphs (auto) 0.77 L, Nucleated RBC % 0 10/30/19 06:36: Sodium 135 L, Potassium 3.1 L, Chloride 99, Carbon Dioxide 30.0, Anion Gap 6, BUN 26 H, Creatinine 0.97, Estim Creat Clear Calc 43.75, Est GFR (MDRD) Af Amer 75, Est GFR (MDRD) Non-Af 62, BUN/Creatinine Ratio 26.7 H, Glucose 217 H, Calcium 8.6, Total Bilirubin 0.50, AST 15, ALT 20, Alkaline Phosphatase 86, Total Protein 6.4, Albumin 2.4 L, Globulin 4.0, Albumin/Globulin Ratio 0.6 L Current Medications Acetaminophen (Tylenol) 650 mg RECTAL Q4H PRN PRN PRN Reason: fever, pain 1-10 Acetaminophen (Tylenol) 650 mg PO Q6H PRN PRN PRN Reason: Pain Score 1-10/Temp > 100.7 F Albuterol Sulfate (Ventolin Aerosols) 2.5 mg INHALATION Q2H PRN PRN PRN Reason: Shortness of Breath/Wheezing Last Admin: 10/29/19 10:45 Dose: 2.5 mg Documented by: Albuterol/Ipratropium (Duoneb) 3 ml INHALATION Q4HWA.RT [facility] Last Admin: 10/30/19 06:57 Dose: 3 ml Documented by: Dextrose (D50w Syringe) 0 gm IV X1 PRN; Protocol PRN Reason: Hypoglycemia Enoxaparin Sodium (Lovenox) 40 mg SC DAILY [facility] Last Admin: 10/29/19 11:20 Dose: 40 mg Documented by: Glucagon () 1 mg IM .X1 PRN PRN Reason: Hypoglycemia Hydralazine HCl (Apresoline Iv) 10 mg IV Q4H PRN PRN PRN Reason: SBP > 160 Sodium Chloride () 1,000 mls @ 100 mls/hr IV .Q10H [facility] Last Infusion: 10/30/19 06:00 Dose: 100 mls/hr Documented by: Piperacillin Sod/Tazobactam (Sod 3.375 gm/ Sodium Chloride) 50 mls @ 12.5 mls/hr IV Q8 [facility] Last Admin: 10/30/19 06:33 Dose: 12.5 mls/hr Documented by: Vancomycin IV Pharmacy to Dose (1 ea/ Sodium Chloride) 500 mls @ 250 mls/hr IV PRN PRN; Protocol PRN Reason: Rx to Dose Vancomycin HCl (Vancomycin) 1,000 mg in 200 mls @ 200 mls/hr IV Q12H [facility] Last Infusion: 04/25/20 02:33 Dose: Infused Documented by: Insulin Glargine (Lantus (Bkc)) 30 units SC BID [facility] Last Admin: 10/29/19 21:59 Dose: Not Given Documented by: Insulin Human Lispro (Humalog Kwikpen (Bkc)) 0 unit SC Q6 [facility]; Protocol Last Admin: 10/30/19 06:32 Dose: 4 units Documented by: Methylprednisolone (Solu-Medrol) 40 mg IV Q8 [facility] Last Admin: 10/30/19 06:37 Dose: 40 mg Documented by: Ondansetron HCl (Zofran) 4 mg IV Q8H PRN PRN PRN Reason: NAUSEA/VOMITING Potassium Chloride (K-Dur) 40 meq PO X1 ONE Stop: 10/30/19 07:49 Sodium Chloride () 10 - 40 ml IV UD PRN PRN Reason: SALINE FLUSH Last Admin: 10/30/19 06:37 Dose: 10 ml Documented by: STROKE Vital Signs/Narrative: Vital Signs Temp Pulse Resp BP Pulse Ox 10/30/19 07:41 72 10/30/19 06:58 76 15 94 10/30/19 06:28 98.4 F 74 12 156/55 H 94 Medical Necessity - Tobacco Use Smoking Status: Current every day smoker Assessment/Plan All Active Problems (Last Reviewed 10/29/19 @ 03:[address] Cosmo Brumfield MD) Hypersomnia (Acute) Altered mental status (Acute) Hyponatremia (Acute) Acute encephalopathy (Acute) The patient is a 59 y/o F w/ PMHx: CKD stage III, ENRIQUE (BIPAP q HS), Anxiety and Depression, Chronic COPD w/ Chronic Hypoxic Respiratory Failure (6L, BIPAP q HS), Diabetes mellitus type II with Neuropathy, Morbid obesity, PVD with chronic BL LE venous stasis dermatitis, Tobacco use who presents to the [facility] ED on 10/29/19 with history of recent admission on 10/15/2019 secondary to COPD exacerbation with pneumonia and hypersomnolence at that time who now represents with history of fall, debility, increased weakness with ongoing cough although possibly more purulent sputum production. 1. Acute Encephalopathy secondary to Acute on Chronic Hypoxic Respiratory Failure secondary to Suspected Acute on Chronic COPD Exacerbation and concurrent Bilateral Pneumonia possible GN/GP versus Acute Viral Syndrome, COVID-19: ED work-up included T 97.7, heart rate 83, BP initially 92/45, respiratory at 17, 96% on 4 L nasal cannula, CBC with WC 12.7, hemoglobin 13.8, platelet 286 with left shift and mild lymphopenia but absolute normal, ABG with pH 7.35, PCO2 72, PO2 116 on 4 L nasal cannula with repeat pH 7.42, PCO2 61.9, PO2 70 with baseline PCO2 levels normally 60-62, BMP with sodium 124, potassium 3.3, chloride 83, carbon dioxide 34, BUN/creatinine 37/1.36, glucose 353, troponin less than 0.015, BNP 55.7, COVID testing pending, rapid influenza negative, blood culture x2 pending per ED, CT brain with no acute intracranial findings, left foot with no acute osseous abnormalities, chest x-ray with bilateral infiltrates. Admitted initially as MedSurg, transitioned to PCU status given significant hyponatremia and continuous BiPAP usage upon presentation, weaned successfully now to NS home 6L and BIPAP q HS or with sleeping, continued on ATC duoneb, PRN albuterol, maintained on Zosyn and Vancomycin given chest x-ray with bilateral infiltrates w/ now noted negative MRSA screen thus 10/30/19 will d/c vancomycin. Continued on IV solumedrol. Requested sputum cultures, negative urine antigens, negative respiratory viral panel, 10/29/29 COVID testing sent (had been held unfortunately), CRP 57.7, pro calcitonin 0.38, LDH 239, ferritin 139. Will continue supportive care. Pulmonary following. 2. Acute on Chronic Hyponatremia, unclear specific etiology, possibly hypovolemic hyponatremia with poor oral intake given #1: Admission sodium 124, repeat on 10/29/19 128, magnesium 2.5, TSH 1.07, cortisol 24.10 drawn at 240 in the morning, serum osmolality 289, Beth 32, UCx 31.90, 10/30/19Na 135, near baseline. 3. Hypokalemia: Admission K+ 3.3, supplementation given, repeat level 10/30/2019 3.1, mag normal level, continue to trend. 4. Diabetes mellitus type II: Improve mental status ADA diet initiated, maintained on Lantus 30 u BID, HgBA1c 9.6%, continue accu checks w/ ISS. 5. Chronic Kidney Disease Stage III: Admission BUN/Cr 37/1.36, baseline renal function 1.2-1.6, 10/30/19 BUN/Cr 26/0.97. 6. Tobacco Abuse: Encouraged cessation once more alert. 7. Anxiety and depression: Not on regimen, defer to outpatient. 8. Morbid Obesity: Weight loss and lifestyle changes encouraged. 9. DVT prophylaxis: SCDs, lovenox. Inpatient E&M: 82809 Subs Hosp L2
--- NOTE | 2019-10-30 08:25 | PN_ITS ---
Patient Problems: Active and Suspected Problems (Last Reviewed 10/29/19 @ 03:[address] Cosmo Brumfield MD) Hypersomnia (Acute) Altered mental status (Acute) Hyponatremia (Acute) Acute encephalopathy (Acute) Subjective: The patient was seen and examined at the bedside this morning. Events from the last 24 hours have been reviewed. The patient is currently afebrile, hemodynamically stable and maintaining appropriate oxygen saturations on BIPAP with an FIO2 of 25%. Potassium is low this morning at 3.1. Objective: The patient's most recent lab work, culture data and imaging studies have all been personally reviewed. Respiratory viral panel was negative. Strep and urine Legionella antigens were negative. - Physical Exam Vitals/I&O's: Vital Signs Temp Pulse Resp BP Pulse Ox 98.4 F 72 15 156/55 H 94 10/30/19 06:28 10/30/19 07:41 10/30/19 06:58 10/30/19 06:28 10/30/19 06:58 Oxygen Flow Rate (L/min) 6 Oxygen Delivery Method Bi-pap Weight: 225 lb 8.526 oz Body Mass Index (BMI) 44.0 Finger Stick Blood Glucose 107 Intake and Output for Last 24 Hours 10/28/19 10/29/19 10/30/19 23:59 23:59 23:59 Intake Total 4037.08 / 4037.08 1570.84 / 1570.84 Output Total 900 / 900 Balance 3137.08 / 3137.08 1570.84 / 1570.84 General: Alert, No apparent distress HEENT: Atraumatic, Normocephalic Oral: Moist Mucosa Neck: Supple, No Nodes, Trachea Midline Lungs: No rhonchi, No wheeze, No rales, Diminished Cardiovascular: Regular rate, Regular Rhythm, Normal S1, Normal S2, No murmurs Abdomen: Bowel Sounds Present, Soft, Non Tender, Obese Extremities: No clubbing, No cyanosis, Edema Skin: - - No significant change from previous Musculoskeletal: No Muscle Wasting Lymphatic: No Cervical, Supraclavicular, or Inguinal Adenopathy Neurological: Neuro grossly intact Psych/Mental Status: Normal Affect, Appropriate Labs (Last 48 Hours) 10/28/19 10/28/19 10/28/19 22:27 22:30 22:30 WBC 12.7 H RBC 4.89 Hgb 13.8 Hct 42.0 MCV 85.9 MCH 28.2 MCHC 32.9 RDW Std Deviation 43.6 RDW Coeff of [place] 14.0 Plt Count 286 MPV 9.6 Immature Gran % (Auto) 0.400 Neut % (Auto) 75.9 H Lymph % (Auto) 15.2 L [place] % (Auto) 5.6 Eos % (Auto) 2.5 Baso % (Auto) 0.4 Absolute Neuts (auto) 9.7 H Absolute Lymphs (auto) 1.93 Nucleated RBC % 0 Specimen Type Sample Site pH Bicarbonate Actual POC Total CO2 Base Excess O2 Saturation O2 % ABG pCO2 ABG pO2 Bob Test Respiration Rate O2 Delivery Device Liter Flow EPAP IPAP Blood Gas Notified Whom Blood Gas Notified Time Sodium 124 L Potassium 3.3 L Chloride 83 L Carbon Dioxide 34.0 H Anion Gap 7 BUN 37 H Creatinine 1.36 H Estim Creat Clear Calc 35.93 Est GFR (MDRD) Af Amer 51 L Est GFR (MDRD) Non-Af 42 L BUN/Creatinine Ratio 27.2 H Glucose 353 H Hemoglobin A1c Serum Osmolality Calcium 8.9 Magnesium Ferritin Total Bilirubin AST ALT Alkaline Phosphatase Lactate Dehydrogenase Troponin I < 0.015 C-React Prot Ext Range B-Natriuretic Peptide Total Protein Albumin Globulin Albumin/Globulin Ratio Vitamin B12 Procalcitonin TSH Cortisol Urine Osmolality Ur Random Sodium Urine Creatinine COVID-19 (THAO) MRSA (PCR) POC Glucose 374 H 10/28/19 10/28/19 10/28/19 22:30 22:37 22:46 WBC RBC Hgb Hct MCV MCH MCHC RDW Std Deviation RDW Coeff of [place] Plt Count MPV Immature Gran % (Auto) Neut % (Auto) Lymph % (Auto) [place] % (Auto) Eos % (Auto) Baso % (Auto) Absolute Neuts (auto) Absolute Lymphs (auto) Nucleated RBC % Specimen Type ART Sample Site L RADIAL pH 7.35 Bicarbonate Actual 40.1 H POC Total CO2 42 Base Excess TNP O2 Saturation 98 O2 % ABG pCO2 72.0 H* ABG pO2 116 H Bob Test POS Respiration Rate O2 Delivery Device Nasal Can Liter Flow 4.0 EPAP IPAP Blood Gas Notified Whom ED Blood Gas Notified Time 2246 Sodium Potassium Chloride Carbon Dioxide Anion Gap BUN Creatinine Estim Creat Clear Calc Est GFR (MDRD) Af Amer Est GFR (MDRD) Non-Af BUN/Creatinine Ratio Glucose Hemoglobin A1c Serum Osmolality Calcium Magnesium Ferritin Total Bilirubin AST ALT Alkaline Phosphatase Lactate Dehydrogenase Troponin I C-React Prot Ext Range B-Natriuretic Peptide 55.7 Total Protein Albumin Globulin Albumin/Globulin Ratio Vitamin B12 Procalcitonin TSH Cortisol Urine Osmolality Ur Random Sodium Urine Creatinine COVID-19 (THAO) Pending MRSA (PCR) POC Glucose 10/29/19 10/29/19 10/29/19 02:38 02:40 02:40 WBC RBC Hgb Hct MCV MCH MCHC RDW Std Deviation RDW Coeff of [place] Plt Count MPV Immature Gran % (Auto) Neut % (Auto) Lymph % (Auto) [place] % (Auto) Eos % (Auto) Baso % (Auto) Absolute Neuts (auto) Absolute Lymphs (auto) Nucleated RBC % Specimen Type Sample Site pH Bicarbonate Actual POC Total CO2 Base Excess O2 Saturation O2 % ABG pCO2 ABG pO2 Bob Test Respiration Rate O2 Delivery Device Liter Flow EPAP IPAP Blood Gas Notified Whom Blood Gas Notified Time Sodium Potassium Chloride Carbon Dioxide Anion Gap BUN Creatinine Estim Creat Clear Calc Est GFR (MDRD) Af Amer Est GFR (MDRD) Non-Af BUN/Creatinine Ratio Glucose Hemoglobin A1c Serum Osmolality 289 Calcium Magnesium Ferritin Total Bilirubin AST ALT Alkaline Phosphatase Lactate Dehydrogenase Troponin I C-React Prot Ext Range B-Natriuretic Peptide Total Protein Albumin Globulin Albumin/Globulin Ratio Vitamin B12 281 Procalcitonin TSH Cortisol 24.10 H Urine Osmolality Ur Random Sodium Urine Creatinine COVID-19 (THAO) MRSA (PCR) POC Glucose 339 H 10/29/19 10/29/19 10/29/19 02:40 02:40 02:40 WBC 11.8 H RBC 4.11 L Hgb 11.6 L Hct 34.8 L MCV 84.7 MCH 28.2 MCHC 33.3 RDW Std Deviation 43.0 RDW Coeff of [place] 13.8 Plt Count 286 MPV 9.0 Immature Gran % (Auto) 0.400 Neut % (Auto) 82.4 H Lymph % (Auto) 10.1 L [place] % (Auto) 5.6 Eos % (Auto) 1.2 Baso % (Auto) 0.3 Absolute Neuts (auto) 9.8 H Absolute Lymphs (auto) 1.19 Nucleated RBC % 0 Specimen Type Sample Site pH Bicarbonate Actual POC Total CO2 Base Excess O2 Saturation O2 % ABG pCO2 ABG pO2 Bob Test Respiration Rate O2 Delivery Device Liter Flow EPAP IPAP Blood Gas Notified Whom Blood Gas Notified Time Sodium 128 L Potassium 3.0 L Chloride 86 L Carbon Dioxide 36.0 H Anion Gap 6 BUN 37 H Creatinine 1.25 H Estim Creat Clear Calc 33.95 Est GFR (MDRD) Af Amer 56 L Est GFR (MDRD) Non-Af 46 L BUN/Creatinine Ratio 29.6 H Glucose 324 H Hemoglobin A1c Serum Osmolality Calcium 8.2 L Magnesium Ferritin Total Bilirubin AST ALT Alkaline Phosphatase Lactate Dehydrogenase Troponin I C-React Prot Ext Range B-Natriuretic Peptide Total Protein Albumin Globulin Albumin/Globulin Ratio Vitamin B12 Procalcitonin TSH 1.07 Cortisol Urine Osmolality Ur Random Sodium Urine Creatinine COVID-19 (THAO) MRSA (PCR) POC Glucose 10/29/19 10/29/19 10/29/19 02:40 02:40 02:50 WBC RBC Hgb Hct MCV MCH MCHC RDW Std Deviation RDW Coeff of [place] Plt Count MPV Immature Gran % (Auto) Neut % (Auto) Lymph % (Auto) [place] % (Auto) Eos % (Auto) Baso % (Auto) Absolute Neuts (auto) Absolute Lymphs (auto) Nucleated RBC % Specimen Type Sample Site pH Bicarbonate Actual POC Total CO2 Base Excess O2 Saturation O2 % ABG pCO2 ABG pO2 Bob Test Respiration Rate O2 Delivery Device Liter Flow EPAP IPAP Blood Gas Notified Whom Blood Gas Notified Time Sodium Potassium Chloride Carbon Dioxide Anion Gap BUN Creatinine Estim Creat Clear Calc Est GFR (MDRD) Af Amer Est GFR (MDRD) Non-Af BUN/Creatinine Ratio Glucose Hemoglobin A1c 9.6 H Serum Osmolality Calcium Magnesium 2.5 Ferritin 139 Total Bilirubin AST ALT Alkaline Phosphatase Lactate Dehydrogenase 239 Troponin I C-React Prot Ext Range 57.70 H B-Natriuretic Peptide Total Protein Albumin Globulin Albumin/Globulin Ratio Vitamin B12 Procalcitonin TSH Cortisol Urine Osmolality 269 Ur Random Sodium Urine Creatinine COVID-19 (THAO) MRSA (PCR) POC Glucose 10/29/19 10/29/19 10/29/19 02:50 05:28 05:49 WBC RBC Hgb Hct MCV MCH MCHC RDW Std Deviation RDW Coeff of [place] Plt Count MPV Immature Gran % (Auto) Neut % (Auto) Lymph % (Auto) [place] % (Auto) Eos % (Auto) Baso % (Auto) Absolute Neuts (auto) Absolute Lymphs (auto) Nucleated RBC % Specimen Type ART Sample Site R RADIAL pH 7.42 Bicarbonate Actual 39.7 H POC Total CO2 42 Base Excess 15 H O2 Saturation 93 L O2 % 25 ABG pCO2 61.9 H ABG pO2 70 L Bob Test POS Respiration Rate 12 O2 Delivery Device Bi Pap Liter Flow EPAP 18 IPAP 24 Blood Gas Notified Whom [facility] Blood Gas Notified Time 549 Sodium Potassium Chloride Carbon Dioxide Anion Gap BUN Creatinine Estim Creat Clear Calc Est GFR (MDRD) Af Amer Est GFR (MDRD) Non-Af BUN/Creatinine Ratio Glucose Hemoglobin A1c Serum Osmolality Calcium Magnesium Ferritin Total Bilirubin AST ALT Alkaline Phosphatase Lactate Dehydrogenase Troponin I C-React Prot Ext Range B-Natriuretic Peptide Total Protein Albumin Globulin Albumin/Globulin Ratio Vitamin B12 Procalcitonin TSH Cortisol Urine Osmolality Ur Random Sodium 40 Urine Creatinine COVID-19 (THAO) MRSA (PCR) POC Glucose 256 H 10/29/19 10/29/19 10/29/19 10:57 11:50 14:20 WBC RBC Hgb Hct MCV MCH MCHC RDW Std Deviation RDW Coeff of [place] Plt Count MPV Immature Gran % (Auto) Neut % (Auto) Lymph % (Auto) [place] % (Auto) Eos % (Auto) Baso % (Auto) Absolute Neuts (auto) Absolute Lymphs (auto) Nucleated RBC % Specimen Type Sample Site pH Bicarbonate Actual POC Total CO2 Base Excess O2 Saturation O2 % ABG pCO2 ABG pO2 Bob Test Respiration Rate O2 Delivery Device Liter Flow EPAP IPAP Blood Gas Notified Whom Blood Gas Notified Time Sodium Potassium Chloride Carbon Dioxide Anion Gap BUN Creatinine Estim Creat Clear Calc Est GFR (MDRD) Af Amer Est GFR (MDRD) Non-Af BUN/Creatinine Ratio Glucose Hemoglobin A1c Serum Osmolality Calcium Magnesium Ferritin Total Bilirubin AST ALT Alkaline Phosphatase Lactate Dehydrogenase Troponin I C-React Prot Ext Range B-Natriuretic Peptide Total Protein Albumin Globulin Albumin/Globulin Ratio Vitamin B12 Procalcitonin 0.38 H TSH Cortisol Urine Osmolality Ur Random Sodium Urine Creatinine COVID-19 (THAO) MRSA (PCR) Negative POC Glucose 137 H 10/29/19 10/29/19 10/29/19 14:30 14:30 16:55 WBC RBC Hgb Hct MCV MCH MCHC RDW Std Deviation RDW Coeff of [place] Plt Count MPV Immature Gran % (Auto) Neut % (Auto) Lymph % (Auto) [place] % (Auto) Eos % (Auto) Baso % (Auto) Absolute Neuts (auto) Absolute Lymphs (auto) Nucleated RBC % Specimen Type Sample Site pH Bicarbonate Actual POC Total CO2 Base Excess O2 Saturation O2 % ABG pCO2 ABG pO2 Bob Test Respiration Rate O2 Delivery Device Liter Flow EPAP IPAP Blood Gas Notified Whom Blood Gas Notified Time Sodium Potassium Chloride Carbon Dioxide Anion Gap BUN Creatinine Estim Creat Clear Calc Est GFR (MDRD) Af Amer Est GFR (MDRD) Non-Af BUN/Creatinine Ratio Glucose Hemoglobin A1c Serum Osmolality Calcium Magnesium Ferritin Total Bilirubin AST ALT Alkaline Phosphatase Lactate Dehydrogenase Troponin I C-React Prot Ext Range B-Natriuretic Peptide Total Protein Albumin Globulin Albumin/Globulin Ratio Vitamin B12 Procalcitonin TSH Cortisol Urine Osmolality Ur Random Sodium 32 Urine Creatinine 31.90 COVID-19 (THAO) MRSA (PCR) POC Glucose 224 H 10/29/19 10/30/19 10/30/19 21:49 01:28 06:27 WBC RBC Hgb Hct MCV MCH MCHC RDW Std Deviation RDW Coeff of [place] Plt Count MPV Immature Gran % (Auto) Neut % (Auto) Lymph % (Auto) [place] % (Auto) Eos % (Auto) Baso % (Auto) Absolute Neuts (auto) Absolute Lymphs (auto) Nucleated RBC % Specimen Type Sample Site pH Bicarbonate Actual POC Total CO2 Base Excess O2 Saturation O2 % ABG pCO2 ABG pO2 Bob Test Respiration Rate O2 Delivery Device Liter Flow EPAP IPAP Blood Gas Notified Whom Blood Gas Notified Time Sodium Potassium Chloride Carbon Dioxide Anion Gap BUN Creatinine Estim Creat Clear Calc Est GFR (MDRD) Af Amer Est GFR (MDRD) Non-Af BUN/Creatinine Ratio Glucose Hemoglobin A1c Serum Osmolality Calcium Magnesium Ferritin Total Bilirubin AST ALT Alkaline Phosphatase Lactate Dehydrogenase Troponin I C-React Prot Ext Range B-Natriuretic Peptide Total Protein Albumin Globulin Albumin/Globulin Ratio Vitamin B12 Procalcitonin TSH Cortisol Urine Osmolality Ur Random Sodium Urine Creatinine COVID-19 (THAO) MRSA (PCR) POC Glucose 238 H 255 H 233 H 10/30/19 10/30/19 06:36 06:36 WBC 9.4 RBC 3.93 L Hgb 11.2 L Hct 34.3 L MCV 87.3 MCH 28.5 MCHC 32.7 RDW Std Deviation 44.9 H RDW Coeff of [place] 14.1 Plt Count 263 MPV 9.1 Immature Gran % (Auto) 0.500 Neut % (Auto) 85.6 H Lymph % (Auto) 8.2 L [place] % (Auto) 5.2 Eos % (Auto) 0.1 Baso % (Auto) 0.4 Absolute Neuts (auto) 8.0 H Absolute Lymphs (auto) 0.77 L Nucleated RBC % 0 Specimen Type Sample Site pH Bicarbonate Actual POC Total CO2 Base Excess O2 Saturation O2 % ABG pCO2 ABG pO2 Bob Test Respiration Rate O2 Delivery Device Liter Flow EPAP IPAP Blood Gas Notified Whom Blood Gas Notified Time Sodium 135 L Potassium 3.1 L Chloride 99 Carbon Dioxide 30.0 Anion Gap 6 BUN 26 H Creatinine 0.97 Estim Creat Clear Calc 43.75 Est GFR (MDRD) Af Amer 75 Est GFR (MDRD) Non-Af 62 BUN/Creatinine Ratio 26.7 H Glucose 217 H Hemoglobin A1c Serum Osmolality Calcium 8.6 Magnesium Ferritin Total Bilirubin 0.50 AST 15 ALT 20 Alkaline Phosphatase 86 Lactate Dehydrogenase Troponin I C-React Prot Ext Range B-Natriuretic Peptide Total Protein 6.4 Albumin 2.4 L Globulin 4.0 Albumin/Globulin Ratio 0.6 L Vitamin B12 Procalcitonin TSH Cortisol Urine Osmolality Ur Random Sodium Urine Creatinine COVID-19 (THAO) MRSA (PCR) POC Glucose Microbiology 10/29/19 14:30 Urine, Clean Catch Legionella Antigen - Final 10/29/19 14:30 Urine, Clean Catch Streptococcus pneumoniae Antigen (M - Final 10/29/19 13:37 Mucosa - Nose Respiratory Panel (PCR) - Final 10/28/19 21:30 Mucosa - Nose Influenza Types A,B Direct FA ([facility]EN) - Final Clinical Impression(s) from Imaging Studies Brain CT 10/28/19 22:21 IMPRESSION: Chronic involutional changes of the brain. Electronically Signed: David Mobley MD at 23:49 EDT , Service support , Foot X-Ray 10/28/19 22:22 IMPRESSION: No acute osseous abnormality. at 0000 Reported and signed by: Vijaya Cruz MD Electronically Signed: Vijaya Cruz MD at 0:00 EDT Tel , Service support , Chest X-Ray 10/28/19 23:35 IMPRESSION: Bilateral infiltrates, nonspecific but possibly asymmetric edema and/or infection. at 0006 Reported and signed by: Vijaya Cruz MD Electronically Signed: Vijaya Cruz MD at 0:06 EDT Tel , Service support , Chest X-Ray 10/29/19 11:54 IMPRESSION: Prominence of the right infrahilar region suggestive of enlargement of the right pulmonary artery. Electronically Signed: Sergo Mata, at 12:15 EDT , Service support , Chest X-Ray 10/30/19 05:55 IMPRESSION: No acute findings on this portable exam. Follow-up as clinically indicated. at 0614 Reported and signed by: Vijaya Cruz MD Electronically Signed: Vijaya Cruz MD at 6:14 EDT Tel , Service support , Current Medications Acetaminophen (Tylenol) 650 mg RECTAL Q4H PRN PRN PRN Reason: fever, pain 1-10 Acetaminophen (Tylenol) 650 mg PO Q6H PRN PRN PRN Reason: Pain Score 1-10/Temp > 100.7 F Albuterol Sulfate (Ventolin Aerosols) 2.5 mg INHALATION Q2H PRN PRN PRN Reason: Shortness of Breath/Wheezing Last Admin: 10/29/19 10:45 Dose: 2.5 mg Documented by: Albuterol/Ipratropium (Duoneb) 3 ml INHALATION Q4HWA.RT [facility] Last Admin: 10/30/19 06:57 Dose: 3 ml Documented by: Dextrose (D50w Syringe) 0 gm IV X1 PRN; Protocol PRN Reason: Hypoglycemia Enoxaparin Sodium (Lovenox) 40 mg SC DAILY [facility] Last Admin: 10/29/19 11:20 Dose: 40 mg Documented by: Glucagon () 1 mg IM .X1 PRN PRN Reason: Hypoglycemia Hydralazine HCl (Apresoline Iv) 10 mg IV Q4H PRN PRN PRN Reason: SBP > 160 Sodium Chloride () 1,000 mls @ 100 mls/hr IV .Q10H [facility] Last Infusion: 10/30/19 06:00 Dose: 100 mls/hr Documented by: Piperacillin Sod/Tazobactam (Sod 3.375 gm/ Sodium Chloride) 50 mls @ 12.5 mls/hr IV Q8 [facility] Last Admin: 10/30/19 06:33 Dose: 12.5 mls/hr Documented by: Vancomycin IV Pharmacy to Dose (1 ea/ Sodium Chloride) 500 mls @ 250 mls/hr IV PRN PRN; Protocol PRN Reason: Rx to Dose Vancomycin HCl (Vancomycin) 1,000 mg in 200 mls @ 200 mls/hr IV Q12H [facility] Last Infusion: 10/30/19 02:33 Dose: Infused Documented by: Insulin Glargine (Lantus (Bk)) 30 units SC BID [facility] Last Admin: 10/29/19 21:59 Dose: Not Given Documented by: Insulin Human Lispro (Humalog Kwikpen (Bk)) 0 unit SC Q6 [facility]; Protocol Last Admin: 10/30/19 06:32 Dose: 4 units Documented by: Methylprednisolone (Solu-Medrol) 40 mg IV Q8 [facility] Last Admin: 10/30/19 06:37 Dose: 40 mg Documented by: Ondansetron HCl (Zofran) 4 mg IV Q8H PRN PRN PRN Reason: NAUSEA/VOMITING Sodium Chloride () 10 - 40 ml IV UD PRN PRN Reason: SALINE FLUSH Last Admin: 10/30/19 06:37 Dose: 10 ml Documented by: Medical Necessity - Tobacco Use Smoking Status: Current every day smoker Assessment/Plan All Active Problems (Last Reviewed 10/29/19 @ 03:[address] Cosmo Brumfield MD) Hypersomnia (Acute) Altered mental status (Acute) Hyponatremia (Acute) Acute encephalopathy (Acute) RECOMMENDATIONS: 1. Remove patient from BiPAP and placed on supplemental oxygen. Goal to maintain saturations between 88 and 92%. 2. Continue empiric antimicrobials. 3. Continue scheduled bronchodilators and IV steroids. 4. Await COVID test results. 5. Encourage incentive spirometer use and mobilize patient as tolerated. IMPRESSIONS: 1. Acute on chronic combined respiratory failure Likely secondary to COPD with exacerbation due to underlying healthcare associated pneumonia versus potential viral etiology, including COVID-19. The patient has responded appropriately to BiPAP therapy. Plan to wean from noninvasive positive pressure ventilatory support. The patient does have baseline CO2 retention. Therefore, recommend weaning supplemental oxygen to maintain saturations between 88 and 92%. Continue empiric antimicrobials, pending infectious work-up. Continue scheduled bronchodilators and IV steroids. 2. Hypercarbic encephalopathy Improved. Continue current supportive measures with noninvasive positive pressure ventilatory support. The patient CO2 narcosis has responded appropriately to the aforementioned therapy. Recommend avoiding sedating medications. 3. Obstructive sleep apnea The patient has a baseline BiPAP requirement of 24/18 + 2L/min, based upon split-night sleep study last completed in December 2017. This note was generated with Ipracomation software. It may contain incorrect words, spelling, and punctuation that were not noted in checking the note before signing. Inpatient E&M: 35609 Subs Hosp L2
[2019-10-30] MEDS: Enoxaparin 40 MG/0.4 ML Syringe SC (09:52)
[2019-10-30 13:21] LABS: Bedside Glucose 272 mg/dL (70-110)
[2019-10-30 17:26] LABS: Bedside Glucose 306 mg/dL (70-110)
[2019-10-30] MEDS: Acetaminophen 325 MG Tablet 650 MG PO (22:27)
[2019-10-30 22:41] LABS: Bedside Glucose 255 mg/dL (70-110)
[2019-10-31] VITALS (8 sets, daily range): BP systolic 140–163; BP diastolic 46–74; PULSE 62–71; RESP 12–18; TEMP 36.6–37.1; O2SAT 94–97
[2019-10-31] MEDS: Gabapentin 100 MG Capsule PO (02:39)
[2019-10-31 05:41] LABS: Absolute Lymphocyte Count 0.79 X10^3/uL (0.83-4.51); Absolute Neutrophil Count 6.5 X10^3/uL (2.0-7.7); Basophil# 0.03 X10^3/uL; Basophil% 0.4 % (0-1); Eosinophil# 0.02 X10^3/uL; Eosinophils% 0.3 % (0-5); Hematocrit 32.1 % (37-47); Hemoglobin 10.4 g/dL (12.0-15.0); Lymphocyte # 0.79 X10^3/ul (4.0); Lymphocyte % 10.3 % (19-41); Mean Corp Hgb Conc 32.4 g/dL (32-36); Mean Corpuscular Hgb 28.7 pg (27.0-32.0); Mean Corpuscular Volume 88.4 fL (81-99); Mean Platelet Vol. 9.1 fl (6.2-12.0); Monocyte# 0.24 X10^3/uL; Monocyte% 3.1 % (0-10); NRBC Flagged by Analyzer 0 % (0-5); Neutrophil # 6.54 X10^3/uL (2.7-7.7); Neutrophil % 85.5 % (47-70); Platelet Count 237 K/mm3 (150-450); RBC Distribution Width CV 14.1 % (11.6-14.6); RBC Distribution Width SD 45.7 fl (35.1-43.9); Red Blood Count 3.63 M/mm3 (4.2-5.4); White Blood Count 7.7 K/mm3 (4.4-11.0)
[2019-10-31 05:56] LABS: ALB/GLOB Ratio 0.6 RATIO (0.9-2.4); AST(SGOT) 13 U/L (15-37); Alanine Aminotransfer ALT/SGPT 21 U/L (13-56); Albumin, Serum 2.3 g/dL (3.2-5.0); Alkaline Phosphatase 74 U/L (45-117); Anion Gap 5 (5-15); BUN 20 mg/dL (7-18); BUN/Creat Ratio 23.2 RATIO (10-20); Calcium,Total 8.4 mg/dL (8.5-10.1); Chloride 103 mmol/L (98-107); Creatinine, Serum 0.86 mg/dL (0.55-1.02); EST Glomerular Filtration Rate 71 mL/min (>60); Est Glom Filt Rate - Afr Amer 86 mL/min (>60); Estimated Creatinine Clearance 49.34 ml/min; Globulin 3.7 g/dL (2.2-4.2); Glucose 249 mg/dL (74-106); Potassium 3.7 mmol/L (3.5-5.1); Sodium Level 136 mmol/L (136-145)
[2019-10-31] MEDS: 0.9% Normal Saline 1,000 ML 100 ML IV (06:12)
[2019-10-31] MEDS: Insulin Lispro 100 UNIT/ML INSULN.PEN SC ×2 (06:13→11:22)
[2019-10-31 06:20] LABS: Bedside Glucose 236 mg/dL (70-110)
[2019-10-31] MEDS: Ipratropium/Albuterol Sulfate 3 ML AMPUL.NEB INHALATION (07:33)
[2019-10-31] MEDS: Gabapentin 400 MG Capsule 800 MG PO (08:04)
[2019-10-31] MEDS: Enoxaparin 40 MG/0.4 ML Syringe SC (08:07)
--- NOTE | 2019-10-31 08:29 | PCM.DC ---
- Discharge Diagnoses Current Active Problems: Current Active and Chronic Problems (Last Reviewed 10/29/19 @ 03:[address] Cosmo Brumfield MD) 1. Acute Encephalopathy, Multifactorial, Acute on Chronic Hypoxic Respiratory Failure secondary to Acute on Chronic COPD Exacerbation, Sedative Medication (Narcotics, Flexeril), Hypoventilation Syndrome, RULED OUT Acute Viral Syndrome, COVID-19 2. Acute on Chronic Hyponatremia, resolved, likely secondary to medications, decreased intake 3. Hypokalemia 4. Diabetes mellitus type II 5. Chronic Kidney Disease Stage III 6. Tobacco Abuse 7. Anxiety and depression 8. Morbid Obesity 9. Chronic pain syndrome on chronic narcotics and flexeril in addition to high dose gabapentin You will use the following diet at home:: Calorie/Carbohydrate Controlled (specify 1200, 1400, etc) - ADA 1800/cardiac diet Your food should be the consistency of: Regular Your liquids should be the consistency of: Regular/Thin Discharge Activity: - - Encourage routine regular activity in the home. Please use assist devices as needed. Out of bed for all meals. Call your doctor if you observe: Fever of 101 or Higher, Inability to urinate, Inability to have a bowel movement, Shortness of breath, Dizziness, Fainting spells, Chest pain, Uncontrolled pain Instructions: What Is COPD?, Care for COPD, Traveling with Oxygen, Using Oxygen Safely, Using Oxygen at Home Additional Instructions: Likely your presentation was secondary to Acute on Chronic COPD exacerbation worsened by hypoventilation syndrome and your chronic narcotic and flexeril usage. We recommend decreasing your flexeril and also stretchout the timeline of intake of narcotics. We strongly recommend also follow-up with Pulmonary medicine. Allergies/Adverse Reactions: Allergies amitriptyline Allergy (Verified 10/28/19 22:05) Unknown lisinopril Allergy (Verified 10/28/19 22:05) Angioedema duloxetine [From Cymbalta] Adverse Reaction (Verified 10/28/19 22:05) Upset Stomach pregabalin [From Lyrica] Adverse Reaction (Verified 10/28/19 22:05) bad dreams varenicline [From Chantix] Adverse Reaction (Verified 10/28/19 22:05) Unknown [id number] Allergy (Uncoded 10/28/19 22:05) Other Medications to take at Discharge Fenofibrate [Tricor] 145 mg PO DAILY 05/20/16 Tiotropium M[place]onnell [Spiriva Respimat] 2 puff IH DAILY 05/20/16 Albuterol Aerosols [Ventolin Aerosols] 2.5 mg INHALATION Q6H PRN PRN 02/26/17 Albuterol Inhaler [Ventolin Hfa] 1 - 2 puff INHALATION Q6H PRN PRN 02/26/17 Betamethasone Valerate [Valisone 0.1% Cream (BKC)] 1 applic TOPICAL BID PRN PRN 02/26/17 Fluticasone/Vilanterol [Breo Ellipta 200-25 Mcg INH] 1 puff INHALATION DAILY 02/26/17 Loratadine [Claritin] 10 mg PO DAILY 02/26/17 Omeprazole [Prilosec] 40 mg PO DAILY 02/26/17 Simvastatin [Zocor] 40 mg PO QHS 02/26/17 Aspirin [Aspir-Low] 162 mg PO DAILY 09/10/17 Escitalopram Oxalate [Lexapro] 20 mg PO DAILY 09/10/17 Gabapentin [Neurontin] 800 mg PO Q6H 09/10/17 Insulin Human 70/30 [Novolog Mix 70-30 Flexpen Syrn] 60 units SC BREAKFAST 09/10/17 Fluticasone 110 Mcg [Flovent 110 Mcg] 1 puff INHALATION BID 11/03/17 Topiramate [Topamax] 200 mg PO BID tablet 11/06/17 Furosemide [Lasix] 40 mg PO BID 12/13/18 Magnesium Oxide [Magnesium] 400 mg PO DAILY 12/13/18 Potassium Chloride 20 meq PO BID 12/13/18 Insulin Human 70/30 [Novolog Mix 70-30 Flexpen Syrn] 40 units QHS 10/12/19 Amlodipine [Norvasc] 10 mg PO DAILY #30 tab 10/15/19 Ipratropium/Albuterol Sulfate [Duoneb] 3 ml INHALATION Q4H #30 ampul.neb 10/15/19 Levofloxacin [Levaquin] 500 mg PO DAILY #3 tab 10/31/19 Oxycodone HCl/Acetaminophen [Percocet 5/325] 1 tab PO Q6H PRN PRN 1 Days #1 tab 10/31/19 Prednisone [Deltasone] 40 mg PO DAILY #10 tab 10/31/19 cycloBENZAPRine HCl [Flexeril] 5 mg PO BID PRN PRN #0 10/31/19 The following prescriptions were given: Prednisone [Deltasone] 40 mg PO DAILY #10 tab Transmission Status: Pending to [facility] Levofloxacin [Levaquin] 500 mg PO DAILY #3 tab Transmission Status: Pending to [facility] Oxycodone HCl/Acetaminophen [Percocet 5/325] 1 tab PO Q6H PRN PRN 1 Days #1 tab PRN Reason: pain -04/15 Primary Care Physician: John Burnett DO [Primary Care Provider] - Please follow up with your Primary Care Physician in: Follow-up within 3-5 days to review admission. Test Results: Test results from this visit will be discussed in further detail at your follow-up appointment, if applicable. Please Follow Up With: Bj Benitez DO When: Follow-up within 1-2 weeks, may see [employer]INE [employer]PERATOR. Proposed Discharge Date: 10/31/19
--- NOTE | 2019-10-31 08:36 | DS.PCM_ITS ---
Discharge Date and Diagnosis - Problem List Patient Problems: Active and Suspected Problems (Last Reviewed 10/29/19 @ 03:[address] Cosmo Brumfield MD) Hypersomnia (Acute) Altered mental status (Acute) Hyponatremia (Acute) Acute encephalopathy (Acute) Date of Admission: 10/29/19 Date of Discharge: 10/31/19 - Primary Discharge Diagnosis Active and Suspected Problems (Last Reviewed 10/29/19 @ 03:[address] Cosmo Brumfield MD) 1. Acute Encephalopathy, Multifactorial, Acute on Chronic Hypoxic Respiratory Failure secondary to Acute on Chronic COPD Exacerbation, Sedative Medication (Narcotics, Flexeril), Hypoventilation Syndrome, RULED OUT Acute Viral Syndrome, COVID-19 2. Acute on Chronic Hyponatremia, resolved, likely secondary to medications, decreased intake 3. Hypokalemia 4. Diabetes mellitus type II 5. Chronic Kidney Disease Stage III 6. Tobacco Abuse 7. Anxiety and depression 8. Morbid Obesity 9. Chronic pain syndrome on chronic narcotics and flexeril in addition to high dose gabapentin - Secondary Discharge Diagnosis Chronic Problems (Last Reviewed 10/29/19 @ 03:[address] Cosmo Brumfield MD) Chronic respiratory failure with hypoxia (Chronic) ENRIQUE (obstructive sleep apnea) (Chronic) Anxiety and depression (Chronic) Venous stasis dermatitis of both lower extremities (Chronic) COPD (chronic obstructive pulmonary disease) (Chronic) Diabetic neuropathy (Chronic) Chronic narcotic use (Chronic) Cephalgia (Chronic) Chronic renal failure, stage 3 (moderate) (Chronic) Diastolic congestive heart failure (Chronic) Acute on chronic respiratory failure with hypoxia and hypercapnia (Chronic) Essential (primary) hypertension (Chronic) Morbid obesity (Chronic) Uncontrolled type II diabetes mellitus (Chronic) Nicotine addiction (Chronic) Depression (Chronic) Severe chronic obstructive pulmonary disease (Chronic) Hospital Course and Treatment Dr. Benitez Pulmonary/ICU Operations: None Procedures: EKG Summary of Care Provided: The patient is a 59 y/o F w/ PMHx: CKD stage III, ENRIQUE (BIPAP q HS), Anxiety and Depression, Chronic COPD w/ Chronic Hypoxic Respiratory Failure (6L, BIPAP q HS), Diabetes mellitus type II with Neuropathy, Morbid obesity, PVD with chronic BL LE venous stasis dermatitis, Tobacco use, Chronic pain syndrome on high dose gabapentin, narcotics and flexeril who presented to the [facility] ED on 10/29/19 with history of recent admission on 10/15/2019 secondary to COPD exacerbation with pneumonia and hypersomnolence at that time who now represents with history of fall, debility, increased weakness with ongoing cough although possibly more purulent sputum production. ED work-up included T 97.7, heart rate 83, BP initially 92/45, respiratory at 17, 96% on 4 L nasal cannula, CBC with WC 12.7, hemoglobin 13.8, platelet 286 with left shift and mild lymphopenia but absolute normal, ABG with pH 7.35, PCO2 72, PO2 116 on 4 L nasal cannula with repeat pH 7.42, PCO2 61.9, PO2 70 with baseline PCO2 levels normally 60-62, BMP with sodium 124, potassium 3.3, chloride 83, carbon dioxide 34, BUN/creatinine 37/1.36, glucose 353, troponin less than 0.015, BNP 55.7, COVID testing negative (10/30/19), rapid influenza negative, blood culture x2 NG, CT brain with no acute intracranial findings, left foot with no acute osseous abnormalities, chest x-r ay with bilateral infiltrates. Admitted initially as MedSurg, transitioned to PCU status given significant hyponatremia and BiPAP usage upon presentation, weaned successfully to NS home 6L and BIPAP q HS, continued on ATC duoneb, PRN albuterol, maintained on Zosyn and Vancomycin given chest x-ray with bilateral infiltrates w/ now noted negative MRSA screen thus 10/30/19 d/c vancomycin and completion therapy with levaquin at discharge however repeat CXR following admission CXR without obvious infiltrates and remained afebrile without marked WBC elevation or significant L shift. Additional work-up included negative urine antigens, negative respiratory viral panel, CRP 57.7, pro calcitonin 0.38, LDH 239, ferritin 139. Continued on IV solumedrol with transition to prednisone burst x 5 days at discharge per discussion with pulmonary medicine. Admission sodium 124, repeat on 10/29/19 128, magnesium 2.5, TSH 1.07, cortisol 24.10 drawn at 240 in the morning, serum osmolality 289, Beth 32, UCx 31.90, 10/31/19Na 136, normalized. Given patient's mental status improvement with transition to home oxygen and BiPAP regimen, afebrile, no market WC elevation or left shift felt appropriate for discharge to home with home therapies as declined any detention facility placements with plan to follow-up with primary care physician and referral to pulmonary medicine. DAY OF DISCHARGE PROGRESS NOTE: Subjective: Patient without acute event overnight per self and nursing report. She denies any further dyspnea and wheezing has since resolved. Only complaint is back discomfort. Patient denies fever, chills, nausea, emesis, abdominal pain, chest pain or worsened or recurrent dyspnea. Patient agreeable to discharge to home with offered home therapies as declined offered detention facility which would likely be in the better interest of the patient. Patient will be discharged with follow-up with primary care physician within 3-5 days in addition to pulmonary medicine within 1-2 weeks, MAIL TELLER. Objective: T 98.4, heart 71, BP 1 6055 respiratory rate 18, 96% on 4 L. Physical Examination: General: awake, alert, oriented x 3, taking BIPAP off for transition to NC, ordering breakfast, feels improved. Skin: normal color, turgor, no icterus, cyanosis. HEENT: AT/NC, EOMI, PERRLA, MMM. Lungs: Diminished breath sounds throughout, greater bases, moderate effort, transition currently to nasal cannula, no rales, ronchi or wheezing. Heart: Regular rate and rhythm; no gallop, rub audible. Abdomen: soft, morbidly obese, NTTP, ND, normal BS. Extremities: no cyanosis, clubbing, bilateral lower extremity not markedly pitting edema. Neurological: patient awake, alert, oriented as noted; cognitive function improving, nearing baseline intact; pupils equally reactive to light and accomodation; cranial nerves II-XII grossly normal, moving all 4 extremities, no focal deficits, strength improved, moderately global decreased. Psychiatric: affect appears improved, normalizing, no acute evidence of depressive or anxiety feelings. Assessment and Plan: Please see hospital summary above. Patient Problems: Active and Suspected Problems (Last Reviewed 10/29/19 @ 03:[address] Cosmo Brumfield MD) Hypersomnia (Acute) Altered mental status (Acute) Hyponatremia (Acute) Acute encephalopathy (Acute) - Physical Exam Vitals/I&O's: Vital Signs Temp Pulse Resp BP Pulse Ox 98.4 F 71 18 160/55 H 96 10/31/19 07:56 10/31/19 07:56 10/31/19 07:56 10/31/19 07:56 10/31/19 07:56 Oxygen Flow Rate (L/min) 4 Oxygen Delivery Method Nasal Cannula Weight: 225 lb 8.526 oz Body Mass Index (BMI) 44.0 Finger Stick Blood Glucose 107 Intake and Output for Last 24 Hours 10/29/19 10/30/19 10/31/19 23:59 23:59 23:59 Intake Total 4037.08 / 4037.08 3934.17 / 3934.17 1290 / 1290 Output Total 900 / 900 1050 / 1050 250 / 250 Balance 3137.08 / 3137.08 2884.17 / 2884.17 1040 / 1040 Microbiology Past 72 Hours 10/30/19 09:30 Sputum, Expectorated/Coughed Gram Stain - Final 10/29/19 14:30 Urine, Clean Catch Legionella Antigen - Final 10/29/19 14:30 Urine, Clean Catch Streptococcus pneumoniae Antigen (M - Final 10/29/19 13:37 Mucosa - Nose Respiratory Panel (PCR) - Final 10/28/19 21:30 Mucosa - Nose Influenza Types A,B Direct FA ([facility]EN) - Final Laboratory Results 10/29/19 13:37: COVID-19 (THAO) Not Detected 10/30/19 12:56: POC Glucose 272 H 10/30/19 17:12: POC Glucose 306 H 10/30/19 22:26: POC Glucose 255 H 10/31/19 05:20: WBC 7.7, RBC 3.63 L, Hgb 10.4 L, Hct 32.1 L, MCV 88.4, MCH 28.7, MCHC 32.4, RDW Std Deviation 45.7 H, RDW Coeff of [place] 14.1, Plt Count 237, MPV 9.1, Immature Gran % (Auto) 0.400, Neut % (Auto) 85.5 H, Lymph % (Auto) 10.3 L, [place] % (Auto) 3.1, Eos % (Auto) 0.3, Baso % (Auto) 0.4, Absolute Neuts (auto) 6.5, Absolute Lymphs (auto) 0.79 L, Nucleated RBC % 0 10/31/19 05:20: Sodium 136, Potassium 3.7, Chloride 103, Carbon Dioxide 28.0, Anion Gap 5, BUN 20 H, Creatinine 0.86, Estim Creat Clear Calc 49.34, Est GFR (MDRD) Af Amer 86, Est GFR (MDRD) Non-Af 71, BUN/Creatinine Ratio 23.2 H, Glucose 249 H, Calcium 8.4 L, Total Bilirubin 0.40, AST 13 L, ALT 21, Alkaline Phosphatase 74, Total Protein 6.0 L, Albumin 2.3 L, Globulin 3.7, Albumin/G lobulin Ratio 0.6 L 10/31/19 06:11: POC Glucose 236 H Current Medications Acetaminophen (Tylenol) 650 mg RECTAL Q4H PRN PRN PRN Reason: fever, pain 1-10 Acetaminophen (Tylenol) 650 mg PO Q6H PRN PRN PRN Reason: Pain Score 1-10/Temp > 100.7 F Last Admin: 10/30/19 22:27 Dose: 650 mg Documented by: Albuterol Sulfate (Ventolin Aerosols) 2.5 mg INHALATION Q2H PRN PRN PRN Reason: Shortness of Breath/Wheezing Last Admin: 10/29/19 10:45 Dose: 2.5 mg Documented by: Albuterol/Ipratropium (Duoneb) 3 ml INHALATION Q4HWA.RT [facility] Last Admin: 10/31/19 07:33 Dose: 3 ml Documented by: Dextrose (D50w Syringe) 0 gm IV X1 PRN; Protocol PRN Reason: Hypoglycemia Enoxaparin Sodium (Lovenox) 40 mg SC DAILY [facility] Last Admin: 10/31/19 08:07 Dose: 40 mg Documented by: Gabapentin (Neurontin) 800 mg PO TID [facility] Last Admin: 10/31/19 08:04 Dose: 800 mg Documented by: Glucagon () 1 mg IM .X1 PRN PRN Reason: Hypoglycemia Hydralazine HCl (Apresoline Iv) 10 mg IV Q4H PRN PRN PRN Reason: SBP > 160 Sodium Chloride () 1,000 mls @ 100 mls/hr IV .Q10H [facility] Last Admin: 10/31/19 06:12 Dose: 100 mls/hr Documented by: Piperacillin Sod/Tazobactam (Sod 3.375 gm/ Sodium Chloride) 50 mls @ 12.5 mls/hr IV Q8 [facility] Last Admin: 10/31/19 06:12 Dose: 12.5 mls/hr Documented by: Insulin Glargine (Lantus ([facility])) 30 units SC BID INDRA Last Admin: 10/31/19 08:05 Dose: 30 units Documented by: Insulin Human Lispro (Humalog Kwikpen ([facility])) 0 unit SC ACHS [facility]; Protocol Last Admin: 10/31/19 06:13 Dose: 4 units Documented by: Methylprednisolone (Solu-Medrol) 40 mg IV Q8 INDRA Last Admin: 10/31/19 06:13 Dose: 40 mg Documented by: Ondansetron HCl (Zofran) 4 mg IV Q8H PRN PRN PRN Reason: NAUSEA/VOMITING Sodium Chloride () 10 - 40 ml IV UD PRN PRN Reason: SALINE FLUSH Last Admin: 10/30/19 06:37 Dose: 10 ml Documented by: Discharge Activity: - - Encourage routine regular activity in the home. Please use assist devices as needed. Out of bed for all meals. Call your doctor if you observe: Fever of 101 or Higher, Inability to urinate, Inability to have a bowel movement, Shortness of breath, Dizziness, Fainting spells, Chest pain, Uncontrolled pain Home Medications: Medications to take at Discharge Fenofibrate [Tricor] 145 mg PO DAILY 05/20/16 Tiotropium [place] [Spiriva Respimat] 2 puff IH DAILY 05/20/16 Albuterol Aerosols [Ventolin Aerosols] 2.5 mg INHALATION Q6H PRN PRN 02/26/17 Albuterol Inhaler [Ventolin Hfa] 1 - 2 puff INHALATION Q6H PRN PRN 02/26/17 Betamethasone Valerate [Valisone 0.1% Cream ([facility])] 1 applic TOPICAL BID PRN PRN 02/26/17 Fluticasone/Vilanterol [Breo Ellipta 200-25 Mcg INH] 1 puff INHALATION DAILY 02/26/17 Loratadine [Claritin] 10 mg PO DAILY 02/26/17 Omeprazole [Prilosec] 40 mg PO DAILY 02/26/17 Simvastatin [Zocor] 40 mg PO QHS 02/26/17 Aspirin [Aspir-Low] 162 mg PO DAILY 09/10/17 Escitalopram Oxalate [Lexapro] 20 mg PO DAILY 09/10/17 Gabapentin [Neurontin] 800 mg PO Q6H 09/10/17 Insulin Human 70/30 [Novolog Mix 70-30 Flexpen Syrn] 60 units SC BREAKFAST 09/10/17 Fluticasone 110 Mcg [Flovent 110 Mcg] 1 puff INHALATION BID 11/03/17 Topiramate [Topamax] 200 mg PO BID tablet 11/06/17 Furosemide [Lasix] 40 mg PO BID 12/13/18 Magnesium Oxide [Magnesium] 400 mg PO DAILY 12/13/18 Potassium Chloride 20 meq PO BID 12/13/18 Insulin Human 70/30 [Novolog Mix 70-30 Flexpen Syrn] 40 units QHS 10/12/19 Amlodipine [Norvasc] 10 mg PO DAILY #30 tab 10/15/19 Ipratropium/Albuterol Sulfate [Duoneb] 3 ml INHALATION Q4H #30 ampul.neb 10/15/19 Levofloxacin [Levaquin] 500 mg PO DAILY #3 tab 10/31/19 Oxycodone HCl/Acetaminophen [Percocet 5/325] 1 tab PO Q6H PRN PRN 1 Days #1 tab 10/31/19 Prednisone [Deltasone] 40 mg PO DAILY #10 tab 10/31/19 cycloBENZAPRine HCl [Flexeril] 5 mg PO BID PRN PRN #0 10/31/19 Following Prescrptions Were Given to Patient: Prednisone [Deltasone] 40 mg PO DAILY #10 tab Transmission Status: Pending to [facility] Levofloxacin [Levaquin] 500 mg PO DAILY #3 tab Transmission Status: Pending to [facility] Oxycodone HCl/Acetaminophen [Percocet 5/325] 1 tab PO Q6H PRN PRN 1 Days #1 tab PRN Reason: pain -04/15 Primary Care Physician: John Burnett DO [Primary Care Provider] - Please follow up with your Primary Care Physician in: Follow-up within 3-5 days to review admission. Please Follow Up With: Bj Benitez DO When: Follow-up within 1-2 weeks, may see MAIL TELLER. Patient Instructions: What Is COPD?, Traveling with Oxygen, Using Oxygen Safely, Using Oxygen at Home, Care for COPD Disposition: Home with Home Health Minutes spent on discharge:: 35 Patient Condition:: Fair Medical Necessity - Tobacco Use Smoking Status: Current every day smoker Meaningful Use Info Meaningful Use Diagnoses (Choose all that apply): None applicable Inpatient E&M: 74767 Disch Hosp
--- NOTE | 2019-10-31 08:38 | PCM.PN.PUL ---
Patient Problems: Active and Suspected Problems (Last Reviewed 10/29/19 @ 03:[address] Cosmo Brumfield MD) Hypersomnia (Acute) Altered mental status (Acute) Hyponatremia (Acute) Acute encephalopathy (Acute) Subjective: The patient was seen and examined at the bedside this morning. Events from the last 24 hours have been reviewed. The patient is currently afebrile, hemodynamically stable and maintaining appropriate oxygen saturations on 3 L/min via nasal cannula. The patient tolerated BiPAP overnight. COVID testing was negative. Objective: The patient's most recent lab work, culture data and imaging studies have all been personally reviewed. Infectious work-up has been unrevealing to date. - Physical Exam Vitals/I&O's: Vital Signs Temp Pulse Resp BP Pulse Ox 98.4 F 71 18 160/55 H 96 10/31/19 07:56 10/31/19 07:56 10/31/19 07:56 10/31/19 07:56 10/31/19 07:56 Oxygen Flow Rate (L/min) 4 Oxygen Delivery Method Nasal Cannula Weight: 225 lb 8.526 oz Body Mass Index (BMI) 44.0 Finger Stick Blood Glucose 107 Intake and Output for Last 24 Hours 10/29/19 10/30/19 10/31/19 23:59 23:59 23:59 Intake Total 4037.08 / 4037.08 3934.17 / 3934.17 1290 / 1290 Output Total 900 / 900 1050 / 1050 250 / 250 Balance 3137.08 / 3137.08 2884.17 / 2884.17 1040 / 1040 General: Alert, Cooperative, No apparent distress, - - Sitting in bedside recliner HEENT: Atraumatic, Normocephalic Oral: No Gingival or Mucosal Lesions/ Ulcerations Neck: Supple, No Nodes, Trachea Midline Lungs: No rhonchi, No wheeze, No rales, Diminished Cardiovascular: Regular rate, Regular Rhythm, Normal S1, Normal S2 Abdomen: Bowel Sounds Present, Soft, Non Tender, Obese Extremities: No clubbing, No cyanosis, Edema Skin: - - No significant change from previous Musculoskeletal: No Muscle Wasting Lymphatic: No Cervical, Supraclavicular, or Inguinal Adenopathy Neurological: Neuro grossly intact Psych/Mental Status: Normal Affect, Appropriate Labs (Last 48 Hours) 10/28/19 10/29/19 10/29/19 22:46 02:40 02:40 WBC RBC Hgb Hct MCV MCH MCHC RDW Std Deviation RDW Coeff of [place] Plt Count MPV Immature Gran % (Auto) Neut % (Auto) Lymph % (Auto) [place] % (Auto) Eos % (Auto) Baso % (Auto) Absolute Neuts (auto) Absolute Lymphs (auto) Nucleated RBC % Base Excess TNP Sodium Potassium Chloride Carbon Dioxide Anion Gap BUN Creatinine Estim Creat Clear Calc Est GFR (MDRD) Af Amer Est GFR (MDRD) Non-Af BUN/Creatinine Ratio Glucose Hemoglobin A1c 9.6 H Calcium Magnesium 2.5 Ferritin 139 Total Bilirubin AST ALT Alkaline Phosphatase Lactate Dehydrogenase 239 C-React Prot Ext Range 57.70 H Total Protein Albumin Globulin Albumin/Globulin Ratio Procalcitonin Ur Random Sodium Urine Creatinine COVID-19 ([facility]) MRSA (PCR) POC Glucose 10/29/19 10/29/19 10/29/19 05:28 10:57 11:50 WBC RBC Hgb Hct MCV MCH MCHC RDW Std Deviation RDW Coeff of [place] Plt Count MPV Immature Gran % (Auto) Neut % (Auto) Lymph % (Auto) [place] % (Auto) Eos % (Auto) Baso % (Auto) Absolute Neuts (auto) Absolute Lymphs (auto) Nucleated RBC % Base Excess Sodium Potassium Chloride Carbon Dioxide Anion Gap BUN Creatinine Estim Creat Clear Calc Est GFR (MDRD) Af Amer Est GFR (MDRD) Non-Af BUN/Creatinine Ratio Glucose Hemoglobin A1c Calcium Magnesium Ferritin Total Bilirubin AST ALT Alkaline Phosphatase Lactate Dehydrogenase C-React Prot Ext Range Total Protein Albumin Globulin Albumin/Globulin Ratio Procalcitonin 0.38 H Ur Random Sodium Urine Creatinine COVID-19 ([facility]AO) MRSA (PCR) POC Glucose 256 H 137 H 10/29/19 10/29/19 10/29/19 13:37 14:20 14:30 WBC RBC Hgb Hct MCV MCH MCHC RDW Std Deviation RDW Coeff of [place] Plt Count MPV Immature Gran % (Auto) Neut % (Auto) Lymph % (Auto) [place] % (Auto) Eos % (Auto) Baso % (Auto) Absolute Neuts (auto) Absolute Lymphs (auto) Nucleated RBC % Base Excess Sodium Potassium Chloride Carbon Dioxide Anion Gap BUN Creatinine Estim Creat Clear Calc Est GFR (MDRD) Af Amer Est GFR (MDRD) Non-Af BUN/Creatinine Ratio Glucose Hemoglobin A1c Calcium Magnesium Ferritin Total Bilirubin AST ALT Alkaline Phosphatase Lactate Dehydrogenase C-React Prot Ext Range Total Protein Albumin Globulin Albumin/Globulin Ratio Procalcitonin Ur Random Sodium 32 Urine Creatinine COVID-19 ([facility]AO) Not Detected MRSA (PCR) Negative POC Glucose 10/29/19 10/29/19 10/29/19 14:30 16:55 21:49 WBC RBC Hgb Hct MCV MCH MCHC RDW Std Deviation RDW Coeff of [place] Plt Count MPV Immature Gran % (Auto) Neut % (Auto) Lymph % (Auto) [place] % (Auto) Eos % (Auto) Baso % (Auto) Absolute Neuts (auto) Absolute Lymphs (auto) Nucleated RBC % Base Excess Sodium Potassium Chloride Carbon Dioxide Anion Gap BUN Creatinine Estim Creat Clear Calc Est GFR (MDRD) Af Amer Est GFR (MDRD) Non-Af BUN/Creatinine Ratio Glucose Hemoglobin A1c Calcium Magnesium Ferritin Total Bilirubin AST ALT Alkaline Phosphatase Lactate Dehydrogenase C-React Prot Ext Range Total Protein Albumin Globulin Albumin/Globulin Ratio Procalcitonin Ur Random Sodium Urine Creatinine 31.90 COVID-19 ([facility]AO) MRSA (PCR) POC Glucose 224 H 238 H 10/30/19 10/30/19 10/30/19 01:28 06:27 06:36 WBC 9.4 RBC 3.93 L Hgb 11.2 L Hct 34.3 L MCV 87.3 MCH 28.5 MCHC 32.7 RDW Std Deviation 44.9 H RDW Coeff of [place] 14.1 Plt Count 263 MPV 9.1 Immature Gran % (Auto) 0.500 Neut % (Auto) 85.6 H Lymph % (Auto) 8.2 L [place] % (Auto) 5.2 Eos % (Auto) 0.1 Baso % (Auto) 0.4 Absolute Neuts (auto) 8.0 H Absolute Lymphs (auto) 0.77 L Nucleated RBC % 0 Base Excess Sodium Potassium Chloride Carbon Dioxide Anion Gap BUN Creatinine Estim Creat Clear Calc Est GFR (MDRD) Af Amer Est GFR (MDRD) Non-Af BUN/Creatinine Ratio Glucose Hemoglobin A1c Calcium Magnesium Ferritin Total Bilirubin AST ALT Alkaline Phosphatase Lactate Dehydrogenase C-React Prot Ext Range Total Protein Albumin Globulin Albumin/Globulin Ratio Procalcitonin Ur Random Sodium Urine Creatinine COVID-19 ([facility]AO) MRSA (PCR) POC Glucose 255 H 233 H 10/30/19 10/30/19 10/30/19 06:36 12:56 17:12 WBC RBC Hgb Hct MCV MCH MCHC RDW Std Deviation RDW Coeff of [place] Plt Count MPV Immature Gran % (Auto) Neut % (Auto) Lymph % (Auto) [place] % (Auto) Eos % (Auto) Baso % (Auto) Absolute Neuts (auto) Absolute Lymphs (auto) Nucleated RBC % Base Excess Sodium 135 L Potassium 3.1 L Chloride 99 Carbon Dioxide 30.0 Anion Gap 6 BUN 26 H Creatinine 0.97 Estim Creat Clear Calc 43.75 Est GFR (MDRD) Af Amer 75 Est GFR (MDRD) Non-Af 62 BUN/Creatinine Ratio 26.7 H Glucose 217 H Hemoglobin A1c Calcium 8.6 Magnesium Ferritin Total Bilirubin 0.50 AST 15 ALT 20 Alkaline Phosphatase 86 Lactate Dehydrogenase C-React Prot Ext Range Total Protein 6.4 Albumin 2.4 L Globulin 4.0 Albumin/Globulin Ratio 0.6 L Procalcitonin Ur Random Sodium Urine Creatinine COVID-19 ([facility]AO) MRSA (PCR) POC Glucose 272 H 306 H 10/30/19 10/31/19 10/31/19 22:26 05:20 05:20 WBC 7.7 RBC 3.63 L Hgb 10.4 L Hct 32.1 L MCV 88.4 MCH 28.7 MCHC 32.4 RDW Std Deviation 45.7 H RDW Coeff of [place] 14.1 Plt Count 237 MPV 9.1 Immature Gran % (Auto) 0.400 Neut % (Auto) 85.5 H Lymph % (Auto) 10.3 L [place] % (Auto) 3.1 Eos % (Auto) 0.3 Baso % (Auto) 0.4 Absolute Neuts (auto) 6.5 Absolute Lymphs (auto) 0.79 L Nucleated RBC % 0 Base Excess Sodium 136 Potassium 3.7 Chloride 103 Carbon Dioxide 28.0 Anion Gap 5 BUN 20 H Creatinine 0.86 Estim Creat Clear Calc 49.34 Est GFR (MDRD) Af Amer 86 Est GFR (MDRD) Non-Af 71 BUN/Creatinine Ratio 23.2 H Glucose 249 H Hemoglobin A1c Calcium 8.4 L Magnesium Ferritin Total Bilirubin 0.40 AST 13 L ALT 21 Alkaline Phosphatase 74 Lactate Dehydrogenase C-React Prot Ext Range Total Protein 6.0 L Albumin 2.3 L Globulin 3.7 Albumin/Globulin Ratio 0.6 L Procalcitonin Ur Random Sodium Urine Creatinine COVID-19 ([facility]AO) MRSA (PCR) POC Glucose 255 H 10/31/19 06:11 WBC RBC Hgb Hct MCV MCH MCHC RDW Std Deviation RDW Coeff of [place] Plt Count MPV Immature Gran % (Auto) Neut % (Auto) Lymph % (Auto) [place] % (Auto) Eos % (Auto) Baso % (Auto) Absolute Neuts (auto) Absolute Lymphs (auto) Nucleated RBC % Base Excess Sodium Potassium Chloride Carbon Dioxide Anion Gap BUN Creatinine Estim Creat Clear Calc Est GFR (MDRD) Af Amer Est GFR (MDRD) Non-Af BUN/Creatinine Ratio Glucose Hemoglobin A1c Calcium Magnesium Ferritin Total Bilirubin AST ALT Alkaline Phosphatase Lactate Dehydrogenase C-React Prot Ext Range Total Protein Albumin Globulin Albumin/Globulin Ratio Procalcitonin Ur Random Sodium Urine Creatinine COVID-19 ([facility]AO) MRSA (PCR) POC Glucose 236 H Microbiology 10/30/19 09:30 Sputum, Expectorated/Coughed Gram Stain - Final 10/29/19 14:30 Urine, Clean Catch Legionella Antigen - Final 10/29/19 14:30 Urine, Clean Catch Streptococcus pneumoniae Antigen (M - Final 10/29/19 13:37 Mucosa - Nose Respiratory Panel (PCR) - Final Clinical Impression(s) from Imaging Studies Brain CT 10/28/19 22:21 IMPRESSION: Chronic involutional changes of the brain. Electronically Signed: David Mobley MD at 23:49 EDT , Service support , Foot X-Ray 10/28/19 22:22 IMPRESSION: No acute osseous abnormality. at 0000 Reported and signed by: Vijaya Cruz MD Electronically Signed: Vijaya Cruz MD at 0:00 EDT Tel , Service support , Chest X-Ray 10/28/19 23:35 IMPRESSION: Bilateral infiltrates, nonspecific but possibly asymmetric edema and/or infection. at 0006 Reported and signed by: Vijaya Cruz MD Electronically Signed: Vijaya Cruz MD at 0:06 EDT Tel , Service support , Chest X-Ray 10/29/19 11:54 IMPRESSION: Prominence of the right infrahilar region suggestive of enlargement of the right pulmonary artery. Electronically Signed: Sergo Adolfo, at 12:15 EDT , Service support , Chest X-Ray 10/30/19 05:55 IMPRESSION: No acute findings on this portable exam. Follow-up as clinically indicated. at 0614 Reported and signed by: Vijaya Cruz MD Electronically Signed: Vijaya Cruz MD at 6:14 EDT Tel , Service support , Current Medications Acetaminophen (Tylenol) 650 mg RECTAL Q4H PRN PRN PRN Reason: fever, pain 1-10 Acetaminophen (Tylenol) 650 mg PO Q6H PRN PRN PRN Reason: Pain Score 1-10/Temp > 100.7 F Last Admin: 10/30/19 22:27 Dose: 650 mg Documented by: Albuterol Sulfate (Ventolin Aerosols) 2.5 mg INHALATION Q2H PRN PRN PRN Reason: Shortness of Breath/Wheezing Last Admin: 10/29/19 10:45 Dose: 2.5 mg Documented by: Albuterol/Ipratropium (Duoneb) 3 ml INHALATION Q4HWA.RT INDRA Last Admin: 10/31/19 07:33 Dose: 3 ml Documented by: Dextrose (D50w Syringe) 0 gm IV X1 PRN; Protocol PRN Reason: Hypoglycemia Enoxaparin Sodium (Lovenox) 40 mg SC DAILY [facility] Last Admin: 10/31/19 08:07 Dose: 40 mg Documented by: Gabapentin (Neurontin) 800 mg PO TID [facility] Last Admin: 10/31/19 08:04 Dose: 800 mg Documented by: Glucagon () 1 mg IM .X1 PRN PRN Reason: Hypoglycemia Hydralazine HCl (Apresoline Iv) 10 mg IV Q4H PRN PRN PRN Reason: SBP > 160 Sodium Chloride () 1,000 mls @ 100 mls/hr IV .Q10H [facility] Last Admin: 10/31/19 06:12 Dose: 100 mls/hr Documented by: Piperacillin Sod/Tazobactam (Sod 3.375 gm/ Sodium Chloride) 50 mls @ 12.5 mls/hr IV Q8 [facility] Last Admin: 10/31/19 06:12 Dose: 12.5 mls/hr Documented by: Insulin Glargine (Lantus (Bkc)) 30 units SC BID [facility] Last Admin: 10/31/19 08:05 Dose: 30 units Documented by: Insulin Human Lispro (Humalog Kwikpen (Bk)) 0 unit SC ACHS [facility]; Protocol Last Admin: 10/31/19 06:13 Dose: 4 units Documented by: Methylprednisolone (Solu-Medrol) 40 mg IV Q8 [facility] Last Admin: 10/31/19 06:13 Dose: 40 mg Documented by: Ondansetron HCl (Zofran) 4 mg IV Q8H PRN PRN PRN Reason: NAUSEA/VOMITING Sodium Chloride () 10 - 40 ml IV UD PRN PRN Reason: SALINE FLUSH Last Admin: 10/30/19 06:37 Dose: 10 ml Documented by: Medical Necessity - Tobacco Use Smoking Status: Current every day smoker Assessment/Plan All Active Problems (Last Reviewed 10/29/19 @ 03:[address] Cosmo Brumfield MD) Hypersomnia (Acute) Altered mental status (Acute) Hyponatremia (Acute) Acute encephalopathy (Acute) RECOMMENDATIONS: 1. Wean supplemental oxygen to maintain saturations between 88 and 92%. 2. Continue empiric antimicrobials. 3. Continue scheduled bronchodilators and steroids. 4. Encourage incentive spirometer use and mobilize patient as tolerated. 5. Perform walking oximetry study prior to consideration for discharge home. 6. The patient should ideally follow-up in the pulmonary medicine clinic within 2 weeks of discharge to reestablish care. IMPRESSIONS: 1. Acute on chronic combined respiratory failure Likely secondary to COPD with exacerbation due to possible healthcare associated pneumonia. COVID-19 testing was negative. The patient has responded appropriately to BiPAP therapy. Plan to wean from noninvasive positive pressure ventilatory support. The patient does have baseline CO2 retention. Therefore, recommend weaning supplemental oxygen to maintain saturations between 88 and 92%. Continue empiric antimicrobials, with plans to transition to Levaquin to complete a 7-day treatment course of antibiotics. Continue scheduled bronchodilators. IV steroids can be transitioned to prednisone 40 mg daily with plans for a 5-day burst at discharge. 2. Hypercarbic encephalopathy Improved. Continue current supportive measures with noninvasive positive pressure ventilatory support. The patient CO2 narcosis has responded appropriately to the aforementioned therapy. Recommend avoiding sedating medications. 3. Obstructive sleep apnea The patient has a baseline BiPAP requirement of 24/18 + 2L/min, based upon split-night sleep study last completed in December 2017. This note was generated with [employer] dictation software. It may contain incorrect words, spelling, and punctuation that were not noted in checking the note before signing. Inpatient E&M: 63575 Subs Hosp L2
[2019-10-31] MEDS: oxyCODONE 5 MG Tablet PO (11:48)
[2019-10-31 11:50] LABS: Bedside Glucose 237 mg/dL (70-110)
--- NOTE | 2019-10-31 13:11 | NURSING ---
The QUILLER TENDER wheeled the patient downstairs for discharge and realized the patient does not have a portable O2 tank. When she asked the family what she uses when she leaves the house they stated she doesn't leave the house. This RN contacted the doctor and submitted an order through [employer] for a portable tank as she already utilizes [employer] for her continuous O2 at home.
--- NOTE | 2019-11-01 11:09 | CASEMGMT ---
Social Work Note SW received call from pt's CM Elsie Shannon asking for results of pt's COVID test. SW reviewed chart, pt's COVID test came back negative. MATY updated Elsie of this. MATY updated Elsie that pt discharged home yesterday. MATY faxed discharge paperwork to [facility]. 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
--- NOTE | 2019-11-01 15:36 | CASEMGMT ---
[facility] ROS[facility] Discharge Follow-up Phone Call: JOSLYN: Benny Strata: 3 Call Date: 11/01 19 Discharge Date: 10/31/19 Time of Call: 1535 Duration: 5 min Admitting Diagnosis: Acute Encephalopathy [facility] completed follow-up phone call after recent hospitalization. Patient states she is doing well and had no questions regarding discharge instructions. Patient states she was able to fill prescriptions without any issues. Patient to call and schedule follow-up appts. Patient states that she has lost her glasses, [facility] ROSS instructed patient to speak with security, patient states she has. Patient had no further needs or concerns at this time.
== END 2019-10-31 13:55 | disposition home or self-care (01) | DRG 133 ==
LOC: ED 10-29 01:50 → ICU 10-29 02:08 → MS2 11-01 08:25 → PCU 11-01 08:25
PROVIDERS: Admitting Provider Hospitalist; Emergency Provider Emergency Medicine; PCP Family Medicine; Visit Provider Family Medicine
DX: J96.21 Acute and chronic respiratory failure with hypoxia (principal); J96.22 Acute and chronic respiratory failure with hypercapnia; G93.40 Encephalopathy, unspecified; J44.1 Chronic obstructive pulmonary disease with (acute) exacerbation; G47.10 Hypersomnia, unspecified; E87.1 Hypo-osmolality and hyponatremia; Z68.41 Body mass index [BMI] 40.0-44.9, adult; E87.6 Hypokalemia; I13.0 Hypertensive heart and chronic kidney disease with heart failure and stage 1 through stage 4 chronic kidney disease, or unspecified chronic kidney disease; E11.22 Type 2 diabetes mellitus with diabetic chronic kidney disease; N18.3 Chronic kidney disease, stage 3 (moderate); I50.32 Chronic diastolic (congestive) heart failure; E11.65 Type 2 diabetes mellitus with hyperglycemia; F32.9 Major depressive disorder, single episode, unspecified; F41.9 Anxiety disorder, unspecified; E11.40 Type 2 diabetes mellitus with diabetic neuropathy, unspecified; E66.2 Morbid (severe) obesity with alveolar hypoventilation; G89.4 Chronic pain syndrome; I87.2 Venous insufficiency (chronic) (peripheral); F17.200 Nicotine dependence, unspecified, uncomplicated; Z79.891 Long term (current) use of opiate analgesic; Z79.82 Long term (current) use of aspirin; Z79.51 Long term (current) use of inhaled steroids; Z79.4 Long term (current) use of insulin; Z99.81 Dependence on supplemental oxygen; Z79.899 Other long term (current) drug therapy
CPT/HCPCS: 36415; 36600; 70450; 71045; 73630; 80048; 80053; 82533; 82570; 82607; 82728; 82803; 82962; 83036; 83615; 83735; 83880; 83930; 83935; 84145; 84300; 84443; 84484; 85025; 86140; 87040; 87070; 87205; 87449; 87633; 87635; 87641; 87804; 93005; 94002; 94003; 94640; 96360; 96361; 99251; 99285; J7030; J7040; A4216; G0463; U0004

== ENCOUNTER → 2021-01-24 07:35 | Outpatient (REF) | payer MEDICAID, SELFPAY ==
[2019-10-29 02:22] VITALS: BMI 44.0
== END ==
LOC: OLS.HOSPIC 07:35
PROVIDERS: PCP Family Medicine; Referring Provider Internal Medicine Cardiovascular Disease; Visit Provider Internal Medicine Cardiovascular Disease
DX: Z03.818 Encounter for observation for suspected exposure to other biological agents ruled out (principal)
CPT/HCPCS: 87635; U0005; U0003